=== PATIENT | female | born 1970 | race Caucasian/White ===

== ENCOUNTER 2023-03-21 13:03 | Outpatient (OUT) | payer BC, SELFPAY ==
--- NOTE | 2023-03-21 | XR_ITS ---
[facility] [place] [id number] Patient Name: SRINI ROMAN MRN: [id number] date: 1970 Sex: F Assigned Patient Location: [facility] Current Patient Location: [facility] Accession/Order Number: [id number] Exam Date: 03/21/2023 13:34 Report Date: 03/21/2023 14:04 At the request of: THU DOVER Procedure: XR ankle MACARIO min 3V EXAMINATION: XR ankle MACARIO min 3V HISTORY: BILATERAL ANKLE PAIN COMPARISON: No relevant comparison available. FINDINGS: RIGHT FINDINGS: BONES: No significant arthropathy or acute abnormality. Normal appearance and uniform spacing of the ankle mortise. Calcaneal plantar spur. SOFT TISSUES: No visible soft tissue swelling. OTHER: Negative. LEFT FINDINGS: BONES: Small corticated ossification dorsal to the talonavicular joint, likely sequela of remote injury. No acute fracture, dislocation, bone lesion. Normal appearance and uniform spacing of the ankle mortise. Calcaneal plantar spur. SOFT TISSUES: No visible soft tissue swelling. OTHER: Negative. XR/XR ankle MACARIO min 3V IMPRESSION: RIGHT CONCLUSION: Normal appearance of the ankle joint. LEFT CONCLUSION: Normal appearance of the ankle joint. Suspect sequela of remote injury resulting in small focus of heterotopic bone formation dorsal to the talonavicular joint. Electronically authenticated by: APOLONIA HENSON Date: 03/21/2023 14:04
== END 2023-03-21 13:04 | disposition home or self-care (01) ==
LOC: RAD 13:04
PROVIDERS: PCP Family Medicine; Visit Provider Physician Assistant
DX: M25.572 Pain in left ankle and joints of left foot (principal); M25.571 Pain in right ankle and joints of right foot
CPT/HCPCS: 73610

== ENCOUNTER 2023-03-22 06:47 | Outpatient (OUT) | payer BC, SELFPAY ==
[2023-03-22 07:11] LABS: Basophils Absolute Auto 0.1 10^3/uL (0.0-0.1); Basophils Percent Auto 0.9 % (0.2-2.0); Eosinophils Absolute Auto 0.2 10^3/uL (0.0-0.7); Eosinophils Percent Auto 2.5 % (0.9-7.0); Hematocrit 43.7 % (36.0-48.0); Hemoglobin 14.6 g/dL (12.0-16.0); Immature Granulocytes Abs Auto 0.03 10^3/uL (0.00-0.03); Immature Granulocytes Pct Auto 0.4 % (0.0-0.5); Lymphocytes Percent Auto 26.4 % (20.5-60.0); Mean Corpuscular HGB Conc 33.4 g/dL (29.9-35.2); Mean Corpuscular Hemoglobin 31.3 pg (26.7-34.0); Mean Corpuscular Volume 93.6 fL (81.0-99.0); Mean Platelet Volume 8.9 fL (9.5-13.5); Monocytes Absolute Auto 0.8 10^3/uL (0.3-0.8); Neutrophils Absolute Auto 4.6 10^3/uL (1.4-6.5); Neutrophils Percent Auto 59.8 % (43.0-75.0); Platelet Count 262 10^3/uL (150-450); Red Blood Count 4.67 10^6/uL (4.20-5.40); Red Cell Distribution Width 12.2 % (11.0-15.0); White Blood Count 7.7 10^3/uL (4.0-11.0)
[2023-03-22 09:08] LABS: Free T4 0.95 ng/dL (0.76-1.46)
[2023-03-22 09:14] LABS: Alanine Aminotransferase 37 U/L (14-59); Albumin Globulin Ratio 0.9; Albumin Level 3.3 g/dL (3.4-5.0); Alkaline Phosphatase 56 U/L (46-116); Anion Gap 9.9; Aspartate Amino Transferase 17 U/L (15-37); BUN Creatinine Ratio 11.2; Bilirubin Total 0.3 mg/dL (0.2-1.0); Calcium 8.5 mg/dL (8.5-10.1); Carbon Dioxide 28.5 mmol/L (21.0-32.0); Chloride 103 mmol/L (98-107); Chol HDL Ratio 3.6; Cholesterol 194 mg/dL (<=200); Estimated GFR (African America >60 (>=60); Estimated GFR (Non-African Ame >60 (>=60); Globulin 3.6 g/dL; Glucose 99 mg/dL (74-106); HDL Cholesterol 54 mg/dL (40-60); LDL Cholesterol Calculated 119.2 mg/dL; Potassium 4.4 mmol/L (3.5-5.1); Sodium 137 mmol/L (136-145); Thyroid Stimulating Hormone 6.184 uIU/mL (0.358-3.740); Total Protein 6.9 g/dL (6.4-8.2); Triglycerides 104 mg/dL (<=150); VLDL CHOLESTEROL 20.8 mg/dL
== END 2023-03-22 06:48 | disposition home or self-care (01) ==
LOC: LAB 06:48
PROVIDERS: PCP Family Medicine; Visit Provider Family Medicine
DX: Z00.00 Encounter for general adult medical examination without abnormal findings (principal); E03.9 Hypothyroidism, unspecified
CPT/HCPCS: 36415; 80053; 80061; 84439; 84443; 85025

== ENCOUNTER 2023-04-08 21:01 | Outpatient (REF) | payer BC, SELFPAY ==
[2023-04-11 16:10] LABS: Age Gdln ACOG Testing Note (.); HPV Aptima Negative (Negative); IGP, Aptima HPV, rfx 16/18,45 Note (.)
== END 2023-04-08 21:02 | disposition home or self-care (01) ==
LOC: LAB 21:01
PROVIDERS: PCP Physician Assistant; Visit Provider Obstetrics & Gynecology
DX: Z12.4 Encounter for screening for malignant neoplasm of cervix (principal)
CPT/HCPCS: 87624; G0145

== ENCOUNTER 2023-04-10 10:21 | Outpatient (OUT) | payer BC, SELFPAY ==
--- NOTE | 2023-04-10 10:22 | VEIN_ITS ---
Patient: SRINI ROMAN Exam Date: 04/10/2023 : 1970 Gender:F Ordering : DR KAUR ESPARZA M.D. Admission #: [id number] Family : Order #: [id number] CLICK HERE TO VIEW EXAM RADIOLOGY REPORT PROCEDURE: [facility] FACILITY EST COMPREHENSIVE VEIN CENTER - OFFICE VISIT INITIAL COMPARISON: None. PROGRESS NOTES: [age] year old female who presents with a 20 year history of left leg swelling, pain, burning, stinging, with new onset of symptoms on right side. The patient's left leg symptoms are worse than the right. There has been a progression of symptoms with time. This increases with prolonged leg dependency. The patient describes an improvement with rest, elevation, exercise, compression stockings, and medication. The patient denies any signs and symptoms to suggest arterial ischemia. The patient describes a family history diabetes mellitus type 2. The patient has drinking and smoking history of no alcohol consumption or tobacco use. Patient has a past medical history significant for hysterectomy, cholecystectomy. The patient denies a history of deep venous thrombus or pulmonary embolus. See separate history and physical for medication list. No prior treatment for varicose or spider veins. Long-term use of compression stockings. After review of nurse notes, history and physical exam I discussed at length the pathophysiology of venous hypertension and possible treatments, therapies and strategies available. We discussed at length the importance of elevating the lower extremities above the level of the heart, increased physical activity and compression stocking use. Ultrasound venous reflux study performed today was discussed at length with the patient. The report demonstrates abnormally dilated and incompetent right great saphenous and small saphenous veins along with multiple incompetent varicosities. Abnormally dilated incompetent left great saphenous vein and branch saphenous varicosities. PHYSICAL EXAM: The right leg demonstrates a few varicosities, a few small spider veins, no ulceration, mild-moderate edema, no skin discoloration. The left leg demonstrates a few varicosities, a few small spider veins, no ulceration, mild-moderate edema, no skin discoloration. Both thighs, legs and feet were symmetrically warm to the touch. Good posterior tibial and dorsalis pedis pulses were present bilaterally. VEIN/VC Facility EST Comprehensive IMPRESSION: 1. Bilateral lower extremity venous insufficiency 2. Bilateral lower extremity varicose veins 3. Mild-moderate bilateral lower extremity subcutaneous edema 4. No flow significant arterial disease 5. CEAP: C3, AP, , MI PLAN: 1. Continued use of compression stockings 2. Elevated legs and increased physical activity symptomatic relief 3. Endovenous laser ablation of right great saphenous vein, left great saphenous vein, right small saphenous vein. 4. Microfoam chemical ablation of bilateral incompetent branch saphenous varicosities. 5. Sclerotherapy as needed. Nurse notes, history and physical were reviewed and confirmed, see attached forms. The nurse was present throughout the physical exam and consultation Dictated by: Gurdeep Avendaño M.D. on 04/10/2023 at 14:29 Approved by: Gurdeep Avendaño M.D. on 04/10/2023 at 14:35
--- NOTE | 2023-04-10 10:22 | VEIN_ITS ---
Patient: SRINI ROMAN Exam Date: 04/10/2023 : 1970 Gender:F Ordering : DR KAUR ESPARZA M.D. Admission #: [id number] Family : Order #: [id number] CLICK HERE TO VIEW EXAM RADIOLOGY REPORT PROCEDURE: VC EXT VENOUS REFLUX MACARIO LMTD COMPARISON: None. INDICATIONS: Pain due to varicose veins of bilateral legs I83.813 TECHNIQUE: Duplex imaging of the lower extremity to assess the deep and superficial venous system for the presence of deep or superficial venous incompetence and to document the location and severity of disease. The study includes evaluation of the great saphenous vein (GSV), anterior accessory saphenous vein (AASV) and small saphenous vein (SSV). Patient scanned in reverse Trendelenburg and standing. FINDINGS: RIGHT LOWER EXTREMITY: Saphenofemoral Junction Reflux: Yes 8.6mm 0.9 sec GSV: Diam (mm) Reflux/ Time (sec) Proximal Thigh 9.0 Yes 0.8 Mid Thigh 4.6 Yes 4.1 Distal Thigh 6.4 Yes 2.9 Prox Calf 3.8 Yes 0.3 Mid Calf 3.0 Yes 0.3 Saphenopopliteal Junction Reflux: 5.8mm Yes 2.2 SSV: Proximal Calf 6.0 Yes 1.6 Mid Calf 3.6 Yes 0.4 AASV: Proximal Thigh 5.5 Yes 1.0 Mid Thigh 2.6 Yes 0.5 Distal Thigh Thrombi: No acute or chronic thrombus. Compressibility: Normal. Flow: Minimal deep venous reflux. Preforator: Mid medial lower leg 3.2 mm with 4.5s reflux. Proximal posterior calf into gastroc 4.4 mm with 0.4s reflux. Medial knee 3.0 mm with 1.4s reflux. Tech Note: Incompetent varicose vein proximal medial calf measures 4.1 mm with 0.9s reflux. Medial knee varicose vein measures 4.0 mm with 3.7s reflux. LEFT LOWER EXTREMITY: Saphenofemoral Junction Reflux: Yes 8.0 mm 0.6 sec GSV: Diam (mm) Reflux/Time (sec) Proximal Thigh 9.8 Yes 0.8 Mid Thigh 5.0 Yes 0.7 Distal Thigh 5.7 Yes 0.8 Prox Calf 4.6 Yes 4.6 Mid Calf 3.2 Yes 4.8 Saphenopopliteal Junction Relux: 2.5 mm Yes 0.2 SSV: Proximal Calf 4.1 Yes 0.2 Mid Calf 3.8 Yes 0.2 AASV: Proximal Thigh 6.0 No Mid Thigh 3.3 Yes 0.3 Distal Thigh Thrombi: No acute or chronic thrombus. Compressibility: Normal. Flow: Minimal deep venous reflux. Translator/Interpreter: Proximal posterior calf into gastroc 2.8 mm with 0.5s reflux. Tech Note: Thigh extention of left SSV. Incompetent varicose vein mid posterior calf measures 4.0 mm with 0.2s reflux. Mid medial calf varicose vein measures 2.0 mm with 0.3s reflux. CONCLUSION: 1. Abnormally dilated and incompetent bilateral great saphenous veins and right small saphenous vein. 2. Consultation for endovenous ablation should be considered. Dictated by: Gurdeep Avendaño M.D. on 04/10/2023 at 11:36 Approved by: Gurdeep Avendaño M.D. on 04/10/2023 at 14:29
== END 2023-04-10 10:22 | disposition home or self-care (01) ==
LOC: VC 10:21
PROVIDERS: PCP Physician Assistant; Visit Provider Radiology Diagnostic Radiology
DX: R60.0 Localized edema (principal); I83.813 Varicose veins of bilateral lower extremities with pain
CPT/HCPCS: 93970; G0463

== ENCOUNTER 2023-06-04 13:54 | Outpatient (OUT) | payer BC, SELFPAY ==
--- NOTE | 2023-06-04 13:56 | VEIN_ITS ---
[address] [address] Patient Name: ZANDRA ROMAN MRN: [id number] date: 1970 Sex: F Assigned Patient Location: Current Patient Location: Accession/Order Number: [id number] Exam Date: 06/04/2023 14:35 Report Date: 06/04/2023 16:23 At the request of: KAUR ESPARZA Procedure: VC Endovenous Ablation 1VeinRT EXAMINATION: VC Endovenous Ablation 1VeinRT HISTORY: Pain due to varicose veins of bilateral legs I83.813 The risks and benefits of the procedure had been previously discussed, and were rediscussed at length. Informed written consent was obtained. Valeria Galindo RN and Maria Ines Myers RDMS, RVT assisted. Time out procedure was performed. The right lower extremity was prepared and draped in the usual sterile fashion to allow knee flexion in the sterile field. Duplex ultrasound probe was draped in a sterile cover, sterile transmission gel was used. Venous mapping was performed with the areas of dilation and large tributaries marked. The total length was 33 cm from the entry proximal calf to 3 cm below the Saphenofemoral junction. The diameter of the right great saphenous vein ranged from 9.0 mm. A 30 gauge needle and 1% buffered lidocaine was used to anesthetize the entry site. A 4 mm incision was made with a scalpel and the saphenous vein was entered percutaneously under direct ultrasound guidance with a micropuncture set, a single stick was successful in gaining access. A micro-guide wire was inserted and the needle removed. A micro-set including a dilator was inserted over the microwire and the needle and dilator were removed. A guide wire was inserted through the micro-set and guided through the saphenous vein to the saphenofemoral junction. The dilator was removed and an introducer sheath was inserted over the wire until the end of the sheath entered the saphenofemoral junction. The dilator and wire were removed and the 600 micron fiber was introduced and placed and positioned so that it extended beyond the sheath and was 3 cm distal to the saphenofemoral or saphenopopliteal junction. Final position of the fiber was determined by ultrasound guidance and duplex imaging. Tumescent anesthetic was delivered by ultrasound guidance. 200 cc of fluid was delivered along the entire course of the saphenous vein. The solution consisted of 1000 cc of normal saline with 40 mL of 1% lidocaine and 20 mL of sodium bicarbonate. A final positioning check was made. The energy source was turned on by means of the foot pedal and the fiber and sheath were withdrawn. The total number of Joules delivered was 1785. The laser was active for 223 seconds under continuous pulse, average laser use of 8 J. Laser start time 3:11 PM, 06/04/2023. Laser stop time 3:16 PM, 06/04/2023. A duplex ultrasound revealed compressibility and flow at the saphenofemoral junction immediately after the procedure. Hemostasis at the access site was achieved. The skin incision of the saphenous vein was closed with a 4 x 4. A compression stocking was applied. Postop instructions were given. A follow up appointment was recommended and scheduled. The patient tolerated the procedure well. Electronically authenticated by: APOLONIA HESNON Date: 06/04/2023 16:23
[2023-06-04] MEDS: LIDOCAINE HCL 1% 100 MG/10 ML MDV INJ (15:38)
[2023-06-04] MEDS: 0.9 % SODIUM CHLORIDE 500 ML, LIDOCAINE HCL 20 ML, SODIUM BICARBONATE 10 MEQ INJ (15:39)
== END 2023-06-04 13:55 | disposition home or self-care (01) ==
LOC: VC 13:55
PROVIDERS: PCP Radiology Diagnostic Radiology; Visit Provider Radiology Diagnostic Radiology
DX: I83.813 Varicose veins of bilateral lower extremities with pain (principal)
CPT/HCPCS: 36478

== ENCOUNTER 2023-06-10 10:25 | Outpatient (OUT) | payer BC, SELFPAY ==
--- NOTE | 2023-06-10 10:27 | VEIN_ITS ---
Patient Name: ZANDRA ROMAN MR#: [id number] : 1970 Exam Date: 06/10/2023 Ordering Doctor: DR KAUR ESPARZA M.D. RADIOLOGY REPORT PROCEDURE: VC EXT VENOUS RT LMTD COMPARISON: None. INDICATIONS: Phlebitis of superficial vein of rt lower extremity I80.01 TECHNIQUE: Lower extremity navarro scale and Duplex Doppler evaluation of the deep venous system from the inguinal ligament through the calf veins. FINDINGS: REGION: Right lower extremity. THROMBI: Negative for DVT. Heat induced thrombus visualized 1.7cm from the SFJ. The heat induced thrombus extends from groin to proximal calf. COMPRESSIBILITY: Non-compressible segments corresponding to thrombus FLOW: Areas of no flow corresponding to thrombus OTHER: CONCLUSION: 1. Successful post ablation occlusion of right great saphenous vein. Dictated by: Gurdeep Avendaño M.D. on 06/10/2023 at 12:10 Approved by: Gurdeep Avendaño M.D. on 06/10/2023 at 12:11
--- NOTE | 2023-06-10 10:28 | VEIN_ITS ---
Patient Name: ZANDRA ROMAN MR#: [id number] : 1970 Exam Date: 06/10/2023 Ordering Doctor: DR KAUR ESPARZA M.D. RADIOLOGY REPORT PROCEDURE: FACILITY EST LMTD VEIN CENTER - OFFICE VISIT FOLLOW UP COMPARISON: None. PROGRESS NOTES: The patient reports improvement in leg symptoms. There has been interval reduction in varicosities. The patient has followed our recommendations to walk 20-30 minutes once or twice per day since the procedure. Physical exam demonstrates decrease in varicosities of the leg. No bruising, erythema, or evidence of infection. Review of the ultrasound performed the same day demonstrates occlusive thrombus extending throughout the treated vein(s), see separate report, consistent with a successful ablation. No thrombus extending into or beyond the saphenofemoral junction. The patient expressed a desire to proceed with treatment of remaining dilated and incompetent varicosities. The patient was informed that treatment was a process and would require several procedures/sessions. VEIN/ Facility EST TD IMPRESSION: 1. Successful ablation of the right great saphenous vein(s). 2. Persistent varicose veins and lower extremity symptoms. PLAN: 1. Endovenous laser ablation of left great saphenous vein. Nurse notes, history and physical were reviewed and confirmed, see attached forms. The nurse was present throughout the physical exam and consultation Dictated by: Gurdeep Avendaño M.D. on 06/10/2023 at 12:11 Approved by: Gurdeep Avendaño M.D. on 06/10/2023 at 12:12
== END 2023-06-10 10:26 | disposition home or self-care (01) ==
LOC: VC 10:25
PROVIDERS: PCP Radiology Diagnostic Radiology; Visit Provider Radiology Diagnostic Radiology
DX: I80.01 Phlebitis and thrombophlebitis of superficial vessels of right lower extremity (principal)
CPT/HCPCS: 93971; G0463

== ENCOUNTER 2023-06-25 12:41 | Outpatient (OUT) | payer BC, SELFPAY ==
--- NOTE | 2023-06-25 12:43 | VEIN_ITS ---
The [address] [address] Patient Name: ZANDRA ROMAN MRN: [id number] date: 1970 Sex: F Assigned Patient Location: Current Patient Location: Accession/Order Number: [id number] Exam Date: 06/25/2023 13:13 Report Date: 06/25/2023 14:55 At the request of: KAUR ESPARZA Procedure: VC Endovenous Ablation 1VeinLT EXAMINATION: VC Endovenous Ablation 1VeinLT HISTORY: Pain due to varicose veins of bilateral legs I83.813 The risks and benefits of the procedure had been previously discussed, and were rediscussed at length. Informed written consent was obtained. Valeria Galindo RN and Maria Ines Myers RDMS, RVT assisted. Time out procedure was performed. The left lower extremity was prepared and draped in the usual sterile fashion to allow knee flexion in the sterile field. Duplex ultrasound probe was draped in a sterile cover, sterile transmission gel was used. Venous mapping was performed with the areas of dilation and large tributaries marked. The total length was 46 cm from the entry mid and upper calf to 3 cm below the Saphenofemoral junction. The diameter of the left great saphenous vein ranged from 9.8 mm. A 30 gauge needle and 1% buffered lidocaine was used to anesthetize the entry site. A 4 mm incision was made with a scalpel and the saphenous vein was entered percutaneously under direct ultrasound guidance with a micropuncture set, a single stick was successful in gaining access. A micro-guide wire was inserted and the needle removed. A micro-set including a dilator was inserted over the microwire and the needle and dilator were removed. A guide wire was inserted through the micro-set and guided through the saphenous vein to the saphenofemoral junction. The dilator was removed and an introducer sheath was inserted over the wire until the end of the sheath entered the saphenofemoral junction. The dilator and wire were removed and the 600 micron fiber was introduced and placed and positioned so that it extended beyond the sheath and was 3 cm distal to the saphenofemoral or saphenopopliteal junction. Final position of the fiber was determined by ultrasound guidance and duplex imaging. Tumescent anesthetic was delivered by ultrasound guidance. 200 cc of fluid was delivered along the entire course of the saphenous vein. The solution consisted of 1000 cc of normal saline with 40 mL of 1% lidocaine and 20 mL of sodium bicarbonate. A final positioning check was made. The energy source was turned on by means of the foot pedal and the fiber and sheath were withdrawn. The total number of Joules delivered was 2393. The laser was active for 299 seconds under continuous pulse, average laser use of 8 J. Laser start time 1:28 PM, 06/25/2023. Laser stop time 1:33 PM, 06/25/2023. A duplex ultrasound revealed compressibility and flow at the saphenofemoral junction immediately after the procedure. Hemostasis at the access site was achieved. The skin incision of the saphenous vein was closed with a 4 x 4. A compression stocking was applied. Postop instructions were given. A follow up appointment was recommended and scheduled. The patient tolerated the procedure well. Electronically authenticated by: APOLONIA HENSON Date: 06/25/2023 14:55
[2023-06-25] MEDS: LIDOCAINE HCL 1% 100 MG/10 ML MDV INJ (13:23)
[2023-06-25] MEDS: 0.9 % SODIUM CHLORIDE 500 ML, LIDOCAINE HCL 20 ML, SODIUM BICARBONATE 10 MEQ INJ (13:24)
== END 2023-06-25 12:42 | disposition home or self-care (01) ==
LOC: VC 12:41
PROVIDERS: PCP Radiology Diagnostic Radiology; Visit Provider Radiology Diagnostic Radiology
DX: I83.813 Varicose veins of bilateral lower extremities with pain (principal)
CPT/HCPCS: 36478

== ENCOUNTER 2023-07-01 07:29 | Outpatient (OUT) | payer BC, SELFPAY ==
--- NOTE | 2023-07-01 07:32 | VEIN_ITS ---
Patient Name: ZANDRA ROMAN MR#: [id number] : 1970 Exam Date: 07/01/2023 Ordering Doctor: DR MENDOZA PEDRO M.D. RADIOLOGY REPORT PROCEDURE: VC EXT VENOUS LT LIMITED COMPARISON: None. INDICATIONS: Phlebitis of superficial veins of lt lower extremity I80.02 TECHNIQUE: Lower extremity navarro scale and Duplex Doppler evaluation of the deep venous system from the inguinal ligament through the calf veins. FINDINGS: REGION: Left lower extremity. THROMBI: Negative for DVT. Heat induced thrombus visualized 1.9 cm from SFJ. Heat induced thrombus visualized from groin to proximal calf. COMPRESSIBILITY: Non-compressible segments corresponding to thrombus FLOW: Areas of no flow corresponding to thrombus CONCLUSION: 1. Post ablation occlusion of the left great saphenous vein with heat induced thrombus 1.9 cm from the saphenofemoral junction Dictated by: Mendoza Pedro MD on 07/01/2023 at 07:49 Approved by: Mendoza Pedro MD on 07/01/2023 at 07:52
--- NOTE | 2023-07-01 07:33 | VEIN_ITS ---
Patient Name: ZANDRA ROMAN MR#: [id number] : 1970 Exam Date: 07/01/2023 Ordering Doctor: DR MENDOZA PEDRO M.D. RADIOLOGY REPORT PROCEDURE: [facility] EST LMTD VEIN CENTER - OFFICE VISIT FOLLOW UP [facility] PROGRESS NOTES: The patient reports some mild pain of the left medial thigh following intravenous laser ablation of the left great saphenous vein. The patient does report some bruising. The patient did not require analgesics. The patient has worn her compression stockings as directed. The patient has followed our recommendations to walk 20-30 minutes once or twice per day since the procedure. Physical exam demonstrates multiple areas of bruising with some moderate bruising measuring 20 x 10 cm along the left medial proximal to mid thigh. Thrombosed left great saphenous vein can be partially palpated. No erythema or warmth to suggest cellulitis or thrombophlebitis. No active ulceration. Review of the ultrasound performed the same day demonstrates occlusive thrombus extending throughout the treated left great saphenous vein with heat induced thrombus 1.9 cm from the saphenofemoral junction. The patient expressed a desire to proceed with treatment of incompetent right small saphenous vein intravenous laser ablation. VEIN/[facility] EST LMTD IMPRESSION: 1. Successful ablation of the left great saphenous vein 2. Persistent incompetent right small saphenous vein. PLAN: Intravenous laser ablation right small saphenous vein Nurse notes, history and physical were reviewed and confirmed, see attached forms. The nurse was present throughout the physical exam and consultation Dictated by: Mendoza Pedro MD on 07/01/2023 at 08:19 Approved by: Mendoza Pedro MD on 07/01/2023 at 08:21
== END 2023-07-01 07:30 | disposition home or self-care (01) ==
LOC: VC 07:29
PROVIDERS: PCP Radiology Diagnostic Radiology; Visit Provider Radiology Diagnostic Radiology
DX: I80.02 Phlebitis and thrombophlebitis of superficial vessels of left lower extremity (principal)
CPT/HCPCS: 93971; G0463

== ENCOUNTER 2023-07-09 13:25 | Outpatient (OUT) | payer BC, SELFPAY ==
--- NOTE | 2023-07-09 13:26 | VEIN_ITS ---
[address] [address] Patient Name: ZANDRA ROMAN MRN: [id number] date: 1970 Sex: F Assigned Patient Location: Current Patient Location: Accession/Order Number: [id number] Exam Date: 07/09/2023 13:30 Report Date: 07/09/2023 14:37 At the request of: KAUR ESPARZA Procedure: VC Endovenous Ablation 1VeinRT EXAMINATION: VC Endovenous Ablation 1VeinRT small saphenous vein HISTORY: I83.813 Bilateral painful varicose veins COMPARISON: No relevant comparison available. TECHNIQUE: The risks and benefits of the procedure had been previously discussed, and were rediscussed at length. Informed written consent was obtained. Nancy Myers and Valeria Awad assisted. Time out procedure was performed. The right lower extremity was prepared and draped in the usual sterile fashion to allow knee flexion in the sterile field. Duplex ultrasound probe was draped in a sterile cover, sterile transmission gel was used. Venous mapping was performed with the areas of dilation and large tributaries marked. The total length was 17 cm from the entry mid to distal calf 2 where the pain begins to dive deep to the saphenofemoral popliteal junction. The diameter of the small saphenous vein ranged from 5-6 mm. A 30 gauge needle and 1% buffered lidocaine was used to anesthetize the entry site. A 4 mm incision was made with a scalpel and the saphenous vein was entered percutaneously under direct ultrasound guidance with a micropuncture set, a single stick was successful in gaining access. A micro-guide wire was inserted and the needle removed. A micro-set including a dilator was inserted over the microwire and the needle and dilator were removed. A 0.018 guide wire was inserted through the micro-set and threaded through the saphenous vein to the saphenofemoral junction. The dilator was removed and an introducer sheath was inserted over the wire until the end of the sheath entered the saphenofemoral junction. The dilator and wire were removed and the 600 micron fiber was introduced and placed and positioned so that it extended beyond the sheath and was 3 cm peripheral to the saphenofemoral femoral junction. Final position of the fiber was determined by ultrasound guidance and duplex imaging. Tumescent anesthetic was delivered by ultrasound guidance. 100 cc of fluid was delivered along the entire course of the saphenous vein. The solution consisted of 1000 cc of normal saline with 40 mL of 1% lidocaine and 20 mL of sodium bicarbonate. A final positioning check was made. The energy source was turned on by means of the foot pedal and the fiber and sheath were withdrawn. The total number of Joules delivered was 790. The laser was active for 99 seconds under continuous pulse, average laser use of 8 J. Laser start time 1:57 pm 07/09/23 . Laser stop time 1:59 pm 07/09/23 . A duplex ultrasound revealed compressibility and flow at the saphenofemoral junction immediately after the procedure. Hemostasis at the access site was achieved. The skin incision of the saphenous vein was closed with a 4 x 4. A compression stocking was applied. Postop instructions were given. A follow up appointment was recommended and scheduled. The patient tolerated the procedure well and was discharged in good condition . VEIN/VC Endovenous Ablation 1VeinRT IMPRESSION: Technically successful endovenous laser ablation of right small saphenous vein Electronically authenticated by: KAUR ESPARZA Date: 07/09/2023 14:37
[2023-07-09] MEDS: LIDOCAINE HCL 1% 100 MG/10 ML MDV INJ (14:16)
[2023-07-09] MEDS: 0.9 % SODIUM CHLORIDE 500 ML, LIDOCAINE HCL 20 ML, SODIUM BICARBONATE 10 MEQ INJ (14:17)
== END 2023-07-09 13:26 | disposition home or self-care (01) ==
LOC: VC 13:25
PROVIDERS: PCP Radiology Diagnostic Radiology; Visit Provider Radiology Diagnostic Radiology
DX: I83.813 Varicose veins of bilateral lower extremities with pain (principal)
CPT/HCPCS: 36478

== ENCOUNTER 2023-07-17 07:52 | Outpatient (OUT) | payer BC, SELFPAY ==
--- NOTE | 2023-07-17 07:54 | VEIN_ITS ---
Patient Name: ZANDRA ROMAN MR#: [id number] : 1970 Exam Date: 07/17/2023 Ordering Doctor: DR KAUR ESPARZA M.D. RADIOLOGY REPORT PROCEDURE: VC EXT VENOUS RT LMTD COMPARISON: VC EXT VENOUS RT LMTD, 06/10/2023. INDICATIONS: Phlebitis of superficial veins of rt lower extremity I80.01 TECHNIQUE: Lower extremity navarro scale and Duplex Doppler evaluation of the deep venous system from the inguinal ligament through the calf veins. FINDINGS: REGION: Right lower extremity. THROMBI: Negative for DVT. Heat induced thrombus visualized 2.1cm from the SFJ. The heat induced thrombus extends from pop fossa to mid calf. COMPRESSIBILITY: Non-compressible segments corresponding to thrombus FLOW: Areas of no flow corresponding to thrombus OTHER: CONCLUSION: 1. Successful post ablation occlusion of right small saphenous vein. Dictated by: Gurdeep Avendaño M.D. on 07/17/2023 at 08:38 Approved by: Gurdeep Avednaño M.D. on 07/17/2023 at 08:38
--- NOTE | 2023-07-17 07:54 | VEIN_ITS ---
Patient Name: ZANDRA ROMAN MR#: [id number] : 1970 Exam Date: 07/17/2023 Ordering Doctor: DR KAUR ESPARZA M.D. RADIOLOGY REPORT PROCEDURE: [facility] - OFFICE VISIT FOLLOW UP COMPARISON: [facility], 07/01/2023. PROGRESS NOTES: The patient reports improvement in leg symptoms. There has been interval reduction in varicosities. The patient has followed our recommendations to walk 20-30 minutes once or twice per day since the procedure. Physical exam demonstrates decrease in varicosities of the leg. Persistent varicosities are identified along the legs bilaterally. Review of the ultrasound performed the same day demonstrates occlusive thrombus extending throughout the treated vein(s), see separate report, consistent with a successful ablation. No thrombus extending into or beyond the saphenofemoral junction. The patient expressed a desire to proceed with treatment of incompetent branch saphenous varicosities. The patient was informed that treatment was a process and would require 2-3 procedures/sessions. [facility]: 1. Successful ablation of the right small saphenous vein(s). 2. Persistent dilated superficial varicose veins and lower extremity symptoms. PLAN: 1. Follow-up evaluation in 3-6 weeks to determine residual incompetent branch saphenous varicosities versus decompression/resolution. If there are remaining dilated / incompetent varicosities than microfoam chemical ablation will be recommended. Nurse notes, history and physical were reviewed and confirmed, see attached forms. The nurse was present throughout the physical exam and consultation Dictated by: Gurdeep Avendaño M.D. on 07/17/2023 at 08:38 Approved by: Gurdeep Avendaño M.D. on 07/17/2023 at 08:43
== END 2023-07-17 07:53 | disposition home or self-care (01) ==
LOC: VC 07:52
PROVIDERS: PCP Family Medicine; Visit Provider Radiology Diagnostic Radiology
DX: I80.01 Phlebitis and thrombophlebitis of superficial vessels of right lower extremity (principal)
CPT/HCPCS: 93971; G0463

== ENCOUNTER 2023-07-23 08:49 | Outpatient (OUT) | payer BC, SELFPAY ==
--- NOTE | 2023-07-23 08:51 | MM_ITS ---
Patient Name: ZANDRA ROMAN MR#: [id number] : 1970 Exam Date: 07/23/2023 Ordering Doctor: DR Mary Jane Garcia M.D. RADIOLOGY REPORT PROCEDURE: MM TOMOSYNTHESIS SCREENING BI COMPARISON: [facility] SCREEN 3D [facility], 06/23/2021. [facility] SCREEN 3D [facility], 06/25/2022. INDICATIONS: screening Calculator Name NCI Breast Cancer Risk Assessment Tool 5 Year Breast Cancer Risk 1.60% Lifetime Breast Cancer Risk 12.80% Personal Breast Cancer No Personal Ovarian Cancer No Treatments None Family Cancers None LOCATION: [facility] BREAST COMPOSITION: Heterogeneously dense,which may obscure small masses. FINDINGS: DIAGNOSTIC CATEGORY 1--NEGATIVE. NO CHANGE FROM COMPARISON ASSESSMENT. Scattered benign-appearing lymph nodes are present. RIGHT BREAST: No significant suspicious finding. LEFT BREAST: No significant suspicious finding. RECOMMENDATIONS: ROUTINE MAMMOGRAM AND CLINICAL EVALUATION IN 12 MONTHS. PLEASE NOTE: A NORMAL MAMMOGRAM DOES NOT EXCLUDE THE POSSIBILITY OF BREAST CANCER. A CLINICALLY SUSPICIOUS PALPABLE LUMP SHOULD BE BIOPSIED. Dictated by: Mendoza Pedro MD on 07/23/2023 at 09:31 Approved by: Mendoza Pedro MD on 07/23/2023 at 09:34
--- OUTSIDE RECORDS SUMMARY | 2023-07-23 08:55 | XMS_ITS | CCD ---
Author Name Unknown Address [address] [facility] [address] [place] [address] Organization [facility] Care Team Providers Care Medical Appointment Scheduler Name Role Phone ROLAN, DR MARY JANE Pate Attending Unavailable GARCIA, DR MARY JANE Pate Consulting Unavailable GARCIA, DR MARY JANE Pate Primary Care Unavailable GARCIA, DR MARY JANE Pate Admitting Unavailable EMMA, DR CROSS Admitting Unavailable EMMA, DR CROSS Attending Unavailable WEST, DR KAUR Villalpando Consulting Unavailable GARCIA, DR MARY JANE Pate Primary Care Unavailable EMMA, DR CROSS Consulting Unavailable EMMA, DR CROSS Admitting Unavailable EMMA, DR CROSS Attending Unavailable EMMA, DR CROSS Consulting Unavailable GARCIA, DR MARY JANE Pate Primary Care Unavailable EMMA, DR CROSS Admitting Unavailable GARCIA, DR MARY JANE Pate Primary Care Unavailable EMMA, DR CROSS Attending Unavailable EMMA, DR CROSS Consulting Unavailable ZIEBER, DR APOLONIA Gonzalez Consulting Unavailable GARCIA, DR MARY JANE Pate Attending Unavailable GARCIA, DR MARY JANE Pate Consulting Unavailable GARCIA, DR MARY JANE Pate Primary Care Unavailable GARCIA, DR MARY JANE Pate Admitting Unavailable Garcia, Mary Jane Unavailable Allergies Allergy Classification Reported Allergen(s) Allergy Type Date of Onset Reaction(s) Facility (1 source) Adhesive bandage Drug allergy (disorder) 02-27-2016 [facility] Repository (3 sources) Latex Drug allergy 07-22-2019 Unknown [employer] Other Medications Current Medications Medication Drug Class(es) Dates Sig (Normalized) Sig (Original) amoxicillin 500 mg oral capsule (1 source) Penicillin-class Antibacterial Start: 07-26-2022 take 1 capsule by mouth every eight hours Amoxicillin 500 MG 1 capsule Orally every 8 hrs for 5 day(s) Jul, Active fluticasone propionate 0.05 mg/actuat metered dose nasal spray (1 source) Corticosteroid Start: 05-27-2018 take 1 spray(s) nasal route once daily Fluticasone Propionate 50 MCG/ACT 1 spray in each nostril Nasally Once a day for 21 days May, Active levothyroxine sodium 0.137 mg oral tablet (4 sources) l-Thyroxine take 1 tablet by mouth once daily in the morning Levothyroxine Sodium 137 MCG 1 tablet in the morning on an empty stomach Orally Once a day Active take 1 tablet by aimee th every twenty-four hours Synthroid 50 MCG 1 tablet Orally Once a day Active predniSONE 20 mg oral tablet (1 source) Start: 07-26-2022 take 2 tablets by mouth every twenty-four hours predniSONE 20 MG 2 tablets Orally Once a day for 5 days Jul, Active Problems Active Problems Problem Classification Problem Date Documented Date Episodic/Chronic Genitourinary symptoms and ill-defined conditions (1 source) Dysuria Episodic Immunizations and screening for infectious disease (1 source) Encounter for screening for human papillomavirus (HPV); Translations: [ENC SCREENING HUMAN PAPILLOMAVIRUS] Onset: 04-08-2022 Episodic Other connective tissue disease (1 source) Pain in right leg Episodic Other connective tissue disease (1 source) Pain in left leg Episodic Other screening for suspected conditions (not mental disorders or infectious disease) (13 sources) Encounter for screening mammogram for malignant neoplasm of breast; Translations: [Encounter for screening for osteoporosis] Onset: 04-04-2022 Episodic Other upper respiratory infections (1 source) Acute pharyngitis, unspecified Episodic Thyroid disorders (5 sources) Hypothyroidism; Translations: [Hypothyroidism, unspecified] Chronic Unclassified (3 sources) CONTACT W/AND (SUSP) EXPOS COVID-19; Translations: [CONTACT W/AND (SUSP) EXPOS COVID-19] Onset: 08-25-2021 Past or Other Problems Problem Classification Problem Date Documented Da te Episodic/Chronic Unclassified (1 source) CONTACT W/AND (SUSP) EXPOS COVID-19; Translations: [CONTACT W/AND (SUSP) EXPOS COVID-19] Onset: 08-23-2021 Unclassified (1 source) Postviral fatigue syndrome G93.31 Results Test Name Value Interpretation Reference Range Facility Urinalysis - DIPSTICKon 08-3 Appearance (U) cloudy [employer] Other Bilirubin Ql (U) Negative [employer] Other Color (U) yellow [employer] Other Glucose Ql (U) Negative [employer] Other Hemoglobin Ql (U) moderate [employer] Other Ketones Ql (U) Negative [employer] Other Leukocyte esterase Test strip Ql (U) moderate [employer] Other Nitrite Ql (U) Negative [employer] Other pH (U) 6.0 [pH] [employer] Other Protein Ql (U) Negative [employer] Other Specific gravity (U) [Rel density] 1.000 [employer] Other Urobilinogen (U) [Mass/Vol] normal [employer] Other Urinalysis - DIPSTICK [employer] Other MG MAMM SCREEN 3D MACARIO CADon 06-25-2022 MG MAMM SCREEN 3D MACARIO CAD Patient: SRINI ROMAN Exam Date: 06/25/2022 : 1970 Gender:F Ordering : DR TAY FULLER . Admission #: [id number] Family : Order #: [id number] CLICK HERE TO VIEW EXAM RADIOLOGY REPORT PROCEDURE: MAMMOGRAM SCREENING 3D BILATERAL CAD COMPARISON: MG MAMM SCREEN MACARIO W CAD, 06/22/2020. MG MAMM SCREEN 3D MACARIO CAD, 06/23/2021. INDICATIONS: Screening mammography Calculator Name NCI Breast Cancer Risk Assessment Tool 5 Year Breast Cancer Risk 1.50% Lifetime Breast Cancer Risk 13.00% Personal Breast Cancer No Personal Ovarian Cancer No Treatments None Family Cancers None LOCATION: [facility] BREAST COMPOSITION: Heterogeneously dense,which may obscure small masses. FINDINGS: DIAGNOSTIC CATEGORY 1--NEGATIVE. NO CHANGE FROM COMPARISON ASSESSMENT. Scattered benign-appearing calcifications are present. Scattered benign-appearing lymph nodes are present. RIGHT BREAST: No significant suspicious finding. LEFT BREAST: No significant suspicious finding. RECOMMENDATIONS: ROUTINE MAMMOGRAM AND CLINICAL EVALUATION IN 12 MONTHS. PLEASE NOTE: A NORMAL MAMMOGRAM DOES NOT EXCLUDE THE POSSIBILITY OF BREAST CANCER. A CLINICALLY SUSPICIOUS PALPABLE LUMP SHOULD BE BIOPSIED. Dictated by: Kaur Pedro MD on 06/25/2022 at 09:39 Approved by: Kaur Pedro MD on 06/25/2022 at 09:48 Normal [facility] PAP ACOG PANEL 2: 30 to 65on 04-11-2022 . . Normal [facility] Comment on above: Result Comment: Perf ormed at: WB Performed By: #### [id number] #### [facility] [address] [address] [address] Isis Shahid Age Gdln ACOG Testing 30-65 Normal [facility] Comment on above: Performed By: #### [id number] #### [facility] [address] [place] [address] Dr. Isis Shahid DIAGNOSIS: Comment Normal [facility] Comment on above: Result Comment: NEGA TIVE FOR INTRAEPITHELIAL LESION OR MALIGNANCY. Performed at: WB Performed By: #### [id number] #### [facility] [address] [address] [address] Isis Shahid HPV Aptima Negative Normal Negative [facility] Comment on above: Result Comment: This nucleic acid amplification test detects fourteen high-risk HPV types (16,18,31,33,35,39,45,51,52,56,58,59,66,68) without differentiation. Performed at: =G Performed By: #### [id number] #### [facility] [address] [address] [address] Isis Shahid Methodology: Comment [facility] Comment on above: Result Comment: This liquid based ThinPrep(R) pap test was screened with the use of an image guided system. Performed at: WB Performed By: #### [id number] #### [facility] [address] [place] [address] Dr. Isis Shahid Note: Comment Normal [facility] Comment on above: Result Comment: The Pap smear is a screening test designed to aid in the detection of premalignant and malignant conditions of the uterine cervix. It is not a diagnostic procedure and should not be used as the sole means of detecting cervical cancer. Both false-positive and false-negative reports do occur. . Performed at: WB Performed By: #### [id number] #### [facility] [address] [place] [address] Dr. Isis Shahid Performed by: Comment Normal [facility] Comment on above: Result Comment: Nikia Pedro, Cafeteria Worker (ASCP) Performed at: WB Performed By: #### [id number] #### [facility] [address] [place] [address] Dr. Isis Shahid Specimen adequacy: Comment Normal [facility] Comment on above: Result Comment: Sati sfactory for evaluation. Endocervical and/or squamous metaplastic cells (endocervical component) are present. Performed at: WB Performed By: #### [id number] #### [facility] [address] [place] [address] Dr. Isis Shahid FREE T4on 04-10-2022 Free T4 [Mass/Vol] 1.21 ng/dL Normal 0.76-1.46 [facility] Comment on above: Performed By: #### F T4 #### [facility] [address] [place] [address] Dr. Isis Shahid LIPID PROFILEon 04-10-2022 CHOL-HDL RATIO NORM SEE BELOW [facility] Comment on above: Result Comment: 3.3 - 4.4 LOW RISK 4.4 - 7.1 AVERAGE RISK 7.1 - 11.0 MODERATE RISK >11.0 HIGH RISK Performed By: #### T SH, LIPID, BMP #### [facility] [address] [place] [address] Dr. Isis Shahid Cholesterol [Mass/Vol] 209 mg/dL Critically high <=200 [facility] Comment on above: Performed By: #### T SH, LIPID, BMP #### [facility] [address] [place] [address] Dr. Isis Shahid Cholesterol in HDL [Mass/Vol] 62 mg/dL Critically high 40-60 [facility] Comment on above: Performed By: #### T SH, LIPID, BMP #### [facility] [address] [address] [address] Isis Shahid Cholesterol in LDL [Mass/Vol] 126.0 mg/dL Normal [facility] Comment on above: Performed By: #### T SH, LIPID, BMP #### [facility] [address] [address] [address] Isis Shahid Cholesterol.total/ Cholesterol in HDL [Mass ratio] 3.4 {ratio} Normal [facility] Comment on above: Performed By: #### T LURDES, LIPID, BMP #### [facility] [address] [address] [address] Isis Shahid HDL NORMAL > or = 60 mg/dl - LO W CARDIOVASCULAR RISK <40 mg/dl - HIGH CARDIOVASCULAR RISK Normal [facility] Comment on above: Performed By: #### T LURDES, LIPID, BMP #### [facility] [address] [place] [address] Dr. Isis Shahid LDL CALC NORMAL SEE BELOW Normal [facility] Comment on above: Result Comment: <100 mg/dl OPTIMAL 100 - 129 mg/dl NEAR OR ABOVE OPTIMAL 130 - 159 mg/dl BORDERLINE HIGH 160 - 189 mg/dl HIGH >190 mg/dl VERY HIGH Performed By: #### T LURDES, LIPID, BMP #### [facility] [address] [place] [address] Dr. Isis Shahid Triglyceride [Mass/Vol] 105 mg/dL Normal <=150 [facility] Comment on above: Performed By: #### T LURDES, LIPID, BMP #### [facility] [address] [place] [address] Dr. Isis Shahid VLDL CALC 21.0 mg/dL Normal [facility] Comment on above: Performed By: #### T LURDES, LIPID, BMP #### [facility] [address] [place] [address] Dr. Isis Shahid PROF CHEM 8 (BAS METB)on Anion gap [Moles/Vol] 12.9 mmol/L Normal [facility] Comment on above: Performed By: #### T LURDES, LIPID, BMP #### [facility] [address] [address] [address] Isis Shahid Calcium [Mass/Vol] 8.7 mg/dL Normal 8.5-10.1 [facility] Comment on above: Performed By: #### T SH, LIPID, BMP #### [facility] [address] [address] [address] Isis Shahid Chloride [Moles/Vol] 106 mmol/L Normal 98-107 [facility] Comment on above: Performed By: #### T SH, LIPID, BMP #### [facility] [address] [address] [address] Isis Shahid CO2 [Moles/Vol] 24.5 mmol/L Normal 21.0-32.0 [facility] Comment on above: Performed By: #### T SH, LIPID, BMP #### [facility] [address] [place] [address] Dr. Isis Shahid Creatinine [Mass/Vol] 0.67 mg/dL Normal 0.55-1.02 [facility] Comment on above: Performed By: #### T SH, LIPID, BMP #### [facility] [address] [address] [address] Isis Shahid EGFR-AF ALBANIAN >60 Normal >=60 [facility] Comment on above: Performed By: #### T SH, LIPID, BMP #### [facility] [address] [place] [address] Dr. Isis Shahid EGFR-NON AF ALBANIAN >60 Normal >=60 [facility] Comment on above: Performed By: #### T SH, LIPID, BMP #### [facility] [address] [place] [address] Dr. Isis Shahid Glucose [Mass/Vol] 94 mg/dL Normal 74-106 [facility] Comment on above: Performed By: #### T SH, LIPID, BMP #### [facility] [address] [place] [address] Dr. Isis Shahid Potassium [Moles/Vol] 4.4 mmol/L Normal 3.5-5.1 [facility] Comment on above: Performed By: #### T SH, LIPID, BMP #### [facility] [address] [address] [address] Isis Shahid Sodium [Moles/Vol] 139 mmol/L Normal 136-145 [facility] Comment on above: Performed By: #### T SH, LIPID, BMP #### [facility] [address] [address] [address] Isis Shahid Urea nitrogen [Mass/Vol] 4.0 mg/dL Critically low 7.0-18.0 [facility] Comment on above: Performed By: #### T SH, LIPID, BMP #### [facility] [address] [address] [address] Isis Shahid Urea nitrogen/Creatinin e [Mass ratio] 6.0 mg/mg Normal [facility] Comment on above: Performed By: #### T SH, LIPID, BMP #### [facility] [address] [address] [address] Isis Shahid TSHon 04-10-2022 TSH 0.335 uIU/mL Critically low 0.358-3.740 [facility] Comment on above: Performed By: #### T SH, LIPID, BMP #### [facility] [address] [place] [address] Dr. Isis Shahid XR DEXA BONE DENSITYon 04-10 XR DEXA BONE DENSITY EXAMINATION: XR DEXA BONE DENSITY, 04/10/2022 9:48 AM EDT HISTORY: Gynecologic examination COMPARISON: None. TECHNIQUE: Dual-energy X-ray absorptiometry (DEXA) bone density study performed for the axial skeleton. FINDINGS: SPINE ANALYSIS: Average bone mineral density is 1.348 g/cm2. T-score (standard deviation relative to young adult mean): 1.4 . HIP ANALYSIS: Lowest bone mineral density is within the right femoral neck, 1.135 g/cm2. T-score (standard deviation relative to young adult mean): 0.7 . IMPRESSION: [employer] Classification: Normal - Low Fracture Risk Electronically authenticated by: APOLONIA HENSON Date: 2022-04-10 10:30 Normal [facility] PT - Assessmentson PT - Assessments [id number]#1 .00CD:127 [facility] PT - Assessments [id number]#1 .00CD:127 [facility] PT - Otheron 01-10-2022 PT - Other [id number]#1 .00CD:127 [facility] PT - Assessmentson PT - Assessments [id number]# 1.00CD:127 [facility] PT - Otheron 12-04-2021 PT - Other [id number]# 1.00CD:127 [facility] Coding Summary.on 11-30-2021 Coding Summary. CD:[id number] G h0bWw+PGhlYWQ+FR7JCSG dA27pxBKxoK6MS5xOAD6R HDIYHESFAT3TGR6pnZA0V HfkY1PnnkAr ZumtqTCnNQ63YXd0WHX6b HgkGPkssV0egQYcR8n6Rh RtYQ05bJ66KTrwCQRnEyG 3LjZpbjsgbWFy P8mrPaAknDGkNvg+PHRhY mxlIHdpZHRoPScxMDAlJy SizCnlST8kPb4fZJLqKBP vbGxhcHNlOiBj h1swJVEsSBeuZF4aiYwbV 8QbeGG4ZGFux6e0Pj94lN I+OXGsLFZ3qBzfHAvbn94 9UeIbf6kcXSK7 vLXyNExhPZU8R39hx1Z0V HRpPTKzCZC0eQF8rE6dkM kjmoulH5CceMQaAeI4ZRT 6iUIfmM1yhMpw lwcjtQ6zYia+Q24ADE8GZ VRAQQ9BYxn7S1WqJkhpnX I+GH41RWAoQO16rFHonSB vt8xwvBo1BmTs UVTiHOS6eZrjVKjgb6DsR CXnG01wmEJjj1Q7CAHxwU zzxNLkLjOacZB6gO8gATp ueckda5jaofdd Nzjwy7vfnd95nH00D12oF SzuYQBaMYU1VKPeDIKdoN doxr4tzT0jVy4+KQtvp9v ov6uapXg4OdNz ELHfnvLijKehACH8h8NcK s86O5TjxObru7WrOxo4on 55zSZyj6R2xGM3GZapVSP ctY7oADonHaK6 JGTfIdGvfF39mGIuHHlhD z0euCkzePxmCX7iIMPvzp daIFBevZ7dOXKceTAipYv lLD1yATCbnbgu i384EcNwEBM5LWDzxNLiR 0UgyY5yYpTjCQLgEPNwC9 UneZCvVItxR939QUpiMaX 4CJGtomQvK4Ik LKJgdHfrLwC6c6Y3Cq2Ji 8CvvjlsISD1TRicGUV8Sq ChFmNlZrF2N8JvAdq5PMG wgJyjQL6wI7Mu EORnxnsxrmwxeNM9QYVqG MZmzS35cIEyOEixIw1br7 O9t892HEHtYWVpzO61My6 udDogMTBwdCBU aI6ydugji1pvmqliQuYxR ANkFNn6TUm6QRJwmKguJl UqPWD8TjQ4ITQ8cFPalW1 jgZplbqnxpZ8k Oyc+I71pcQ5oKKR6EXG3c wxaJACaflSvFC83FU22K3 RyPjwvdGFibGU+PGRpdiB xlGamUQ6gBzLg k0ygm0GgASrjO7AcRWIdZ DjlXee8IFNjZWN4lUJ1rJ 1cSDZpGMslo9P7uCS0S3D svqIzwt0zw4mm LBEeCKoyB60wmQMsi4X6E EHgqXM0QTAzuHryWdStsL 93Oyc+JJRqxHkpw1CfXqb cv3gif1zpoDo7 KuVrHYWiizLhxPouYLR7e 3ZfZi86N14rNJolQYDeEC IjSTAhNOYsiWjlsx1sbI4 wIi8+PGNvbCB3 zMO4mS0iOOVoVaL3RWnfO 621NpMdxGXySrnqx9gqd7 fmyZo7UzEoAJYhkkVqdCj lKFW2t4UwFx67 K23fZFmtCWXmVEQgKQQkS ERivTdzvj3vhW3bKc8+PC 8vf1nmbf65bJ24wAS+PHR xVCP6fCewJCdh CODukP1eBCxdKuS4WAFvX dSewK00kQWoMAxtRw5ywC knzNjfJV6oEHEjacerr29 1ArUqc4ibYMOg sMXgQQrbNHE6S37jf3P8D VAdTCOmCBX6xSK9jF3phO lnbjogbGVmdDsgdmVydGl vCLhxWTziL315 IHRvcDsnPlBhdGllbnQgT rQpNJh7E9LmPow6KMRcaR scOZ3ycHTwPZmtZt3uzLi thSqcDV7zUTKk ondox694AqJhk6inPJGaj PPrAJreQUW7X77ch0Q1OU EjJMAsAZJ0sMX7aO6lcXg nbjogbGVmdDsg zeFyyKveRFxoNPgeS847J HRvcDsnPkJpcnRoIERhdG G3HB49CA22kVIfb0C3vIN 8A5WqRKPuudyp wdgfmOG4JGEzXUTknV72E z2qkZihUl5pSXOvGQT7RB DwuHGlV7TntJ5mUdCpISL vBSIvJ8GwsNJo WLigL960VKbfZdK0INGop mEaF1ZjXQGctRcyFhB9x1 E7Fh1AI0J6AY89MF88mLD sb4X2iPU6W1Dy VSIofvyuddthhBW0GEPiK BRcmE92Eq7pnFweTk4gNA GtOMH8UPJgvVPfC8WtwL2 yOiAjMDAwMDAw M1LpxOOvYDzwC859YAxhR nK7UWIwtxHwH3HtQAUnpW ljFvW7k7L3Vd7FTZt5WU4 4NR02pLUsf4N6 cAR7V6XkCMRwxlbqdsusx CP9JMRdLYUgfA96Sg3vtI baSv4aWFAzYDE7PPNwxLK jQ6MrvT6vKuNy VBWqJHTvD6EitSEqJQdmH 754XUyuQjH1ZRFokkFkR4 TyPFFidJjiEqU7w1A5Cn2 UPKLcQF80LKK8 vUB9HM00XL28Y4MhRuwlx GFibGU+PHRhYmxlIHdpZH RoPScxMDAlJyBzdHlsZT0 uKa0rYKDkMAZf uJyvnFVdQmNsm2rpMISpB LpyLX1jmHsyU1HvfCM4JM Ccx1z6Jk49S82sP0InsRY +VPUgbGR9mAN6 jS5cXnMfGmK3WPcsO254G xTsoTWbQjovz5npv4tnrF q9VrY2VCJppwGgaXlfIOG 2m4KoTi19W03n IHdpZHRoPSIxNSUiIHZhb Csrkd4mcB7hGc3+PGNvbC R3wBQ8kW9iQxKkOcQ5WOj hV615RjDnaNHd Keuhu4aha3artEo5CrLzF JJwwqNklMezWGC2q0GsEu 71K2UdsXetp1JcKdp2xu1 5vFCwp8U5lGF5 O0EdHWXbxhppuSKnjUyfG E1rCXAdmsbsVDXfuV5qJT QzL2d8SjZqUrV1XHpzA5Z dwmB0BANjvOXi JXqfEZT6K25ou1M9PRJbQ ARfRMN6hCG8dB6joLbpqn ogbGVmdDsgdmVydGljYWw oAMgsL303XUMv mXmuZRLnsG1gCCUziJQhz KyyOC0aFAGoinorVcnGG6 iOZdDhVBwAJXVOGK06EJ3 8uUWzv2C3dQJ2 V2TeKJQwklqwibqatWF2N HXiNFQurH76wREgVJqvRt 8ok7D2b235YVQnKTNooC2 9Nc9ewRzvHBTi vIPPyQ0ixjwyb1wclsarF kNxASUjGMg0UOe9VUAgrA loQjBaBFY5JeF5XMM3tVH kwH0aqEwavwmu uY6dMuc+AQIcCMGcWWv2E TwvdGQ+NZEcMAE0yNcrCX xsXERloB5vQHStW5t9IvQ mUlK8JUjcI9Fp RUYsbhieZk80lS7aPkJwC gG6PSrjI8VqqrA1DHZjxS OnMAxaSAY4F74rb7F9YDA hLYLsHSS4wIN5 mX2reDcazfhgpYXdiIjpy lXqpSzxXSedENgyY792OB RvcDsnPjUwIFllYXJzPC9 3HB45pEEbz9M0 kOO2W8NyUHCnglzfbdhwi FD7GYByMEVbxW13jFTgDU pvPq5ig0X2l193IKOmCOB pvZ31Ss3fpYrl LSCbwHZNiI2jddkqq7vlw polIyWbFHMkDVw8MLr3YH IaqUlwOgEbWSM3JuW9SBG 3fYTlvW1ccSqk pfebfM2pFuw+RmVtYWxlP Z63ZI97cIYnd9B1jDC3Y5 BvIELydtkjypoxxMB0UAS hUUUbhO45hBVw DEvzWk3jq9S5h729ULMlH TJolV85Tb3tbIjxQRYhqK EDiE9mlromd9vpuomtBuE zVGUcDLo0VBb7 NIIbdSbwYpQeZTF5SdF0Q BF1jIKzvT6xdZhcucypfH 9wOyc+PkOaaWErgJ7rVJ9 9CQ89Y6PmEbkt dGFibGU+PHRhYmxlIHdpZ HRoPScxMDAlJyBzdHlsZT 6bKh9sOBZzZKDkbTzlgWN lOaHbe1avKPZn RSveJO2axIjaL9RnbLI8X TGrk7k0Zl41H99rT4KoyB A+VXCwkNA6gZH6sG4nEzW bLhW3HBobA924 XbIlaWJuJbpty2xjf7upl Qn9PuLkLWQvivOwaVdoOA D7m2GqVc53P69aAOchKND oPSIyMCUiIHZh kAkaim8dvY2dKk5+PGNvb LA8uLZ7tY8tIbVuXvE8GT ibC387CxCjjVKwMpocA94 bG9IwuBI+PHRy Upe5RFBniBhzFL1ljWGwZ LryDd1lOCO3QdPuVuZsZI fcF8BjMVIdazjbreornTZ 4ZETkRMMgfK02 Gs3bmGevDv5wHCQaLZM2J RDzqNIwG9VbtA1bLvYwTD GlNKVxC7YmsJBaJKzkW07 3ZWdlZsR4GAMb iuPeB4MzHIUnoKsfXmY0v 5Q5Hm1TwSrrlLTjML7zDy MiAVo6R5OyRjq3RKFluAw eAO2gqYNkDXtr Fr7mfHxceQhdVW7xLQOly hhxk440QqNyu4izEGKwgF ViYGlsRNY7R30ez3V1FHZ wBOKlLFG6ySU6 qW3jqWqhtnznuLDwnHtqr qLerTnvYPdgKMraN417WE AcfLjvEuHLJeg6N8TyRbr 5BUExhWzqBX5v qIPvHJmmUt4ydCfbjPsyS R8kGBEyidptu457QsIky7 glYJLkpKPnKFbyUNT5D10 jv8I5YIVvDUYd SNP8iNL2wD6bpXbpdzvpa GVmdDsgdmVydGljYWwtYW pcV716BPMmjZdfVa6ICyh 6G5IaGrc0VYLr oMicDV7qtYNrJDdjAz2gm HgiqQjfBF0kENQigazxb6 41QkDxt0fiNSEixYUnXXj fCIV1P88na4N5 MVErKPNtLLL2gNO7yF1yx GlnbjogbGVmdDsgdmVydG chJVudBYicQ702JGXjyMo nPlBheWVyOjwv dGQ+BD54lz19A9TaYpfiP ed4NXJuYYM1pYX8eF9gIU BuYOmbg2K4cYY2Y8HghmS rzl2vw2mfITIf [employer] (more content not included)... Normal [facility] 11-29-2021 Consent [id number] #1.00CD:127 [facility] Notice of Noncoverageon 11-19 Notice of Noncoverage [id number] #1.00CD:127 [facility] PT - Assessmentson PT - Assessments [id number]# 1.00CD:127 [facility] PT - Consentson 11-29-2021 PT - Consents [id number]# 1.00CD:127 [facility] Nonvisit Note - PTon 022 Nonvisit Note - PT Chart reviewed with eval prepped for scheduled eval. KK [facility] Covid-19 PCR (CVDTB)on SARS-CoV-2 (COVID-19) RNA RAYMUNDO+probe Ql (Unsp spec) Not detected Normal NOT DETECTED [facility] Comment on above: Result Comment: This test is not yet approved or cleared by the [place] FDA. When there are no FDA-approved or cleared tests available, and other criteria are met, FDA can make tests available under an emergency access mechanism called an Emergency Use Authorization (EUA). The EUA for this test is supported by the [place] of Health and Human Service's (HHS's) declaration that circumstances exist to justify the emergency use of in vitro diagnostics for the detection and/or diagnosis of the virus that causes COVID-19. This EUA will remain in effect (meaning this test can be used) for the duration of the COVID-19 declaration justifying emergency of IVDs, unless it is terminated or revoked by FDA (after which the test may no longer be used). When diagnostic testing is negative, the possibility of a false negative should be considered in the context of a patient's recent exposures and the presence of clinical signs and symptoms consistent with SARS-CoV-2. Performed By: #### [facility] #### [facility] [address] [place] [address] Dr. Isis Shahid Formson 05-18-2021 Forms [id number]#1 .00CD:127 [facility] Physician Referralon 021 Physician Referral [id number]# 1.00CD:127 [facility] Patient Educationon 05-17-20 21 Patient Education Obstetrics and Gynecology Kegel Exercises Kegel exercises can help strengthen your pelvic floor muscles. The pelvic floor is a group of muscles that support your rectum, small intestine, and bladder. In females, pelvic floor muscles also help support the womb (uterus). These muscles help you control the flow of urine and stool. Kegel exercises are painless and simple, and they do not require any equipment. Your provider may suggest Kegel exercises to: ? Improve bladder and bowel control. ? Improve sexual response. ? Improve weak pelvic floor muscles after surgery to remove the uterus (hysterectomy) or (females). ? Improve weak pelvic floor muscles after prostate gland removal or surgery (males). Kegel exercises involve squeezing your pelvic floor muscles, which are the same muscles you squeeze when you try to stop the flow of urine or keep from passing gas. The exercises can be done while sitting, standing, or lying down, but it is best to vary your position. Exercises How to do Kegel exercises: 1. Squeeze your pelvic floor muscles tight. You should feel a tight lift in your rectal area. If you are a female, you should also feel a tightness in your vaginal area. Keep your stomach, buttocks, and legs relaxed. 2. Hold the muscles tight for up to 10 seconds. 3. Breathe normally. 4. Relax your muscles. 5. Repeat as told by your health care provider. Repeat this exercise daily as told by your health care provider. Continue to do this exercise for at least 4?6 weeks, or for as long as told by your health care provider. You may be referred to a physical therapist who can help you learn more about how to do Kegel exercises. Depending on your condition, your health care provider may recommend: ? Varying how long you squeeze your muscles. ? Doing several sets of exercises every day. ? Doing exercises for several weeks. ? Making Kegel exercises a part of your regular exercise routine. This information is not intended to replace advice given to you by your health care provider. Make sure you discuss any questions you have with your health care provider. Document Released: 06/24/2013 Document Revised: 02/25/2019 Document Reviewed: 02/25/2019 [employer] Patient Education ? 2020 [employer]. 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 Fuller. Pt states that over the past couple years she is having alot more stress incontinence with sneezing, coughing and exercising. She is also having incontinence w/o awareness intermittently and occasional urge incontinence. Over the past 6 months it has progressively gotten worse and she is having to wear pads and intermittently change 1x throughout the day. Pt gave a little specimen this morning- PVR 73ml. Dysuria: no pain or burning Incomplete bladder emptying: feels like she is emptying completely Hematuria: denies any blood in urine, UA is clear Frequency: 2-3 hours in between voids Urgency: intermittent mild to moderate sx Nocturia: 1x if any Stream: average stream, no hesitation, no intermittent stream, no straining Post void dripping: none Wearing pads/ Depends: is wearing pads and is intermittently changing 1x through out the day Urge incontinence: rare Stress incontinence: sneezing, coughing and exercises Incontinence without Sensory Awareness: yes, intermittent Abdominal pain: no pain or pressure History of Present Illness Reviewed ua and outside records. There have been no associated fever, chills, flank pain or blood in the urine. Pt. denies any pain/burning with urination at this time. I have reviewed and verified the staff HPI to be accurate for this encounter. I have reviewed the previous health record information and history for this patient from referring provider Review of Systems PHQ Score Initial Depression Screen Score: 0 ROS - Provider Constitutional: denies weight loss, denies hot flashes. Eyes: denies eye problems. Gastrointestinal: denies nausea, denies vomiting. Cardiovascular: denies chest pain or angina. Integumentary: no dryness Musculoskeletal: denies musculoskeletal symptoms. ENMT: denies otolaryngeal symptoms. Respiratory: no shortness of breath. Heme/Lymph: denies easy bleeding tendency, denies easy bruising tendency. Psychiatric: no confusion, no anxiety. Genitourinary: see HPI. Denies feeling of pelvic pressure, bladder falling. No recurrent UTIs or hematuria Physical Exam Vitals & Measurements HR: 81(Peripheral) RR: 18 BP: 124/93 HT: 158 cm HT: 158.0 cm WT: 78 kg WT: 78.0 kg BMI: 31.24 General Appearance: alert , no acute distress, well nourished, well developed female. Head: normocephalic . Eyes: normal orbit and globe. ENMT: normal examination of external ears. Chest: Lungs CTA, respirations non labored . Cardiovascular: regular rate and rhythm. Abdomen: soft, non distended, no tenderness, no mass or organomegaly, no hernia. Genitourinary: bladder nonpalpable, no flank tenderness. Lymph Nodes: unremarkable palpation of the cervical area. Skin: warm, dry, no bruising. Psychiatric: cooperative, affect appropriate for age, normal judgement, euthymic mood. Vaginal examination: Vaginal mucosa: There is no vaginal atrophy The urethra is normal. There are no masses or lesions. There is urethral hypermobility and JOHNNY is not seen (bladder not full) She is able to correctly identify her pelvic muscles, moderate strength Mild anterior wall laxity, stage I. No rectocele. Non tender Assessment/Plan 51 yo F, premenopausal with hx of csection x 3, hysterectomy for menorrhagia 2014 who presents with worsening stress>urge incontinence. Will return in 6 months. 1. Mixed incontinence (N39.46: Mixed incontinence) stress>urge PVR 73ml. Leaking with sneezing, coughing, and exercising. Incontinence without awareness- intermittently. Occasional urge incontinence. Pt. wears padding and changes 1x throughout the day. I went over the options for treatment with the patient. We discussed conservative treatment with pelvic floor exercises with or without a physical therapist. There is about a 50% chance for significant improvement and 15% change of achieving complete continence. We also discussed more invasive options such as bulking agents, mid urethral sling. She would like to proceed with non-surgical options first. -Discussed pelvic floor therapy. Pt. would like to proceed with this @ [facility]- referral placed. -Behavioral modifications -Consider anti-cholinergics in future if urge more predominant -Follow up in 6 months or sooner if issues arise Follow-up With When Contact Information Scotty ARVIZU, Delmy Landis, URL, URO In 6 months 11/15/2021 EDT Additional Instructions: Patient Education Kegel Nora Hannon, personally scribed for Dr. Fajardo on 05/17/2021 11:18:07. . Documentation recorded by the scribe, Celena Matute, accurately reflects the services(s) I performed and decisions made by me. Authenticated by Dr. Fajardo on 05/17/2021 11:28:10. Problem List/Past Medical History Ongoing Mixed incontinence Historical No qualifying data Procedur (more content not included)... [facility] Comment on above: Result Comment: Elec tronically Signed By: Delmy Fajardo MD\.br\Date and Time Signed: 05/17/21 11:28 EDT\.br\Electronically Co-Signed By: Nora Matute.br\Date and Time Co-Signed: 05/17/21 11:18 EDT Vital Signs Date Time Vital Sign Value Performing Clinician Facility 04-17-2023 08:30-0400 Body height 157.48 cm Mary Jane Garcia Other [facility] Other 04-17-2023 08:30-0400 Body mass index (BMI) [Ratio] 31.82 kg/m2 Mary Jane Garcia Other [facility] Other 04-17-2023 08:30-0400 Body weight 78.93 kg Mary Jane Garcia Other [facility] Other 04-17-2023 08:30-0400 Diastolic blood pressure 76 mm[Hg] Mary Jane Garcia Other [facility] Other 04-17-2023 08:30-0400 Systolic blood pressure 112 mm[Hg] Mary Jane Garcia Other [facility] Other 03-21-2023 11:45-0400 Body height 157.48 cm Mary Jane Garcia Other [facility] Other 03-21-2023 11:45-0400 Body mass index (BMI) [Ratio] 32.37 kg/m2 Mary Jane Garcia Other [facility] Other 03-21-2023 11:45-0400 Body weight 80.29 kg Mary Jane Garcia Other [facility] Other 03-21-2023 11:45-0400 Diastolic blood pressure 102 mm[Hg] Mary Jane Garcia Other [facility] Other 03-21-2023 11:45-0400 Systolic blood pressure 141 mm[Hg] Mary Jane Garcia Other [facility] Other Encounters Encounter Date Encounter Type Care Provider Facility Start: 04-17-2023 End: 04-17-2023 ambulatory Mary Jane Garcia Other [facility] Other Start: 04-17-2023 Encounter for genera l adult medical examination without abnormal findings Mary Jane Garcia [facility] Start: 04-17-2023 Periodic preventive med est patient 40-64yrs Mary Jane Garcia [facility] Start: 04-17-2023 Telephone encounter Mary Jane Garcia [facility] Start: 03-21-2023 End: 03-21-2023 ambulatory Mary Jane Garcia Other [facility] Other Start: 03-21-2023 Encounter for genera l adult medical examination without abnormal findings Mary Jane Garcia [facility] Start: 03-21-2023 Office outpatient vi sit 15 minutes Mary Jane Garcia [facility] Start: 07-26-2022 (Televisit) Televisit Mary Jane Garcia [facility] Start: 07-26-2022 End: 07-26-2022 ambulatory Mary Jane Garcia Other [facility] Other Start: 06-25-2022 End: 06-26-[address] TAY FULLER Facility:[facility] Start: 04-11-2022 Encounter for genera l adult medical examination without abnormal findings DR MARY JANE GARCIA [facility] Start: 04-10-2022 End: 04-11-[address] TAY FULLER Facility:[facility] Start: 04-10-2022 End: 04-11-2022 Encounter for general adult medical examination without abnormal findings DR MARY JANE GARCIA Facility:[facility] Start: 04-04-2022 End: 04-04-[address] TAY FULLER Facility:[facility] Start: 08-23-2021 End: 08-23-[address] MARY JANE GARCIA Facility:[facility] Immunizations Immunization Date Immunization Notes Care Provider Fa cility 06-28-2022 zoster vaccine, live Mary Jane Garcia Other [facility] Other 04-13-2022 influenza virus vaccine, split virus (incl. purified surface antigen) Mary Jane Garcia Other [facility] Other 02-06-2022 COVID-19 Vaccine Pfi zer - Documentation Purposes Only Mary Jane Garcia Other [facility] Other 02-01-2022 zoster vaccine, live Mary Jane Garcia Other [facility] Other 06-30-2021 COVID-19 Vaccine Pfi zer - Documentation Purposes Only Mary Jane Garcia Other [facility] Other 04-03-2021 influenza virus vaccine, split virus (incl. purified surface antigen) Mary Jane Garcia Other [facility] Other 05-26-2019 influenza virus vaccine, split virus (incl. purified surface antigen) Mary Jane Garcia Other [facility] Other Payers Date Payer Category Payer Unknown [id number] 1970 Unknown [id number] 1970 Unknown [id number] 1971 Unknown [id number] 1970 Unknown [id number] 1958 Unknown [id number] Social History Date Type Detail Facility Unknown if ever smoked [facility] Other Sex Assigned At Sex Assigned At Bir th [facility] Other Evaluation note 04-17-2023 Note Date & Type Note Facility 04-17-2023 Evaluation note Encounter Date Diagnosis Assessment Notes Mar, Well adult exam (ICD-10 - Z00.00) We have discussed the necessity of following up with PCP regularly as well as specialists, as needed. Discussed F/U with dentistry and optometry at least yearly. Discussed all preventative measures/ cancer screenings as applicable to this patient. Emphasized the importance of a reduced fat, low carb diet to promote heart health and controlled blood sugars. Reviewed social history and ensured patient is safe within the home today. Pt denies any abuse of alcohol, nicotine, caffeine or recreational drugs. I have ensured patient is of stable mental and physical health today. We have discussed appropriate F/U schedule as well as blood work and vaccinations that apply. All questions answered and patient is sent home pleased, without concerns. Discussed intermittent fasting. Mar, Hypothyroidism , unspecified (ICD-10 - E03.9) continue med. reviewed recent labs. chronic problem. Mar, Pain in right leg (ICD-10 - M79.604) Discussed B comples and iron supplements w daily MVI Mar, Pain in left leg (ICD-10 - M79.605) as above [facility] Other Evaluation note 03-21-2023 Note Date & Type Note Facility 03-21-2023 Evaluation note Encounter Date Diagnosis Assessment Notes Feb, Dysuria (ICD-10 - R30.0) Reviewed UA, will treat patient for UTI today. Instructed patient to take antibiotic as prescribed, take with food, complete entire course of therapy even if feeling better. Allergies and recent antibiotic use was reviewed with patient. Pt to take pyridium as prescribed for urinary discomfort, advised patient that it will turn urine orange, explained to patient the importance of not taking longer then 2 days. Advised patient urine culture was sent today and we will call with her results if antibiotic needs changed. Patient instructed to push fluids. Patient symptoms should improve in the next 24-48 hours, if symptoms persist follow up with PCP or UC. Immediate eval by ER if back or flank pain, blood in urine, fever, chills, N/V, or any other concerning symptoms. Patient verbalizes understanding and is agreeable to treatment plan. Feb, Encounter for general adult medical examination without abnormal findings (ICD-10 - Z00.00) Not a wellness exam; labs ordered under this code Feb, Hypothyroidism , unspecified (ICD-10 - E03.9) Patient to continue with above medication and we will continue to monitor through routine blood work [facility] Other Evaluation note 07-26-2022 Note Date & Type Note Facility 07-26-2022 Evaluation note Encounter Date Diagnosis Assessment Notes Jul, Pharyngitis, unspecified etiology (ICD-10 - J02.9) treat with antibiotic at this time based on clinical presentation that is highly suspicious of strep throat. Begin antibiotic today. Change toothbrush in 3 days, if symptoms are improving, to avoid re-infection. Continue tylenol or ibuprofen as needed for fevers and generalized discomfort. May also try salt water gargles for throat pain. Push fluids and rest. Practice good hand and cough hygiene. Avoid close contact with others. Do not share drinks or utensils. Patient should follow up with PCP if symptoms persist despite treatment, or sooner if symptoms worsen. Seek immediate eval via ER if warning symptoms of intractable pain or fevers, dysphagia, throat swelling, respir distress. Patient verbalized understanding and agreement with treatment plan. Jul, 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) [facility] Other Evaluation note Note Date & Type Note Facility Evaluation note No Information [facility] Other History general Narrative - Reported Note Date & Type Note Facility History general Narrative - Reported Type Medical History Hypothryoid Surgical History x3 Surgical History D&C x2 Surgical History Lap Yen Surgical History hysterectomy Hospitalization History See above [facility] Other Summary Purpose Family History No Family History Records FoundNo Family History Records Found Advance Directives No Advanced Directives Records FoundNo Advanced Directives Records Found Additional Source Comments INFORMATION SOURCE (unrecogn ized section and content) DATE CREATED AUTHOR 02/21/2022 [facility] DATE CREATED AUTHOR AUTHOR'S IAN ATFRANKLIN 06/27/2022 [facility] REASON FOR VISIT (unrecogniz ed section and content) Scratchy [phone] [facility] FOR RECORDS PERTAINING TO PATIENTS WHO ARE OR HAVE BEEN ENROLLED IN A CHEMICAL DEPENDENCY/SUBSTANCEABUSE PROGRAM, SOME INFORMATION MAY BE OMITTED. This clinical summary was aggregated from multiple sources. Caution should be exercised in using it in the provision of clinical care. This summary normalizes information from multiple sources, and as a consequence, information in this document may materially change the coding, format and clinical context of patient data. In addition, data may be omitted in some cases. CLINICAL DECISIONS SHOULD BE BASED ON THE PRIMARY CLINICAL RECORDS. [employer] [facility]. provides no warranty or guarantee of the accuracy or completeness of information in this document.
== END 2023-07-23 08:50 | disposition home or self-care (01) ==
LOC: MAMMO 08:49
PROVIDERS: PCP Radiology Diagnostic Radiology; Visit Provider Family Medicine
DX: Z12.31 Encounter for screening mammogram for malignant neoplasm of breast (principal)
CPT/HCPCS: 77063; 77067

== ENCOUNTER 2023-08-30 09:48 | Outpatient (OUT) | payer BC, SELFPAY ==
--- NOTE | 2023-08-30 | VEIN_ITS ---
Patient Name: ZANDRA ROMAN MR#: [id number] : 1970 Exam Date: 08/30/2023 Ordering Doctor: DR MENDOZA PEDRO M.D. RADIOLOGY REPORT PROCEDURE: [facility] - OFFICE VISIT FOLLOW UP COMPARISON: [facility] PROGRESS NOTES: The patient reports mild improvement in her bilateral leg pain and swelling following intravenous laser ablations of incompetent saphenous veins. The patient does still complain [id number] leg pain, left greater than right with left leg swelling which progresses over the course of the day with prolonged sitting and standing. The patient's symptoms are partially relieved by rest and leg elevation. Physical exam demonstrates decrease in overall varicosities in her legs with no erythema or warmth to suggest cellulitis or thrombophlebitis. No active ulcer. No hemosiderin staining Ultrasound was not performed today. The patient expressed a desire to proceed with treatment of micro foam chemical ablation for incompetent varicose vein. VEIN/[facility] EST TD IMPRESSION: 1. Persistent symptoms including leg pain and swelling PLAN: Micro foam chemical ablation of incompetent varicose veins Nurse notes, history and physical were reviewed and confirmed, see attached forms. The nurse was present throughout the physical exam and consultation Dictated by: Mendoza Pedro MD on 08/30/2023 at 10:51 Approved by: Mendoza Pedro MD on 08/30/2023 at 10:54
--- OUTSIDE RECORDS SUMMARY | 2023-08-30 09:51 | XMS_ITS | CCD ---
Author Name Unknown Address [address] [place] [address] Organization [facility] Care Team Providers Care Copier Field Service Technician Name Role Phone ROLAN, DR MARY JANE [...] Adhesive bandage Drug allergy (disorder) 02-27-2016 [facility] Repository (3 sources) Latex Drug allergy 07-22-2019 Unknown [facility] Other Medications Current Medications Medication Drug Class(es) [...] - DIPSTICKon 08-3 Appearance (U) cloudy [employer] Other Bilirubin Ql (U) Negative [employer] Other Color (U) yellow [facility] Other Glucose Ql (U) Negative [employer] Other Hemoglobin Ql (U) moderate [employer] Other Ketones Ql (U) Negative [employer] Other Leukocyte esterase Test strip Ql (U) moderate [facility] Other Nitrite Ql (U) Negative [employer] Other pH (U) 6.0 [pH] [facility] Other Protein Ql (U) Negative [employer] Other Specific gravity (U) [Rel density] 1.000 [facility] Other Urobilinogen (U) [Mass/Vol] normal [facility] Other Urinalysis - DIPSTICK [facility] Other MG MAMM SCREEN 3D MACARIO CADon 06-25-2022 MG MAMM SCREEN 3D MACARIO CAD Patient: SRINI ROMAN Exam Date: 06/25/2022 : 1970 Gender:F Ordering : DR TAY FULLER . Admission #: [id number] Family : Order #: [id number] CLICK HERE TO VIEW EXAM RADIOLOGY REPORT [...] Treatments None Family Cancers None LOCATION: [facility] BREAST COMPOSITION: Heterogeneously dense,which may obscure small [...] Pedro MD on 06/25/2022 at 09:48 Normal [facility] PAP ACOG PANEL 2: 30 to 65on 04-11-2022 . . Normal [facility] Comment on above: Result Comment: Perf ormed at: WB Performed By: #### [id number] #### [facility] [address] [address] [address] Isis Shahid Age Gdln ACOG Testing 30-65 Normal [facility] Comment on above: Performed By: #### [id number] #### [facility] [address] [place] [address] Dr. Isis Shahid DIAGNOSIS: Comment Normal [facility] Comment on above: Result Comment: NEGA TIVE FOR INTRAEPITHELIAL LESION OR MALIGNANCY. Performed at: WB Performed By: #### [id number] #### [facility] [address] [address] [address] Isis Shahid HPV Aptima Negative Normal Negative [facility] Comment on above: Result Comment: This nucleic acid amplification test detects fourteen high-risk HPV types (16,18,31,33,35,39,45,51,52,56,58,59,66,68) without differentiation. Performed at: =G Performed By: #### [id number] #### [facility] [address] [address] [address] Isis Shahid Methodology: Comment [facility] Comment on above: Result Comment: This liquid based ThinPrep(R) pap test was screened with the use of an image guided system. Performed at: WB Performed By: #### [id number] #### [facility] [address] [place] [address] Dr. Isis Shahid Note: Comment Normal [facility] Comment on above: Result Comment: The Pap smear is a screening test designed to aid in the detection of premalignant and malignant conditions of the uterine cervix. It is not a diagnostic procedure and should not be used as the sole means of detecting cervical cancer. Both false-positive and false-negative reports do occur. . Performed at: WB Performed By: #### [id number] #### [facility] [address] [place] [address] Dr. Isis Shahid Performed by: Comment Normal [facility] Comment on above: Result Comment: Nikia Pedro, Inbound Customer Service Agent (ASCP) Performed at: WB Performed By: #### [id number] #### [facility] [address] [place] [address] Dr. Isis Shahid Specimen adequacy: Comment Normal [facility] Comment on above: Result Comment: Sati sfactory for evaluation. Endocervical and/or squamous metaplastic cells (endocervical component) are present. Performed at: WB Performed By: #### 4 [id number] #### [facility] [address] [place] [address] Dr. Isis Shahid FREE T4on 04-10-2022 Free T4 [Mass/Vol] 1.21 ng/dL Normal 0.76-1.46 [facility] Comment on above: Performed By: #### F T4 #### [facility] [address] [place] [address] Dr. Isis Shahid LIPID PROFILEon 04-10-2022 CHOL-HDL RATIO NORM SEE BELOW [facility] Comment on above: Result Comment: 3.3 - 4.4 LOW RISK 4.4 - 7.1 AVERAGE RISK 7.1 - 11.0 MODERATE RISK >11.0 HIGH RISK Performed By: #### T SH, LIPID, BMP #### [facility] [address] [place] [address] Dr. Isis Shahid Cholesterol [Mass/Vol] 209 mg/dL Critically high <=200 [facility] Comment on above: Performed By: #### T SH, LIPID, BMP #### [facility] [address] [place] [address] Dr. Isis Shahid Cholesterol in HDL [Mass/Vol] 62 mg/dL Critically high 40-60 [facility] Comment on above: Performed By: #### T SH, LIPID, BMP #### [facility] [address] [address] [address] Isis Shahid Cholesterol in LDL [Mass/Vol] 126.0 mg/dL Normal [facility] Comment on above: Performed By: #### T SH, LIPID, BMP #### [facility] [address] [address] [address] Isis Shahid Cholesterol.total/ Cholesterol in HDL [Mass ratio] 3.4 {ratio} Normal [facility] Comment on above: Performed By: #### T LURDES, LIPID, BMP #### [facility] [address] [address] [address] Isis Shahid HDL NORMAL > or = 60 mg/dl - LO W CARDIOVASCULAR RISK <40 mg/dl - HIGH CARDIOVASCULAR RISK Normal [facility] Comment on above: Performed By: #### T LURDES, LIPID, BMP #### [facility] [address] [place] [address] Dr. Isis Shahid LDL CALC NORMAL SEE BELOW Normal [facility] Comment on above: Result Comment: <100 mg/dl OPTIMAL 100 - 129 mg/dl NEAR OR ABOVE OPTIMAL 130 - 159 mg/dl BORDERLINE HIGH 160 - 189 mg/dl HIGH >190 mg/dl VERY HIGH Performed By: #### T LURDES, LIPID, BMP #### [facility] [address] [place] [address] Dr. Isis Shahid Triglyceride [Mass/Vol] 105 mg/dL Normal <=150 [facility] Comment on above: Performed By: #### T LURDES, LIPID, BMP #### [facility] [address] [place] [address] Dr. Isis Shahid VLDL CALC 21.0 mg/dL Normal [facility] Comment on above: Performed By: #### T LURDES, LIPID, BMP #### [facility] [address] [place] [address] Dr. Isis Shahid PROF CHEM 8 (BAS METB)on Anion gap [Moles/Vol] 12.9 mmol/L Normal [facility] Comment on above: Performed By: #### T LURDES, LIPID, BMP #### [facility] [address] [address] [address] Isis Shahid Calcium [Mass/Vol] 8.7 mg/dL Normal 8.5-10.1 [facility] Comment on above: Performed By: #### T SH, LIPID, BMP #### [facility] [address] [address] [address] Isis Shahid Chloride [Moles/Vol] 106 mmol/L Normal 98-107 [facility] Comment on above: Performed By: #### T SH, LIPID, BMP #### [facility] [address] [address] [address] Isis Shahid CO2 [Moles/Vol] 24.5 mmol/L Normal 21.0-32.0 [facility] Comment on above: Performed By: #### T SH, LIPID, BMP #### [facility] [address] [place] [address] Dr. Isis Shahid Creatinine [Mass/Vol] 0.67 mg/dL Normal 0.55-1.02 [facility] Comment on above: Performed By: #### T SH, LIPID, BMP #### [facility] [address] [address] [address] Isis Shahid EGFR-AF MONEGASQUE >60 Normal >=60 [facility] Comment on above: Performed By: #### T SH, LIPID, BMP #### [facility] [address] [place] [address] Dr. Isis Shahid EGFR-NON AF MONEGASQUE >60 Normal >=60 [facility] Comment on above: Performed By: #### T SH, LIPID, BMP #### [facility] [address] [place] [address] Dr. Isis Shahid Glucose [Mass/Vol] 94 mg/dL Normal 74-106 [facility] Comment on above: Performed By: #### T SH, LIPID, BMP #### [facility] [address] [place] [address] Dr. Isis Shahid Potassium [Moles/Vol] 4.4 mmol/L Normal 3.5-5.1 [facility] Comment on above: Performed By: #### T SH, LIPID, BMP #### [facility] [address] [address] [address] Isis Shahid Sodium [Moles/Vol] 139 mmol/L Normal 136-145 [facility] Comment on above: Performed By: #### T SH, LIPID, BMP #### [facility] [address] [address] [address] Isis Shahid Urea nitrogen [Mass/Vol] 4.0 mg/dL Critically low 7.0-18.0 [facility] Comment on above: Performed By: #### T SH, LIPID, BMP #### [facility] [address] [address] [address] Isis Shahid Urea nitrogen/Creatinin e [Mass ratio] 6.0 mg/mg Normal [facility] Comment on above: Performed By: #### T SH, LIPID, BMP #### [facility] [address] [address] [address] Isis Shahid TSHon 04-10-2022 TSH 0.335 uIU/mL Critically low 0.358-3.740 [facility] Comment on above: Performed By: #### T SH, LIPID, BMP #### [facility] [address] [place] [address] Dr. Isis Shahid XR DEXA BONE DENSITYon [...] by: APOLONIA HENSON Date: 2022-04-10 10:30 Normal [facility] PT - Assessmentson PT - Assessments [id number]#1 .00CD:127 [facility] PT - Assessments [id number]#1 .00CD:127 [facility] PT - Otheron 01-10-2022 PT - Other [id number]#1 .00CD:127 [facility] PT - Assessmentson PT - Assessments [id number]# 1.00CD:127 [facility] PT - Otheron 12-04-2021 PT - Other [id number]# 1.00CD:127 [facility] Coding Summary.on 11-30-2021 Coding Summary. CD:[id number] G h0bWw+PGhlYWQ+BA6ZDDD uN49xiQJkiL9FU5yQJX3S ZEKNTAVZHB3JIG3abFD5P GjaI9PfobOa CndzcOEqZY54TXl1VEO2w LbfLOelvO7cuLSbQ3c0Mf IzCK36qG43FMjpTPCxXeH 3LjZpbjsgbWFy R2kfTxFbzJMnJxl+PHRhY mxlIHdpZHRoPScxMDAlJy XurVqtKV8bXr3mRMGdBKM vbGxhcHNlOiBj j6tjRUHaRPriNR2glDicZ 3SdwYJ5VVEuz7w4Wu74yY I+RKQrZQQ1bCtbESkjk55 8JrWiy9nxHDG2 jQGjUIjlACC7Y88il3L2W HWmPGSnMYN2kTL4rI4scB timbigS6UoiHQnEaD4KWT 3zRCkdH5coHng kxqqgT1uQzu+Y46CIV9KY AZQUN9NGjy7K6AyFqoumW I+PV15VCOaJP30mNNjqWN fs1oznTr1HeIq OGYwNDH6zPugEQkfk8TaP YDyX16bnTCbg2T1OHMbiJ dzxPZfRxBafSY9lI6lDTp cgtpbp4llrner Zugwg9tfcy12qP76V51xU PdyMHLkPYK4AAEdDMSgmC xarw3leQ6qVd4+AYrqr8h sg1egzJs6TfWx MTHzcvEzpDetCYC7g1EfV s99L0LppGnhm6SqSzt3cx 75yWXuw4O2pYQ8PSxxFUJ thZ4gXVgeAgU2 NRDxFqZubS05eMLzDOmlN b1svQrbbNpvNQ9iPZOcgh vnOAAbnP6qGXRtjKBcrQw yGU0tKZRasttp l344QjIiLGZ1LARxeZKnU 6PwmB5jLjGjIHIzRENsB1 AlpKLzPPlmX719ZIirGwU 7SVDpmeAmS4Vi UKZrfWmwJdM4b0Y4Kz0Us 0LyzhbdUUR0DHfnARU5Mo ZlZpJkGbA3V2DyFuq4PTL csMnvFU4kN6Ag GKForwewkbcumLV3ONVfQ HKzdG91gKEiLXvrFx8lz4 I6w938GRLzKJCzyW17Gy0 udDogMTBwdCBU mV0zvobij4tezpxaJqJqT PIxYYw0KKs5WPSujOvsLz QcVBY9SlP3LUQ7bTNptZ8 fmCdakruxlP7i Oyc+K74rvR0nFXY2KFC6m nefFUTplrFsXH71IP90Y0 RyPjwvdGFibGU+PGRpdiB ilTajCS0eIvPg i2nzl0MbUIemH3JwKVJaF FycEth9QIVeFWX5oKU9kD 5zHTMpYZtaa0E4uDC2F8D xxpLcsb9ih1tf EXMeMIfpY93luNTjz0O2Z DMulSU2LAKohNepAlSvxY 93Oyc+RHIbgDkpa2GhVsq fg5nrh5rkgIs7 OdNuMCJyztYjrZnlDTD0p 2XwRm36V54aMLijDARoYM ByEOSkKDBxrRdmdg0rlM5 wIi8+PGNvbCB3 gZV6qS5hLUWsGiM3KMadW 859KgEfjGAaJocxl3krt1 yxuTl7VkMzMDAkmvTkeKk vNFY6t4EdFv80 P50sEIqvUQKiHQJyWTLgR OZeeWriwb8qfY7eCy7+PC 2bn5getf09dB96fYA+PHR yHNF0mNxqTGsl NLValZ5xMOadEgQ4KSXhZ aXguD54iMJeIYtoVd3bzL jfeFdnQC4rQBUdtrhro03 5LoMnk7vwLABc bIEpVKlqQBU3K78zf8E0A PRtQVMlVMC6qYM4qX4imA lnbjogbGVmdDsgdmVydGl mITmmZYirU777 IHRvcDsnPlBhdGllbnQgT mXtPKr1O6PfYyd3NHXfxT nySS9xsTCdZGnqTl6hsDe tlGqnBT4wPBLf jifsl231LrVbk6bnLQEjg MKtPGvcKVO3W53nk8V2OP JvXFTqWGK1iFQ1mQ9mxPg nbjogbGVmdDsg zrVapXwmAKzpDFuyE102H HRvcDsnPkJpcnRoIERhdG L1VZ02MU79iCSiq7I8bNS 6S3YdQYTxsifp ssczjPC1QFCjJXRhjP82W x3hlOpkKz7mDOBaHWN1TW HoqYIoH3GecY0gBfEwCGG iGJDkF4NhkLLj TKydV094GSyqUjC9VMNvy eWkL1HaWCVjvXfgFjC1l2 Y7If2XL4N9WO03FX35mOX ho0S2uRA0D2Jc AFRwvdkzlniayXM3DNQeL ONtaW84Ef8vpKvmBz8lXO GgUXB1VVSrzAUhM2TeiT2 yOiAjMDAwMDAw X3PwiJDfXPwbT480HWzmF vC0IQJhnjFcJ5MeLNYqqO neWzP2w1J3Yd2UTDb9UW2 2TR42fKQpg4M8 iHM7J0OlQHRrdvmymkbbw SY7YCEeWPPnqL79Gi1zcS nhXv2yRXQaNUJ9PAWfmSV pQ0MivU8cQgWi ITGbYUCyE7PtrOHqKXktW 926UKktErX2COCnuzYoX2 FeUDLugDimUrD0e6N1Fj8 GHSMfXC35UZC2 yIK2UH96KZ16D7IwXhccr GFibGU+PHRhYmxlIHdpZH RoPScxMDAlJyBzdHlsZT0 rJb0uKIFcANQg gFsjaADzJuCcx2zrRNCtU NsgAH9hgTjtR1DbzTR0TK Kap8g0Np70C55uP7GalCH +VCOzsPO6wSP2 bD2iAaBnDbJ4XKryP082G qQhyHCiSojbq5tvt4jfxF m3FuC1GIIzboTdzKubIHJ 5h9TiOm20F41j IHdpZHRoPSIxNSUiIHZhb Sclfz6byI1hUw9+PGNvbC D3yIC5bG1kQfWjOkA0QSs sK915RjOywZEp Llkqd2vco9uzyQn9EuYvP ARaxdGqpZidSTQ2b3CcNo 09C7UybCzjs6GsErg8gw9 7xEJos4Y3oWR0 O9KuJKYkozrzyERvlSndX D8kQPRnwfpfUSLhvB1hFV KkH7l7LiHoAdU9NFkfT7J hxsK6WOLpkYIb JUwuQOO0V27aa6U5UBWbF YFdGDI6rIN7gX4gmPyrtd ogbGVmdDsgdmVydGljYWw jAOykR142SIJs qNgdXRUhsI7pRNRhbBLwn GdkRM0dVILdchfiAhrGK2 aUDbHnFQoFBZYXMQ20HZ5 0cBZrz7X2uEB0 J4EaQCWuwgadhxdwaPO6D KLeRJWolN48dNBpQGzyTi 9vn4U2c301WUVcSIWodY9 8Ha8orEykDBZl jVJQoC5szvegb0nuttezP hXuOSBdPMy8MLq7GKSllH znEjLeDIE8PdJ2QWN2cPS yzY7qdLgfscjj oE6zDax+ARFkLOAjBNb4I TwvdGQ+ZOScZCO7mEvzFF amDQZarL4jCVCgN3i2PzC yAvA9EMhoU1Hh QGZzprsiUp47jA4lCzHbL lS7CHrqV3PmboK6RSEwhR RsERhoYOU1W54gu9M4MAT eIJMvKEP8mHU4 cL1enSpbuvbdgCDagJgha kMwkNljEPpoROtzZ216JX RvcDsnPjUwIFllYXJzPC9 0KU75lTQkg6K4 oNN1O2AvXRGjrikbszywk JT2GPSkCGMrcN82mUVyUE qoBd5gk2W7u837SZRkCLK ewV81Pf7gdQio BKCryQWLyH3trmxyu6hbu oyzNyAuANFcRKo7ILp0BW VitQifCsRaCCV5EcG0QQM 3bLQiqO1xoJir ofaclE9vWkw+RmVtYWxlP C60FD97yYHzl9C3tER8Y7 DgFHVsnwdflecksCQ2JIO yOQLbzW75yTVn TTffUt2dv7W7a794NQMoY TDecK96Fj2zyVfkAWFplW IDqZ4fkxjgr9nuqlabHkN oYQOtYQy2NIb4 BXVntThgGiVdZGC7QoB0F FX9mBYquX8dvNjrcmsfqL 9wOyc+ZjXwbMAalW3sKT5 1CR59N6VmQcsl dGFibGU+PHRhYmxlIHdpZ HRoPScxMDAlJyBzdHlsZT 6mSk6iJHVwVTNuxHpyfAC rWkKcw0uuWCUo YCuwXO4qgRrcH4WlqLA6L AWjg0o3Hm22J08wS6JvgE A+BOTpeBC2yXB1xA7iUgV dYdH9HMexY075 XwLfeKXpGoojs2mez9uiq Bi6CyNmLDTwouGznVvgKP D8z0MxMc84P42iLFlpGOE oPSIyMCUiIHZh iCjmwl8gzE5nZc2+PGNvb GI6hIJ8tC3iHcXlWhQ6IT enL054WcXwgCZfEqzrV39 lU7NsgSY+PHRy Ghs1IWXxoCjpGW1fcVFrX YlwKp6nBQE3JjUsRgEfJP qvW4YuGDAbhpffaxwvjGR 5PQFaYWJpwI81 Xc7dzVjqUt8mNLTnWNM4T WPlcPEeT0LslH9sKeVjRI UiXROsV0IrsKOgVBrpR36 3DKpfMrX3ZHHy ytNwW2FbRKYlnJazOpA2l 6B0Cl2TcZupuVXoIE7wEy GsMJk2K3DzJvk9GBOiaSr rER4hfQYnEKgm Em0hwSgabTnsBX0dSGThg peed697YtBcg2urJDXymB RdDFsxFMP5I17aq8K0ETY jRXOnEFH0qEX4 aA8gvGlbpgdmiZQpgCozr sPtjSzgLAysCPcpS625KF AqcAnxMkYSKmt5W0WmDog 0RJLpaXudZH3l tKDrEMogDj7abKfhpPpvA D1wFUJrdjebi192VtTuf5 gmLVPcgFFxQMfvEJI0F22 sv2T3IMFpBKNy IAQ8tZH0wZ1wvYarkextm GVmdDsgdmVydGljYWwtYW ewF989QROqoTssXq8KCbv 2Q8NvVve6USQf vQdkBN0guHCoUEskHv3le LzufTmoLJ5dIJCahmytg9 76XtMcv0amTVGxiBYrSXg mWQU4K53xv8T0 DHMkATUpXYH2bOM2jP3yy GlnbjogbGVmdDsgdmVydG iuOXomPOybV050FYSffDk nPlBheWVyOjwv dGQ+HE57ks02T1JhDoqzB jn7ZBCnDDD5xHM9gB2vCK MdXAmig5U7uEK1K1MbxpM xzp2ww1anMOFn [employer] (more content not included)... Normal [facility] Consenton 11-29-2021 Consent [id number] #1.00CD:127 [facility] Notice of Noncoverageon 11-19 Notice of Noncoverage [id number] #1.00CD:127 [facility] PT - Assessmentson PT - Assessments [id number]# 1.00CD:127 [facility] PT - Consentson 11-29-2021 PT - Consents [id number]# 1.00CD:127 [facility] Nonvisit Note - PTon 022 Nonvisit Note - PT Chart reviewed with eval prepped for scheduled eval. KK Normal [facility] Covid-19 PCR (CVDTB)on SARS-CoV-2 (COVID-19) RNA RAYMUNDO+probe Ql (Unsp spec) Not detected Normal NOT DETECTED [facility] Comment on above: Result Comment: This test is not yet approved or cleared by the [place] FDA. When there are no FDA-approved or cleared tests available, and other criteria are met, FDA can make tests available under an emergency access mechanism called an Emergency Use Authorization (EUA). The EUA for this test is supported by the [place] of Health and Human Service's (HHS's) declaration [...] consistent with SARS-CoV-2. Performed By: #### C [facility] #### [facility] [address] [place] [address] Dr. Isis Shahid Formson 05-18-2021 Forms [id number]#1 .00CD:127 Normal [facility] Physician Referralon 021 Physician Referral [id number]# 1.00CD:127 Normal [facility] Patient Educationon 05-17-20 21 Patient Education [...] 06/24/2013 Document Revised: 02/25/2019 Document Reviewed: 02/25/2019 [employer] Patient Education ? 2020 [employer]. 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 -Behavioral modifications -Consider anti-cholinergics in [...] data Procedur (more content not included)... Normal [facility] Comment on above: Result Comment: Elec tronically Signed By: Delmy Fajardo MD\.br\Date and Time Signed: 05/17/21 11:28 EDT\.br\Electronically Co-Signed By: Nora Matute.br\Date and Time Co-Signed: 05/17/21 11:18 EDT Vital Signs Date Time Vital Sign Value Performing Clinician Facility 04-17-2023 08:30-0400 Body height 157.48 cm Mary Jane Garcia Other [facility] Other 04-17-2023 08:30-0400 Body mass index (BMI) [Ratio] 31.82 kg/m2 Mary Jane Garcia Other [facility] Other 04-17-2023 08:30-0400 Body weight 78.93 kg Mary Jane Garcia Other [facility] Other 04-17-2023 08:30-0400 Diastolic blood pressure 76 mm[Hg] Mary Jane Garcia Other [facility] Other 04-17-2023 08:30-0400 Systolic blood pressure 112 mm[Hg] Mary Jane Garcia Other [facility] Other 03-21-2023 11:45-0400 Body height 157.48 cm Mary Jane Garcia Other [facility] Other 03-21-2023 11:45-0400 Body mass index (BMI) [Ratio] 32.37 kg/m2 Mary Jane Garcia Other [facility] Other 03-21-2023 11:45-0400 Body weight 80.29 kg Mary Jane Garcia Other [facility] Other 03-21-2023 11:45-0400 Diastolic blood pressure 102 mm[Hg] Mary Jane Garcia Other [facility] Other 03-21-2023 11:45-0400 Systolic blood pressure 141 mm[Hg] Mary Jane Garcia Other [facility] Other Encounters Encounter Date Encounter Type Care Provider Facility Start: 04-17-2023 End: 04-17-2023 ambulatory Mary Jane Garcia Other [facility] Other Start: 04-17-2023 Encounter for genera l adult medical examination without abnormal findings Mary Jane Garcia [facility] Start: 04-17-2023 Periodic preventive med est patient 40-64yrs Mary Jane Garcia [facility] Start: 04-17-2023 Telephone encounter Mary Jane Garcia [facility] Start: 03-21-2023 End: 03-21-2023 ambulatory Mray Jane Garcia Other [facility] Other Start: 03-21-2023 Encounter for genera l adult medical examination without abnormal findings Mary Jane Garcia [facility] Start: 03-21-2023 Office outpatient vi sit 15 minutes Mary Jane Garcia [facility] Start: 07-26-2022 (Televisit) Televisit Mary Jane [facility] Start: 07-26-2022 End: 07-26-2022 ambulatory Mary Jane Garcia Other [facility] Other Start: 06-25-2022 End: 06-26-[address] TAY FULLER Facility:[facility] Start: 04-11-2022 Encounter for genera l adult medical examination without abnormal findings DR MARY JANE GARCIA [facility] Start: 04-10-2022 End: 04-11-[address] [...] zoster vaccine, live Mary Jane Garcia Other [facility] Other 04-13-2022 influenza virus vaccine, split virus (incl. purified surface antigen) Mary Jane Garcia Other [facility] Other 02-06-2022 COVID-19 Vaccine Pfi zer - Documentation Purposes Only Mary Jane Garcia Other [facility] Other 02-01-2022 zoster vaccine, live Mary Jane Garcia Other [facility] Other 06-30-2021 COVID-19 Vaccine Pfi zer - Documentation Purposes Only Mary Jane Garcia Other [facility] Other 04-03-2021 influenza virus vaccine, split virus (incl. purified surface antigen) Mary Jane Garcia Other [facility] Other 05-26-2019 influenza virus vaccine, split virus (incl. purified surface antigen) Mary Jane Garcia Other [facility] Other Payers Date Payer Category Payer Unknown [id number] 1971 Unknown [id number] 1971 Unknown [id number] .[id number] [id number] 1971 Unknown [id number] 1971 Unknown [id number] 1959 Unknown [id number] Social History Date Type Detail Facility Unknown if ever smoked [facility] Other Sex Assigned At Sex Assigned At [facility] Other Evaluation note 04-17-2023 Note Date & [...] left leg (ICD-10 - M79.605) as above [facility] Other Evaluation note 03-21-2023 Note Date & [...] continue to monitor through routine blood work [facility] Other Evaluation note 07-26-2022 Note Date & [...] Jul, 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) [facility] Other Evaluation note Note Date & Type Note Facility Evaluation note No Information [facility] Other History general Narrative - Reported Note Date & Type Note Facility History general Narrative - Reported Type Medical History Hypothryoid Surgical History x3 Surgical History D&C x2 Surgical History Lap Yen Surgical History hysterectomy Hospitalization History See above [facility] Other Summary Purpose Family History No Family History Records FoundNo Family History Records Found Advance Directives No Advanced Directives Records FoundNo Advanced Directives Records Found Additional Source Comments INFORMATION SOURCE (unrecogn ized section and content) DATE CREATED AUTHOR 02/21/2022 [facility] DATE CREATED AUTHOR AUTHOR'S IAN ATFRANKLIN 06/27/2022 [facility] REASON FOR VISIT (unrecogniz ed section and content) [employer] [phone] [facility] FOR RECORDS PERTAINING TO PATIENTS WHO ARE [...] BE BASED ON THE PRIMARY CLINICAL RECORDS. [facility]. provides no warranty or guarantee of the accuracy or completeness of information in this document.
== END 2023-08-30 09:49 | disposition home or self-care (01) ==
LOC: VC 09:48
PROVIDERS: PCP Radiology Diagnostic Radiology; Visit Provider Radiology Diagnostic Radiology
DX: I83.813 Varicose veins of bilateral lower extremities with pain (principal)
CPT/HCPCS: G0463

== ENCOUNTER 2024-04-13 20:49 | Outpatient (REF) | payer BC, SELFPAY ==
--- OUTSIDE RECORDS SUMMARY | 2024-04-13 20:53 | XMS_ITS | CCD ---
Author Organization [facility] Care Team Providers Care Agricultural Lender Name Role Phone ROLAN, DR MARY JANE Pate Attending Unavailable GONGORA, DR MARY JANE Pate Consulting Unavailable GONGORA, DR MARY JANE Pate Primary Care Unavailable GONGORA, DR MARY JANE Pate Admitting Unavailable EMMA, DR CROSS Admitting Unavailable EMMA, DR CROSS Attending Unavailable MIAMI, DR KAUR Villalpando Consulting Unavailable GONGORA, DR MARY JANE Pate Primary Care Unavailable EMMA, DR CROSS Consulting Unavailable EMMA, DR CROSS Admitting Unavailable EMMA, DR CROSS Attending Unavailable EMMA, DR CROSS Consulting Unavailable GONGORA, DR MARY JANE Pate Primary Care Unavailable EMMA, DR CROSS Admitting Unavailable GONGORA, DR MARY JANE Pate Primary Care Unavailable EMMA, DR CROSS Attending Unavailable EMMA, DR CROSS Consulting Unavailable ZIEBER, DR APOLONIA Gonzalez Consulting Unavailable GONGORA, DR MARY JANE Pate Attending Unavailable GONGORA, DR MARY JANE Pate Consulting Unavailable GONGORA, DR MARY JANE Pate Primary Care Unavailable GONGORA, DR MARY JANE Pate Admitting Unavailable Gongora, Mary Jane Unavailable TAY FULLER Attending Unavailable Allergies Allergy Classification Reported Allergen(s) Allergy Type Date of Onset Reaction(s) Facility (1 source) Adhesive bandage Drug allergy (disorder) 02-27-2016 [facility] Repository (3 sources) Latex Drug allergy 07-22-2019 Unknown [facility] Other Medications Current Medications Medication Drug Class(es) [...] Urinalysis - DIPSTICKon 08-3 Appearance (U) cloudy [facility] Other Bilirubin Ql (U) Negative [facility] Other Color (U) yellow [facility] Other Glucose Ql (U) Negative [facility] Other Hemoglobin Ql (U) moderate [facility] Other Ketones Ql (U) Negative [facility] Other Leukocyte esterase Test strip Ql (U) moderate [facility] Other Nitrite Ql (U) Negative [facility] Other pH (U) 6.0 [pH] [facility] Other Protein Ql (U) Negative [facility] Other Specific gravity (U) [Rel density] 1.000 [facility] Other Urobilinogen (U) [Mass/Vol] normal [facility] Other Urinalysis - DIPSTICK [facility] Other MG MAMM SCREEN 3D MACRAIO CADon 06-25-2022 MG MAMM SCREEN 3D MACARIO CAD Patient: SRINI ROMAN Exam Date: 06/25/2022 : 1970 Gender:F Ordering : DR TAY FULLER . Admission #: [id number] Family : Order #: [id number] CLICK HERE TO VIEW EXAM RADIOLOGY REPORT [...] Treatments None Family Cancers None LOCATION: [facility] BREAST COMPOSITION: Heterogeneously dense,which may obscure [...] Pedro MD on 06/25/2022 at 09:48 Normal [facility] PAP ACOG PANEL 2: 30 to 65on 04-11-2022 . . Normal [facility] Comment on above: Result Comment: Perf ormed at: WB Performed By: #### [id number] #### [facility] [address] [place] [address] Dr. Isis Shahid Age Gdln ACOG Testing 30-65 Normal [facility] Comment on above: Performed By: #### [id number] #### [facility] [address] [place] [address] Dr. Isis Shahid DIAGNOSIS: Comment Normal [facility] Comment on above: Result Comment: NEGA TIVE FOR INTRAEPITHELIAL LESION OR MALIGNANCY. Performed at: WB Performed By: #### [id number] #### [facility] [address] [address] [address] Isis Shahid HPV Aptima Negative Normal Negative [facility] Comment on above: Result Comment: This nucleic acid amplification test detects fourteen high-risk HPV types (16,18,31,33,35,39,45,51,52,56,58,59,66,68) without differentiation. Performed at: =G Performed By: #### [id number] #### [facility] [address] [address] [address] Isis Shahid Methodology: Comment Normal [facility] Comment on above: Result Comment: This liquid based ThinPrep(R) pap test was screened with the use of an image guided system. Performed at: WB Performed By: #### [id number] #### [facility] [address] [place] [address] Dr. Isis Shahid Note: Comment Normal [facility] Comment on above: Result Comment: The Pap smear is a screening test designed to aid in the detection of premalignant and malignant conditions of the uterine cervix. It is not a diagnostic procedure and should not be used as the sole means of detecting cervical cancer. Both false-positive and false-negative reports do occur. . Performed at: WB Performed By: #### [id number] #### [facility] [address] [place] [address] Dr. Isis Shahid Performed by: Comment Normal [facility] Comment on above: Result Comment: Nikia Pedro, Rf Test Engineer (ASCP) Performed at: WB Performed By: #### [id number] #### [facility] [address] [place] [address] Dr. Isis Shahid Specimen adequacy: Comment Normal [facility] Comment on above: Result Comment: Sati sfactory for evaluation. Endocervical and/or squamous metaplastic cells (endocervical component) are present. Performed at: WB Performed By: #### 4 [id number] #### [facility] [address] [place] [address] Dr. Isis Shahid FREE T4on 04-10-2022 Free T4 [Mass/Vol] 1.21 ng/dL Normal 0.76-1.46 [facility] Comment on above: Performed By: #### F T4 #### [facility] [address] [place] [address] Dr. Isis Shahid LIPID PROFILEon 04-10-2022 CHOL-HDL RATIO NORM SEE BELOW Normal [facility] Comment on above: Result Comment: 3.3 - 4.4 LOW RISK 4.4 - 7.1 AVERAGE RISK 7.1 - 11.0 MODERATE RISK >11.0 HIGH RISK Performed By: #### T SH, LIPID, BMP #### [facility] [address] [place] [address] Dr. Isis Shahid Cholesterol [Mass/Vol] 209 mg/dL Critically high <=200 [facility] Comment on above: Performed By: #### T SH, LIPID, BMP #### [facility] [address] [place] [address] Dr. Isis Shahid Cholesterol in HDL [Mass/Vol] 62 mg/dL Critically high 40-60 [facility] Comment on above: Performed By: #### T SH, LIPID, BMP #### [facility] [address] [address] [address] Isis Shahid Cholesterol in LDL [Mass/Vol] 126.0 mg/dL Normal [facility] Comment on above: Performed By: #### T SH, LIPID, BMP #### [facility] [address] [address] [address] Isis Shahid Cholesterol.total/ Cholesterol in HDL [Mass ratio] 3.4 {ratio} Normal [facility] Comment on above: Performed By: #### T SH, LIPID, BMP #### [facility] [address] [place] [address] Dr. Isis Shahid HDL NORMAL > or = 60 mg/dl - LO W CARDIOVASCULAR RISK <40 mg/dl - HIGH CARDIOVASCULAR RISK Normal [facility] Comment on above: Performed By: #### T LURDES, LIPID, BMP #### [facility] [address] [place] [address] Dr. Isis Shahid LDL CALC NORMAL SEE BELOW Normal [facility] Comment on above: Result Comment: <100 mg/dl OPTIMAL 100 - 129 mg/dl NEAR OR ABOVE OPTIMAL 130 - 159 mg/dl BORDERLINE HIGH 160 - 189 mg/dl HIGH >190 mg/dl VERY HIGH Performed By: #### T LURDES, LIPID, BMP #### [facility] [address] [place] [address] Dr. Isis Shahid Triglyceride [Mass/Vol] 105 mg/dL Normal <=150 [facility] Comment on above: Performed By: #### T LURDES, LIPID, BMP #### [facility] [address] [place] [address] Dr. Isis Shahid VLDL CALC 21.0 mg/dL Normal [facility] Comment on above: Performed By: #### T LURDES, LIPID, BMP #### [facility] [address] [place] [address] Dr. Isis Shahid PROF CHEM 8 (BAS METB)on Anion gap [Moles/Vol] 12.9 mmol/L Normal [facility] Comment on above: Performed By: #### T LURDES, LIPID, BMP #### [facility] [address] [address] [address] Isis Shahid Calcium [Mass/Vol] 8.7 mg/dL Normal 8.5-10.1 [facility] Comment on above: Performed By: #### T SH, LIPID, BMP #### [facility] [address] [place] [address] Dr. Isis Shahid Chloride [Moles/Vol] 106 mmol/L Normal 98-107 [facility] Comment on above: Performed By: #### T SH, LIPID, BMP #### [facility] [address] [place] [address] Dr. Isis Shahid CO2 [Moles/Vol] 24.5 mmol/L Normal 21.0-32.0 [facility] Comment on above: Performed By: #### T SH, LIPID, BMP #### [facility] [address] [place] [address] Dr. Isis Shahid Creatinine [Mass/Vol] 0.67 mg/dL Normal 0.55-1.02 [facility] Comment on above: Performed By: #### T SH, LIPID, BMP #### [facility] [address] [place] [address] Dr. Isis Shahid EGFR-AF RUSSIAN >60 Normal >=60 [facility] Comment on above: Performed By: #### T SH, LIPID, BMP #### [facility] [address] [place] [address] Dr. Isis Shahid EGFR-NON AF RUSSIAN >60 Normal >=60 [facility] Comment on above: Performed By: #### T SH, LIPID, BMP #### [facility] [address] [place] [address] Dr. Isis Shahid Glucose [Mass/Vol] 94 mg/dL Normal 74-106 [facility] Comment on above: Performed By: #### T SH, LIPID, BMP #### [facility] [address] [place] [address] Dr. Isis Shahid Potassium [Moles/Vol] 4.4 mmol/L Normal 3.5-5.1 [facility] Comment on above: Performed By: #### T SH, LIPID, BMP #### [facility] [address] [address] [address] Isis Shahid Sodium [Moles/Vol] 139 mmol/L Normal 136-145 [facility] Comment on above: Performed By: #### T SH, LIPID, BMP #### [facility] [address] [address] [address] Isis Shahid Urea nitrogen [Mass/Vol] 4.0 mg/dL Critically low 7.0-18.0 [facility] Comment on above: Performed By: #### T SH, LIPID, BMP #### [facility] [address] [address] [address] Isis Shahid Urea nitrogen/Creatinin e [Mass ratio] 6.0 mg/mg Normal [facility] Comment on above: Performed By: #### T SH, LIPID, BMP #### [facility] [address] [address] [address] Isis Shahid TSHon 04-10-2022 TSH 0.335 uIU/mL Critically low 0.358-3.740 [facility] Comment on above: Performed By: #### T SH, LIPID, BMP #### [facility] [address] [address] [address] Isis Shahid XR DEXA BONE DENSITYon [...] by: APOLONIA HENSON Date: 2022-04-10 10:30 Normal [facility] PT - Assessmentson 2 PT - Assessments [id number]#1 .00CD:127 [facility] PT - Assessments [id number]#1 .00CD:127 [facility] PT - Otheron 01-10-2022 PT - Other [id number]#1 .00CD:127 [facility] PT - Assessmentson PT - Assessments [id number]# 1.00CD:127 [facility] PT - Otheron 12-04-2021 PT - Other [id number]# 1.00CD:127 [facility] Coding Summary.on 11-30-2021 Coding Summary. CD:[id number]:[id number] G h0bWw+PGhlYWQ+RI7UJSW yE02mfUFwhJ8CT9zIHW7P XMHJEWSQGE3EMP2tdVW3J KcmQ3FakiVd DuavvRNvZZ99TSb3YPM0y StzZSoqmQ5yjPEnC3w3Uj GnTZ45gT76NMddLKPbWkW 3LjZpbjsgbWFy A9iuBoEfuREkEfd+PHRhY mxlIHdpZHRoPScxMDAlJy JyeRleWX4zYa5zECJrSJL vbGxhcHNlOiBj k9foZYWkXHroKJ4tiOeuS 8KvzUP6DGOio4u8Eu85hX I+BILmMBV4lXqkDCphp94 2IsEye1nkLPL9 mTOvXStlGGL1V36wv2Z6L FIgHBJvEHA9zRM7cC0vpV axpuriD9LytXVgNfO4QSR 8nIAuhP3yfOrm odxtvA9gHja+B53VJY9XX CIGRQ5WPlj3L1VeXaygdC I+OM10JGThOI50xFKtxHM qh5pguNb9NxZu IRBzDWS9lGvmGYpzl5KaI RRcC38yhOTih5P1QGJraI vwgQRtQaSwmOI2wO6cBMa tvqogo5rxkusw Dzkbb2owxu39tZ31C12rL RwbARBxYTV0OWZlOXPfsC xarl8gvL0gJv8+QUsxu0w rt9vwtYv1YjIj WQXesvOehNkgAMP3i9GbP g53E3RsxRsvr0AgSbu6so 54tQFwx5A2vEB0ATvwAKD wuF8gGAnsLpL0 LIMgIzMosR70mCDxCNebH t3peUghcWtxLR6tWDApyj uxWIQlhW1yOOJifXNdzGb tGA9gNEXpplwd w338ZoByCRQ3USMpwBTnQ 4UvjQ7cQzBaPDYoAGTsW8 CvhZClPPyjU921MLzeMwB 7ISWdmaJzV3Je FISnfIajDuJ6g0D5Ej4Bk 4IepvsoPVZ3LCzjHNR4Ot WbUfIhOkL4B0SlVsx3BNZ sqEocVC6yD9Lx HLKdxbovfwedwXX3ZGBpH ZQtqY55lZOrUFqhAj7sp0 T7w912KYUuVSXhcD85La2 udDogMTBwdCBU nI3ztlemx9qcdwxbNlHcT QOiHWi1IIa9KMNqfDmkDr XxSGF5TeI1GXG1hBSykG8 gtWgboqrjzJ4c Oyc+X63enQ4rMJV5QHT8w rsyEYXcyhBdHU69PI00X0 RyPjwvdGFibGU+PGRpdiB wnXbhVL6rMnCs t4dvq0DqSDgwG3AsZHBsO EpyZgh0WWIlCLD4eLE7tL 4bTNYtFBhqy7G9zIZ5L0G bdjHfqz2cz6bh FQLiQCclM92jnTPmv0R8X OWhoMZ5MOYblUmrWnNuaS 93Oyc+KGAyhPbme1MiKuz ia6tcb7qtgPq4 GjYhPFVfzxBcuFlxONR1g 1SsUv38N17rHKggOYKaZC TbPSGdNFSjqKelag8uhG2 wIi8+PGNvbCB3 qHR6bO6rLJVzXmI1TKkyM 290OpZzfRYdKtpng2sxa1 reiRb9XuKyHHPzppYkpXq jAHY9o9EbXc58 B54iLHxdSRFmJAUjNHMeN GLcuTvkmq6noM3aQh7+PC 5bj9elkl94kS73aYC+PHR mIHI5dDakTJvw ZYJqhO4oJSwjLwC6OAWyX kTfxF35hKGlGLliYp1odB qjdAgtCM3oGEWkzdylr77 2EcFsn9mbOYQo eSGsTDmaBTL8I54vg2S0E ZYfVYQkBMO7iEE2bC0znE lnbjogbGVmdDsgdmVydGl xRWpsEGydV334 IHRvcDsnPlBhdGllbnQgT dEdDBs9U8TtVhp7HEEdwA kmWN5rgQLgQQlwEc2atDj jfWzeAA4bXJDn bipru878WhFzr7xtFMMmx WVpXFcdWGB8D27ws9F2VC IdYDFdLPD3lBS6bK0qvIl nbjogbGVmdDsg chZvdXnkSPgqBUhaH352T HRvcDsnPkJpcnRoIERhdG R0VF13JD89eJByo6P7zGE 2X3BmEIAnvwkb hythzUZ7XHUtAHOvuM75M t2fjQndTc0mEAYwFVJ3BM GwmMToF6ZcpW6qSeZqKMO eAKAeK1NkySMb PTllI242RNtiJpM0WXKhh iPdI2SpLUQquUkrTvV2a4 L4Nl4IB3C2SF69UO60aKG zs5L7dDT6F8Tc XTYswuyoqdswqZF4XOMtP YIlnZ07Lc5dtKddPd4cEY GnCGK3KDLxmQHcG7ZunZ9 yOiAjMDAwMDAw V0GjkNEqODycQ503DFrgH iO5PKHuqoJlT2HvCGVbzH auYeF2a6H8Lw6JHOs0IV0 0VW27rVYbd7M8 pDO4R4JwTWHtojkrcmcpq FJ4RGVwTDRtoG14Cy8rmR vxJh6gMXAyPTZ3MBZriSY gJ4PjbA3wHbAl ZCAzMWEjC4DgcRLxRRygI 194MWvgBoO7MSUxmfYgP8 ZwEFXueNvtRpF8b7M9Rp9 LFNObGE39IMF3 nOE9RY95DH82L0ZlVxdnr GFibGU+PHRhYmxlIHdpZH RoPScxMDAlJyBzdHlsZT0 mTi9zOGIfICWg hJmkrBNlZlIkv2xtSJQsR PnnCU6syQyfN0OozBC0AN Nrw2w3Om22U08rA3PbxLD +NJAunWC4oAF5 bE1cTbEhQqJ1FDusE301G nLjoAVrRdusw6iav6siyA g2LnR1EVYpzkGcsIodYHF 6l3JhRl38N62k IHdpZHRoPSIxNSUiIHZhb Vrayk2wcW2yHq3+PGNvbC A6hRA5fL0ePaViLvM7FVc aM788MqSpaDTm Gdvzm3lhx6fchFk4IvXqH VUbbwZmvCilMUJ1b5JwYt 15Z3DslQnrs6DtFai0vt3 0iBSwa5K9pRY5 E6CwFAOejgaruZWgbBtmI F3xQLUtjuiuATScjX7uVM DbC8h6JrFkZiL2MNmqN0T lmeE6SRSigLXq QGcvEHQ8C64tk2V8KZIoD FWwDIW9zMW7qE0qdVoaip ogbGVmdDsgdmVydGljYWw yRDkfE692KIQk yKkoTZAneL1nIMQctQHzv QuzIR1sNOTtrwcaZmqFU1 cUIuAmOZsXFSNLXG47BD1 1jDBaa5Q5zEB1 V2NgESAdpsklakhfkXY3I WTiJHGsdN64pHVsZKvoPu 1gs1L3h044BBXfPREjdI8 2Oo5jkIofVECe qLUAcO2zphzpm3tlogiwG sLrPTYuIFz8PEm6RRNmiV ujHdUhNNF5NiB7NYU4kHQ jtZ9ibZluxjhn yA7dYbm+UZKqOIEsQNq7E TwvdGQ+BQDuVGT5dLmeSA cqQAQvoJ9cHHXcF8x9QuJ eJfK9GHtgS8Fz JJPqzahqAw30fU2iEwRpL hT3NQjyI3KxjgO0KGPwqD BwNWqoIAR4X62vs5T1TDK eMAJkEAD5kCR0 eJ4luKjmppflpVYqjWesh fFabHlrSEqlVOjnS487HI RvcDsnPjUwIFllYXJzPC9 3LM37dJWqa8R1 oTI1R5QaSNSngqxyaxxzq OE5JCEfDGFbfX43vYQhHX pyRh9xb6R9a105RZYbQGQ myU13Op3meMih FTJnhKWKaY2duzsas0zqz lpeJwAmEOCcNSf5PTe5FW ZqtLrsDmNjYNG5HcQ2PVC 6hSZtyS1znLyv cipacQ5eDub+RmVtYWxlP N62YF87jKBhj6T3oDZ0S1 VwALEjgkohhmdptIF1UUE mACJauS68lWMf KEszVf7gd6F0p700FWZoQ RYmxE37Xx8saXclUJXuhX RYjA4nkovol0udjyfkDoP kEQTsASb7FWu4 QZHsvGalXcTwWHK8HaJ4G JD6mEZdyV3kuFdsqogvtV 9wOyc+LpMcmLLzjW5oLT2 5PE37C0LtCteg dGFibGU+PHRhYmxlIHdpZ HRoPScxMDAlJyBzdHlsZT 3lGh2eRIQyDAVqkEjghGL uDrZas1mjQGZo QAymWY9lsYhwC0TcgMO4A MLap6r4Vk21Y24lX1GfiI A+XDIaaEO5mSI6pH4sSqJ kKcS8VQkeC674 BlDogNIsLjwhe3jav0ixr Ld6UaVxHFZfblCibPafKU Y2y7TgKw68D31hLBnoJZB oPSIyMCUiIHZh nJrtkd3zqQ4oOe3+PGNvb WT9tMS4qA4jNhRbQxM2JA sdK324NdYjnDJiHdzvH31 yX0EwmLO+PHRy Ihl5FPPfdRagGA8cxZAcO AtuKo0oHKV6RcJhWwYcDN phB1BlDXKllgjtksmpcLC 3LZZcPESifD23 Ap0utZzyOh4sAMYaDRJ7O APvgVOdM4PcsI9uUgRsMR ShXLUxK7LzoVCeRJaxF42 0VLglPgS9VDPy ybBeX2ErPHTeuTsiBwT8s 2W4Lb8PxPqsdKDsDA7rZa JhSAa5L0EjPgc3ZKEvpGj qES5ixZRvRUbr Lh1qbSyggPepNX1qVNKug ybov742FoDbd5efTNMteU CmJKgkDEY3V56rs2N6FPN dZUXgLJR5mUV5 rT6iyMvkghwwsURdxRlkf yYwdLklXFdrFUysA612ZB IaxWwlNhQRDnd3U5FwCcn 6CWCfzSfkAC3j sVQmRDscJq1hsZoymSspB M8fZFBdwjuas360ItQfj3 utKEGvtMZhORhxQAU2W61 qb7V0NNZqIAPb ZCF4oXE8hT4zoMdjuvmjp GVmdDsgdmVydGljYWwtYW sgA983OZWouNnuJy0OKfc 3U0SuPnv9LJFp bDbrDB2xzMPrDBfuEc3yc GqxyEzsOM2cRMBvgtlkw6 55NvVxg1dtBYAbxPLeATx nDVV8Y16gv1M7 HUVzGVRyUSD1zIU4nT0du GlnbjogbGVmdDsgdmVydG dhJQkdUMthV635RNObvTy nPlBheWVyOjwv dGQ+WP76mn36Q7BqBjnaB yf8CMZcIRU9kUU2rT6rRK DyUQayv6O2qNO2V1LacfT byi9sk0cyAPSl [employer] (more content not included)... Normal [facility] Consenton 11-29-2021 Consent [id number] #1.00CD:127 [facility] Notice of Noncoverageon 11-19 Notice of Noncoverage [id number] #1.00CD:127 [facility] PT - Assessmentson PT - Assessments [id number]# 1.00CD:127 [facility] PT - Consentson 11-29-2021 PT - Consents [id number]# 1.00CD:127 [facility] Nonvisit Note - PTon 022 Nonvisit Note - PT Chart reviewed with eval prepped for scheduled eval. KK Normal [facility] Covid-19 PCR (CVDTB)on SARS-CoV-2 (COVID-19) RNA RAYMUNDO+probe Ql (Unsp spec) Not detected Normal NOT DETECTED [facility] Comment on above: Result Comment: This test is not yet approved or cleared by the [place] FDA. When there are no FDA-approved or cleared tests available, and other criteria are met, FDA can make tests available under an emergency access mechanism called an Emergency Use Authorization (EUA). The EUA for this test is supported by the [place] of Health and Human Service's (HHS's) declaration [...] consistent with SARS-CoV-2. Performed By: #### C [facility] #### [facility] [address] [place] [address] Dr. Isis Shahid Formson 05-18-2021 Forms [id number]#1 .00CD:127 Normal [facility] Physician Referralon 021 Physician Referral [id number]# 1.00CD:127 Normal [facility] Patient Educationon 05-17-20 21 Patient Education Obstetrics [...] 06/24/2013 Document Revised: 02/25/2019 Document Reviewed: 02/25/2019 [employer] Patient Education ? 2019 [employer]. 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 -Behavioral modifications -Consider anti-cholinergics in future if urge more predominant -Follow up in 6 months or sooner if issues arise Follow-up With When Contact Information Scotty ARVIZU, Delmy Landis, URL, URO In 6 months 11/15/2021 EDT Additional Instructions: Patient Education Kegel Exercises Nora Cope, personally scribed for Dr. Fajardo on 05/17/2021 11:18:07. . Documentation recorded by the scribe, Celena Matute, accurately reflects the services(s) I performed and decisions made by me. Authenticated by Dr. Fajardo on 05/17/2021 11:28:10. Problem List/Past Medical History Ongoing Mixed incontinence Historical No qualifying data Procedur (more content not included)... Normal [facility] Comment on above: Result Comment: Elec tronically Signed By: Delmy Fajardo MD\.br\Date and Time Signed: 05/17/21 11:28 EDT\.br\Electronically Co-Signed By: Nora Matute\.br\Date and Time Co-Signed: 05/17/21 11:18 EDT Vital Signs Date Time Vital Sign Value Performing Clinician Facility 04-17-2023 08:30-0400 Body height 157.48 cm Mary Jane [facility] Other [facility] Other 04-17-2023 08:30-0400 Body mass index (BMI) [Ratio] 31.82 kg/m2 Mary Jane [facility] Other [facility] Other 04-17-2023 08:30-0400 Body weight 78.93 kg Mary Jane [facility] Other [facility] Other 04-17-2023 08:30-0400 Diastolic blood pressure 76 mm[Hg] Mary Jane [facility] Other [facility] Other 04-17-2023 08:30-0400 Systolic blood pressure 112 mm[Hg] Mary Jane [facility] Other [facility] Other 03-21-2023 11:45-0400 Body height 157.48 cm MaryJ ane [facility] Other [facility] Other 03-21-2023 11:45-0400 Body mass index (BMI) [Ratio] 32.37 kg/m2 Mary Jane [facility] Other [facility] Other 03-21-2023 11:45-0400 Body weight 80.29 kg Mary Jane [facility] Other [facility] Other 03-21-2023 11:45-0400 Diastolic blood pressure 102 mm[Hg] Mary Jane [facility] Other [facility] Other 03-21-2023 11:450400 Systolic blood pressure 141 mm[Hg] Mary Jane [facility] Other [facility] Other Encounters Encounter Date Encounter Type Care Provider Facility Start: 10-17-2023 End: 10-17-2023 ambulatory TAY FULLER Not Available Start: 04-17-2023 End: 04-17-2023 ambulatory Mary Jane [facility] Other [facility] Other Start: 04-17-2023 Encounter for genera l adult medical examination without abnormal findings Mary Jane G[facility] Start: 04-17-2023 Periodic preventive med est patient 40-64yrs Mary Jane Gongora [facility] Start: 04-17-2023 Telephone encounter Mary Jane Gongora [facility] Start: 03-21-2023 End: 03-21-2023 ambulatory Mary Jane Gongora Other [facility] Other Start: 03-21-2023 Encounter for genera l adult medical examination without abnormal findings Mary Jane Gongora [facility] Start: 03-21-2023 Office outpatient vi sit 15 minutes Mary Jane Gongora [facility] Start: 07-26-2022 (Televisit) Televisit Mary Jane Gongora [facility] Start: 07-26-2022 End: 07-26-2022 ambulatory Mary Jane Gongora Other [facility] Other Start: 06-25-2022 End: 06-26-[address] TAY FULLER Facility:[facility] Start: 04-11-2022 Encounter for genera l adult medical examination without abnormal findings DR MARY JANE GONGORA [facility] Start: 04-10-2022 End: 04-11-[address] TAY FULLER Facility:[facility] Start: 04-10-2022 End: 04-11-2022 Encounter for general adult medical examination without abnormal findings DR MARY JANE GONGORA Facility:[facility] Start: 04-04-2022 End: 04-04-[address] TAY FULLER Facility:[facility] Start: 08-23-2021 End: 08-23-[address] MARY JANE GONGORA Facility:[facility] Immunizations Immunization Date Immunization Notes Care Provider Shreya ren 06-28-2022 zoster vaccine, live Mary Jane Gongora Other [facility] Other 04-13-2022 influenza virus vaccine, split virus (incl. purified surface antigen) Mary Jane Gongora Other [facility] 02-06-2022 COVID-19 Vaccine Pfi zer - Documentation Purposes Only Mary Jane Gongora Other [facility] 02-01-2022 zoster vaccine, live Mary Jane Gongora Other [facility] Other 06-30-2021 COVID-19 Vaccine Pfi zer - Documentation Purposes Only Mary Jane Gongora Other [facility] 04-03-2021 influenza virus vaccine, split virus (incl. purified surface antigen) Mary Jane Gongora Other [facility] Other 05-26-2019 influenza virus vaccine, split virus (incl. purified surface antigen) Mary Jane Gongora Other [facility] Other Payers Date Payer Category Payer Unknown [id number] 2.16.84 [id number] 1970 Unknown [id number] 2.16.84 [id number] 1971 Unknown [id number] 2.16.84 [id number] 1971 Unknown [id number] 2.16.84 [id number] 1971 Unknown [id number] 2.16.84 [id number] 1971 Unknown [id number] 2.16.84 [id number] 1959 Unknown [id number] Social History Date Type Detail Facility Unknown if ever smoked [facility] Other Sex Assigned At Sex Assigned At [facility] Other Evaluation note 04-17-2023 Note Date & [...] left leg (ICD-10 - M79.605) as above [facility] Other Evaluation note 03-21-2023 Note Date & [...] continue to monitor through routine blood work [facility] Other Evaluation note 07-26-2022 Note Date & [...] Jul, 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) [facility] Other Evaluation note Note Date & Type Note Facility Evaluation note No Information [facility] Other History general Narrative - Reported Note Date & Type Note Facility History general Narrative - Reported Type Medical History Hypothryoid Surgical History x3 Surgical History D&C x2 Surgical History Lap Yen Surgical History hysterectomy Hospitalization History See above [facility] Other Summary Purpose Family History No Family History Records FoundNo Family History Records FoundNo Family History Records Found Advance Directives No Advanced Directives Records FoundNo Advanced Directives Records FoundNo Advanced Directives Records Found Additional Source Comments INFORMATION SOURCE (unrecogn ized section and content) DATE CREATED AUTHOR 02/21/2022 Seferino Barboza [facility] DATE CREATED AUTHOR AUTHOR'S ORGANIZ ATION 06/27/2022 [facility] DATE CREATED AUTHOR AUTHOR'S ORGANIZ ATION 10/18/2023 [facility] EPIC REASON FOR VISIT (unrecogniz ed section and content) [phone] Blood in urineWELLNESSerror FOR RECORDS PERTAINING TO PATIENTS WHO ARE [...] BE BASED ON THE PRIMARY CLINICAL RECORDS. [facility] [employer] [facility]. provides no warranty or guarantee of the accuracy or completeness of information in this document.
== END 2024-04-13 20:50 | disposition home or self-care (01) ==
LOC: LAB 20:49
PROVIDERS: Visit Provider Obstetrics & Gynecology
DX: Z01.419 Encounter for gynecological examination (general) (routine) without abnormal findings (principal)
CPT/HCPCS: 87624; 88175

== ENCOUNTER 2024-04-20 11:09 | Outpatient (OUT) | payer BC, SELFPAY ==
--- OUTSIDE RECORDS SUMMARY | 2024-04-20 11:15 | XMS_ITS | CCD ---
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 Name Role Phone ROLAN, DR MARY JANE Pate Attending Unavailable GONGORA, DR MARY JANE Pate Consulting Unavailable GONGORA, DR MARY JANE Pate Primary Care Unavailable GONGORA, DR MARY JANE Pate Admitting Unavailable EMMA, DR CROSS Admitting Unavailable EMMA, DR CROSS Attending Unavailable WEST, DR KAUR Villalpando Consulting Unavailable GONGORA, DR MARY JANE Pate Primary Care Unavailable EMMA, DR CROSS Consulting Unavailable EMMA, DR CROSS Admitting Unavailable EMMA, DR CROSS Attending Unavailable EMMA, DR CROSS Consulting Unavailable GONGORA, DR MARY JANE aPte Primary Care Unavailable EMMA, DR CROSS Admitting [...] Mary Jane Unavailable TAY FULLER Attending Unavailable TAY FULLER Attending Unavailable Allergies Allergy Classification Reported Allergen(s) Allergy Type Date of Onset Reaction(s) Facility (1 source) Adhesive bandage Drug allergy (disorder) 02-27-2016 [facility] Repository (3 sources) Latex Drug allergy 07-22-2019 Unknown [facility] Other Medications Current Medications Medication Drug Class(es) [...] Urinalysis - DIPSTICKon 08-3 Appearance (U) cloudy [employer] Other Bilirubin Ql (U) Negative [employer] Other Color (U) yellow [facility] Other Glucose Ql (U) Negative [facility] Other Hemoglobin Ql (U) moderate [employer] Other Ketones Ql (U) Negative [facility] Other Leukocyte esterase Test strip Ql (U) moderate [facility] Other Nitrite Ql (U) Negative [facility] Other pH (U) 6.0 [pH] [facility] Other Protein Ql (U) Negative [facility] Other Specific gravity (U) [Rel density] 1.000 [facility] Other Urobilinogen (U) [Mass/Vol] normal [facility] Other Urinalysis - DIPSTICK [facility] Other MG MAMM SCREEN 3D MACARIO CADon 06-25-2022 MG MAMM SCREEN 3D MACARIO CAD Patient: SRINI ROMAN Exam Date: 06/25/2022 : 1970 Gender:F Ordering : DR TAY FULLER . Admission #: [id number] Family : Order #: [id number] CLICK HERE TO VIEW EXAM RADIOLOGY REPORT [...] Treatments None Family Cancers None LOCATION: [facility] BREAST COMPOSITION: Heterogeneously dense,which may obscure small [...] Pedro MD on 06/25/2022 at 09:48 Normal [facility] PAP ACOG PANEL 2: 30 to 65on 04-11-2022 . . Normal [facility] Comment on above: Result Comment: Perf ormed at: WB Performed By: #### [id number] #### [facility] [address] [address] [address] Isis Shahid Age Gdln ACOG Testing 30-65 Normal [facility] Comment on above: Performed By: #### [id number] #### [facility] [address] [place] [address] Dr. Isis Shahid DIAGNOSIS: Comment Normal [facility] Comment on above: Result Comment: NEGA TIVE FOR INTRAEPITHELIAL LESION OR MALIGNANCY. Performed at: WB Performed By: #### [id number] #### [facility] [address] [address] [address] Isis Shahid HPV Aptima Negative Normal Negative [facility] Comment on above: Result Comment: This nucleic acid amplification test detects fourteen high-risk HPV types (16,18,31,33,35,39,45,51,52,56,58,59,66,68) without differentiation. Performed at: =G Performed By: #### 4 [id number] #### [facility] [address] [address] [address] Isis Shahid Methodology: Comment Normal [facility] Comment on above: Result Comment: This liquid based ThinPrep(R) pap test was screened with the use of an image guided system. Performed at: WB Performed By: #### [id number] #### [facility] [address] [address] [address] Isis Shahid Note: Comment Normal [facility] Comment on above: Result Comment: The Pap smear is a screening test designed to aid in the detection of premalignant and malignant conditions of the uterine cervix. It is not a diagnostic procedure and should not be used as the sole means of detecting cervical cancer. Both false-positive and false-negative reports do occur. . Performed at: WB Performed By: #### [id number] #### [facility] [address] [place] [address] Dr. Isis Shahid Performed by: Comment Normal [facility] Comment on above: Result Comment: Nikia Pedro, Certified Energy Manager (ASCP) Performed at: WB Performed By: #### [id number] #### [facility] [address] [place] [address] Dr. Isis Shahid Specimen adequacy: Comment Normal [facility] Comment on above: Result Comment: Sati sfactory for evaluation. Endocervical and/or squamous metaplastic cells (endocervical component) are present. Performed at: WB Performed By: #### 4 [id number] #### [facility] [address] [place] [address] Dr. Isis Shahid FREE T4on 04-10-2022 Free T4 [Mass/Vol] 1.21 ng/dL Normal 0.76-1.46 [facility] Comment on above: Performed By: #### F T4 #### [facility] [address] [place] [address] Dr. Isis Shahid LIPID PROFILEon 04-10-2022 CHOL-HDL RATIO NORM SEE BELOW Normal [facility] Comment on above: Result Comment: 3.3 - 4.4 LOW RISK 4.4 - 7.1 AVERAGE RISK 7.1 - 11.0 MODERATE RISK >11.0 HIGH RISK Performed By: #### T SH, LIPID, BMP #### [facility] [address] [place] [address] Dr. Isis Shahid Cholesterol [Mass/Vol] 209 mg/dL Critically high <=200 [facility] Comment on above: Performed By: #### T SH, LIPID, BMP #### [facility] [address] [place] [address] Dr. Isis Shahid Cholesterol in HDL [Mass/Vol] 62 mg/dL Critically high 40-60 [facility] Comment on above: Performed By: #### T SH, LIPID, BMP #### [facility] [address] [address] [address] Isis Shahid Cholesterol in LDL [Mass/Vol] 126.0 mg/dL Normal [facility] Comment on above: Performed By: #### T SH, LIPID, BMP #### [facility] [address] [place] [address] Dr. Isis Shahid Cholesterol.total/ Cholesterol in HDL [Mass ratio] 3.4 {ratio} Normal [facility] Comment on above: Performed By: #### T SH, LIPID, BMP #### [facility] [address] [place] [address] Dr. Isis Shahid HDL NORMAL > or = 60 mg/dl - LO W CARDIOVASCULAR RISK <40 mg/dl - HIGH CARDIOVASCULAR RISK Normal [facility] Comment on above: Performed By: #### T LURDES, LIPID, BMP #### [facility] [address] [place] [address] Dr. Isis Shahid LDL CALC NORMAL SEE BELOW Normal [facility] Comment on above: Result Comment: <100 mg/dl OPTIMAL 100 - 129 mg/dl NEAR OR ABOVE OPTIMAL 130 - 159 mg/dl BORDERLINE HIGH 160 - 189 mg/dl HIGH >190 mg/dl VERY HIGH Performed By: #### T ULRDES, LIPID, BMP #### [facility] [address] [place] [address] Dr. Isis Shahid Triglyceride [Mass/Vol] 105 mg/dL Normal <=150 [facility] Comment on above: Performed By: #### T LURDES, LIPID, BMP #### [facility] [address] [place] [address] Dr. Isis Shahid VLDL CALC 21.0 mg/dL Normal [facility] Comment on above: Performed By: #### T LURDES, LIPID, BMP #### [facility] [address] [place] [address] Dr. Isis Shahid PROF CHEM 8 (BAS METB)on Anion gap [Moles/Vol] 12.9 mmol/L Normal [facility] Comment on above: Performed By: #### T LURDES, LIPID, BMP #### [facility] [address] [address] [address] Isis Shahid Calcium [Mass/Vol] 8.7 mg/dL Normal 8.5-10.1 [facility] Comment on above: Performed By: #### T SH, LIPID, BMP #### [facility] [address] [address] [address] Isis Shahid Chloride [Moles/Vol] 106 mmol/L Normal 98-107 [facility] Comment on above: Performed By: #### T SH, LIPID, BMP #### [facility] [address] [address] [address] Isis Shahid CO2 [Moles/Vol] 24.5 mmol/L Normal 21.0-32.0 [facility] Comment on above: Performed By: #### T SH, LIPID, BMP #### [facility] [address] [place] [address] Dr. Isis Shahid Creatinine [Mass/Vol] 0.67 mg/dL Normal 0.55-1.02 [facility] Comment on above: Performed By: #### T SH, LIPID, BMP #### [facility] [address] [address] [address] Issi Shahid EGFR-AF INDIAN >60 Normal >=60 [facility] Comment on above: Performed By: #### T SH, LIPID, BMP #### [facility] [address] [place] [address] Dr. Isis Shahid EGFR-NON AF INDIAN >60 Normal >=60 [facility] Comment on above: Performed By: #### T SH, LIPID, BMP #### [facility] [address] [address] [address] Isis Shahid Glucose [Mass/Vol] 94 mg/dL Normal 74-106 [facility] Comment on above: Performed By: #### T SH, LIPID, BMP #### [facility] [address] [address] [address] Isis Shahid Potassium [Moles/Vol] 4.4 mmol/L Normal 3.5-5.1 [facility] Comment on above: Performed By: #### T SH, LIPID, BMP #### [facility] [address] [address] [address] Isis Shahid Sodium [Moles/Vol] 139 mmol/L Normal 136-145 [facility] Comment on above: Performed By: #### T SH, LIPID, BMP #### [facility] [address] [address] [address] Isis Shahid Urea nitrogen [Mass/Vol] 4.0 mg/dL Critically low 7.0-18.0 [facility] Comment on above: Performed By: #### T SH, LIPID, BMP #### [facility] [address] [address] [address] Isis Shahid Urea nitrogen/Creatinin e [Mass ratio] 6.0 mg/mg Normal [facility] Comment on above: Performed By: #### T SH, LIPID, BMP #### [facility] [address] [address] [address] Isis Shahid TSHon 04-10-2022 TSH 0.335 uIU/mL Critically low 0.358-3.740 [facility] Comment on above: Performed By: #### T SH, LIPID, BMP #### [facility] [address] [place] [address] Dr. Isis Shahid XR DEXA BONE DENSITYon [...] by: APOLONIA HENSON Date: 2022-04-10 10:30 Normal [facility] PT - Assessmentson PT - Assessments [id number]#1 .00CD:127 [facility] PT - Assessments [id number]#1 .00CD:127 [facility] PT - Otheron 01-10-2022 PT - Other [id number]#1 .00CD:127 [facility] PT - Assessmentson PT - Assessments [id number]# 1.00CD:127 [facility] PT - Otheron 12-04-2021 PT - Other [id number]# 1.00CD:127 [facility] Coding Summary.on 11-30-2021 Coding Summary. CD:[id number] G h0bWw+PGhlYWQ+GN2SWHJ uD56hdNLzeM6GP2tQEQ9P SDIEKEPNIX1ASF9hqVN4B GbkG0RcaxPe NkjmwTPxQK42RYw5VTU5c QlhREzqxQ1rpNYxV2e8Bd QjYQ03kO20VFkmHCSmKfB 3LjZpbjsgbWFy X3viJjUqjFWqZbm+PHRhY mxlIHdpZHRoPScxMDAlJy HdiIozHI1aWr8eCFUtBBF vbGxhcHNlOiBj r8dfXIZeRJtoUZ9keHdhF 7XpzWW2SQStb7t2Vb12mN I+FPNaNXY1rFjcTSxvv56 2LmWdm9sdYDO6 yZZeFTadHMW9Y63bb3K6G MUrTJJbXSW7sFH7fZ9ajK hugqgmS1RxnSKdTjB7PWL 1wKKyqY3rfZcl jmvsjT5xYke+J02KLK6ET KYRIO1VFbl2S8RgPizqqZ I+OM95KOPjGW39sVBqeZO bu5xflPk6ExPi PXJxWQU4lVfvFXxgv5QcU MNbR37cfZXza5V9GRDpfP vvgMWhYhCynIH4kJ4bZCm ggyzjo8zuwgfs Stkuc3arkf78iI06P07xD SpeTPDlGKF9KLSvNVQfsO aamd6maJ4cCj6+EUqlc5k cq0dloWd9FpIc UMWidnNsyFzuAHE8o5RkM f63P0MrjXsxl5DgEjn0hw 47aHAhq2P6bIF8TZaqTTM kdO4mVKcsBcJ8 QWAvMdXheD64wECwADrdJ h1xkInkpEbmOT6kVLHzlk yxSGTeaB7fLOKhyOBxkAt bOD8cHRUgavfh v736EnHrUCJ6CRTbhYEbP 7LcgC0wJjQwZREwVTXoT3 CeyYKnSAmgI077WKyeGdS 6NCFifcVuM4Se UTLxfXydArJ0l2U9Dc6Kf 3PtwsdjZXQ1HOcxLJL7Dh YbTeIuUaZ9D7YpPzn1FDL laUoaKE8wF4Qq RZJixlzxscinuVC1BCOkQ TJnjW49fAEfKWziEy7yr1 T2j628MMPwIVYfeF82Sx8 udDogMTBwdCBU eT0htroac6xeizyxZyAtH VOdHGb6RDy4WFAbsVerOp PhZGR9TdE1NDG4iPLjoX0 rxFzlsbbqxW8f Oyc+A40wpS1uSDN5PPP8w ujdYWCazhMeIU30JA75J4 RyPjwvdGFibGU+PGRpdiB ieFmhIO4jLqKf w2xwx7KjELwoX0HdXSDvJ KipEhf9YVMkHON9cEF5qP 3iOUBpJZvsh0Q6cGW7U2E qbbGyit7ys3zp TTCuEXkxU15zpRWcm0L6A GJchRL3GQDerZhmWyBzpJ 93Oyc+DFXewCzsr9ZyAel st1xbf1uanYj2 NxJsOCDbpnWkkKjbQZP8m 3ViOs55Q84hAOfbSCGdTT HzZSJqBRWmjLqplk5syZ0 wIi8+PGNvbCB3 cUG0mK0lXIThOdU6ZHxpI 414UvTmsVGcPpiqx4gsz3 vgrSv1EcAgLTGfatAcaEe nOVC6a8GhUq72 U62oIXluNLNwHWQgTOTgP KXtbEqxlx7gwP8hDl7+PC 7oj7owmi27mO10nAW+PHR tKXU9hFbrWHwd ZSNpfN0sMYjuKcT3XELbZ rKwaC46fWLtVCiaFy9fjW bjwEzaGE5yVUWfnelpo76 4NnTsz9rjMMUr eWQbGMbcFHM3D02dc8G2G MQjHGVfXOF5fNY0nD3qbP lnbjogbGVmdDsgdmVydGl iJBjrMQxcR960 IHRvcDsnPlBhdGllbnQgT qQlRKx8E1JzVsz6LLAwlZ tyPG7dbUBtBGmlPo1boCd mjAwsOA5bVTKr kyhjr020JhYoc7rhUXYsq LYcJQjzODT0O49zq2G4NJ MzPXPyPBY7uDC6aH2lhTt nbjogbGVmdDsg naIduLzlVYrcNTbpV390G HRvcDsnPkJpcnRoIERhdG V9LL71LB55xJLxw4U9lIE 6W2WpQHGzcyio dazcrYV5DICjZNLzwZ33I g9xlMfdWp3oLKHmDIS8TA JliZFfW3QwiJ6jOdFkWPX pLNRtZ4UdrCRz ZJtmS104HIihPkH4XUTch iWfQ5FkYEXseIitCuL1c1 T5Vm9EB2E2QE08NB24xSN um6G1rXE7X1Iz JZFakjzyydrkfEI2WHOiR OKjcQ04Pr0iqOczWd2nDF ZaYRO5NOGmcZGnM8ObqJ3 yOiAjMDAwMDAw F9OgtHEbVJnoK374RXhjS qS6JPPyttPfI3HaQWVjxU zqNqH4c9V9Uz6NZJm3NE9 4KV49lAOkd8H7 sBR4S3RpJYClgfqcyzpjj AN5GSSxCVKbsL93Un6geF oxSf4kGCDyFDC8MVKljNL nC3MqrF2fJaSw DRCaZLBmP6SfqNLyDLjcO 830DGohZyX9ASFbhwTzA7 RrJDUhcJplVtW2q1W5Uu6 BNXPgYV08GKM3 mPJ2BF43FF24C9LyLuhfw GFibGU+PHRhYmxlIHdpZH RoPScxMDAlJyBzdHlsZT0 lTq0lOQFhJALq kDadmGOmKdYkq3iaVDVsZ UngPY0oxTspF0RlgAP8OE Yku2f7Jg50H82hO7BxoFK +CQGlmVW3jCT0 zV3vFoUdZqV8YRgqZ814W dGtjNSvTvhey1miy1smnY u3TfE7KJJfxkAaxUdoHID 3p0CsLm45X13x IHdpZHRoPSIxNSUiIHZhb Titgd8mvG9nBa0+PGNvbC H6tCK9oA4hVbUmXvS7IRk aH153WyPslAXt Zsplu9qlc3pqtNu7CgJvA EUhyoUhoXikRDV7n8XrDh 92T5YrlBaac6YjLwv0di6 5oDIvu6Y4oGK7 W9EaESLbjjnigKGnzLzvQ P0cRUKocwywLYFkvE7qEY IdW5d9DuOkEjM6IWpkK7E ecbS3JHEcsRBp PPjxJVM3F73mv1M8OWTfC WSoZUS9pCW6nW6njVudhm ogbGVmdDsgdmVydGljYWw sGJcjB061WOBa uUfoMHCqaW1wKDBdtAMei YhuCP8aZNTqypzqVblNK0 iTSuKlIHkVKGTJPX54KB2 9uMYnt9G8xXF4 L0LxZGUtbvqlwugmqKY4J QRhACXhvC74tQHjGIfgOs 9mk8O8y694HBBcUSPfgZ1 1Hg5ezTlgYTGa aSUQyJ0pqpcju4ozjuqdF vWfYOLuDQh1XHb8LGZsiI iiKjHyHZZ1JcO6HKD3wWL shQ0alQkqxskc wT9sCxd+JVEvOUNwZXx3X TwvdGQ+HCEaJXG3kKyqCH wsKFIwzA5hRJSnP4k7TqH bMjA7HPvcV2Xr LGLspqanZj44mO9rHnGhE zS8WUawS2XjlfJ3PJYnvK GeBKobTWR1Q80pm1Q5OBA mPTTkRFO1eXJ1 zX1mzRiakslesFYudWrdy rLunBmsQJlnEPwjJ105RT RvcDsnPjUwIFllYXJzPC9 6OV01tBUeb8R9 xKG7C4YfBBLxktlhftwex TP2HRRcUBFjkO27jPEqFV dfHw0mo0S8x490SJUsOLT vqG30Di7juGkb VQXfaEFDaM3uqhtwv2noy jgbHqGzPHVxIRh7CWc2NG TxvNleYqXhNFM2KaX5HWG 4lNPyxY5xqXmr xnkwhI0aLfg+RmVtYWxlP I30MW24xPShr7G1oRO4Y4 TvXAXakfcbudngmRM6BXY vBFNkhX37pASr ZPheAp3cq0C1z109LZKhO XSvkH68Nx2wdTogHHVgeB WHlF0dfuxnq1sixnuyDqY nNAYbTNg4TOj5 FRIgdZnhFbRwLRG0KgV6M PL9vEMadN0ktDcuwapoyN 9wOyc+MvGpvTNhdG2uGI5 4ZZ06M4OiVzfc dGFibGU+PHRhYmxlIHdpZ HRoPScxMDAlJyBzdHlsZT 0kQt4eVUWwWALivGftzVJ wMrZjg2awUNGe PVzvRX8sqIfnX3PggMF6Y XDgc2c0Hr90N96bR8DtdN A+XWUexIV8oAH9cF9tGiI mTgB4BVysX323 UnYkcOZxUgkee7igv9ayt Fu2RmCvESFkddNsrKmoJB X6d9YmMy21C03kWAixAUF oPSIyMCUiIHZh iJfpbt6gdG6hUe2+PGNvb CV0bMJ5tM7lQkPdPsQ0XI fiA398NsMkzBYbIctpU33 yR1LigCD+PHRy Pzm2MGIjeYmiEY7fbHNuG FndCd9qAKS3NmOyQmWhTT oyL9JrXWUwoorkejrflLR 2YBRgTKUelI74 Ll7leKzgEj8nRIDeDPE6F OGuvPAkR9EohR1gCyRxPX AzKWFtO2UzdNPnYBqcJ83 4RFmoWgB2GMBz crPxY5RoZEFggLnoBvU7w 1V7Wf0DkKrulHNmZJ7aZe TlYGk2E2BtNme3IENcaYd oFT7omMQqUQvy Dj5ayIszpLegZQ8kXJJss orfe730AuEeo4voQRPfoT RtWEqnLLG9S39mg7A1MAW mXNImCUQ6zDR2 tI2crQdydqikcKFerNpay dIpjZtdOPsbHLvvA672OL ZerKjdScRTWxg1Y2IyNly 5YNAusMttIV6k cXUqBHgwVr7thXdcjGkaF N3uQNVrbqjmf342OlTsd2 glGZCtkGLxVAgeMNC0X87 qg1R1GUObAWDn WPW5tFP0mH3mbUjokpxvs GVmdDsgdmVydGljYWwtYW fmF902YJGjfLhcBv0EFsd 7Q0NbCxr2FRXo cCmhXW3evNZwDEfhMi9gg ItsuIgtZZ6cKQXodkokl1 71OfMtc2zqDTLqtFQtGGk qLQC6S44th6X3 QBRqHSMoDWJ8wZJ5vM9he GlnbjogbGVmdDsgdmVydG mgXAfrXGbiE943WCExxNs nPlBheWVyOjwv dGQ+YU87dj54H5ZqIzlfF rs7LMBiVKA7gIF1yJ4uLU InGOsvq8J3qQE5Z8IcqcZ kxb7gy2azIDPc [employer] (more content not included)... Normal [facility] Consenton 11-29-2021 Consent [id number] #1.00CD:127 [facility] Notice of Noncoverageon 11-19 Notice of Noncoverage [id number] #1.00CD:127 [facility] PT - Assessmentson PT - Assessments [id number]# 1.00CD:127 [facility] PT - Consentson 11-29-2021 PT - Consents [id number]# 1.00CD:127 [facility] Nonvisit Note - PTon 022 Nonvisit Note - PT Chart reviewed with eval prepped for scheduled eval. KK Normal [facility] Covid-19 PCR (CVDTB)on SARS-CoV-2 (COVID-19) RNA RAYMUNDO+probe Ql (Unsp spec) Not detected Normal NOT DETECTED [facility] Comment on above: Result Comment: This test is not yet approved or cleared by the [place] FDA. When there are no FDA-approved or cleared tests available, and other criteria are met, FDA can make tests available under an emergency access mechanism called an Emergency Use Authorization (EUA). The EUA for this test is supported by the [employer] of Health and Human Service's (HHS's) declaration [...] consistent with SARS-CoV-2. Performed By: #### [facility] #### [facility] [address] [place] [address] Dr. Isis Shahid Formson 05-18-2021 Forms [id number]#1 .00CD:127 Normal [facility] Physician Referralon 021 Physician Referral [id number]# 1.00CD:127 Normal [facility] Patient Educationon 05-17-20 21 Patient Education [...] 06/24/2013 Document Revised: 02/25/2019 Document Reviewed: 02/25/2019 [employer] Patient Education ? 2020 [employer] 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 -Behavioral modifications -Consider anti-cholinergics in [...] data Procedur (more content not included)... Normal [facility] Comment on above: Result Comment: Elec tronically Signed By: Delmy Fajardo MD\.br\Date and Time Signed: 05/17/21 11:28 EDT\.br\Electronically Co-Signed By: Nora Matute.br\Date and Time Co-Signed: 05/17/21 11:18 EDT Vital Signs Date Time Vital Sign Value Performing Clinician Facility 04-17-2023 08:30-0400 Body height 157.48 cm Mary Jane Gongora Other [facility] Other 04-17-2023 08:30-0400 Body mass index (BMI) [Ratio] 31.82 kg/m2 Mary Jane Gongora Other [facility] Other 04-17-2023 08:30-0400 Body weight 78.93 kg Mary Jane Gongora Other [facility] Other 04-17-2023 08:30-0400 Diastolic blood pressure 76 mm[Hg] Mary Jane Gongora Other [facility] Other 04-17-2023 08:30-0400 Systolic blood pressure 112 mm[Hg] Mary Jane Gongora Other [facility] Other 03-21-2023 11:45-0400 Body height 157.48 cm Mary Jane Gongora Other [facility] Other 03-21-2023 11:45-0400 Body mass index (BMI) [Ratio] 32.37 kg/m2 Mary Jane Gongora Other [facility] Other 03-21-2023 11:45-0400 Body weight 80.29 kg Mary Jane Gongora Other [facility] Other 03-21-2023 11:45-0400 Diastolic blood pressure 102 mm[Hg] Mary Jane Gongora Other [facility] Other 03-21-2023 11:45-0400 Systolic blood pressure 141 mm[Hg] Mary Jane Gongora Other [facility] Other Encounters Encounter Date Encounter Type Care Provider Facility Start: 04-13-2024 End: 04-13-2024 ambulatory TAY FULLER Not Available Start: 10-17-2023 End: 10-17-2023 ambulatory TAY FULLER Not Available Start: 04-17-2023 End: 04-17-2023 ambulatory Mary Jane Gongora Other [facility] Other Start: 04-17-2023 Encounter for genera l adult medical examination without abnormal findings Mary Jane Gongora [facility] Start: 04-17-2023 Periodic preventive med est patient 40-64yrs Mary Jane Gongora [facility] Start: 04-17-2023 Telephone encounter Mary Jane Gongora [facility] Start: 03-21-2023 End: 03-21-2023 ambulatory Mary Jane Gongora Other [facility] Other Start: 03-21-2023 Encounter for genera l adult medical examination without abnormal findings Mary Jane Gongora [facility] Start: 03-21-2023 Office outpatient vi sit 15 minutes Mary Jane Gongora [facility] Start: 07-26-2022 (Televisit) Televisit Mary Jane Gongora [facility] Start: 07-26-2022 End: 07-26-2022 ambulatory Mary Jane Gongora Other [facility] Other Start: 06-25-2022 End: 06-26-[address] TAY FULLER Facility:[facility] Start: 04-11-2022 Encounter for genera l adult medical examination without abnormal findings DR MARY JANE GONGORA [facility] Start: 04-10-2022 End: 04-11-[address] TAY FULLER Facility:[facility] Start: 04-10-2022 End: 04-11-2022 Encounter for general adult medical examination without abnormal findings DR MARY JANE GONGORA Facility:[facility] Start: 04-04-2022 End: 04-04-[address] TAY FULLER Facility:[facility] Start: 08-23-2021 End: 08-23-[address] MARY JANE GONGORA Facility:[facility] Immunizations Immunization Date Immunization Notes Care Provider Shreya ren 06-28-2022 zoster vaccine, live Mary Jane Gongora Other [facility] Other 04-13-2022 influenza virus vaccine, split virus (incl. purified surface antigen) Mary Jane Gongora [facility] Other 02-06-2022 COVID-19 Vaccine Pfi zer - Documentation Purposes Only Mary Jane Gongora [facility] Other 02-01-2022 zoster vaccine, live Mary Jane Gongora Other [facility] Other 06-30-2021 COVID-19 Vaccine Pfi zer - Documentation Purposes Only Mary Jane Gongora Other [facility] Other 04-03-2021 influenza virus vaccine, split virus (incl. purified surface antigen) Mary Jane Gongora [facility] Other 05-26-2019 influenza virus vaccine, split virus (incl. purified surface antigen) Mary Jane Gongora Other [facility] Other Payers Date Payer Category Payer Unknown [id number] 2.16.84 [id number] 1971 Unknown [id number] 2.16.84 [id number] 1971 Unknown [id number] 2.16.84 [id number] 1971 Unknown [id number] 2.16.84 [id number] 1971 Unknown [id number] 2.16.84 [id number] 1971 Unknown [id number] 2.16.84 [id number] 1971 Unknown [id number] 2.16.84 [id number] 1959 Unknown [id number] Social History Date Type Detail Facility Unknown if ever smoked [facility] Other Sex Assigned At Sex Assigned At Bir [facility] Other Evaluation note 04-17-2023 Note Date & [...] left leg (ICD-10 - M79.605) as above [facility] Other Evaluation note 03-21-2023 Note Date & [...] continue to monitor through routine blood work [facility] Other Evaluation note 07-26-2022 Note Date & [...] Jul, 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) [facility] Other Evaluation note Note Date & Type Note Facility Evaluation note No Information [facility] Other History general Narrative - Reported Note Date & Type Note Facility History general Narrative - Reported Type Medical History Hypothryoid Surgical History x3 Surgical History D&C x2 Surgical History Lap Yen Surgical History hysterectomy Hospitalization History See above [facility] Other Summary Purpose Family History No Family History Records FoundNo Family History Records FoundNo Family History Records Found Advance Directives No Advanced Directives Records FoundNo Advanced Directives Records FoundNo Advanced Directives Records Found Additional Source Comments INFORMATION SOURCE (unrecogn ized section and content) DATE CREATED AUTHOR 02/21/2022 [facility] DATE CREATED AUTHOR AUTHOR'S ORGANIZ ATION 06/27/2022 [facility] DATE CREATED AUTHOR AUTHOR'S ORGANIZ ATION 04/14/2024 [facility] EPIC REASON FOR VISIT (unrecogniz ed section and content) Scratchy [phone] Blood in urineWELLNESSerror FOR RECORDS PERTAINING TO [...] BE BASED ON THE PRIMARY CLINICAL RECORDS. [employer] provides no warranty or guarantee of the accuracy or completeness of information in this document.
--- NOTE | 2024-04-20 11:21 | XR_ITS ---
[address] [address] Patient Name: SRINI ROMAN MRN: [id number] date: 1970 Sex: F Assigned Patient Location: [facility] Current Patient Location: [facility] Accession/Order Number: [id number] Exam Date: 04/20/2024 11:28 Report Date: 04/20/2024 17:19 At the request of: TAY CARTER Procedure: XR DEXA axial skeleton EXAMINATION: XR DEXA axial skeleton HISTORY: Osteoporosis, Post Menopausal COMPARISON: DEXA bone densitometry 04/10/2022 TECHNIQUE: Dual-energy X-ray absorptiometry (DXA) was performed. FINDINGS: SPINE ANALYSIS: Average bone mineral density is 1.332 g/cm2. T-score (standard deviation relative to young adult mean): 1.3 . -1.2% change since prior study. HIP ANALYSIS: Lowest bone mineral density is within the right femoral neck, 1.095 g/cm2. T-score (standard deviation relative to young adult mean): 0.4 . -2.5% change since prior study. XR/XR DEXA axial skeleton IMPRESSION: World Health Organization Classification: Normal - Low Fracture Risk FRAX: Cannot calculate. Pharmacologic treatment recommendations * No uniform recommendation applies to all patients. Management plans must be individualized. * Consider initiating pharmacologic treatment in postmenopausal women and men >= 50 years of age who have the following: Primary fracture prevention: * T-score <= - 2.5 at the femoral neck, total hip, lumbar spine, 33% radius (some uncertainty with existing data) by DXA. * Low bone mass (osteopenia: T-score between - 1.0 and - 2.5) at the femoral neck or total hip by DXA with a 10-year hip fracture risk >= 3% or a 10-year major osteoporosis-related fracture risk >= 20% (i.e., clinical vertebral, hip, forearm, or proximal humerus) based on the [place]-adapted FRAXregistered model. Secondary fracture prevention: * Fracture of the hip or vertebra regardless of BMD [4, 5]. * Fracture of proximal humerus, pelvis, or distal forearm in persons with low bone mass (osteopenia: T-score between - 1.0 and - 2.5). The decision to treat should be individualized in persons with a fracture of the proximal humerus, pelvis, or distal forearm who do not have osteopenia or low BMD [12, 13]. Mikal MS, Yaniv SL, Lisa KL, Jens EM, Katya KG, AJ, Josafat ES. The clinician's guide to prevention and treatment of osteoporosis. Osteoporos Int. 2021;33(10):2329-4082. doi: 10.1007/c28414-283-48420-l. Epub 2021Nov 16. Erratum in: Osteoporos Int. 2021Feb 15;: PMID: [id number]; PMCID: [id number]. Electronically authenticated by: APOLONIA HENSON Date: 04/20/2024 17:19
== END 2024-04-20 11:10 | disposition home or self-care (01) ==
LOC: RAD 11:09
PROVIDERS: PCP Family Medicine; Visit Provider Obstetrics & Gynecology
DX: Z00.00 Encounter for general adult medical examination without abnormal findings (principal); E03.9 Hypothyroidism, unspecified; M81.0 Age-related osteoporosis without current pathological fracture
CPT/HCPCS: 36415; 77080; 80048; 80061; 84439; 84443

== ENCOUNTER 2024-04-20 11:10 | Outpatient (OUT) | payer BC, SELFPAY ==
--- OUTSIDE RECORDS SUMMARY | 2024-04-20 11:17 | XMS_ITS | CCD ---
Author Organization [facility] Care Team Providers Care Home Lending Officer Name Role Phone ROLAN, DR MARY JANE [...] Adhesive bandage Drug allergy (disorder) 02-27-2016 [facility] Repository (3 sources) Latex Drug allergy 07-22-2019 Unknown [facility] Other Medications Current Medications Medication Drug Class(es) [...] Urinalysis - DIPSTICKon 08-3 Appearance (U) cloudy [facility] [employer] Other Bilirubin Ql (U) Negative [employer] [facility] Other Color (U) yellow [facility] Other Glucose Ql (U) Negative [employer] Other Hemoglobin Ql (U) moderate [employer] Other Ketones Ql (U) Negative [employer] Other Leukocyte esterase Test strip Ql (U) moderate [facility] Other Nitrite Ql (U) Negative [employer] Other pH (U) 6.0 [pH] [facility] Other Protein Ql (U) Negative [employer] Other Specific gravity (U) [Rel density] 1.000 [facility] Other Urobilinogen (U) [Mass/Vol] normal [facility] Other Urinalysis - DIPSTICK [facility] Other MG MAMM SCREEN 3D MACARIO CADon 06-25-2022 MG MAMM SCREEN 3D MACARIO CAD Patient: SRINI ROMAN Exam Date: 06/25/2022 : 1970 Gender:F Ordering : DR TAY FULLER . Admission #: [id number] Family : Order #: [id number] CLICK HERE TO VIEW EXAM RADIOLOGY REPORT [...] Treatments None Family Cancers None LOCATION: [facility] BREAST COMPOSITION: Heterogeneously dense,which may obscure [...] Pedro MD on 06/25/2022 at 09:48 Normal [facility] PAP ACOG PANEL 2: 30 to 65on 04-11-2022 . . Normal [facility] Comment on above: Result Comment: Perf ormed at: WB Performed By: #### [id number] #### [facility] [address] [address] [address] Isis Shahid Age Gdln ACOG Testing 30-65 Normal [facility] Comment on above: Performed By: #### [id number] #### [facility] [address] [place] [address] Dr. Isis Shahid DIAGNOSIS: Comment Normal [facility] Comment on above: Result Comment: NEGA TIVE FOR INTRAEPITHELIAL LESION OR MALIGNANCY. Performed at: WB Performed By: #### [id number] #### [facility] [address] [address] [address] Isis Shahid HPV Aptima Negative Normal Negative [facility] Comment on above: Result Comment: This nucleic acid amplification test detects fourteen high-risk HPV types (16,18,31,33,35,39,45,51,52,56,58,59,66,68) without differentiation. Performed at: =G Performed By: #### 4 [id number] #### [facility] [address] [address] [address] Isis Shahid Methodology: Comment Normal [facility] Comment on above: Result Comment: This liquid based ThinPrep(R) pap test was screened with the use of an image guided system. Performed at: WB Performed By: #### [id number] #### [facility] [address] [address] [address] Isis Shahid Note: Comment Normal [facility] Comment on above: Result Comment: The Pap smear is a screening test designed to aid in the detection of premalignant and malignant conditions of the uterine cervix. It is not a diagnostic procedure and should not be used as the sole means of detecting cervical cancer. Both false-positive and false-negative reports do occur. . Performed at: WB Performed By: #### [id number] #### [facility] [address] [place] [address] Dr. Isis Shahid Performed by: Comment Normal [facility] Comment on above: Result Comment: Nikia Pedro, Aerosol Line Operator (ASCP) Performed at: WB Performed By: #### [id number] #### [facility] [address] [place] [address] Dr. Isis Shahid Specimen adequacy: Comment Normal [facility] Comment on above: Result Comment: Sati sfactory for evaluation. Endocervical and/or squamous metaplastic cells (endocervical component) are present. Performed at: WB Performed By: #### [id number] #### [facility] [address] [place] [address] Dr. Isis Shahid FREE T4on 04-10-2022 Free T4 [Mass/Vol] 1.21 ng/dL Normal 0.76-1.46 [facility] Comment on above: Performed By: #### F T4 #### [facility] [address] [place] [address] Dr. Isis Shahid LIPID PROFILEon 04-10-2022 CHOL-HDL RATIO NORM SEE BELOW Normal [facility] Comment on above: Result Comment: 3.3 - 4.4 LOW RISK 4.4 - 7.1 AVERAGE RISK 7.1 - 11.0 MODERATE RISK >11.0 HIGH RISK Performed By: #### T SH, LIPID, BMP #### [facility] [address] [place] [address] Dr. Isis Shahid Cholesterol [Mass/Vol] 209 mg/dL Critically high <=200 [facility] Comment on above: Performed By: #### T SH, LIPID, BMP #### [facility] [address] [place] [address] Dr. Isis Shahid Cholesterol in HDL [Mass/Vol] 62 mg/dL Critically high 40-60 [facility] Comment on above: Performed By: #### T SH, LIPID, BMP #### [facility] [address] [address] [address] Isis Shahid Cholesterol in LDL [Mass/Vol] 126.0 mg/dL Normal [facility] Comment on above: Performed By: #### T SH, LIPID, BMP #### [facility] [address] [place] [address] Dr. Isis Shahid Cholesterol.total/ Cholesterol in HDL [Mass ratio] 3.4 {ratio} Normal [facility] Comment on above: Performed By: #### T SH, LIPID, BMP #### [facility] [address] [place] [address] Dr. Isis Shahid HDL NORMAL > or = 60 mg/dl - LO W CARDIOVASCULAR RISK <40 mg/dl - HIGH CARDIOVASCULAR RISK Normal [facility] Comment on above: Performed By: #### T LURDES, LIPID, BMP #### [facility] [address] [place] [address] Dr. Isis Shahid LDL CALC NORMAL SEE BELOW Normal [facility] Comment on above: Result Comment: <100 mg/dl OPTIMAL 100 - 129 mg/dl NEAR OR ABOVE OPTIMAL 130 - 159 mg/dl BORDERLINE HIGH 160 - 189 mg/dl HIGH >190 mg/dl VERY HIGH Performed By: #### T LURDES, LIPID, BMP #### [facility] [address] [place] [address] Dr. Isis Shahid Triglyceride [Mass/Vol] 105 mg/dL Normal <=150 [facility] Comment on above: Performed By: #### T LURDES, LIPID, BMP #### [facility] [address] [place] [address] Dr. Isis Shahid VLDL CALC 21.0 mg/dL Normal [facility] Comment on above: Performed By: #### T LURDES, LIPID, BMP #### [facility] [address] [place] [address] Dr. Isis Shahid PROF CHEM 8 (BAS METB)on Anion gap [Moles/Vol] 12.9 mmol/L Normal [facility] Comment on above: Performed By: #### T LURDES, LIPID, BMP #### [facility] [address] [address] [address] Isis Shahid Calcium [Mass/Vol] 8.7 mg/dL Normal 8.5-10.1 [facility] Comment on above: Performed By: #### T SH, LIPID, BMP #### [facility] [address] [address] [address] Isis Shahid Chloride [Moles/Vol] 106 mmol/L Normal 98-107 [facility] Comment on above: Performed By: #### T SH, LIPID, BMP #### [facility] [address] [address] [address] Isis Shahid CO2 [Moles/Vol] 24.5 mmol/L Normal 21.0-32.0 [facility] Comment on above: Performed By: #### T SH, LIPID, BMP #### [facility] [address] [place] [address] Dr. Isis Shahid Creatinine [Mass/Vol] 0.67 mg/dL Normal 0.55-1.02 [facility] Comment on above: Performed By: #### T SH, LIPID, BMP #### [facility] [address] [address] [address] Isis Shahid EGFR-AF CONGOLESE >60 Normal >=60 [facility] Comment on above: Performed By: #### T SH, LIPID, BMP #### [facility] [address] [place] [address] Dr. Isis Shahid EGFR-NON AF CONGOLESE >60 Normal >=60 [facility] Comment on above: Performed By: #### T SH, LIPID, BMP #### [facility] [address] [address] [address] Isis Shahid Glucose [Mass/Vol] 94 mg/dL Normal 74-106 [facility] Comment on above: Performed By: #### T SH, LIPID, BMP #### [facility] [address] [address] [address] Isis Shahid Potassium [Moles/Vol] 4.4 mmol/L Normal 3.5-5.1 [facility] Comment on above: Performed By: #### T SH, LIPID, BMP #### [facility] [address] [address] [address] Isis Shahid Sodium [Moles/Vol] 139 mmol/L Normal 136-145 [facility] Comment on above: Performed By: #### T SH, LIPID, BMP #### [facility] [address] [address] [address] Isis Shahid Urea nitrogen [Mass/Vol] 4.0 mg/dL Critically low 7.0-18.0 [facility] Comment on above: Performed By: #### T SH, LIPID, BMP #### [facility] [address] [address] [address] Isis Shahid Urea nitrogen/Creatinin e [Mass ratio] 6.0 mg/mg Normal [facility] Comment on above: Performed By: #### T SH, LIPID, BMP #### [facility] [address] [address] [address] Isis Shahid TSHon 04-10-2022 TSH 0.335 uIU/mL Critically low 0.358-3.740 [facility] Comment on above: Performed By: #### T SH, LIPID, BMP #### [facility] [address] [place] [address] Dr. Isis Shahid XR DEXA BONE DENSITYon [...] by: APOLONIA HENSON Date: 2022-04-10 10:30 Normal [facility] PT - Assessmentson PT - Assessments [id number]#1 .00CD:127 [facility] PT - Assessments [id number]#1 .00CD:127 [facility] PT - Otheron 01-10-2022 PT - Other [id number]#1 .00CD:127 [facility] PT - Assessmentson PT - Assessments [id number]# 1.00CD:127 [facility] PT - Otheron 12-04-2021 PT - Other [id number]# 1.00CD:127 [facility] Coding Summary.on 11-30-2021 Coding Summary. CD:[id number] G h0bWw+PGhlYWQ+EU0HIKL fL05zvFDkkH4QX1fWPT7Z SFVRLDYUHK1LGO0ueNY5I VpaM8MwghHz UqmkjNBsFM60FYm4RTE1e JwvIGeocK6ekQCpM0c7Aw PiKY50tC99EPxwMQXrJeL 3LjZpbjsgbWFy A4okEgNjaYUhDka+PHRhY mxlIHdpZHRoPScxMDAlJy HbdZfwOJ7pJz5oREUrULN vbGxhcHNlOiBj q2xpGPYsWBxeDV4hhAyrZ 7HoeZZ8CYVjh6c5Jd91qP I+IUDuNMG7bBhtNUenb63 6RuTpq1pvQNI5 pUCeWSyaNMN9I00mt3N1M ZNbTHAxEES7vGL0kY1lcQ uycfedZ7CxmYLxXpC9WOB 6dKSfrE5hzFde vpzlmA9oFkd+J13TFI6ZA HQVAT4ISrs8Y9OrQitjnL I+XN76IAPwAQ83mDDziJA je8pjnGd1ObIp MMUrDUX9zLpgHQilw5ZsT AJcA95hkFKjs7B5SGNizK mezNLkFxInaAZ5rK3dHKd vfvecr4aessic Oskzb6aoad95rZ91P54uN SglIMTyMHU8XXRwXMBraF kcuz2atL7vIm8+IUrtw1g xw7jcsQl1ZwRc OIRujmPnaItqATX3t7XxZ m07Q8NdiHxvq9NjXdp3mm 97rLHag7Y7fXX7HCwzBZZ xrX9mVTnyFwN5 KXSpKqMzfK51iEUgHFonS f1ziSmnsYkhPP0jVITvsx fiZSSjkO9nBAAunKMvuMs lOJ4tDRXyxfkv o565ImWjKHM5FZBglQDoU 4OjnS1oDqYzXALfZQVdM7 IurLVlPXgdE901WChuXuH 2FQXdmkRuH0Ut MWStwQtpTtX4u0X5Cv3So 8BnvtazRMO8WYhqUUQ5Ds BnTcOiFoO2F5OcOuj0ANE qaJsoBL9jF4Pz OTCliulwdfyzmOF7TOZtV EVntO15yMIoBJvoTj3mb3 P9n299WNNzHJVsiH94Ao1 udDogMTBwdCBU rK3ofoqdb0vszaflWxGkF HZdSFy6ECe2OPVnbItmSo ZcWSO0QsS7IZN9nEGpbJ7 dbSvxzyodnN8l Oyc+Q14pcF7zTIC6HWW8q vzpIHDjehUyCC58OP25K9 RyPjwvdGFibGU+PGRpdiB yfCpbVX2xNaOb f9kva8IpPIlhM7JqKIWxD FujVtc3QEEdAAE2zEF4iX 7mFIQpQDldb8K4bQP0P6H pshZcjv6ka3uv EOJnMAlmU01kuLQap0W7B CXtdTI6IVPtuUzoKuOlqY 93Oyc+LYZjbYaop6UmWri mu9pnb4cgrYt7 VvXoCFMutoGsyDgeGEF5y 8PjLx98X69kKFacHQEjDS EuQKWwUGLsjPzuqc6kuT0 wIi8+PGNvbCB3 eJE9iB2rAOIxZaI2AKceD 421MtEkgPFtIgzrn5uho1 yimSc9PfNeTJCeviWyzKk xKGG2n0MjIo79 U80kEKsqKNQuSTQpAFUuM KXkbZtjkt9kvW8hBy1+PC 0hh1hdhx05nE49dBW+PHR vKVP7lEcgKZsd FNFitR4lGAlvEkU2PJPpQ mEevO58fZMvVDzqIr0ivZ fpjMukCT9yULCfcgzug53 7SmYyi4bxWVYm jSSvYRjzHRD3Z49lk6P1K WYbJZTyHBH8dVS6hH4yyA lnbjogbGVmdDsgdmVydGl hYHntXZviK895 IHRvcDsnPlBhdGllbnQgT vEvAUj6T6OcEjg8ZJGngL gpWO3adNGgPDvlZt5rwMp lhVzeND4fIFMg otamc024LcCtp7tlLGYst TQtHRioZZO8D03go4L3OV KlBMNxDAL4jZC9rX6liQc nbjogbGVmdDsg ieVhfNzjJLcfSCcuG168D HRvcDsnPkJpcnRoIERhdG Z5EX97BW46mERbp7N8pRQ 0C7LhGBXvbbgn czhjhWN0WYSiSNWoeH55H g4lzAevTq5wUIUzCFW3TZ KqwLJgG8OymJ8zGpDnMDP rCOJeV8UbjLHq FYphO122ZFpqPwU5POSno xGuF8LpCNVnsTgmRoR0q3 X5Lu9UV8V2DE29BC09qLR sx6Y9rVF5X7Ze PWYbbablvykxoXQ0FTUfQ IIrdD30Vd0yqSfoCw2bWB FeYMC1DDRxuRRkY0EojI5 yOiAjMDAwMDAw T7OxbIIwBIkfD201IDheS oY9RQMxfqOqQ7GmYWUkcK ksMgF2x7A8Rv1DFKa1AK3 1KS69hWRji0B1 uKS6Y6XxQGFvkeiezwzth JJ2BLWzJHUtvU56Yz7whZ mwVv1sAEJeEGK0QXTiaIN oX0JdsP2qEyJy ILTuADIsG4RxeMJdOIotF 821BQacSsM7YSPcodDbV7 WxKENddJsqRjX7o1U9Qm5 VQXUqWQ94WPB0 gAZ6EL98TI19C9CxNhovz GFibGU+PHRhYmxlIHdpZH RoPScxMDAlJyBzdHlsZT0 gZw1gLRScIDOa cUqtnQWtBqVil8utEICiN HtwKV3tnQieE4LdiQH1CY Vwu3f7Us75J69dX8UdqMS +YJVzmZG6cGK7 tM3tElWkVkY4FHkvE176G xLwuGYtJbhjn9aqb0gzfJ f5ByH3GZQiouJngHblLUA 0e9FhVh14K53r IHdpZHRoPSIxNSUiIHZhb Wbwuq9duF4tYp6+PGNvbC D5cKT0aF5lZrAuWyY5BNa fV319WgCweFVy Ycohu2inm5nehEj1MhZwL SFmbdUewTjlEXF7t5ClXx 34Z5EfgPhfb0LmEke1mw9 9iMVen8V0mNX1 B8TnWKIduclehMQpyGgnP L7wSRUlaqvtAMKnpR7eJT ZpN1q5RwImHwM5OYtlX0M zmrR8APFzsZIe FDxfZXJ8F52ls9R6JIXgH AXdLXD4eCS3yP9hdAbrwk ogbGVmdDsgdmVydGljYWw yIUegA342YBXl sCqeXUYltA9aVOBfaXZta TcfIL3vXTRzwtodDkqIJ2 oPXyFqIIgDNQDNRV01XP1 5lEVha3R8yKZ3 Z6IzGUPeihzabhzpoUT5W ACkPWNpzZ24tMHuOZqbVg 0or4B6n660WZDmYWMbbS8 8Rg6vpFluWRMj zOCInE7ucxznq6utwxuaC kBeFSXhZHv3IWb2QZHqfT oiIuRlTVP3GfE6CIO1mDE lvG9nbDtjtccr rL1sLwu+VHVyIJYjBOl4Z TwvdGQ+HSVaDUP0dXqxBS mzNVVooP2kOJAeM7i1HdZ aUxA0MIozW2Ys NRLenabaPz30hC6kKtNpE kF8DYtoT4HietZ7KZDmhD AxJWivBYA0V07dx0O1TOT rCCCaAET9uWS3 dB6euSdvxmlrrCZdoQprl wGwjZizTQcmQAkwP859EV RvcDsnPjUwIFllYXJzPC9 3XA83yOQhh9T4 iAT2D8FkFWUisvnuvrewa YR5GHBhLLZmzH21jNAdET hlFw4ai0H2b186JVTaACV zqR17Ja0knRwp LKVwuRLFtO8qkgjpa4kgf fuaBiTdMVOtUCb4ZRg3NR NqaAymUqSdTMG5EyZ0WXP 9cQKnjY2oqFwc oakbaO3bEdi+RmVtYWxlP C27LR71yVSym5Y3vOY9Z4 JyCQFiwyrcohhgjXB0UVW cTQIylY24cMLw LPkyDs0vx2F9u575JBHtH SJyjO08Fb0cxClfSPDulL IPnB6ejosar6kgnafzOvN aPCQkBRl1QSk8 OWNhqXvrRvLnIID1KiE1X QM9wPBhnD2ytFlwchbboZ 9wOyc+VyPggSVsfJ2rNT0 3LU96U7OzDbxa dGFibGU+PHRhYmxlIHdpZ HRoPScxMDAlJyBzdHlsZT 5yVj8eXONqCGWvkCjlzYV fRpGss0iaYACw JQcrYK0aqLeyZ4MqbKP8I UTwc1h7Yu18O47dE7QwwM A+IODumYT2zZH0gR3cHwZ hReL7XIvhP039 WiLhkEUpMiapp3rfv2fpo Hc2MmWgMXDdofGuwRutOU I6d0FlPw44Y83pTChqJNT oPSIyMCUiIHZh aCzxjv6fcT0oYc4+PGNvb BC7dSI8eZ3lDtDjXgN7FO ifK139OaPqjWZnMhctQ11 yP0HvpPU+PHRy Pwv4SBMbaQqcGH0fgJDgE ZyqGh6xRMS2CbLfOkIzXZ rpO8GhXXQjawchzsctsTS 3QCItQGVpgZ52 Nf4jhQnjUo8tJBJaCYO0X YUtzHUyS0QrkB6tEvZbQV IwQKCnC2LdyTBnCKasH40 9KApvUeC5DENn asNoO8ClSYPhwAspMoT4j 2O4Qo8BuCwvcWYsXB1oPk VhTKw2X8HyWbv4TROgtFs zIK0uqILbILaj Tc1deFepaWtpIW4zXCEsi enen538WaTzd8gqARYgxN KtJLpgELI6K67dv6C4IEB tNQBlVZD7hZD1 pU4seKggndjsdMOsfBruh iZlyFvhCStvXTxbO452CH OzjXmuFzGQYpd2F8CbDly 1XEMvaMhmUA4k zSHbDXuuYl0whJzgxVeyN L2tRNVicxazy470NgTox0 dgYLQthAQaSFigVVE6N05 ng8Q4EFFrUNPv LZE0cQQ4cS0djLvlrhqoh GVmdDsgdmVydGljYWwtYW eyK333YZOhqYbcHz5DRkn 1W8PvVip4KBNg lCqeZB9foRAuTFjwFr4zm MzhgPjjJO0zTEMerrkia9 61OjTde9piFSHjgFIqMRf qDUL2Z36fy8C7 UAWmCCNhBVL0nZU9yS4xc GlnbjogbGVmdDsgdmVydG unBZleEGksH837DSUmmUy nPlBheWVyOjwv dGQ+UQ09gr32Q8LuDrpzU cz6YOMeYDB1uBX6aS3lNO NyRGbhe1C1aCF9F4JvyuS epm2ej5deSVOj [employer] (more content not included)... Normal [facility] Consenton 11-29-2021 Consent [id number] #1.00CD:127 [facility] Notice of Noncoverageon 11-19 Notice of Noncoverage [id number] #1.00CD:127 [facility] PT - Assessmentson PT - Assessments [id number]# 1.00CD:127 [facility] PT - Consentson 11-29-2021 PT - Consents [id number]# 1.00CD:127 [facility] Nonvisit Note - PTon 022 Nonvisit Note - PT Chart reviewed with eval prepped for scheduled eval. KK Normal [facility] Covid-19 PCR (CVDTB)on SARS-CoV-2 (COVID-19) RNA RAYMUNDO+probe Ql (Unsp spec) Not detected Normal NOT DETECTED [facility] Comment on above: Result Comment: This test is not yet approved or cleared by the [place] FDA. When there are no FDA-approved or cleared tests available, and other criteria are met, FDA can make tests available under an emergency access mechanism called an Emergency Use Authorization (EUA). The EUA for this test is supported by the Manager Care of Health and Human Service's (HHS's) declaration [...] consistent with SARS-CoV-2. Performed By: #### [facility] #### [facility] [address] [place] [address] Dr. Isis Shahid Formson 05-18-2021 Forms [id number]#1 .00CD:127 Normal [facility] Physician Referralon 021 Physician Referral [id number]# 1.00CD:127 Normal [facility] Patient Educationon 05-17-20 21 Patient Education Obstetrics [...] 06/24/2013 Document Revised: 02/25/2019 Document Reviewed: 02/25/2019 [employer] Patient Education ? 2020 [employer] 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 -Behavioral modifications -Consider anti-cholinergics in [...] data Procedur (more content not included)... Normal [facility] Comment on above: Result Comment: Elec tronically Signed By: Delmy Fajardo MD\.br\Date and Time Signed: 05/17/21 11:28 EDT\.br\Electronically Co-Signed By: Nora Matute.br\Date and Time Co-Signed: 05/17/21 11:18 EDT Vital Signs Date Time Vital Sign Value Performing Clinician Facility 04-17-2023 08:30-0400 Body height 157.48 cm Mary Jane Gongora Other [facility] Other 04-17-2023 08:30-0400 Body mass index (BMI) [Ratio] 31.82 kg/m2 Mary Jane Gongora Other [facility] Other 04-17-2023 08:30-0400 Body weight 78.93 kg Mary Jane Gongora Other [facility] Other 04-17-2023 08:30-0400 Diastolic blood pressure 76 mm[Hg] Mary Jane Gongora Other [facility] Other 04-17-2023 08:30-0400 Systolic blood pressure 112 mm[Hg] Mary Jane Gongora Other [facility] Other 03-21-2023 11:45-0400 Body height 157.48 cm Mary Jane Gongora Other [facility] Other 03-21-2023 11:45-0400 Body mass index (BMI) [Ratio] 32.37 kg/m2 Mary Jane Gongora Other [facility] Other 03-21-2023 11:45-0400 Body weight 80.29 kg Mary Jane Gongora Other [facility] Other 03-21-2023 11:45-0400 Diastolic blood pressure 102 mm[Hg] Mary Jane Gongora Other [facility] Other 03-21-2023 11:45-0400 Systolic blood pressure 141 mm[Hg] Mary Jane Gongora Other [facility] Other Encounters Encounter Date Encounter Type Care Provider Facility Start: 04-13-2024 End: 04-13-2024 ambulatory TAY FULLER Not Available Start: 10-17-2023 End: 10-17-2023 ambulatory TAY FULLER Not Available Start: 04-17-2023 End: 04-17-2023 ambulatory Mary Jane Gongora Other [facility] Other Start: 04-17-2023 Encounter for genera l adult medical examination without abnormal findings Mary Jane Gongora [facility] Start: 04-17-2023 Periodic preventive med est patient 40-64yrs Mary Jane Gongora [facility] Start: 04-17-2023 Telephone encounter Mary Jane Gongora [facility] Start: 03-21-2023 End: 03-21-2023 ambulatory Mary Jane Gongora Other [facility] Other Start: 03-21-2023 Encounter for genera l adult medical examination without abnormal findings Mary Jane Gongora [facility] Start: 03-21-2023 Office outpatient vi sit 15 minutes Mary Jane Gongora [facility] Start: 07-26-2022 (Televisit) Televisit Mary Jane Gongora [facility] Start: 07-26-2022 End: 07-26-2022 ambulatory Mary Jane Gongora Other [facility] Other Start: 06-25-2022 End: 06-26-[address] TAY FULLER Facility:[facility] Start: 04-11-2022 Encounter for genera l adult medical examination without abnormal findings DR MARY JANE GONGORA [facility] Start: 04-10-2022 End: 04-11-2022 ambulatory [...] zoster vaccine, live Mary Jane Gongora Other [facility] Other 04-13-2022 influenza virus vaccine, split virus (incl. purified surface antigen) Mary Jane Gongora Other [facility] Other 02-06-2022 COVID-19 Vaccine Pfi zer - Documentation Purposes Only Mary Jane Gongora Other [facility] Other 02-01-2022 zoster vaccine, live Mary Jane Gongora Other [facility] Other 06-30-2021 COVID-19 Vaccine Pfi zer - Documentation Purposes Only Mary Jane Gongora Other [facility] Other 04-03-2021 influenza virus vaccine, split virus (incl. purified surface antigen) Mary Jane Gongora Other [facility] Other 05-26-2019 influenza virus vaccine, split virus (incl. purified surface antigen) Mary Jane Gongora Other [facility] Other Payers Date Payer Category Payer Unknown [id number] 2.16.84 [id number] 1971 Unknown [id number] 2.16.84 [id number] 1971 Unknown [id number] 2.16.84 [id number] 1971 Unknown [id number] 2.16.84 [id number] 1971 Unknown [id number] 2.16.84 [id number] 1971 Unknown [id number] 2.16.84 [id number] 1971 Unknown [id number] 2.16.84 [id number] 1959 Unknown [id number] Social History Date Type Detail Facility Unknown if ever smoked [facility] Other Sex Assigned At Sex Assigned At Bir th [facility] Other Evaluation note 04-17-2023 Note Date & [...] left leg (ICD-10 - M79.605) as above [facility] Other Evaluation note 03-21-2023 Note Date & [...] continue to monitor through routine blood work [facility] Other Evaluation note 07-26-2022 Note Date & [...] Jul, 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) [facility] Other Evaluation note Note Date & Type Note Facility Evaluation note No Information [employer] Other History general Narrative - Reported Note Date & Type Note Facility History general Narrative - Reported Type Medical History Hypothryoid Surgical History x3 Surgical History D&C x2 Surgical History Lap Yen Surgical History hysterectomy Hospitalization History See above [facility] Other Summary Purpose Family History No Family History Records FoundNo Family History Records FoundNo Family History Records Found Advance Directives No Advanced Directives Records FoundNo Advanced Directives Records FoundNo Advanced Directives Records Found Additional Source Comments INFORMATION SOURCE (unrecogn ized section and content) DATE CREATED AUTHOR 02/21/2022 [facility] DATE CREATED AUTHOR AUTHOR'S ORGANIZ ATION 06/27/2022 [facility] DATE CREATED AUTHOR AUTHOR'S ORGANIZ ATION 04/14/2024 [facility] EPIC REASON FOR VISIT (unrecogniz ed section and content) [employer] [phone] Blood in urineWELLNESSerror FOR RECORDS PERTAINING TO [...] BE BASED ON THE PRIMARY CLINICAL RECORDS. [employer] provides no warranty or guarantee of the accuracy or completeness of information in this document.
[2024-04-20 11:55] LABS: Anion Gap 10.1; BUN Creatinine Ratio 8.1; Calcium 9.1 mg/dL (8.5-10.1); Carbon Dioxide 29.2 mmol/L (21.0-32.0); Chloride 101 mmol/L (98-107); Chol HDL Ratio 2.7; Cholesterol 189 mg/dL (<=200); Estimated GFR (African America >60 (>=60); Estimated GFR (Non-African Ame >60 (>=60); Free T4 1.47 ng/dL (0.76-1.46); Glucose 85 mg/dL (74-106); HDL Cholesterol 71 mg/dL (40-60); Potassium 4.3 mmol/L (3.5-5.1); Sodium 136 mmol/L (136-145); Thyroid Stimulating Hormone 3.135 uIU/mL (0.358-3.740); Triglycerides 114 mg/dL (<=150); VLDL CHOLESTEROL 22.8 mg/dL
== END 2024-04-20 11:11 | disposition home or self-care (01) ==
LOC: LAB 11:10
PROVIDERS: PCP Family Medicine; Visit Provider Family Medicine
DX: Z00.00 Encounter for general adult medical examination without abnormal findings (principal); E03.9 Hypothyroidism, unspecified
CPT/HCPCS: 36415; 80048; 80061; 84439; 84443

== ENCOUNTER 2024-08-07 10:59 | Outpatient (OUT) | payer BC, SELFPAY ==
--- NOTE | 2024-08-07 11:03 | MM_ITS ---
Patient Name: SRINI ROMAN MR#: [id number] : 1970 Exam Date: 08/07/2024 Ordering Doctor: DR Conrad Fuller . RADIOLOGY REPORT PROCEDURE: MM TOMOSYNTHESIS SCREENING BI COMPARISON: MM TOMOSYNTHESIS SCREENING BI, 07/23/2023. MG MAMM SCREEN 3D [place] CAD, 06/25/2022. MG MAMM SCREEN 3D [place] CAD, 06/23/2021. MG MAMM [place] SCRN W CAD DIG, 11/05/2013. INDICATIONS: Screening Calculator Name NCI Breast Cancer Risk Assessment Tool 5 Year Breast Cancer Risk 1.70% Lifetime Breast Cancer Risk 12.60% Personal Breast Cancer No Personal Ovarian Cancer No Treatments None Family Cancers None LOCATION: [facility] BREAST COMPOSITION: The breasts are heterogeneously dense,which may obscure small masses. FINDINGS: DIAGNOSTIC CATEGORY 1--NEGATIVE. RIGHT BREAST: No significant suspicious finding. No significant change has occurred. LEFT BREAST: No significant suspicious finding. No significant change has occurred. RECOMMENDATIONS: ROUTINE MAMMOGRAM AND CLINICAL EVALUATION IN 12 MONTHS. PLEASE NOTE: A NORMAL MAMMOGRAM DOES NOT EXCLUDE THE POSSIBILITY OF BREAST CANCER. A CLINICALLY SUSPICIOUS PALPABLE LUMP SHOULD BE BIOPSIED. Dictated by: Gurdeep Avendaño M.D. on 08/07/2024 at 11:46 Approved by: Gurdeep Avendaño M.D. on 08/07/2024 at 11:53
--- OUTSIDE RECORDS SUMMARY | 2024-08-07 11:09 | XMS_ITS | CCD ---
Author Organization [facility] Care Team Providers Care 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 Name Role Phone ROLAN, DR MARY JANE Michel Attending Unavailable GONGORA, DR MARY JANE Michel Consulting Unavailable GONGORA, DR MARY JANE Michel Primary Care Unavailable GONGORA, DR MARY JANE Michel Admitting Unavailable JONNY, DR CROSS Admitting Unavailable JONNY, DR CROSS Attending Unavailable PUNTA SANTIAGO, DR KAUR Villalpando Consulting Unavailable GONGORA, DR MARY JANE Michel Primary Care Unavailable JONNY, DR CROSS Consulting Unavailable JONNY, DR CROSS Admitting Unavailable JONNY, DR CROSS Attending Unavailable JONNY, DR CROSS Consulting Unavailable GONGORA, DR MARY JANE Michel Primary Care Unavailable JONNY, DR CROSS Admitting Unavailable GONGORA, DR MARY JANE Michel Primary Care Unavailable JONNY, DR CROSS Attending Unavailable JONNY, DR CROSS Consulting Unavailable ZIEBER, DR APOLONIA Gonzalez Consulting Unavailable GONGORA, DR MARY JANE Michel Attending Unavailable GONGORA, DR MARY JANE Michel Consulting Unavailable GONGORA, DR MARY JANE Michel Primary Care Unavailable GONGORA, DR MARY JANE Michel Admitting Unavailable Gongora, Mary Jane Unavailable Mary Jane Gongora MD Primary Care Provider [phone] TAY FULLER Attending Unavailable TAY FULLER Attending Unavailable JONNYTAY Curran Attending Unavailable HEATHER GRAHAM Attending Unavailable HEATHER GRAHAM Attending Unavailable Allergies Allergy Classification Reported Allergen(s) Allergy Type Date of Onset Reaction(s) Facility (1 source) Adhesive bandage Drug allergy (disorder) 6 [facility] Repository (3 sources) Latex Drug allergy 0 Unknown [employer] Other (11 sources) Latex Allergy to substance 3 Unknown, Rash [facility] Medications Current Medications Medication Drug Class(es) Dates Sig (Normalized) Sig (Original) amoxicillin 500 mg oral capsule (1 source) Penicillin-class Antibacterial Start: 07-26-2022 take 1 capsule by mouth every eight hours Amoxicillin 500 MG 1 capsule Orally every 8 hrs for 5 day(s) Jul, Active estradiol 1 mg oral tablet (12 sources) Estrogen Start: 05-14-2024 take 1 mg by mouth once daily Estradiol Active 1 MG PO Daily May 14, 2024 12:00am off 1 week; repeat cycle Start: 03-12-2024 End: 12-07-2024 take 1 tablet by mouth once daily estradiol (Estrace) 0.5 MG tablet Indications: Menopause Take 1 tablet (0.5 mg) by mouth Daily 90 tablet 2 03/12/2024 12/07/2024 Active fluticasone propionate 0.05 mg/actuat metered dose nasal spray (1 source) Corticosteroid Start: 05-27-2018 take 1 spray(s) nasal route once daily Fluticasone Propionate 50 MCG/ACT 1 spray in each nostril Nasally Once a day for 21 days May, Active levothyroxine sodium 0.137 mg oral tablet (18 sources) l-Thyroxine Start: 10-04-2023 End: 04-01-2024 take 1 tablet by mouth once daily in the morning Levothyroxine Active 0 .ROUTE .COMPLEX 90 April 01, 2024 8:02am TAKE 1 TABLET BY MOUTH EVERY DAY IN THE MORNING ON EMPTY STOMACH Start: 10-04-2023 End: 10-04-2023 take 1 tablet by mouth once daily in the morning levothyroxine (Synthroid, Levoxyl) 137 MCG tablet TAKE 1 TABLET BY MOUTH EVERY DAY IN THE MORNING ON EMPTY STOMACH 10/04/2023 Active take 1 tablet by aimee th once daily in the morning Levothyroxine Sodium 137 MCG 1 tablet in the morning on an empty stomach Orally Once a day Active take 1 tablet by aimee th every twenty-four hours Synthroid 50 MCG 1 tablet Orally Once a day Active 24 hr metFORMIN hydrochloride 500 mg extended release oral tablet (11 sources) Biguanide Start: 05-18-2024 End: 06-17-2024 take 2 tablets by mouth every twenty-four hours at mealtime metFORMIN XR (Glucophage-XR) 500 MG 24 hr tablet Indications: Encounter for weight management Take 2 tablets (1,000 mg) by mouth in the evening. Take with meals Do not crush, chew, or split. 60 tablet 11 05/18/2024 Active Start: 05-14-2024 take 1000 mg by mouth once desmond ly Metformin Active 1000 MG PO Daily May 14, 2024 12:00am Start: 11-12-2023 take 1 tablet by aimee th every twenty-four hours at mealtime metFORMIN XR (Glucophage-XR) 500 MG 24 hr tablet Indications: Menopause Take 1 tablet (500 mg) by mouth in the evening. Take with meals Do not crush, chew, or split. 30 tablet 11 11/12/2023 Active phentermine hydrochloride 37.5 mg oral tablet (15 sources) Sympathomimetic Amine Anorectic Start: 04-13-2024 End: 07-10-2024 take 1 tablet by mouth before mealtime phentermine (Adipex-P) 37.5 MG tablet Indications: Encounter for weight management Take 1 tablet (37.5 mg) by mouth in the morning. Take before meals. 30 tablet 06/10/2024 07/08/2024 Discontinued predniSONE 20 mg oral tablet (1 source) Start: 07-26-2022 take 2 tablets by mouth every twenty-four hours predniSONE 20 MG 2 tablets Orally Once a day for 5 days Jul, Active Completed/Discontinued Medications Medication Drug Class(es) Dates Sig (Normalized) Sig (Original) 24 hr phentermine 7.5 mg / topiramate 46 mg extended release oral capsule (1 source) Sympathomimetic Amine Anorectic Start: 05-14-2024 End: 05-14-2024 take 1 capsule by mouth once daily Phentermine-Topira mate Discontinued 1 CAP PO Daily May 14, 2024 12:00am May 14, 2024 10:27am Problems Active Problems Problem Classification Problem Date Documented Date Episodic/Chronic Administrative/social admission (6 sources) Patient encounter status; Translations: [Persons encountering health services in other specified circumstances] 05-12-2024 Episodic Genitourinary symptoms and ill-defined conditions (1 source) Dysuria Episodic Immunizations and screening for infectious disease (1 source) Encounter for screening for human papillomavirus (HPV); Translations: [ENC SCREENING HUMAN PAPILLOMAVIRUS] Onset: 04-08-2022 Episodic Osteoporosis (2 sources) Postmenopausal osteoporosis; Translations: [Age-related osteoporosis without current pathological fracture] 04-13-2024 Chronic Other connective tissue disease (1 source) Pain in right leg Episodic Other connective tissue disease (1 source) Pain in left leg Episodic Other screening for suspected conditions (not mental disorders or infectious disease) (17 sources) Encounter for screening mammogram for malignant neoplasm of breast; Translations: [Encounter for screening for osteoporosis] Onset: 04-04-2022 Episodic Other upper respiratory infections (1 source) Acute pharyngitis, unspecified Episodic Thyroid disorders (7 sources) Hypothyroidism; Translations: [Hypothyroidism, unspecified] Chronic Unclassified [...] Test Name Value Interpretation Reference Range Facility Cholesterol in LDL Calc [Mas s/Vol]on 04-20-2024 Cholesterol in LDL [Mass/Vol] 96.0 mg/dL [facility] Comment on above: <100 mg/dl [id number] 0-129 mg/dl NEAR OR ABOVE [id number] mg/dl BORDERLINE [id number] mg/dl HIGH>190 mg/dl VERY HIGH Cholesterol in VLDL Calc [Ma ss/Vol]on 04-20-2024 Cholesterol in VLDL [Mass/Vol] 22.8 mg/dL [facility] Estimated glomerular filtrat ion rate (GFR) non- Americanon 04-20-2024 GFR/1.73 sq M.predicted among non-blacks MDRD (S/P/Bld) [Vol rate/Area] mL/min/{1.73_m2} >=60 [facility] IGP,APTIMA HPV,AGE GDLNon AGE GDLN ACOG TESTING Note . [facility] Comment on above: TESTS RESULT FLAG U NITS REF RANGE LAB Clinician Provided Cytology Information Source.............Cervix;Endocervix No. of containers..01 ThinPrep Vial Age Tamy LIANG Marycruz... 31 FLAG LEGEND: L-Low Normal,H-High Normal,LL-Alert Low,HH-Alert High <-Panic Low,>-Panic High,A-Abnormal,AA-Critical Abnormal Performed at: 01 =[address] [id number] Lori Roach MD, HPV APTIMA Negative Negative [facility] Comment on above: This nucleic acid am plification test detects fourteen high- risk HPV types (16,18,31,33,35,39,45,51,52,56,58,59,66,68) without differentiation. Performed at: =[address] [id number] Egg Sorter: Lori Roach MD, Phone: [phone] Performed at: - [address] [id number] Egg Sorter: Lori Roach MD, Phone: [phone] IGP, APTIMA HPV, RFX 16/18,45 Note . [facility] Comment on above: TESTS RESULT FLAG UN ITS REF RANGE LAB DIAGNOSIS: 02 NEGATIVE FOR INTRAEPITHELIAL LESION OR MALIGNANCY. Specimen adequacy: 02 Satisfactory for evaluation. Endocervical and/or squamous metaplastic cells (endocervical component) are present. Performed by: 02 Lashawn Rivas Investment Director ([facility]) . 02 Note: Note 02 The Pap smear is a screening test designed to aid in the detection of premalignant and malignant conditions of the uterine cervix. It is not a diagnostic procedure and should not be used as the sole means of detecting cervical cancer. Both false-positive and false-negative reports do occur. Test Methodology: Note 02 This liquid based ThinPrep(R) pap test was screened with the use of an image guided system. HPV Genotype Reflex Note 02 Criteria not met, HPV Genotype not performed. FLAG LEGEND: L-Low Normal,H-High Normal,LL-Alert Low,HH-Alert High <-Panic Low,>-Panic High,A-Abnormal,AA-Critical Abnormal Performed at: 02 [facility] [address] [id number] Lori Roach MD, BRUSH-SPATULA CERVIX ENDOCERVIX [facility] - Chemistry and C hemistry - challengeon 04-20-2024 Calcium [Mass/Vol] 9.1 mg/dL 8.5-10.1 [facility] Chloride [Moles/Vol] 101 mmol/L 98-107 [facility] Cholesterol [Mass/Vol] 189 mg/dL <=200 [facility] Cholesterol in HDL [Mass/Vol] 71 mg/dL High 40-60 [facility] Comment on above: > or =60 mg/dl - LOW CARDIOVASCULAR RISK<40 mg/dl - HIGH CARDIOVASCULAR RISK CO2 [Moles/Vol] 29.2 mmol/L 21.0-32.0 [facility] Creatinine [Mass/Vol] 0.74 mg/dL 0.55-1.02 [facility] Free T4 [Mass/Vol] 1.47 ng/dL High 0.76-1.46 [facility] GFR/1.73 sq M.predicted MDRD (S/P/Bld) [Vol rate/Area] mL/min/{1.73_m2} >=60 [facility] Glucose [Mass/Vol] 85 mg/dL 74-106 [facility] Potassium [Moles/Vol] 4.3 mmol/L 3.5-5.1 [facility] Sodium [Moles/Vol] 136 mmol/L 136-145 [facility] Triglyceride [Mass/Vol] 114 mg/dL <=150 [facility] TSH Qn 3.135 m[IU]/L 0.358-3.740 [facility] Urea nitrogen [Mass/Vol] 6.0 mg/dL Low 7.0-18.0 [facility] Urea nitrogen/Creatinine [Mass ratio] 8.1 mg/mg [facility] Serum or plasma anion gap de terminationon 04-20-2024 Anion gap [Moles/Vol] 10.1 mmol/L [facility] Serum or plasma total choles terol/high density lipoprotein (HDL) cholesterol mass nadir 04-20-2024 Cholesterol.total/Ch olesterol in HDL [Mass ratio] 2.7 {ratio} [facility] Comment on above: 3.3 - 4.4 LOW RISK4. 4 - 7.1 AVERAGE RISK7.1 - 11.0 MODERATE RISK>11.0 HIGH RISK Cytology Cervical or vaginal smear or scraping studyon 04-08-2023 [facility] Urinalysis - DIPSTICKon 02-21 Appearance (U) cloudy [employer] Other Bilirubin Ql (U) Negative [facility] Other Color (U) yellow [employer] Other Glucose Ql (U) Negative [employer] Other Hemoglobin Ql (U) moderate [employer] Other Ketones Ql (U) Negative [employer] Other Leukocyte esterase Test strip Ql (U) moderate [employer] Other Nitrite Ql (U) Negative [employer] Other pH (U) 6.0 [pH] [employer] Other Protein Ql (U) Negative [employer] Other Specific gravity (U) [Rel density] 1.000 [employer] Other Urobilinogen (U) [Mass/Vol] normal [employer] Other Urinalysis - DIPSTICK [employer] Other MG MAMM SCREEN 3D MACARIO CADon 06-25-2022 MG MAMM SCREEN 3D MACARIO CAD Patient: ANNEL ALCANTARA Exam Date: 06/25/2022 : 1970 Gender:F Ordering : DR TAY FULLER . Admission #: [id number] Family : Order #: [id number] CLICK HERE TO VIEW EXAM RADIOLOGY REPORT [...] None Family Cancers None LOCATION: [facility] BREAST COMPOSITION: Heterogeneously dense,which may obscure [...] Pedro MD on 06/25/2022 at 09:48 Normal [facility] PAP ACOG PANEL 2: 30 to 65on 04-11-2022 . . Normal [facility] Comment on above: Result Comment: Perf ormed at: WB Performed By: #### [id number] #### [facility] [address] [place] [address] Dr. Isis Shahid Age Gdln ACOG Testing 30-65 Normal [facility] Comment on above: Performed By: #### 4 [id number] #### [facility] [address] [place] [address] Dr. Isis Shahid DIAGNOSIS: Comment Normal [facility] Comment on above: Result Comment: NEGA TIVE FOR INTRAEPITHELIAL LESION OR MALIGNANCY. Performed at: WB Performed By: #### 4 [id number] #### [facility] [address] [place] [address] Dr. Isis Shahid HPV Aptima Negative Normal Negative [facility] Comment on above: Result Comment: This nucleic acid amplification test detects fourteen high-risk HPV types (16,18,31,33,35,39,45,51,52,56,58,59,66,68) without differentiation. Performed at: =G Performed By: #### 4 [id number] #### [facility] [address] [place] [address] Dr. Isis Shahid Methodology: Comment Normal [facility] Comment on above: Result Comment: This liquid based ThinPrep(R) pap test was screened with the use of an image guided system. Performed at: WB Performed By: #### [id number] #### [facility] [address] [place] [address] Dr. Isis Shahid Note: Comment Normal [facility] Comment on above: Result Comment: The Pap smear is a screening test designed to aid in the detection of premalignant and malignant conditions of the uterine cervix. It is not a diagnostic procedure and should not be used as the sole means of detecting cervical cancer. Both false-positive and false-negative reports do occur. . Performed at: WB Performed By: #### [id number] #### [facility] [address] [place] [address] Dr. Isis Shahid Performed by: Comment Normal [facility] Comment on above: Result Comment: Nikia Pedro, Investment Director ([employer]) Performed at: WB Performed By: #### [id number] #### [facility] [address] [place] [address] Dr. Isis Shahid Specimen adequacy: Comment Normal [facility] Comment on above: Result Comment: Sati sfactory for evaluation. Endocervical and/or squamous metaplastic cells (endocervical component) are present. Performed at: WB Performed By: #### 4 [id number] #### [facility] [address] [place] [address] Dr. Isis Shahid FREE T4on 04-10-2022 Free T4 [Mass/Vol] 1.21 ng/dL Normal 0.76-1.46 [facility] Comment on above: Performed By: #### F T4 #### [facility] [address] [place] [address] Dr. Isis Shahid LIPID PROFILEon 04-10-2022 CHOL-HDL RATIO NORM SEE BELOW Normal [facility] Comment on above: Result Comment: 3.3 - 4.4 LOW RISK 4.4 - 7.1 AVERAGE RISK 7.1 - 11.0 MODERATE RISK >11.0 HIGH RISK Performed By: #### T SH, LIPID, BMP #### [facility] [address] [place] [address] Dr. Isis Shahid Cholesterol [Mass/Vol] 209 mg/dL Critically high <=200 [facility] Comment on above: Performed By: #### T SH, LIPID, BMP #### [facility] [address] [place] [address] Dr. Isis Shahid Cholesterol in HDL [Mass/Vol] 62 mg/dL Critically high 40-60 [facility] Comment on above: Performed By: #### T SH, LIPID, BMP #### [facility] [address] [place] [address] Dr. Isis Shahid Cholesterol in LDL [Mass/Vol] 126.0 mg/dL Normal [facility] Comment on above: Performed By: #### T SH, LIPID, BMP #### [facility] [address] [address] [address] Isis Shahid Cholesterol.total/Ch olesterol in HDL [Mass ratio] 3.4 {ratio} Normal [facility] Comment on above: Performed By: #### T SH, LIPID, BMP #### [facility] [address] [address] [address] Isis Shahid HDL NORMAL > or = 60 mg/dl - LOW CARDIOVASCULAR RISK <40 mg/dl - HIGH CARDIOVASCULAR RISK Normal [facility] Comment on above: Performed By: #### T SH, LIPID, BMP #### [facility] [address] [place] [address] Dr. Isis Shahid LDL CALC NORMAL SEE BELOW Normal [facility] Comment on above: Result Comment: <100 mg/dl OPTIMAL 100 - 129 mg/dl NEAR OR ABOVE OPTIMAL 130 - 159 mg/dl BORDERLINE HIGH 160 - 189 mg/dl HIGH >190 mg/dl VERY HIGH Performed By: #### T LURDES, LIPID, BMP #### [facility] [address] [address] [address] Isis Shahid Triglyceride [Mass/Vol] 105 mg/dL Normal <=150 [facility] Comment on above: Performed By: #### T LURDES, LIPID, BMP #### [facility] [address] [place] [address] Dr. Isis Shahid VLDL CALC 21.0 mg/dL Normal [facility] Comment on above: Performed By: #### T LURDES, LIPID, BMP #### [facility] [address] [address] [address] Isis Shahid PROF CHEM 8 (BAS METB)on Anion gap [Moles/Vol] 12.9 mmol/L Normal [facility] Comment on above: Performed By: #### T SH, LIPID, BMP #### [facility] [address] [place] [address] Dr. Isis Shahid Calcium [Mass/Vol] 8.7 mg/dL Normal 8.5-10.1 [facility] Comment on above: Performed By: #### T SH, LIPID, BMP #### [facility] [address] [address] [address] Isis Shahid Chloride [Moles/Vol] 106 mmol/L Normal 98-107 [facility] Comment on above: Performed By: #### T SH, LIPID, BMP #### [facility] [address] [address] [address] Isis Shahid CO2 [Moles/Vol] 24.5 mmol/L Normal 21.0-32.0 [facility] Comment on above: Performed By: #### T SH, LIPID, BMP #### [facility] [address] [address] [address] Isis Shahid Creatinine [Mass/Vol] 0.67 mg/dL Normal 0.55-1.02 [facility] Comment on above: Performed By: #### T SH, LIPID, BMP #### [facility] [address] [address] [address] Isis Shahid EGFR-AF BANGLADESHI >60 Normal >=60 [facility] Comment on above: Performed By: #### T SH, LIPID, BMP #### [facility] [address] [address] [address] Isis Shahid EGFR-NON AF BANGLADESHI >60 Normal >=60 [facility] Comment on above: Performed By: #### T SH, LIPID, BMP #### [facility] [address] [address] [address] Isis Shahid Glucose [Mass/Vol] 94 mg/dL Normal 74-[address] [facility] Comment on above: Performed By: #### T SH, LIPID, BMP #### [facility] [address] [address] [address] Isis Shahid Potassium [Moles/Vol] 4.4 mmol/L Normal 3.5-5.1 [facility] Comment on above: Performed By: #### T SH, LIPID, BMP #### [facility] [address] [address] [address] Isis Shahid Sodium [Moles/Vol] 139 mmol/L Normal 136-145 [facility] Comment on above: Performed By: #### T SH, LIPID, BMP #### [facility] [address] [address] [address] Isis Shahid Urea nitrogen [Mass/Vol] 4.0 mg/dL Critically low 7.0-18.0 [facility] Comment on above: Performed By: #### T SH, LIPID, BMP #### [facility] [address] [address] [address] Isis Shahid Urea nitrogen/Creatinine [Mass ratio] 6.0 mg/mg Normal [facility] Comment on above: Performed By: #### T SH, LIPID, BMP #### [facility] [address] [place] [address] Dr. Isis Shahid TSHon 04-10-2022 TSH 0.335 uIU/mL Critically low 0.358-3.740 [facility] Comment on above: Performed By: #### T LURDES, LIPID, BMP #### [facility] [address] [place] [address] Dr. Isis Shahid XR DEXA BONE DENSITYon 04-10 XR DEXA BONE DENSITY EXAMINATION: XR DEX A BONE DENSITY, 04/10/2022 9:48 AM EDT HISTORY: [...] by: APOLONIA HENSON Date: 2022-04-10 10:30 Normal [facility] PT - Assessmentson PT - Assessments [id number] #1.00CD:127 Normal [facility] PT - Assessments [id number] #1.00CD:127 [facility] PT - Otheron 01-10-2022 PT - Other [id number] #1.00CD:127 [facility] PT - Assessmentson PT - Assessments [id number] 1#1.00CD:127 [facility] PT - Otheron 12-04-2021 PT - Other [id number] 0#1.00CD:127 [facility] Coding Summary.on 11-30-2021 Coding Summary. CD:[id number] Gh0bWw+PGhlYWQ+PE1FV HYqN05ciYObrW3YW8bOG D4VNIQTPZLTFH4JHW8jw KT1OXwnL9WznbUs XcilxJFeKQ87TVa8MSI0 cEnoTEdtrW8qgAJjW0e6 ImFwKQ32zI18TVazDFLg FyE0GvJqmcgleGIk E5nsDvBtnSXnRpm+PHRh YmxlIHdpZHRoPScxMDAl OeKzdGhfDX3dMj7tABTx LWNvbGxhcHNlOiBj y2pkZOHxLFekUB8ofJek W2TdwPK8XIJcn8k1Be84 dHI+FOUgGFA8qKtuCMlp h421KkHgp8nbXPI4 wFVtNEqfEZR4G57xm2K8 PCFwTSCgZWE7tFF1oE5e tSrovbjwM1NknPUlWuE2 LIC2lEYenO2alVia ockdpS4iFmz+U43XXE6T MFIMDW3RWts5E8ItAdbq dHI+WC51TCItPU27fGFz bPMzj2nszPz4RyKy MJVqYER5dTnkZZwza8Ow DLFqR42qsKUxv4N7EKMh nBfdtCQbDyPgiMO7eL1d YJoqeyfdd5icncrz Xhsbq2fqbl11yN10F48e KXgiWPKcHQV7JXYlMNOw sNslpr1jmV8cTr8+IDxj c9pva1ptlIi0QcUz OQUimlHohAzcRYZ7d5Sv Rd33U5YiwStki0HrGki7 lw96pVGyd1E9eIY2INrg XCVdeQ9wFOpuJpQ3 LUUrNjNbhF58pRDyJWqa Ue5mlNcxdNrrYM5hVDZk clthOVLvgM0hKDZwqWLr hQdeQF5iAPXavezw g758QfWuOAA5OQDvqZIm N8MgzP7dJhMyKMZiADOp Q0NzyGJuZMedT805JMvv SgV5MEVugrPhH0Wy OSEdmIiiLiG2f1A8Xw1U t6CibbogGBL2EGovTMT5 XrLbXdSoFnF9P8GvPqp5 WBCnsTdoQA2kB5Ex OSMcquklcddgcNS4MMTd MFOmoN86lSEyJSfdZm2s w0C8r602PEYnEBLptW29 Fh6skGalZEYbyPYA bB6uuxkgw8wpwcyaUuKu KDOmXBx0KYh0XDZsjYfh McMoQPF8VfT7EAU4mQGm lF3krMlmqpjzyI3z Oyc+B05klK1yZNX0KKM6 daxxKNQinnFtXK54OY56 M0YrTtbizVUwcVT+PGRp wcDntCzoEI3hBrNf g6nmw1CqEBgnQ2LsKJMm YSttGuq6ELArKHT4bPN5 cU3zPIGnUXeop7X7pVQ1 K2EwpwAjlw7si9gr PMTjVAbuF98ipHVyr1U5 UACglVE8NROusUqhWdSn pB03Aco+CKOvjYuba4Tx Afevc6vjl2xftRt5 IjMwJSIgdmFsaWduPSJ0 e2PqCk47N21sBZsbCUDk XXQxLJOyXNSusKiaey5f rF8uDt4+PGNvbCB3 fIV5mN7kQPKkQpL2WDod I000SkPxxDWzMwnll7dp a6wknEa7KiFjKPDehcEp wCkfIIN4n1AmOf91 T47gYNvuZFXyYVEuWEMl RVStfHnmiu7aaQ9vAn2+ RR3xo5xxeg67wI85hWA+ YJLwTDJ4xKnyFFxr GJJkrM6fWGdrQgD2VCAu NuIvsW11vNDbXOvbFr5i oUhgsGpePA4fYNAbneev r117DkMom3vcBFWb cEHdXHmsDOC4E08wg0N2 JTKcNGUuQPH1sAG3oK0d bGlnbjogbGVmdDsgdmVy bFbdHWdjXGggC570 IHRvcDsnPlBhdGllbnQg SqHlTQt0Q5NtEhj2NHEz dJrvDT3lkPVcTTyrMj2n lFtaaIapET7kPJYr gyifz391BgVig8nqOTGx hSCaWJvcKYG0F05ax6Z1 ZWEyHTZcVFB8uVZ5zV2l bGlnbjogbGVmdDsg afTnbVtlVDnaYAofZ065 IHRvcDsnPkJpcnRoIERh zVA6PU80JI93vNWif5Y2 bAC6T9MdBNGmyxfd pyhvrBS6LGNhROFtaP78 Ku3obCfxWn3aLYHjMQN2 FUOgzPRqC0TthI4vEaSn EYOkDFYzQ3IzkEVj RMahK357PNlfSdW4VEHi vaMqS3DkIQDryBbcZuA2 c3M8Au2QK2X6CU65GG02 eHSuu5V0dJU5A1Xu DCSgthdwrcoybOZ5YWAl QUWxqL94Ff8heGyxAi0x OCImAJV7KZZyjVHlI1Ws pZ0aSnHqESFaPAWj L2DyyVUaSAheW124TNto AgD8FCVjckYgF7MdTWYf sTrsCgI3e9H1Gn2QMDk8 YX76WF11hRFak9I3 yHA5K4NfOOXfxkyfzumi zZB7FQAoYUSlgX62Zy0f cAgrJc1gXSNjJCU3QYNj cIJsF6WbwS6pVrRw TMAbUTAkO0VoxVYeEXwz E241WUgmVrT8LGYdcdYy T0BcBLVyiXtqBhH2a3P4 Ja7GLURhPC87UQA2 iUI2KL74PY69B4YtTfko dGFibGU+PHRhYmxlIHdp ZHRoPScxMDAlJyBzdHls HN1zCi9fNRTjDBPv lLkmkSVsYgFms5ocLSEl DDmdMR4soCicN7PvrGN2 RMXah4z1Pc53T37fS2Os dXA+FGOkySZ6dHP1 jP6aAsCqIwU5NWtlJ362 IdElvRWtMfrtx0zwl6yu xRr9KdB1OQNicdXfcOhn WJH7i1VfCw39B34o IHdpZHRoPSIxNSUiIHZh oZmajy1cvD8lOs5+PGNv tQR5pMV1xK5sKlXbNqW1 BGkzW108NlSsdZIz Llqbt2cgx7wgzNg0SfPh AGQgltWksTooSUL0l5Ai Os39I2VuaVlja5HvHoi5 cv77cBRhi1P0vUO3 Y9EsLXAkvbvaqCJvdPqz SG0lWATwgepuWNBawY3r GZYoN9v1YaFjUsQ1REaw M5DzrbK2HCDtxZCi ABoyINM2F29et2T0SHHy SYLlPWK5lRG4gF7rbLcz bjogbGVmdDsgdmVydGlj SQtqJBboV076RLRd cOijNNAwvG0sYECrlYYy xGqdFC5qCGJwcaveUuaC R9oZOzWgMSbCAATZFY52 QI21pMNkc5M9bYI4 N7RgQZYcxnyfeljjpFK6 WUDrAWLrxQ32cAInECnd He5us7Q9f806YEKnHUAb eA61Lz1bvRnkVUCh jNPUrN4mlsjqs4qjbgus TcGpRYAbDWy3ULk9SYPw oTjxXzZtRGR9RfS7YIW5 jVPdcM9ohMifvilt dN5wLav+MTAvMDMvMTk3 MTwvdGQ+DENkJWO8tBar WVvyKGHieX4hJNKyP9p4 GySaExN6JEtqC3Wo MYJzlalbXf32mD6tWwNm IeM1GNzoN1SyjkU3MWUa wLGeXShoHMD4X84qv3O0 INNbLBNbLYE0cQK5 oY9abNgeqrvlqPDnwQbi fiMqoQvdNXhjEJjwZ228 IHRvcDsnPjUwIFllYXJz ZN21LO28wSLjj3X4 pOO7L5PrGOUljdilvshp oOK0VPFePDAurV89cVYn FNkfUc2zr7E7d427RVEe SGRbwQ86Qm8mdNgl SMJzwBYFpW4zogzuw5kd mlkmIdEzYLRxBBj6DRm7 FMDszJvuMuYjTXJ9HrB8 EDJ1fSTytN0alSie urzfbI1oAhe+RmVtYWxl ZQ47ZL38bIQlh3O1vAZ9 T1SbCIIaioarflqhbVK0 IZOaOISymA63zTDp WHigUh8eq1B6l183DOWe FJGtcC69Bw2amUqbLPRl oUSMgC1ijmboe9eeminf JeUyTXNpPUm1QPr1 OACuvDuaWiGsODC5ZiS5 ICJ5qOYgfC8qkRiwmeme mT5fKpk+EeEdxQYrlI4v CT69TB56G2VuYers dGFibGU+PHRhYmxlIHdp ZHRoPScxMDAlJyBzdHls AY4yTq9rPZSsYJDwbCfk eWFfEqAbd8fwJUYo LZdlMX3ogMefK2AaoAB6 AJAda4s6Oz63G60eN5Fq dXA+BFCijOI4kNH3qQ6d CkKmVwD6BUnqE881 JoQipJIzOtoht7tjg5mc aLt6RiTwUGDpxiGufEsz DBN7c5CnOw85Q14hILvv ZHRoPSIyMCUiIHZh iStzyj4cdM0qMk9+PGNv rEL5bEF4jS2zYwRgXwS2 AKwgN461McUczPVoBlyx K12kR0TbvNV+PHRy Zmv6NHFggRexZP6ttIMa DEwvCc4vXET0YjQgMeMj GNlkY4IgKVFccvbhaaci kTP8TKDsNDYtvK46 Iy5dfWyyKo6uMHNeBAC1 GTKwnLBcK1HyjU3tEzGh IGGnMPPjQ0KzuELmRRaj L186CAflTjM9UHOq qsPhF5ZyDKYytCxyVjX7 m0W7Mg2NrUsuiJRrQR9f YdMrONf3S3LiVzb1WLDv yNimQE7lgWMgLFpt Sw2aoTlooVmaKU6hNZCb dsfoy809XoJfy0upYIMq tUKqOLlfWEP3I84ff7V9 SOPpIZSqSRX5cHP8 sB9jiHllhjyaxDJncGky zaGdyXtfEVbpFMxbZ576 AEOlkZvdUzBQNxt5R6Xf Myh8UPJjaFklCB4d iJCpKZywBa7tvIvgaZds EV9cAYKkmgmjd305NsDb m0loBRRgaNQfVNilHWT6 Q00yu1P8DBTdFOJc FJC5uVZ1hT6txQibhicc bGVmdDsgdmVydGljYWwt ZPazK459HYQzoHcbXe1V Bgp5Q6DuFvm3CFRb cEohUV8geSFfMJloPa7y eHzuqCrlCA0jJUErqqtf o657XbPnk6ieQHNqtBJa DFuhRPE4L99pp1Q7 ZAKxGBBdLQW7sVM2oT6u bGlnbjogbGVmdDsgdmVy dGebLYtiUCwtZ399QWWe cDsnPlBheWVyOjwv dGQ+MX44lq67A1HnYdwk Nnl1TRYuBWA8xNB9jJ7m RQNkDRfft8Y3uCR5H0Us flRner0sn0eyQVUs ZTog (more content not included)... Normal [facility] Consenton 11-29-2021 Consent [id number] 42#1.00CD:127 [facility] Notice of Noncoverageon 11-19 Notice of Noncoverage [id number] 14#1.00CD:127 [facility] PT - Assessmentson PT - Assessments [id number] 2#1.00CD:127 [facility] PT - Consentson 11-29-2021 PT - Consents [id number] 3#1.00CD:127 [facility] Nonvisit Note - PTon 022 Nonvisit Note - PT Chart reviewed with eval prepped for scheduled eval. KK [facility] Covid-19 PCR (CVDTB)on SARS-CoV-2 (COVID-19) RNA RAYMUNDO+probe Ql (Unsp spec) Not detected Normal NOT DETECTED [facility] Comment on above: Result Comment: This test is not yet approved or cleared by the [place] FDA. When there are no FDA-approved or cleared tests available, and other criteria are met, FDA can make tests available under an emergency access mechanism called an Emergency Use Authorization (EUA). The EUA for this test is supported by the Proposal Review Analyst of Health and Human Service's (HHS's) declaration [...] SARS-CoV-2. Performed By: #### [facility] #### [facility] [address] [place] [address] Dr. Isis Shahid Formson 05-18-2021 Forms [id number] #1.00CD:127 Normal [facility] Physician Referralon 021 Physician Referral [id number] 0#1.00CD:127 Normal [facility] Patient Educationon 05-17-20 21 Patient Education Obstetrics [...] 06/24/2013 Document Revised: 02/25/2019 Document Reviewed: 02/25/2019 [place] Patient Education ? 2020 [employer]. 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 -Behavioral modifications -Consider anti-cholinergics in future if urge more predominant -Follow up in 6 months or sooner if issues arise Follow-up With When Contact Information Scotty ARVIZU, Delmy Landis, URL, URO In 6 months 11/15/2021 EDT Additional Instructions: Patient Education Kegel Exercises Nora Cope, personally scribed for Dr. Fajardo on 05/17/2021 11:18:07. . Documentation recorded by the scribCelena michel, accurately reflects the services(s) I performed and decisions made by me. Authenticated by Dr. Fajardo on 05/17/2021 11:28:10. Problem List/Past Medical History Ongoing Mixed incontinence Historical No qualifying data Procedur (more content not included)... Normal [facility] Comment on above: Result Comment: Elec tronically Signed By: Delmy Fajardo MD\.br\Date and Time Signed: 05/17/21 11:28 EDT\.br\Electronically Co-Signed By: Nora Matute\.br\Date and Time Co-Signed: 05/17/21 11:18 EDT Vital Signs Date Time Vital Sign Value Performing Clinician Facility 07-08-2024 09:09-0500 Body mass index (BMI) [Ratio] 28.32 kg/m2 Heather Graham PA Work Phone: [facility] 07-08-2024 09:09-0500 Body weight 74.84 kg Heather Nehal PA Work Phone: [facility] 07-08-2024 09:09-0500 Diastolic blood pressure 68 mm[Hg] Heather Nehal PA Work Phone: [facility] 07-08-2024 09:09-0500 Systolic blood pressure 110 mm[Hg] Heather Nehal PA Work Phone: [facility] 06-10-2024 08:48-0500 Body mass index (BMI) [Ratio] 28.8 kg/m2 [facility] PA Work Phone: [facility] 06-10-2024 08:48-0500 Body weight 76.11 kg [facility] PA Work Phone: [facility] 06-10-2024 08:48-0500 Diastolic blood pressure 80 mm[Hg] [facility] PA Work Phone: [facility] 06-10-2024 08:48-0500 Systolic blood pressure 122 mm[Hg] [facility] PA Work Phone: [facility] 05-14-2024 10:26-0400 Body mass index (BMI) [Ratio] 29.5 kg/m2 [facility] 05-14-2024 10:26-0400 Body weight 76.65 kg [facility] 05-14-2024 10:26-0400 Heart rate 105 /min [facility] 05-14-2024 10:04-0400 Body height 161.29 cm [facility] 05-14-2024 10:04-0400 Diastolic blood pressure 78 mm[Hg] [facility] 05-14-2024 10:04-0400 Systolic blood pressure 112 mm[Hg] [facility] 05-12-2024 09:42-0400 Body mass index (BMI) [Ratio] 29.42 kg/m2 Tay Jonny DO Work Phone: [facility] 05-12-2024 09:42-0400 Body weight 77.75 kg Tay Jonny DO Work Phone: [facility] 05-12-2024 09:42-0400 Diastolic blood pressure 70 mm[Hg] Tay Jonny DO Work Phone: [facility] 05-12-2024 09:42-0400 Systolic blood pressure 118 mm[Hg] Tay Jonny DO Work Phone: [facility] 04-13-2024 10:50-0400 Body mass index (BMI) [Ratio] 30.55 kg/m2 Tay Jonny DO Work Phone: [facility] 04-13-2024 10:50-0400 Body weight 80.74 kg Tay Jonny DO Work Phone: [facility] 04-13-2024 10:50-0400 Diastolic blood pressure 70 mm[Hg] Tay Jonny DO Work Phone: [facility] 04-13-2024 10:50-0400 Systolic blood pressure 116 mm[Hg] Tay Jonny DO Work Phone: [facility] 04-17-2023 08:30-0400 Body height 157.48 cm Mary Jane Gongora Other [employer] Other 04-17-2023 08:30-0400 Body mass index (BMI) [Ratio] 31.82 kg/m2 Mary Jane Gongora Other [employer] Other 04-17-2023 08:30-0400 Body weight 78.93 kg Mary Jane Gongora Other [employer] Other 04-17-2023 08:30-0400 Diastolic blood pressure 76 mm[Hg] Mary Jane Gongora Other [employer] Other 04-17-2023 08:30-0400 Systolic blood pressure 112 mm[Hg] Mary Jane Gongora Other [employer] Other 03-21-2023 11:45-0400 Body height 157.48 cm aMry Jane Gongora Other [employer] Other 03-21-2023 11:45-0400 Body mass index (BMI) [Ratio] 32.37 kg/m2 Mary Jane Gongora Other [employer] Other 03-21-2023 11:45-0400 Body weight 80.29 kg Mary Jane Gongora Other [employer] Other 03-21-2023 11:45-0400 Diastolic blood pressure 102 mm[Hg] Mary Jane Gongora Other [employer] Other 03-21-2023 11:45-0400 Systolic blood pressure 141 mm[Hg] Mary Jane Gongora Other [employer] Other Encounters Encounter Date Encounter Type Care Provider Facility Start: 07-08-2024 End: 07-08-2024 Bamboo flowsheet Heather MALIK Work Phone: [facility] Start: 07-08-2024 End: 07-08-2024 Bamboo flowsheet Heather Graham PA Work Phone: [facility] Start: 07-08-2024 End: 07-08-2024 Office outpatient visit 10 minutes Heather MALIK Work Phone: [facility] Comment on above: Encounter for weight management Start: 07-08-2024 End: 07-08-2024 ambulatory HEATHER GRAHAM Not Available Start: 06-10-2024 End: 06-10-2024 Bamboo flowsheet Heather MALIK Work Phone: [facility] Start: 06-10-2024 End: 06-10-2024 Bamboo flowsheet Heather MALIK Work Phone: [facility] Start: 06-10-2024 End: 06-10-2024 Office outpatient visit 5 minutes Heather MALIK Work Phone: [facility] Comment on above: Encounter for weight management Start: 06-10-2024 End: 06-10-2024 ambulatory HEATHER GRAHAM Not Available Start: 05-14-2024 End: 05-14-[address] [facility] Work Phone: Start: 05-14-2024 End: 05-14-2024 Patient encounter procedure [facility] Physician [facility] Work Phone: Start: 05-12-2024 End: 05-12-2024 Bamboo flowsheet Tay Jonny DO Work Phone: [facility] Start: 05-12-2024 End: 05-12-2024 Bamboo flowsheet Tay Jonny DO Work Phone: [facility] Start: 05-12-2024 End: 05-12-2024 Office outpatient visit 5 minutes Tay Jonny DO Work Phone: [facility] Comment on above: Encounter for weight management Start: 05-12-2024 End: 05-12-2024 ambulatory TAY JONNY Not Available Start: 04-20-2024 Non-patient / Non-visit [facility] Physician [facility] Work Phone: Start: 04-13-2024 End: 04-13-2024 Bamboo flowsheet Tay Jonny DO Work Phone: [facility] Start: 04-13-2024 End: 04-20-2024 Bamboo flowsheet Tay Jonny DO Work Phone: [facility] Start: 04-13-2024 End: 04-20-2024 Clinisync Result Encounter Tay Jonny DO Work Phone: [facility] Unsolicited Start: 04-13-2024 End: 04-13-2024 Patient encounter procedure Tay Jonny DO Work Phone: [facility] Start: 04-13-2024 End: 04-13-2024 Periodic preventive med est patient 40-64yrs Tay Jonny DO Work Phone: [facility] Comment on above: Well woman exam with routine gynecological exam; Breast cancer screening by mammogram; Osteoporosis, post-menopausal ([facility]/HCC); Encounter for weight management Start: 04-13-2024 End: 04-13-2024 ambulatory TAY JONNY Not Available Start: 04-07-2024 Patient encounter status [facility] Start: 10-17-2023 End: 10-17-2023 ambulatory TAY BELCHERO Not Available Start: 04-17-2023 End: 04-17-2023 ambulatory Mary Jane Gongora Other [employer] Other Start: 04-17-2023 Encounter for genera l adult medical examination without abnormal findings Mary Jane Gongora [facility] Start: 04-17-2023 Periodic preventive med est patient 40-64yrs Mary Jane Gongora [facility] Start: 04-17-2023 Telephone encounter Mary Jane Gongora [facility] Start: 03-21-2023 End: 03-21-2023 ambulatory Mary Jane Gongora Other [employer] Other Start: 03-21-2023 Encounter for genera l adult medical examination without abnormal findings Mary Jane Gongora [facility] Start: 03-21-2023 Office outpatient vi sit 15 minutes Mary Jane Gongora [facility] Start: 07-26-2022 (Televisit) Televisit Mary Jane Maciel [facility] Start: 07-26-2022 End: 07-26-2022 ambulatory Mary Jane Gongora Other [employer] Other Start: 06-25-2022 End: 06-26-[address] TAY [place] Facility: Start: 04-11-2022 Encounter for genera l adult medical examination without abnormal findings DR MARY JANE GONGORA [facility] Start: 04-10-2022 End: 04-11-[address] TAY [place] Facility:[facility] Start: 04-10-2022 End: 04-11-2022 Encounter for general adult medical examination without abnormal findings DR MARY JANE GONGORA Facility:[facility] Start: 04-04-2022 End: 04-04-[address] TAY [place] Facility:[facility] Start: 08-23-2021 End: 08-23-[address] MARY JANE GONGORA Facility:[facility] Procedures Date Procedure Procedure Detail Performing Clinician Start: 04-13-2024 IGP,APTIMA HPV,AGE GDLN Tay Jonny DO Work Phone: Start: 04-13-2024 Microscopic observat ion [Identifier] in Cervix by Cyto stain Tay Jonny DO Work Phone: Start: 04-08-2023 Microscopic observat ion [Identifier] in Cervix by Cyto stain Tay Jonny DO Work Phone: Start: 04-08-2023 Cytp cerv/vag auto t hin layer prep mnl screen Tay Jonny DO Work Phone: Start: 06-25-2022 Mammography Tay Fazi o DO Work Phone: Start: 04-04-2022 Microscopic observat ion [Identifier] in Cervix by Cyto stain Tay Jonny DO Work Phone: Plan of Treatment Date Care Activity Detail Author Start: 04-16-2028 Screening for malignant neoplasm of cervix [facility] Start: 04-08-2028 Screening for malignant neoplasm of cervix [facility] Start: 04-13-2027 Screening for malignant neoplasm of cervix Pap Smear [facility] Start: 04-04-2027 Screening for malignant neoplasm of cervix Pap Smear [facility] Start: 04-19-2025 End: 04-19-2025 Patient encounter procedure 04/19/2025 8:30 AM EDT Office Visit [facility] [address] [place] [id number] Tay [place] DO [address] [place] [address] [facility] Start: 07-08-2024 End: 07-08-2024 Patient encounter procedure 07/08/2024 8:50 AM EST Office Visit [facility] [address] [place] [phone] Heather Graham, PA [address] [place], [place] [id number] Arrived [facility] Comment on above: Arrived Start: 06-10-2024 End: 06-10-2024 Patient encounter procedure 06/10/2024 8:40 AM EST Office Visit [facility] [address] [place] [phone] Heather Graham, PA [address] [place], [place] [id number] Arrived [facility] Comment on above: Arrived Start: 05-29-2024 Screening for malignant neoplasm of colon [facility] Start: 05-12-2024 End: 05-12-2024 Patient encounter procedure [facility] Comment on above: Arrived Start: 04-13-2024 End: 04-13-2025 DXA Skeletal system Views for bone density DEXA bone density Imaging Routine Osteoporosis, post-menopausal ([facility]/HCC) Expected: 04/13/2024 (Approximate), Expires: 04/13/2025 [facility] Comment on above: Expected: 04/13/2024 (Approximate), Expires: 04/13/2025 Start: 04-13-2024 End: 06-13-2025 MG Breast - bilateral Screening Bilateral screening mammogram Imaging Routine Breast cancer screening by mammogram Expected: 04/13/2024 (Approximate), Expires: 06/13/2025 [facility] Work Phone: Comment on above: Expected: 04/13/2024 (Approximate), Expires: 06/13/2025 Start: 04-13-2024 End: 04-13-2024 Patient encounter procedure 04/13/2024 10:00 AM EDT Office Visit [facility] [address] [place] [phone] Tay [place], [address] [place] [address] Arrived [facility] Comment on above: Arrived Start: 06-25-2023 Screening for malignant neoplasm of breast Mammogram [facility] Start: 1970 Screening for malignant neoplasm of colon [facility] THIN PREP TIS PAP AN D HR HPV DNA THIN PREP TIS PAP AND HR HPV DNA Pathology and Cytology Routine Well woman exam with routine gynecological exam Ordered: 04/13/[address] [facility] Comment on above: Ordered: 04/13/2024 [facility] Immunizations Immunization Date Immunization Notes Care Provider Fa cility 06-28-2022 zoster vaccine, live Mary Jane Gongora Other [facility] 04-13-2022 influenza virus vaccine, split virus (incl. purified surface antigen) Mary Jane Gongora Other [facility] [employer] Other 04-13-2022 influenza virus vaccine, unspecified formulation [facility] 02-06-2022 COVID-19 Vaccine Pfi zer - Documentation Purposes Only Mary Jane Gongora Other [facility] 02-01-2022 zoster vaccine, live Mary Jane Gongora Other [facility] 06-30-2021 COVID-19 Vaccine Pfi zer - Documentation Purposes Only Mary Jane Gongora Other [facility] 04-03-2021 influenza virus vaccine, split virus (incl. purified surface antigen) Mary Jane Gongora Other [facility] [employer] Other 04-03-2021 influenza virus vaccine, unspecified formulation [facility] 05-26-2019 influenza virus vaccine, split virus (incl. purified surface antigen) Mary Jane Gongora Other [facility] [employer] Other 05-26-2019 influenza virus vaccine, unspecified formulation [facility] Payers Date Payer Category Payer Blue [employer]BS [id number] 2022 Unknown BCBS BCBS [id number] 2022-Present [phone] [address] [place] [address] [id number] 1971 Unknown [id number] [id number]. 2.593 1971 Unknown [id number] [id number]. 2.593 1971 Unknown [id number] [id number]. 2.593 1971 Unknown [id number] 2.16.840.1.347011.3.579. 2.593 1971 Unknown [id number] [id number]. 2.593 1971 Unknown [id number] [id number]. 2.1259 1971 Unknown [id number] [id number]. 2.1259 1971 Unknown [id number] 2.16.840.1.828246.3.579. 2.1259 1971 Unknown [id number] [id number]. 2.1259 1971 Unknown [id number] [id number]. 2.1259 1959 Unknown [id number] Social History Date Type Detail Facility Unknown if ever smoked [employer] Other Sex Assigned At [employer] Other Tobacco smoking status [facility] Tobacco smoking consumption unknown [facility] Start: 1970 Sex assigned at Not on file [facility] Start: 04-02-2024 Tobacco smoking status [facility] Never smoked tobacco (finding) [facility] Start: 1970 Sex Assigned At Female [facility] NEGATED: Highlighted row [facility] Clinical Notes 07-26-2022 to 07-08-2024 HELENA Gaston - 07/08/2024 8:50 AM Jimmie Lezama LPN - 06/10/2024 8:40 AM Soila Padron LPN - 05/12/2024 9:40 AM HELENA Reynoso - 04/13/2024 10:00 AM EDT Note Date & Type Note Facility 07-08-2024 History of Presen t illness Narrative Reason for Appointment: Patient ID: Annel Alcantara is a 54 y.o. female who presents for encounter for weight management Patient presents today for Weight Management Consult. MEDICATIONS Current Outpatient Medications Medication Instructions estradiol (ESTRACE) 0.5 mg, Oral, Daily levothyroxine (Synthroid, Levoxyl) 137 MCG tablet TAKE 1 TABLET BY MOUTH EVERY DAY IN THE MORNING ON EMPTY STOMACH metFORMIN XR (GLUCOPHAGE-XR) 1,000 mg, Oral, Daily with evening meal, Do not crush, chew, or split. ALLERGIES Allergies Allergen Reactions Latex Unknown and Rash PROBLEMS Active Ambulatory Problems Diagnosis Date Noted No Active Ambulatory Problems Resolved Ambulatory Problems Diagnosis Date Noted No Resolved Ambulatory Problems No Additional Past Medical History HISTORY PAST MEDICAL HISTORY SOCIAL HISTORY History reviewed. No pertinent past medical history. Social History Tobacco Use Smoking status: Not on file Smokeless tobacco: Not on file Substance Use Topics Alcohol use: Not on file Drug use: Not on file FAMILY HISTORY No family history on file. SURGICAL HISTORY History reviewed. No pertinent surgical history. REVIEW OF SYSTEMS Review of Systems: Review of Systems OBJECTIVE Objective: OBGyn Exam Vitals: Estimated body mass index is 28.32 kg/m as calculated from the following: Height as of 04/08/23: 5' 4 . Weight as of this encounter: 165 lb. BP: 110/68 No LMP recorded (lmp unknown). Patient has had a hysterectomy. ASSESSMENT & PLAN ICD-10-CM 1. Encounter for weight management Z76.89 Patient presents today for 3rd Adipex prescription. Patient desires additional weigh loss and she is currently taking metformin along with working out to achieve further results. Weight and blood pressure has been captured and it has been discussed/reiterated the importance of keeping a food journal, proper nutrition/diet, and exercise regimen. Patient verbalized understanding. Patient has lost more than 5% of her initial body weight and is happy with her weight loss at this time. Follow Up: Patient is to return to office for annual well women exam unless needed otherwise. Documented by HELENA Gaston on behalf of: HELENA Gaston documented in this encounter [facility] 06-10-2024 History of Presen t illness Narrative Reason for Appointment: Patient ID: Annel Alcantara is a 54 y.o. female who presents for Weight Management Patient presents today for a weight management consultation. Patient has been prescribed Adipex and she is here for her 2nd prescription. Today's Vitals: Estimated body mass index is 28.8 kg/m as calculated from the following: Height as of 04/08/23: 5' 4 . Weight as of this encounter: 167 lb 12.8 oz. Previous Weight/BMI: Wt Readings from Last 2 Encounters: 06/10/24 167 lb 12.8 oz 05/12/24 171 lb 6.4 oz BMI Readings from Last 2 Encounters: 06/10/24 28.80 kg/m 05/12/24 29.42 kg/m Allergies as of 06/10/2024 - Reviewed 06/10/2024 Allergen Reaction Noted Latex Unknown and Rash 04/08/2023 No past medical history on file. No past surgical history on file. Assessment/Plan Encounter Diagnosis Name Primary? Encounter for weight management Adipex: Patient presents today for 2nd Adipex prescription. Patients weight and blood pressure has been captured and discussed with the patient. I have discussed/reiterated the importance of keeping a food journal, proper nutrition/diet, and exercise regimen while taking Adipex. Patient verbalized understanding and was given a printed prescription signed by provider to take to their local pharmacy. Follow Up: Patient is to return to the office in 1 month for further evaluation to assess patient progress. Weight and blood pressure will need to be obtained in order for patient to receive 3rd prescription. Documented by: Charis Lezama LPN on behalf of HELENA Gaston documented in this encounter [facility] 05-12-2024 History of Presen t illness Narrative Reason for Appointment: Patient ID: Annel Alcantara is a 54 y.o. female who presents for encounter for weight management (Adipex #2) Patient presents today for a weight management consultation. Patient has been prescribed Adipex and she is here for her 2nd prescription. Today's Vitals: Estimated body mass index is 29.42 kg/m as calculated from the following: Height as of 04/08/23: 5' 4 . Weight as of this encounter: 171 lb 6.4 oz. Previous Weight/BMI: Wt Readings from Last 2 Encounters: 05/12/24 171 lb 6.4 oz 04/13/24 178 lb BMI Readings from Last 2 Encounters: 05/12/24 29.42 kg/m 04/13/24 30.55 kg/m Allergies as of 05/12/2024 - Reviewed 05/12/2024 Allergen Reaction Noted Latex Unknown and Rash 04/08/2023 History reviewed. No pertinent past medical history. History reviewed. No pertinent surgical history. Assessment/Plan Encounter Diagnosis Name Primary? Encounter for weight management Adipex: Patient presents today for 2nd Adipex prescription. Patients weight and blood pressure has been captured and discussed with the patient. I have discussed/reiterated the importance of keeping a food journal, proper nutrition/diet, and exercise regimen while taking Adipex. Patient verbalized understanding and was given a printed prescription signed by provider to take to their local pharmacy. Follow Up: Patient is to return to the office in 1 month for further evaluation to assess patient progress. Weight and blood pressure will need to be obtained in order for patient to receive 3rd prescription. Documented by: Chantel Padron LPN on behalf of Tay Fuller DO documented in this encounter [facility] 04-13-2024 History of Presen t illness Narrative Reason for Appointment: Patient ID: Annel Alcantara is a 53 y.o. female who presents for Gynecologic Exam Patient presents today for Annual Exam. MEDICATIONS Current Outpatient Medications Medication Instructions estradiol (ESTRACE) 0.5 mg, Oral, Daily levothyroxine (Synthroid, Levoxyl) 137 MCG tablet TAKE 1 TABLET BY MOUTH EVERY DAY IN THE MORNING ON EMPTY STOMACH metFORMIN XR (GLUCOPHAGE-XR) 500 mg, Oral, Daily with evening meal, Do not crush, chew, or split. ALLERGIES Allergies Allergen Reactions Latex Unknown and Rash PROBLEMS Active Ambulatory Problems Diagnosis Date Noted No Active Ambulatory Problems Resolved Ambulatory Problems Diagnosis Date Noted No Resolved Ambulatory Problems No Additional Past Medical History HISTORY PAST MEDICAL HISTORY SOCIAL HISTORY No past medical history on file. Social History Tobacco Use Smoking status: Not on file Smokeless tobacco: Not on file Substance Use Topics Alcohol use: Not on file Drug use: Not on file FAMILY HISTORY No family history on file. SURGICAL HISTORY History reviewed. No pertinent surgical history. REVIEW OF SYSTEMS Review of Systems: Review of Systems Constitutional: Negative. HENT: Negative. Eyes: Negative. Respiratory: Negative. Cardiovascular: Negative. Gastrointestinal: Negative. Genitourinary: Negative. Musculoskeletal: Negative. Skin: Negative. Neurological: Negative. All other systems reviewed and are negative. Hematological: Negative. Endocrine: Negative. Allergic/Immunologic: Negative. OBJECTIVE Objective: Physical Exam Constitutional: Appearance: Normal appearance. Genitourinary: Right Adnexa: not tender and no mass present. Left Adnexa: not tender and no mass present. No cervical discharge. Breasts: Breasts are soft. Right: Normal. Left: Normal. HENT: Head: Normocephalic. Nose: Nose normal. Mouth/Throat: Mouth: Mucous membranes are moist. Cardiovascular: Rate and Rhythm: Normal rate. Pulmonary: Effort: Pulmonary effort is normal. Abdominal: General: Bowel sounds are normal. Palpations: Abdomen is soft. Musculoskeletal: General: Normal range of motion. Cervical back: Normal range of motion. Neurological: General: No focal deficit present. Mental Status: She is alert. Skin: General: Skin is warm and dry. Psychiatric: Mood and Affect: Mood normal. Vitals and nursing note reviewed. Exam conducted with a aircraft lay out worker present. Vitals: Estimated body mass index is 30.55 kg/m as calculated from the following: Height as of 04/08/23: 5' 4 . Weight as of this encounter: 178 lb. BP: 116/70 No LMP recorded (lmp unknown). Patient has had a hysterectomy. ASSESSMENT & PLAN ICD-10-CM 1. Well woman exam with routine gynecological exam Z01.419 THIN PREP TIS PAP AND HR HPV DNA 2. Breast cancer screening by mammogram Z12.31 Bilateral screening mammogram Bilateral screening mammogram 3. Osteoporosis, post-menopausal (CMS/HCC) M81.0 DEXA bone density Annual Exam: Patient presents today for an annual exam. Patient states she is doing well and has no complaints. Pap was obtained without difficulty. Patient to increase Metformin to 1,000mg and given Adipex #1 prescription. Orders Placed This Encounter Procedures Bilateral screening mammogram DEXA bone density Follow Up: Patient is to return in one year for annual unless needed otherwise. Documented by HELENA Gaston on behalf of: Tay Fuller DO documented in this encounter [facility] 04-17-2023 Evaluation note Encounter Date Diagnosis Assessment [...] left leg (ICD-10 - M79.605) as above [employer] Other 08-31-2023 Evaluation note* Encounter Date Diagnosis Assessment Notes Treatment Notes Treatment Clinical Notes Feb, Dysuria (ICD-10 - R30.0) Reviewed [...] exam; labs ordered under this code Feb, Hypothyroidism, unspecified (ICD-10 - E03.9) Patient to continue with above medication and we will continue to monitor through routine blood work [employer] Other 01-05-2023 Evaluation note* Encounter Date Diagnosis Assessment Notes Treatment Notes Treatment Clinical Notes Jul, Pharyngitis, unspecified etiology (ICD-10 - [...] Jul, 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) [employer] Other Evaluation noteNo [employer] Other Evaluation note* Diagnosis Encounter for weight management [facility] Diagnosis Onset Date Resolution Status Screening for colon cancer a [facility] Work Phone: Evaluation note* Diagnosis Well woman exam with routine gynecological exam Routine gynecological examination Breast cancer screening by mammogram Osteoporosis, post-menopausal ([facility]) Senile osteoporosis Encounter for weight management documented in this encounter [facility] Narrative - Reported* Type Description Date Medical History Hypothryoid Surgical History x3 Surgical History D&C x2 Surgical History Lap Yen Surgical History hysterectomy Hospitalization History See above [employer] Other Summary Purpose Family History No Family History Records Found Relationship Condition Age at Onset Recorded Date/T grayson father Diabetes mellitus Unknown mother Diabetes mellitus Unknown Renal failure Unknown Unknown Advance Directives No Advanced Directives Records Found Advance Directive Response Recorded Date/ Time Advance Directives No May 14, 2024 9:55am Chief Complaint and Reason for Visit Chief Complaint wellness Reason for Visit Screening for colon cancer Additional Source Comments INFORMATION SOURCE (unrecogn ized section and content) DATE CREATED AUTHOR 02/21/2022 [facility] DATE CREATED AUTHOR AUTHOR'S ORGANIZ ATION 06/27/2022 [facility] DATE CREATED AUTHOR AUTHOR'S ORGANIZ ATION 07/11/2024 [facility] EPIC REASON FOR VISIT (unrecogniz ed section and content) Reason Comments encounter for weight management Adipex # 2 Reason Comments Weight Management Reason Comments encounter for weight management Reason Comments Gynecologic Exam Care Teams (unrecognized sec tion and content) 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 Relationship Specialty Start Date End Date Mary Jane Gongora MD [address] [place] [place] [id number] PCP - General Family Medicine 10/17/23 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 Relationship Specialty Start Date End Date Mary Jane Gongora MD [address] [place] [facility] [place] [id number] PCP - General Family Medicine 10/17/23 Team Status: Active Member Role Status Dates Mary Jane Gongora MD Primary Care Provider Active Team Status: Active Member Role Status Dates Mary Jane Gongora MD Primary Care Provide r, Attending Provider Active Start: April 20, 2024 Team Status: Inactive Member Role Status Dates Mary Jane Gongora MD Primary Care Provide r, Attending Provider Active Start: May 14, 2024 End: May 14, 2024 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 Relationship Specialty Start Date End Date Mary Jane Gongora MD [address] [place] [facility] [place] [phone] PCP - General Family Medicine 10/17/23 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 Relationship Specialty Start Date End Date Mary Jane Gongora MD [address] [place] [facility] [place] [phone] PCP - General Family Medicine 10/17/23 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 [facility] [employer] [facility]. provides no warranty or guarantee of the accuracy or completeness of information in this document.
== END 2024-08-07 11:00 | disposition home or self-care (01) ==
LOC: MAMMO 10:59
PROVIDERS: PCP Family Medicine; Visit Provider Obstetrics & Gynecology
DX: Z12.31 Encounter for screening mammogram for malignant neoplasm of breast (principal)
CPT/HCPCS: 77063; 77067

== ENCOUNTER 2024-08-20 10:57 | Outpatient (OUT) | payer BC, SELFPAY ==
--- NOTE | 2024-08-20 11:02 | US_ITS ---
The [address] [address] Patient Name: SRINI ROMAN MRN: [id number] date: 1970 Sex: F Assigned Patient Location: US Current Patient Location: Accession/Order Number: [id number] Exam Date: 08/20/2024 11:03 Report Date: 08/21/2024 06:01 At the request of: RPIYA GONGORA Procedure: US thyroid EXAMINATION: US thyroid HISTORY: Lymphadenopathy Of Right Cervical Neck COMPARISON: No relevant comparison available. FINDINGS: RIGHT LOBE: Small thyroid lobe, but normal echotexture. Lobe size: 3.1 x 0.6 x 0.8 cm LEFT LOBE: Small thyroid lobe, but normal echotexture. Lobe size: 2.3 x 0.5 x 0.7 cm ISTHMUS: Normal size and echotexture. Thickness: 2 mm OTHER: Several small rounded hypoechoic areas within the right lateral-posterior neck corresponding to patient's palpable lumps. Small amount of internal blood flow demonstrated on color Doppler. The largest 2 lesions are 1.0 x 0.9 x 0.5 cm and 0.6 x 0.6 x 0.4 cm. US/US thyroid IMPRESSION: 1. Suspect mild lymphadenopathy corresponding to patient's palpable lumps. Consider clinical and likely to ultrasound follow-up; and ultrasound-guided biopsy if lesions persist. 2. Small, but otherwise unremarkable thyroid gland. Electronically authenticated by: APOLONIA HENSON Date: 08/21/2024 06:01
--- OUTSIDE RECORDS SUMMARY | 2024-08-20 11:07 | XMS_ITS | CCD ---
Author Organization [facility] Care Team Providers Care Tape Stringer Name Role Phone ROLAN, DR MARY JANE Pate Attending Unavailable GONGORA, DR MARY JANE Pate Consulting Unavailable GONGORA, DR MARY JANE Pate Primary Care Unavailable GONGORA, DR MARY JANE Pate Admitting Unavailable JONNY, DR CROSS Admitting Unavailable JONNY, DR CROSS Attending Unavailable FRANKLIN, DR KAUR Villalpando Consulting Unavailable GONGORA, DR MARY JANE Pate Primary Care Unavailable JONNY, DR CROSS Consulting Unavailable JONNY, DR CROSS Admitting Unavailable JONNY, DR CROSS Attending Unavailable JONNY, DR CROSS Consulting Unavailable GONGORA, DR MARY JANE Pate Primary Care Unavailable JONNY, DR CROSS Admitting Unavailable GONGORA, DR MARY JANE Pate Primary Care Unavailable JONNY, DR CROSS Attending Unavailable JONNY, DR CROSS Consulting Unavailable ZIEBER, DR APOLONIA Gonzalez Consulting Unavailable GONGORA, DR MARY JANE Pate Attending Unavailable GONGORA, DR MARY JANE Pate Consulting Unavailable GONGORA, DR MARY JANE Pate Primary Care Unavailable GONGORA, DR MARY JANE Pate Admitting Unavailable Rolan, Mary Jane Unavailable Mary Jane Gongora MD Primary Care Provider TAY FULLER Attending Unavailable TAY FULLER Attending Unavailable TAY FULLER Attending Unavailable HEATHER GRAHAM Attending Unavailable HEATHER GRAHAM Attending Unavailable Allergies Allergy Classification Reported Allergen(s) Allergy Type Date of Onset Reaction(s) Facility (1 source) Adhesive bandage Drug allergy (disorder) 6 [facility] Repository (3 sources) Latex Drug allergy 0 Unknown [facility] Other (11 sources) Latex Allergy to substance 3 Unknown, Rash [facility] Medications Current Medications Medication Drug Class(es) Dates Sig (Normalized) Sig (Original) amoxicillin 500 mg oral capsule (1 source) Penicillin-class Antibacterial Start: 07-26-2022 take 1 capsule by mouth every eight hours Amoxicillin 500 MG 1 capsule Orally every 8 hrs for 5 day(s) Jul, Active estradiol 1 mg oral tablet (14 sources) Estrogen Start: 05-14-2024 take 0.5 mg by mouth once daily Estradiol 1 mg tablet Active 0.5 MG PO Daily May 14, 2024 10:46am off 1 week; repeat cycle Start: 05-14-2024 End: 05-14-2024 take 1 tablet by mouth once daily Estradiol 1 mg tablet Discontinued 1 MG PO Daily May 13, 2024 11:00pm May 14, 2024 10:47am off 1 week; repeat cycle Start: 03-12-2024 [...] Active levothyroxine sodium 0.137 mg oral tablet (20 sources) l-Thyroxine Start: 10-04-2023 End: 04-01-2024 take 1 tablet by mouth once daily in the morning Levothyroxine 137 mcg tablet Active 0 .ROUTE .COMPLEX 90 April 01, 2024 7:02am TAKE 1 TABLET BY MOUTH EVERY DAY IN THE MORNING ON EMPTY STOMACH Start: 10-04-2023 End: 10-04-2023 take 1 tablet by mouth once daily Levothyroxine 137 mcg tablet Discontinued 137 MCG PO Daily October 03, 2023 11:00pm October 04, 2023 7:33am take 1 tablet by aimee th once daily in the morning Levothyroxine Sodium 137 MCG 1 tablet in the morning on an empty stomach Orally Once a day Active take 1 tablet by aimee th every twenty-four hours Synthroid 50 MCG 1 tablet Orally Once a day Active 24 hr metFORMIN hydrochloride 500 mg extended release oral tablet (12 sources) Biguanide Start: 05-18-2024 End: 06-17-2024 take 2 tablets by mouth every twenty-four hours at mealtime metFORMIN XR (Glucophage-XR) 500 MG 24 hr tablet Indications: Encounter for weight management Take 2 tablets (1,000 mg) by mouth in the evening. Take with meals Do not crush, chew, or split. 60 tablet 11 05/18/2024 Active Start: 05-14-2024 take 1 tablet by mouth once da franca Metformin 1,000 mg tablet Active 1000 MG PO Daily May 13, 2024 11:00pm Start: 11-12-2023 take 1 tablet by aimee th every twenty-four hours at mealtime metFORMIN XR (Glucophage-XR) 500 MG 24 hr tablet Indications: Menopause Take 1 tablet (500 mg) by mouth in the evening. Take with meals Do not crush, chew, or split. 30 tablet 11 11/12/2023 Active phentermine hydrochloride 37.5 mg oral tablet (16 sources) Sympathomimetic Amine Anorectic Start: 04-13-2024 End: 07-10-2024 take 1 tablet by mouth once daily 30 minutes after breakfast Phentermine (Adipex-P) 37.5 mg tablet Active 37.5 MG PO Daily May 13, 2024 11:00pm must administer 30 minutes before or 1-2 hours after breakfast predniSONE 20 mg oral tablet (1 source) Start: 07-26-2022 take 2 tablets by mouth every twenty-four hours predniSONE 20 MG 2 tablets Orally Once a day for 5 days Jul, Active 24 hr venlafaxine 37.5 mg extended release oral capsule (1 source) Serotonin and Norepinephrine Reuptake Inhibitor Start: 08-19-2024 take 1 capsule by mouth once daily Venlafaxine (Effexor Xr) 37.5 mg capsule,extended release 24hr Active 37.5 MG PO Daily August 19, 2024 12:00am Completed/Discontinued Medications Medication Drug Class(es) Dates Sig (Normalized) Sig (Original) 24 hr phentermine 7.5 mg / topiramate 46 mg extended release oral capsule (2 sources) Sympathomimetic Amine Anorectic Start: 05-14-2024 End: 05-14-2024 take 1 capsule by mouth once daily Phentermine-Topira mate 7.5-46 mg capsule, ER multiphase 24 hr Discontinued 1 CAP PO Daily May 13, 2024 11:00pm May 14, 2024 9:27am Problems Active Problems Problem Classification Problem Date Documented Date Episodic/Chronic Administrative/social admission (6 sources) Patient encounter status; Translations: [Persons encountering health services in other specified circumstances] 05-12-2024 Episodic Cardiac dysrhythmias (1 source) Tachycardia; Translations: [Tachycardia, unspecified] 05-17-2024 Episodic Genitourinary symptoms and ill-defined conditions (1 source) Dysuria Episodic Immunizations and screening for infectious disease (1 source) Encounter for screening for human papillomavirus (HPV); Translations: [ENC SCREENING HUMAN PAPILLOMAVIRUS] Onset: 04-08-2022 Episodic Lymphadenitis (2 sources) Cervical lymphadenopathy; Translations: [Localized enlarged lymph nodes] 08-19-2024 Episodic Osteoporosis (2 sources) Postmenopausal osteoporosis; Translations: [Age-related osteoporosis without current pathological fracture] 04-13-2024 Chronic Other connective tissue disease (1 source) Pain in right leg Episodic Other connective tissue disease (1 source) Pain in left leg Episodic Other screening for suspected conditions (not mental disorders or infectious disease) (18 sources) Encounter for screening mammogram for malignant neoplasm of breast; Translations: [Encounter for screening for osteoporosis] Onset: 04-04-2022 Episodic Other upper respiratory infections (1 source) Acute pharyngitis, unspecified Episodic Thyroid disorders (9 sources) Hypothyroidism; Translations: [Hypothyroidism, unspecified] Chronic Unclassified [...] 04-20-2024 Cholesterol in LDL [Mass/Vol] 96.0 mg/dL [facility] Comment on above: <100 mg/dl [id number] 0-129 mg/dl NEAR OR ABOVE [id number] mg/dl BORDERLINE YECH227-900 mg/dl HIGH>190 mg/dl VERY HIGH Cholesterol in VLDL Calc [Ma ss/Vol]on 04-20-2024 Cholesterol in VLDL [Mass/Vol] 22.8 mg/dL [facility] Estimated glomerular filtrat ion rate (GFR) non- Americanon 04-20-2024 GFR/1.73 sq M.predicted among non-blacks MDRD (S/P/Bld) [Vol rate/Area] mL/min/{1.73_m2} >=60 [facility] IGP,APTIMA HPV,AGE GDLNon AGE GDLN ACOG TESTING Note . [facility] Comment on above: TESTS RESULT FLAG UN ITS REF RANGE LAB Clinician Provided Cytology Information Source.............Cervix;Endocervix No. of containers..01 ThinPrep Vial Age Algo ACOG Marycruz... FLAG LEGEND: L-Low Normal,H-High Normal,LL-Alert Low,HH-Alert High <-Panic Low,>-Panic High,A-Abnormal,AA-Critical Abnormal Performed at: 01 =G [address] [address] Lori Roach MD, HPV APTIMA Negative Negative [facility] Comment on above: This nucleic acid am plification test detects fourteen high- risk HPV types (16,18,31,33,35,39,45,51,52,56,58,59,66,68) without differentiation. Performed at: =G - [facility], [place] [id number] Alloy Weigher: Lori Roach MD, Phone: [phone] Performed at: - [facility], [place] [id number] Alloy Weigher: Lori Roach MD, Phone: [phone] IGP, APTIMA HPV, RFX 16/18,45 Note . [facility] Comment on above: TESTS RESULT FLAG U NITS REF RANGE LAB DIAGNOSIS: 02 NEGATIVE FOR INTRAEPITHELIAL LESION OR MALIGNANCY. Specimen adequacy: 02 Satisfactory for evaluation. Endocervical and/or squamous metaplastic cells (endocervical component) are present. Performed by: Tung Rivas, Rod Drawer (ASCP) . 02 Note: Note 02 The Pap [...] High,A-Abnormal,AA-Critical Abnormal Performed at: 02 WB [facility] [address] [facility] [place] [address] Lori Roach MD, BRUSH-SPATULA CERVIX ENDOCERVIX [facility] - Chemistry and C hemistry - challengeon 04-20-2024 Calcium [Mass/Vol] 9.1 mg/dL 8.5-10.1 [facility] Chloride [Moles/Vol] 101 mmol/L 98-107 [facility] Cholesterol [Mass/Vol] 189 mg/dL <=200 [facility] Cholesterol in HDL [Mass/Vol] 71 mg/dL High 40-60 [facility] Comment on above: > or =60 mg/dl - LOW CARDIOVASCULAR RISK<40 mg/dl - HIGH CARDIOVASCULAR RISK CO2 [Moles/Vol] 29.2 mmol/L 21.0-32.0 [facility] Creatinine [Mass/Vol] 0.74 mg/dL 0.55-1.02 [facility] Free T4 [Mass/Vol] 1.47 ng/dL High 0.76-1.46 [facility] GFR/1.73 sq M.predicted MDRD (S/P/Bld) [Vol rate/Area] mL/min/{1.73_m2} >=60 [facility] Glucose [Mass/Vol] 85 mg/dL 74-106 [facility] Potassium [Moles/Vol] 4.3 mmol/L 3.5-5.1 [facility] Sodium [Moles/Vol] 136 mmol/L 136-145 [facility] Triglyceride [Mass/Vol] 114 mg/dL <=150 [facility] TSH Qn 3.135 m[IU]/L 0.358-3.740 [facility] Urea nitrogen [Mass/Vol] 6.0 mg/dL Low 7.0-18.0 [facility] Urea nitrogen/Creatinine [Mass ratio] 8.1 mg/mg [facility] Serum or plasma anion gap de terminationon 04-20-2024 Anion gap [Moles/Vol] 10.1 mmol/L [facility] Serum or plasma total choles terol/high density lipoprotein (HDL) cholesterol mass nadir 04-20-2024 Cholesterol.total/Ch olesterol in HDL [Mass ratio] 2.7 {ratio} [facility] Comment on above: 3.3 - 4.4 LOW RISK4. 4 - 7.1 AVERAGE RISK7.1 - 11.0 MODERATE RISK>11.0 HIGH RISK Cytology Cervical or vaginal smear or scraping studyon 04-08-2023 [facility] Urinalysis - DIPSTICKon 02-21 Appearance (U) cloudy [facility] Other Bilirubin Ql (U) Negative [employer] Other Color (U) yellow [facility] Other Glucose Ql (U) Negative [facility] Other Hemoglobin Ql (U) moderate [facility] [employer] Other Ketones Ql (U) Negative [facility] Other Leukocyte esterase Test strip Ql (U) moderate [employer] Other Nitrite Ql (U) Negative [facility] Other pH (U) 6.0 [pH] [employer] Other Protein Ql (U) Negative [employer] Other Specific gravity (U) [Rel density] 1.000 [employer] Other Urobilinogen (U) [Mass/Vol] normal [employer] Other Urinalysis - DIPSTICK [employer] Other MG MAMM SCREEN 3D MACARIO CADon 06-25-2022 MG MAMM SCREEN 3D MACARIO CAD Patient: ANNEL ALCANTARA Exam Date: 06/25/2022 : 1970 Gender:F Ordering : DR TAY FULLER . Admission #: [id number] Family : Order #: [id number] CLICK HERE TO VIEW EXAM RADIOLOGY REPORT [...] Treatments None Family Cancers None LOCATION: [facility] BREAST COMPOSITION: Heterogeneously dense,which may obscure [...] Pedro MD on 06/25/2022 at 09:48 Normal [facility] PAP ACOG PANEL 2: 30 to 65on 04-11-2022 . . Normal [facility] Comment on above: Result Comment: Perf ormed at: WB Performed By: #### [id number] #### [facility] [address] [place] [address] Dr. Isis Shahid Age Gdln ACOG Testing 30-65 Normal [facility] Comment on above: Performed By: #### [id number] #### [facility] [address] [place] [address] Dr. Isis Shahid DIAGNOSIS: Comment Normal [facility] Comment on above: Result Comment: NEGA TIVE FOR INTRAEPITHELIAL LESION OR MALIGNANCY. Performed at: WB Performed By: #### [id number] #### [facility] [address] [place] [address] Dr. Isis Shahid HPV Aptima Negative Normal Negative [facility] Comment on above: Result Comment: This nucleic acid amplification test detects fourteen high-risk HPV types (16,18,31,33,35,39,45,51,52,56,58,59,66,68) without differentiation. Performed at: =G Performed By: #### [id number] #### [facility] [address] [place] [address] Dr. Isis Shahid Methodology: Comment Normal [facility] Comment on above: Result Comment: This liquid based ThinPrep(R) pap test was screened with the use of an image guided system. Performed at: WB Performed By: #### [id number] #### [facility] [address] [place] [address] Dr. Isis Shahid Note: Comment Normal [facility] Comment on above: Result Comment: The Pap smear is a screening test designed to aid in the detection of premalignant and malignant conditions of the uterine cervix. It is not a diagnostic procedure and should not be used as the sole means of detecting cervical cancer. Both false-positive and false-negative reports do occur. . Performed at: WB Performed By: #### [id number] #### [facility] [address] [place] [address] Dr. Isis Shahid Performed by: Comment Normal [facility] Comment on above: Result Comment: Nikia Pedro, Rod Drawer (ASCP) Performed at: WB Performed By: #### 4 [id number] #### [facility] [address] [place] [address] Dr. Isis Shahid Specimen adequacy: Comment Normal [facility] Comment on above: Result Comment: Sati sfactory for evaluation. Endocervical and/or squamous metaplastic cells (endocervical component) are present. Performed at: WB Performed By: #### 4 [id number] #### [facility] [address] [place] [address] Dr. Isis Shahid FREE T4on 04-10-2022 Free T4 [Mass/Vol] 1.21 ng/dL Normal 0.76-1.46 [facility] Comment on above: Performed By: #### F T4 #### [facility] [address] [place] [address] Dr. Isis Shahid LIPID PROFILEon 04-10-2022 CHOL-HDL RATIO NORM SEE BELOW Normal [facility] Comment on above: Result Comment: 3.3 - 4.4 LOW RISK 4.4 - 7.1 AVERAGE RISK 7.1 - 11.0 MODERATE RISK >11.0 HIGH RISK Performed By: #### T SH, LIPID, BMP #### [facility] [address] [place] [address] Dr. Isis Shahid Cholesterol [Mass/Vol] 209 mg/dL Critically high <=200 [facility] Comment on above: Performed By: #### T SH, LIPID, BMP #### [facility] [address] [place] [address] Dr. Isis Shahid Cholesterol in HDL [Mass/Vol] 62 mg/dL Critically high 40-60 [facility] Comment on above: Performed By: #### T SH, LIPID, BMP #### [facility] [address] [place] [address] Dr. Isis Shahid Cholesterol in LDL [Mass/Vol] 126.0 mg/dL Normal [facility] Comment on above: Performed By: #### T SH, LIPID, BMP #### [facility] [address] [place] [address] Dr. Isis Shahid Cholesterol.total/Ch olesterol in HDL [Mass ratio] 3.4 {ratio} Normal [facility] Comment on above: Performed By: #### T SH, LIPID, BMP #### [facility] [address] [place] [address] Dr. Isis Shahid HDL NORMAL > or = 60 mg/dl - LOW CARDIOVASCULAR RISK <40 mg/dl - HIGH CARDIOVASCULAR RISK Normal [facility] Comment on above: Performed By: #### T SH, LIPID, BMP #### [facility] [address] [place] [address] Dr. Isis Shahid LDL CALC NORMAL SEE BELOW Normal [facility] Comment on above: Result Comment: <100 mg/dl OPTIMAL 100 - 129 mg/dl NEAR OR ABOVE OPTIMAL 130 - 159 mg/dl BORDERLINE HIGH 160 - 189 mg/dl HIGH >190 mg/dl VERY HIGH Performed By: #### T SH, LIPID, BMP #### [facility] [address] [place] [address] Dr. Isis Shahid Triglyceride [Mass/Vol] 105 mg/dL Normal <=150 [facility] Comment on above: Performed By: #### T SH, LIPID, BMP #### [facility] [address] [address] [address] Isis Shahid VLDL CALC 21.0 mg/dL Normal [facility] Comment on above: Performed By: #### T SH, LIPID, BMP #### [facility] [address] [address] [address] Isis Shahid PROF CHEM 8 (BAS METB)on Anion gap [Moles/Vol] 12.9 mmol/L Normal [facility] Comment on above: Performed By: #### T SH, LIPID, BMP #### [facility] [address] [place] [address] Dr. Isis Shahdi Calcium [Mass/Vol] 8.7 mg/dL Normal 8.5-10.1 [facility] Comment on above: Performed By: #### T SH, LIPID, BMP #### [facility] [address] [place] [address] Dr. Isis Shahid Chloride [Moles/Vol] 106 mmol/L Normal 98-107 [facility] Comment on above: Performed By: #### T SH, LIPID, BMP #### [facility] [address] [place] [address] Dr. Isis Shahid CO2 [Moles/Vol] 24.5 mmol/L Normal 21.0-32.0 [facility] Comment on above: Performed By: #### T SH, LIPID, BMP #### [facility] [address] [place] [address] Dr. Isis Shahid Creatinine [Mass/Vol] 0.67 mg/dL Normal 0.55-1.02 [facility] Comment on above: Performed By: #### T SH, LIPID, BMP #### [facility] [address] [place] [address] Dr. Isis Shahid EGFR-AF ANGOLAN >60 Normal >=60 [facility] Comment on above: Performed By: #### T SH, LIPID, BMP #### [facility] [address] [place] [address] Dr. Isis Shahid EGFR-NON AF ANGOLAN >60 Normal >=60 [facility] Comment on above: Performed By: #### T LURDES, LIPID, BMP #### [facility] [address] [address] [address] Isis Shahid Glucose [Mass/Vol] 94 mg/dL Normal 74-106 [facility] Comment on above: Performed By: #### T LURDES LIPID, BMP #### [facility] [address] [address] [address] Isis Shahid Potassium [Moles/Vol] 4.4 mmol/L Normal 3.5-5.1 [facility] Comment on above: Performed By: #### T LURDES LIPID, BMP #### [facility] [address] [place] [address] Dr. Isis Shahid Sodium [Moles/Vol] 139 mmol/L Normal 136-145 [facility] Comment on above: Performed By: #### T LURDES LIPID, BMP #### [facility] [address] [place] [address] Dr. Isis Shahid Urea nitrogen [Mass/Vol] 4.0 mg/dL Critically low 7.0-18.0 [facility] Comment on above: Performed By: #### T LURDES LIPID, BMP #### [facility] [address] [place] [address] Dr. Isis Shahid Urea nitrogen/Creatinine [Mass ratio] 6.0 mg/mg Normal [facility] Comment on above: Performed By: #### T LURDES LIPID, BMP #### [facility] [address] [place] [address] Dr. Isis Shahid TSHon 04-10-2022 TSH 0.335 uIU/mL Critically low 0.358-3.740 [facility] Comment on above: Performed By: #### T LURDES LIPID, BMP #### [facility] [address] [place] [address] Dr. Isis Shahid XR DEXA BONE DENSITYon [...] by: APOLONIA HENSON Date: 2022-04-10 10:30 Normal [facility] PT - Assessmentson PT - Assessments [id number] #1.00CD:127 [facility] PT - Assessments [id number] #1.00CD:127 [facility] PT - Otheron 01-10-2022 PT - Other [id number] #1.00CD:127 [facility] PT - Assessmentson PT - Assessments [id number] 1#1.00CD:127 [facility] PT - Otheron 12-04-2021 PT - Other [id number] 0#1.00CD:127 [facility] Coding Summary.on 11-30-2021 Coding Summary. CD:[id number] Gh0bWw+PGhlYWQ+PE1FV NHkN53klIPwoL6TU1hRQ F5FGFRLWOGFCZ6IMO4vr EO8AIgzW0QpdbLt ArgtfMYeGU00EZo8IMK7 pWmwIPzuqB1ekNEhV7m2 TxDxDF92mJ76SFydKBWz ZdW4PsEeycqtjNJi I0lpWhSqnCOhYyo+PHRh YmxlIHdpZHRoPScxMDAl YoWxnBbkJG3vWf1aIXJf LWNvbGxhcHNlOiBj o1fvNMRdLQwdOZ2gmBfy Z2FqrTL6VOZli1p1Dp15 dHI+QKTuOYF3dGunEEsy t871NyRwb5juRBU4 yKFdQKltXBW5V55vk7K2 EYQvCDAbHZQ1bIT1jF8p jPymoaqoM5RrzHXsBrV7 JJE0fGMpsD5fpZls rjlfjC6dIwb+C49BNO6Y WWDSBJ6QHdo2B7FzOswg dHI+IG59KAKeJN92gAMm tOMiz3vsnDe1RtGj LGAuWBG7zTabIVzqr1Nf CAZcB24roIKra0M7VQBr aPjixUCsHtSybXY0oF6w ARrerwgcu9nsbocm Ibucf0hhsn02dK77Y49x ELhxJBCmKMN4XVNwPXRo qYllwy2cgL1nOl4+IDxj g2ohb8kqhZa6ZoSn IHMeqdKawSvrIYI1h4Gs Cj00O0NmvHyxz6CpIlz3 ae04uVLju8X7aHR4SQsf RZKijL4kOBgfZhG7 TVBvMjUpcU59qFItCYzd Pu6xbOmiwSulFM3yDXPe xmnnIZPguT2cCCBauURv jOpjIM2sDOPvkkth z235ExJaZGA5PSEesFHu I9YmlJ3fFnNgTZYdXDQp E8HwuZQkLFxgA345ESxo LjB2FPHsuuItY0Cp SAPibDoqMmR9e4E1Rv0E c1SoiviaSFD8YLqqGVN3 HjAsZlRdJiG1F8HlPci4 VSTdfFrpJP7pQ5Wk DCDpacxdffjjaSK1SDFy RCGsgC40yALzYLmvTi7j u9P0n837FDLuBJEbfM25 Yj3lpUphOFFvrWQK zB7mbmbrm6phxcteLiHv LZSkOGu6UAy2UXSnwZlj CjQiDJN0WeB0QCN5bBQr hA9pvAovkjzvyZ1w Oyc+U94fiC1xVOT3GXK7 clvgWCPbrxWsNK58UP60 Z0WeKqdoiYZuvEO+PGRp mnGtsXzzTH5aMuHa p8sms0MmCUbjZ0MaRPKz IQvxRtx0XOZmBTF0nAU2 qO2vEMCzLCxth9U6lQL8 V2UwykWxcg0eq7zc TEZsTHrfS43qnMDgv6K3 HNSyhVI9VPDiiAbdRsGv uB52Bvz+DXKrqXcto4Mt Aieqt2bhl9nkvBt7 IjMwJSIgdmFsaWduPSJ0 r7AmRd59K81aVHdqDDJv LMYwJGDtZELxcMziew7l bQ4hWp9+PGNvbCB3 nXX2nD1yLTJdUyV9YPax D864IqJdfEEjQbafe0pi e7bpfHt6CeEeUINrkvGi kGezAPX9f9IiBe03 L54xUTyrGCBxXBYbWWJb KKYcaOdovk0ogN4xYh6+ DP2vy4fxcx10uA82sPT+ ZKEkTAG2rRamKZub ZUZqgM3hQSbvTpL7XVUi XgDynR94mEByHByoBs8u pIufiVvgFS8qCOQrwqxl o225IzBsx0jzQXZn vNNkRZfrKWM4Q00tn0T5 CNUjLGWxNCX3lSW1lN1z bGlnbjogbGVmdDsgdmVy rPktAXqfVIhsG674 IHRvcDsnPlBhdGllbnQg SfRxUVt4S5IlTjs6CLKz yBnvAP1nnEIfYOpvEs6l tBgvpHxaCD4qSJFt hubww858PsZta8cyPGEm eATyNHliYBZ1V86wr3T1 WVHpVDZoABM3tQZ2eL3e bGlnbjogbGVmdDsg myIsqHzzKDmpOEmkZ868 IHRvcDsnPkJpcnRoIERh lMD4KA32DC73bQQix3T3 mWL0A7SxNRJwvucw dxusdFE1RARyBMUllK74 Qi7oeQmyCf4aZHHcDAU1 VFGssOIyY1IzzY7zJnJp YYTnBSLvF9ZqtEUi GNcxL277SUsuIcH7PUSc rsMuM1BoQMLhvIedWoD1 m9X8Pr9YG6E5AX78ZI77 mMJui5V6nBL3Y2Yc AEFiawxkizaveKJ7JINu FGBbtZ98Ut4ewGsbJr2t GCPbGCZ8PRTyaYOfO5Nz tZ2lAmLuJNFsZGCk R9RoxXHySHtbX874XGqz VdX7SWCoihDtK2VfCZQy sYbcZdO5n4G7Zx2BRYb7 AI49CX79uSAvi9X7 iAI1P7ZsXEBmgiyeundh uZV5XLZaYFQsdC83Mt3r kBdyLh5fXWWwRIB3IKDq xUHzQ2IlgF3rXdXw EBXzULUzZ8EymRUkHEyj W408VLjyDyO3QROyrzHh V0XdTZMftTchXsN8a2G0 Bw1VWHLrYH15VPU6 xXQ3DX97QJ58O2NfHnmv dGFibGU+PHRhYmxlIHdp ZHRoPScxMDAlJyBzdHls RR4dIg4pTNBrRZOw jDgouNOeMnTqz4rrWCGg SLahQZ8hlBigH0SaoAM7 QVIpu0a3It50B45sL4Lz dXA+MVIhkCO5vBL1 hQ5kSuZaUnH2ZKmtI278 AeLmiIBdUhrex2dvc8rs mUh0HsP9HCMptlAbhXne ODF4l4VrAh81L54s IHdpZHRoPSIxNSUiIHZh mZdves3aoS6lBy9+PGNv wJL3xRV3hD5nEuXiTrU5 EPffT802DiOqaYHt Eluwt6gjn6cmxQn6OoWt ULCykmOxjVzdYXS7a4Na Le32W8EljBzkd4LhQtt4 sw08cIXvj4E5jTE3 D9AuMYJblbgtuXCrdSal ST2oHSGdcydeFEQjrH4v IRPbY2v2JdLwUdC8XOnj S6MardH6UTWacXJi WUlqPLO7H37fu3I0IEEc RLRfFZX7iTX2sQ4fuCqy bjogbGVmdDsgdmVydGlj AAtiKGjvX730IADb fBzfPRHbnA5fJSJquGIh lEwvCG6mKPUqeafoFobX W0aWXfYsBIuPXZKZDW24 HA45hLPxe3Z7hTQ3 K9LsACJnkjgkwforgOR9 MYEkLHCeaH65iNNkTHuq Sq2or0A6m341HJJcUAFc wC88Jk0ddAuiMGLg mVGHdK6vhmlow5mfbnrc FgHtSVAfKEx7JRo6BXUl iZguJjJpLJY1MpU7IEK8 nZCqaA6stHmhfouz sW1tZci+MTAvMDMvMTk3 MTwvdGQ+BKXoNRO2dSoo BKnyEPLczU0yYXKwX7p4 NkRhYlT3AFhfO9Pg UMPwnwgwOr09pI0wLuVb UuT3MAsjX7SrykC6AROe gMNcTXrbIEH1D79mq6H6 QNXjHWWrHVP2jJD2 pQ4duEcluoppzLFhuRnw duFdwAuqSApiZXiyF373 IHRvcDsnPjUwIFllYXJz [id number] yPE3B3JmSHUxullhqmzz uFO8IEUfFPMruM83nYXz UHiaKr4fs1J5f407SDPp XILbfE51Hb4wdUph VGUciPFNmL1dihlrh2tf bvsfXsFbQZVfTJr0PId0 QFUsgDnbYhBfFNZ8WlF5 YYS3uFSoxI9yoZhp zrygcM0xNtm+RmVtYWxl ID18NV13gEMfc9T0zJR9 V2RfNSZnmymzqpkvwVU6 JNLdPYMfzW42aUCu JCbfSx6di0W8p215KIXv RJZhiH30Xt1ajIkkCDJj eIXIgE9mupfox7ehbhcy BfRrDDVuETh5YLn5 VJKbwOqoWhQhPTY4LdV8 BXY7xLQbbG6oaJwjqkek sH6vEzp+HdRxvAYqjD4b TG18JD49I2FyThtr dGFibGU+PHRhYmxlIHdp ZHRoPScxMDAlJyBzdHls AC4cNu5jBTDlJWHbxVwr zFBrHyQog6ibEZJi TOusFF9laXzmZ7MwnNC8 UOEih5d9Uy69H80rW0Bb dXA+DKCjrUH4jYS3fU7e XlVkKuO6PDovB489 CdXduFBuVzlnn9xzc0qg fVh6KbMeKBLwxpYvhVew QNI9m5NbDs84K38fLJpk ZHRoPSIyMCUiIHZh kTndor6ooW6bQw1+PGNv eGV0kNU5vD4vPbBbAeA1 FXtdF541IkZbqGLeMkbj J15nG5UgjCY+PHRy Hno5GCSvgVlmMJ3cpJUf DZtzTp0uNAT8AeHoXzJq ZHbwB1PzWCSejpeebfip bSC6LWWwTZZfmY44 Ax9owHaqLl2iGIWyIKW4 QTDxkBIyW6TneO9kWmJi RJVdLTTpC7EjaMKkNIza B934MBzpDwJ8ZFEk zdEnH3ElIZYqpStuIfF4 l3L7Bq2GjUzovOWfVV1h ErKsVMa5P8KpWpl5ATGs nZynFB4ahMSoERhi Ot4ogKhirWunKV0mVKUc fvynm982IqHhq5flHBOo nALoSKiwSHW5B34ng3B8 RYWbFZNjVKS9lPG7 bH2gnSvlbutweRCbdKvl ktTovDrnSDwtJZuyR846 GXPpnNurWgHRSfl8U0Ws Kne5FSYuqAzhNE6m wNUqGGemUg8pkUmibLzo BR5wRGNrcxpmh688PnJa j0fxCIAlsHYjDXmyHRJ7 Y93cz8Q0CKArXXRm TJS0oTA2pB0jrJeasjpp bGVmdDsgdmVydGljYWwt JIezX920QWClpRcdYq2D Xyp9V8KlVhb4VIZc xLelNV8voEAgMXcsDk3z oJaktMqnHM1uCUAvlqzt w811EaCvy2zwDEQhvKFt VPepZHE7T98ax1J5 LSEgYSKtTON6xEW9aS0m bGlnbjogbGVmdDsgdmVy oRhuAAbgGIoxH515USZf cDsnPlBheWVyOjwv dGQ+SH71yc81U3CmWncp Eet0XRXtBER9cJU6kS6p DVOwJQnbn4B6gSG9N9Ga mcIpru2gw9chAFEv ZTog (more content not included)... [facility] 11-29-2021 Consent [id number] 42#1.00CD:127 [facility] Notice of Noncoverageon 11-19 Notice of Noncoverage [id number]. [id number] 14#1.00CD:127 Normal [facility] PT - Assessmentson 2 PT - Assessments [id number] 2#1.00CD:127 Normal [facility] PT - Consentson 11-29-2021 PT - Consents [id number] 3#1.00CD:127 Normal [facility] Nonvisit Note - PTon 022 Nonvisit Note - PT Chart reviewed with eval prepped for scheduled eval. KK [facility] Covid-19 PCR (CVDTB)on SARS-CoV-2 (COVID-19) RNA RAYMUNDO+probe Ql (Unsp spec) Not detected Normal NOT DETECTED [facility] Comment on above: Result Comment: This test is not yet approved or cleared by the [place] FDA. When there are no FDA-approved or cleared tests available, and other criteria are met, FDA can make tests available under an emergency access mechanism called an Emergency Use Authorization (EUA). The EUA for this test is supported by the [employer] Tender of Health and Human Service's (HHS's) declaration [...] consistent with SARS-CoV-2. Performed By: #### C VDTB #### [facility] [address] [place] [address] Dr. Isis Shahid Formson 05-18-2021 Forms [id number] #1.00CD:127 Normal [facility] Physician Referralon 021 Physician Referral [id number] 0#1.00CD:127 Normal [facility] Patient Educationon 05-17-20 21 Patient [...] 06/24/2013 Document Revised: 02/25/2019 Document Reviewed: 02/25/2019 [place] Patient Education ? 2019 [employer] 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 -Behavioral modifications -Consider anti-cholinergics in future if urge more predominant -Follow up in 6 months or sooner if issues arise Follow-up With When Contact Information Scotty ARVIZU, Delmy Landis, URL, URO In 6 months 11/15/2021 EDT Additional Instructions: Patient Education Bharathi Shea I, Nora Juju, personally scribed for Dr. Fajardo on 05/17/2021 11:18:07. . Documentation recorded by the scribe, Celena Matute, accurately reflects the services(s) I performed and decisions made by me. Authenticated by Dr. Fajardo on 05/17/2021 11:28:10. Problem List/Past Medical History Ongoing Mixed incontinence Historical No qualifying data Procedur (more content not included)... Normal [facility] Comment on above: Result Comment: Elec tronically Signed By: Scotty ARVIZU, Delmy Landis\.br\Date and Time Signed: 05/17/21 11:28 EDT\.br\Electronically Co-Signed By: Nora Matute\.br\Date and Time Co-Signed: 05/17/21 11:18 EDT Vital Signs Date Time Vital Sign Value Performing Clinician Facility 08-19-2024 10:30-0500 Body height 161.29 cm [facility] 08-19-2024 10:30-0500 Body mass index (BMI) [Ratio] 28.4 kg/m2 [facility] 08-19-2024 10:30-0500 Body weight 73.93 kg [facility] 08-19-2024 10:30-0500 Diastolic blood pressure 93 mm[Hg] [facility] 08-19-2024 10:30-0500 Heart rate 79 /min [facility] 08-19-2024 10:30-0500 Systolic blood pressure 144 mm[Hg] [facility] 07-08-2024 09:09-0500 Body mass index (BMI) [Ratio] 28.32 kg/m2 Heather MALIK Work Phone: [facility] 07-08-2024 09:09-0500 Body weight 74.84 kg Heather MALIK Work Phone: [facility] 07-08-2024 09:09-0500 Diastolic blood pressure 68 mm[Hg] Heather MALIK Work Phone: [facility] 07-08-2024 09:09-0500 Systolic blood pressure 110 mm[Hg] Heather Salina PA Work Phone: [facility] 06-10-2024 08:48-0500 Body mass index (BMI) [Ratio] 28.8 kg/m2 Heather Graham PA Work Phone: [facility] 06-10-2024 08:48-0500 Body weight 76.11 kg Heather Morrelley PA Work Phone: [facility] 06-10-2024 08:48-0500 Diastolic blood pressure 80 mm[Hg] Heather Graham PA Work Phone: [facility] 06-10-2024 08:48-0500 Systolic blood pressure 122 mm[Hg] Heather Morrelley PA Work Phone: [facility] 05-14-2024 10:26-0400 Body mass index (BMI) [Ratio] 29.5 kg/m2 [facility] 05-14-2024 10:26-0400 Body weight 76.65 kg [facility] 05-14-2024 10:26-0400 Heart rate 105 /min [facility] 05-14-2024 10:04-0400 Body height 161.29 cm [facility] 05-14-2024 10:04-0400 Diastolic blood pressure 78 mm[Hg] [facility] 05-14-2024 10:04-0400 Systolic blood pressure 112 mm[Hg] [facility] 05-12-2024 09:42-0400 Body mass index (BMI) [Ratio] 29.42 kg/m2 Tay Jonny DO Work Phone: [facility] 05-12-2024 09:42-0400 Body weight 77.75 kg Tay Jonny DO Work Phone: [facility] 05-12-2024 09:42-0400 Diastolic blood pressure 70 mm[Hg] Tay Jonny DO Work Phone: [facility] 05-12-2024 09:42-0400 Systolic blood pressure 118 mm[Hg] Tay Jonny DO Work Phone: [facility] 04-13-2024 10:50-0400 Body mass index (BMI) [Ratio] 30.55 kg/m2 Tay Jonny DO Work Phone: [facility] 04-13-2024 10:50-0400 Body weight 80.74 kg Tay Jonny DO Work Phone: [facility] 04-13-2024 10:50-0400 Diastolic blood pressure 70 mm[Hg] Tay Jonny DO Work Phone: [facility] 04-13-2024 10:50-0400 Systolic blood pressure 116 mm[Hg] Tay Jonny DO Work Phone: [facility] 04-17-2023 08:30-0400 Body height 157.48 cm Mary Jane Gongora Other [facility] Other 04-17-2023 08:30-0400 Body mass index (BMI) [Ratio] 31.82 kg/m2 Mary Jane Gongora Other [facility] Other 04-17-2023 08:30-0400 Body weight 78.93 kg Mary Jane Gongora Other [facility] Other 04-17-2023 08:30-0400 Diastolic blood pressure 76 mm[Hg] Mary Jane Gongora Other [facility] Other 04-17-2023 08:30-0400 Systolic blood pressure 112 mm[Hg] Mary Jane Gongora Other [facility] Other 03-21-2023 11:45-0400 Body height 157.48 cm Mary Jane Gongora Other [facility] Other 03-21-2023 11:45-0400 Body mass index (BMI) [Ratio] 32.37 kg/m2 Mary Jane Gongora Other [facility] Other 03-21-2023 11:45-0400 Body weight 80.29 kg Mary Jane Gongora Other [facility] Other 03-21-2023 11:45-0400 Diastolic blood pressure 102 mm[Hg] Mary Jane Gongora Other [facility] Other 03-21-2023 11:45-0400 Systolic blood pressure 141 mm[Hg] Mary Jane Gongora Other [facility] Other Encounters Encounter Date Encounter Type Care Provider Facility Start: 08-19-2024 End: 08-19-2024 ambulatory [facility] Work Phone: Start: 08-19-2024 End: 08-19-2024 Patient encounter procedure [facility] Work Phone: Start: 07-08-2024 End: 07-08-2024 Bamboo flowsheet Heather [...] Start: 06-10-2024 End: 06-10-2024 Bamboo flowsheet Heather Graham PA Work Phone: [facility] Start: 06-10-2024 End: 06-10-2024 Bamboo flowsheet Heather Graham PA Work Phone: [facility] Start: 06-10-2024 End: 06-10-2024 Office outpatient visit 5 minutes Heather Graham PA Work Phone: [facility] Comment on above: Encounter for weight management Start: 06-10-2024 End: 06-10-2024 ambulatory HEATHER GRAHAM Not Available Start: 05-14-2024 End: 05-14-2024 ambulatory [facility] Work Phone: Start: 05-14-2024 End: 05-14-2024 Patient encounter procedure [facility] Work Phone: Start: 05-12-2024 End: 05-12-2024 Bamboo [...] Not Available Start: 04-20-2024 Non-patient / Non-visit [facility] Work Phone: Start: 04-13-2024 End: 04-13-2024 Bamboo flowsheet Tay Jonny DO Work Phone: [facility] Start: 04-13-2024 End: 04-20-2024 Bamboo flowsheet Tay Jonny DO Work Phone: [facility] Start: 04-13-2024 End: 04-20-2024 Clinisync Result Encounter Tay Jonyn DO Work Phone: [facility] Department Unsolicited Start: 04-13-2024 End: 04-13-2024 Patient encounter procedure Tay Jonny DO Work Phone: [facility] Start: 04-13-2024 End: 04-13-2024 Periodic preventive med est patient 40-64yrs Tay Jonny DO Work Phone: [facility] Comment on above: Well woman exam with routine gynecological exam; Breast cancer screening by mammogram; Osteoporosis, post-menopausal ([facility]/HCC); Encounter for weight management Start: 04-13-2024 End: 04-13-2024 ambulatory TAY [place]ULLER Not Available Start: 04-07-2024 Patient encounter status [facility] Start: 10-17-2023 End: 10-17-2023 ambulatory TAY F[place]ER Not Available Start: 04-17-2023 End: 04-17-2023 ambulatory Mary Jane Gongora Other [facility] Other Start: 04-17-2023 Encounter for genera l adult medical examination without abnormal findings Mary Jane Gongora [facility] Start: 04-17-2023 Periodic preventive med est patient 40-64yrs Mary Jane Gongora [facility] Start: 04-17-2023 Telephone encounter Mary Jane Gongora [facility] Start: 03-21-2023 End: 03-21-2023 ambulatory Mary Jane Gongora Other [facility] Other Start: 03-21-2023 Encounter for genera l adult medical examination without abnormal findings Mary Jane Gongora [facility] Start: 03-21-2023 Office outpatient vi sit 15 minutes Mary Jane Gognora [facility] Start: 07-26-2022 (Televisit) Televisit Mary Jane Gongora [facility] Start: 07-26-2022 End: 07-26-2022 ambulatory Mary Jane Gongora Other [facility] Other Start: 06-25-2022 End: 06-26-[address] TAY FULLER Facility:[facility] Start: 04-11-2022 Encounter for genera l adult medical examination without abnormal findings DR MARY JANE GONGORA [facility] Start: 04-10-2022 End: 04-11-2022 ambulatory [...] auto t hin layer prep mnl screen Tayfercho Garcíao DO Work Phone: Start: 06-25-2022 Mammography Tay García o DO Work Phone: Start: 04-04-2022 Microscopic observat ion [Identifier] in Cervix by Cyto stain Tay Jonny DO Work Phone: Plan of Treatment Date Care Activity Detail Author Start: 04-16-2028 Screening for malignant neoplasm of cervix [facility] Start: 04-08-2028 Screening for malignant neoplasm of cervix [facility] Start: 04-13-2027 Screening for malignant neoplasm of cervix Pap Smear [facility] Start: 04-04-2027 Screening for malignant neoplasm of cervix Pap Smear [facility] Start: 04-19-2025 End: 04-19-2025 Patient encounter procedure 04/19/2025 8:30 AM EDT Office Visit [facility] [address] [place] [address] Tay [place], DO [address], [place] [id number] [facility] Start: 07-08-2024 End: 07-08-2024 Patient encounter procedure 07/08/2024 8:50 AM EST Office Visit [facility] [address] [place] [id number] Haether Graham, PA [address] [place] [address] Arrived [facility] Comment on above: Arrived Start: 06-10-2024 End: 06-10-2024 Patient encounter procedure 06/10/2024 8:40 AM EST Office Visit [facility] [address] [place] [address] Heather rGaham, PA [address] [place], [id number] Arrived [facility] Comment on above: Arrived Start: 05-29-2024 Screening for malignant neoplasm of colon [facility] Start: 05-12-2024 End: 05-12-2024 Patient encounter procedure [facility] Comment on above: Arrived Start: 04-13-2024 End: 04-13-2025 DXA Skeletal system Views for bone density DEXA bone density Imaging Routine Osteoporosis, post-menopausal ([facility]) Expected: 04/13/2024 (Approximate), Expires: 04/13/2025 [facility] Comment on above: Expected: 04/13/2024 (Approximate), Expires: 04/13/2025 Start: 04-13-2024 End: 06-13-2025 MG Breast - bilateral Screening Bilateral screening mammogram Imaging Routine Breast cancer screening by mammogram Expected: 04/13/2024 (Approximate), Expires: 06/13/2025 [facility] Work Phone: Comment on above: Expected: 04/13/2024 (Approximate), Expires: 06/13/2025 Start: 04-13-2024 End: 04-13-2024 Patient encounter procedure 04/13/2024 10:00 AM EDT Office Visit [facility] [address] [place] [id number] Tay [place] DO [address] [place], [place] [id number] Arrived [facility] Comment on above: Arrived Start: 06-25-2023 Screening for malignant neoplasm of breast Mammogram [facility] Start: 1970 Screening for malignant neoplasm of colon [facility] THIN PREP TIS PAP AN D HR HPV DNA THIN PREP TIS PAP AND HR HPV DNA Pathology and Cytology Routine Well woman exam with routine gynecological exam Ordered: 04/13/2024 [facility] Comment on above: Ordered: 04/13/2024 US Thyroid gland [facility] Immunizations Immunization Date Immunization Notes Care Provider Fa cility 06-28-2022 zoster vaccine, live Mary Jane Gongora Other [facility] 04-13-2022 influenza virus vaccine, split virus (incl. purified surface antigen) Mary Jane Gongora Other [facility] Other 04-13-2022 influenza virus vaccine, unspecified formulation [facility] 02-06-2022 COVID-19 Vaccine Pfi zer - Documentation Purposes Only Mary Jane Gongora Other [facility] 02-01-2022 zoster vaccine, live Mary Jane Gongora Other [facility] 06-30-2021 COVID-19 Vaccine Pfi zer - Documentation Purposes Only Mary Jane Gongora Other [facility] 04-03-2021 influenza virus vaccine, split virus (incl. purified surface antigen) Mary Jane Gongora Other [employer] [facility] Other 04-03-2021 influenza virus vaccine, unspecified formulation [facility] 05-26-2019 influenza virus vaccine, split virus (incl. purified surface antigen) Mary Jane Gongora Other [facility] Other 05-26-2019 influenza virus vaccine, unspecified formulation [facility] Payers Date Payer Category Payer [facility] [[email or web address] BCBS [id number] 2022 Unknown BCBS BCBS [id number] 2022-Present [phone] [address] [place] [address] [id number] 1971 Unknown [id number] [id number]. 2.593 1971 Unknown [id number] 2.16.840.1.800369.3.579. 2.593 1971 Unknown [id number] 2.16.840.1.625336.3.579. 2.593 1971 Unknown [id number] 2.16.840.1.165945.3.579. 2.593 1971 Unknown [id number] 2.16.840.1.379188.3.579. 2.593 1971 Unknown [id number] 2.16.840.1.021749.3.579. 2.1259 1971 Unknown [id number] 2.16.840.1.053453.3.579. 2.1259 1971 Unknown [id number] 2.16.840.1.869806.3.579. 2.1259 1971 Unknown [id number] 2.16.840.1.269859.3.579. 2.1259 1971 Unknown [id number] [id number]. 2.1259 1959 Unknown [id number] Social History Date Type Detail Facility Unknown if ever smoked [facility] Other Sex Assigned At [facility] Other Tobacco smoking status NMIS Tobacco smoking consumption unknown [facility] Start: 1970 Sex assigned at Not on file [facility] Start: 04-02-2024 End: 04-02-2024 Tobacco smoking status NMIS Never smoked tobacco (finding) [facility] Start: 1970 Sex Assigned At Female [facility] Start: 08-19-2024 Sex Female (finding) [facility] NEGATED: Highlighted row [facility] Clinical Notes 07-26-2022 to 07-08-2024 HELENA Gaston [...] of: HELENA Gaston documented in this encounter [facility] 06-10-2024 History of Presen t illness Narrative [...] of HELENA Gaston documented in this encounter [facility] 05-12-2024 History of Presen t illness Narrative [...] Tay [place] DO documented in this encounter [facility] 04-13-2024 History of Presen t illness Narrative [...] nursing note reviewed. Exam conducted with a mushroom growth media mixer present. 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) [facility] Other Evaluation noteNo InformationN[facility] [employer] Other Evaluation note* Diagnosis Encounter for weight management documented in this encounter [facility]* Diagnosis Onset Date Resolution Status Screening for colon cancer a magy [facility] Work Phone: Evaluation note* Diagnosis Well woman exam with routine gynecological exam Routine gynecological examination Breast cancer screening by mammogram Osteoporosis, post-menopausal (CMS/HCC) Senile osteoporosis Encounter for weight management documented in this encounter [employer] [facility]* Diagnosis Onset Date Resolution Status Admit Date LAD (lymphadenopathy) of right cervical region acute August 192024 10:24am [facility] Work Phone: History general Narrative - Reported* Type Description Date Medical History Hypothryoid Surgical History x3 Surgical History D&C x2 Surgical History Lap Yen Surgical History hysterectomy Hospitalization History See above [facility] Other Summary Purpose Family History Relationship Condition Age at Onset Recorded Date/T grayson father Diabetes mellitus Unknown mother Diabetes mellitus Unknown Renal failure Unknown Unknown Advance Directives Advance Directive Response Recorded Date/ Time Advance Directives No May 14, 2024 9:55am Advance Directive Response Recorded Date/ Time Advance Directives No May 14, 2024 8:55am Chief Complaint and Reason for Visit Chief Complaint wellness Reason for Visit Screening for colon cancer Chief Complaint Admit Date lump on neck, painful to touch July 232024 10:24am Reason for Visit Admit Date LAD (lymphadenopathy) of right cervical region August 19, 2024 10:24am Additional Source Comments INFORMATION SOURCE (unrecogn ized section and content) DATE CREATED AUTHOR 02/21/2022 Seferino Yakarouler [facility] DATE CREATED AUTHOR AUTHOR'S ORGANIZ ATION 06/27/2022 [facility] DATE CREATED AUTHOR AUTHOR'S ORGANIZ ATION 07/11/2024 [facility] EPIC REASON FOR VISIT (unrecogniz ed section and content) Reason Comments encounter for weight management Adipex # 2 Reason Comments Weight Management Reason Comments encounter for weight management Reason Comments Gynecologic Exam Care Teams (unrecognized sec tion and content) Team Status: Active Member Role Status Dates Mary Jane Gongora MD Primary Care Provider Active Team Status: Inactive Member Role Status Dates Mary Jane Gongora MD Primary Care Provide r, Attending Provider Active Start: August 19, 2024 End: August 19, 2024 Tape Stringer Relationship Specialty Start Date End Date Mary Jane Gongora MD [address] [facility] [place] [address] PCP - General Family Medicine 10/17/23 Tape Stringer Relationship Specialty Start Date End Date Mary Jane Gongora MD [address] [facility] [place] [address] PCP - General Family Medicine 10/17/23 [...] May 14, 2024 End: May 14, 2024 Tape Stringer Relationship Specialty Start Date End Date Mary Jane Gongora MD [address] [facility] [place] [address] PCP - General Family Medicine 10/17/23 Tape Stringer Relationship Specialty Start Date End Date Mary Jane Gongora MD [address] [facility] [place] [address] PCP - General Family Medicine 10/17/23 Tape Stringer Relationship Specialty Start Date End Date Mary Jane Gongora MD [address] [place] [address] PCP - General Family Medicine 10/17/23 Tape Stringer Relationship Specialty Start Date End Date Mary Jane Gongora MD [address] [place] [address] PCP - General [facility] Medicine 10/17/23 Team Status: Inactive Member Role Status Dates Mary Jane Gongora MD Primary Care Provide r, Attending Provider Active Start: August 19, 2024 End: August 19, 2024 Goals (unrecognized section and content) Goals may [...] BE BASED ON THE PRIMARY CLINICAL RECORDS. [facility] [employer] [facility]. provides no warranty or guarantee of the accuracy or completeness of information in this document.
== END 2024-08-20 10:58 | disposition home or self-care (01) ==
LOC: US 10:57
PROVIDERS: PCP Family Medicine; Visit Provider Family Medicine
DX: R59.0 Localized enlarged lymph nodes (principal)
CPT/HCPCS: 76536

== ENCOUNTER 2024-10-06 09:33 | Outpatient (OUT) | payer BC, SELFPAY ==
--- OUTSIDE RECORDS SUMMARY | 2024-10-06 09:49 | XMS_ITS | CCD ---
Author Organization [facility] Care Team Providers Care Corporate Director Of Pharmacy Name Role Phone ROLAN, DR MARY JANE Pate Attending Unavailable GONGORA, DR MARY JANE Pate Consulting Unavailable GONGORA, DR MARY JANE Pate Primary Care Unavailable GONGORA, DR MARY JANE Pate Admitting Unavailable JONNY, DR CROSS Admitting Unavailable JONNY, DR CROSS Attending Unavailable RICHMOND DALE, DR KAUR Villalpando Consulting Unavailable GONGORA, DR [...] Attending Unavailable TAY FULLER Attending Unavailable HEATHER GRAHMA Attending Unavailable HEATHER GRAHAM Attending Unavailable Allergies Allergy Classification Reported Allergen(s) Allergy Type Date of Onset Reaction(s) Facility (1 source) Adhesive bandage Drug allergy (disorder) 6 [facility] Repository (3 sources) Latex Drug allergy 0 Unknown [facility] Other (11 sources) Latex Allergy to substance 3 Unknown, Rash [facility] Medications Current Medications Medication Drug Class(es) Dates Sig (Normalized) Sig (Original) amoxicillin 875 mg oral tablet (3 sources) Penicillin-class Antibacterial Start: 09-12-2024 take 1 tablet by mouth every twelve hours Amoxicillin 875 mg tablet Active 875 MG PO Every 12 hours 20 September 12, 2024 1:00am Start: 07-26-2022 take [address] [facility] every eight hours Amoxicillin 500 MG 1 capsule Orally every 8 hrs for 5 day(s) Jul, Active estradiol 1 mg oral tablet (20 sources) Estrogen Start: 05-14-2024 take 0.5 mg by mouth once daily Estradiol 1 mg tablet Active 0.5 MG PO Daily May 14, 2024 11:46am off 1 week; repeat cycle Start: 05-14-2024 End: 05-14-2024 take 1 tablet by mouth once daily Estradiol 1 mg tablet Discontinued 1 MG PO Daily May 14, 2024 12:00am May 14, 2024 11:47am off 1 week; repeat cycle Start: 03-12-2024 [...] a day for 21 days May, Active 24 hr metFORMIN hydrochloride 500 mg extended release oral tablet (15 sources) Biguanide Start: 05-18-2024 End: 06-17-2024 take [...] tablet Active 1000 MG PO Daily May 14, 2024 12:00am Start: 11-12-2023 take 1 tablet by aimee every twenty-four hours at mealtime metFORMIN XR (Glucophage-XR) 500 MG 24 hr tablet Indications: Menopause Take 1 tablet (500 mg) by mouth in the evening. Take with meals Do not crush, chew, or split. 30 tablet 11 11/12/2023 Active methylPREDNISolone 4 mg oral tablet (2 sources) Corticosteroid Start: 09-18-2024 take 1 tablet by mouth once Methylprednisolone (Medrol (Gallo)) 4 mg tablets,dose pack Active 0 PO per package directions September 18, 2024 1:00am PO PER PKG DIR for 6 days predniSONE 20 mg oral tablet (1 source) Start: 07-26-2022 take 2 tablets by mouth every twenty-fou r hours predniSONE 20 MG 2 tablets Orally Once a day for 5 days Jul, Active 24 hr venlafaxine 37.5 mg extended release oral capsule (6 sources) Serotonin and Norepinephrine Reuptake Inhibitor Start: 08-19-2024 End: 09-14-2024 take 1 capsule by mouth once daily Venlafaxine (Effexor Xr) 37.5 mg capsule,extended release 24hr Active 37.5 MG PO Daily September 14, 2024 1:07pm Completed/Discontinued Medications Medication Drug Class(es) Dates Sig (Normalized) Sig (Original) levothyroxine sodium 0.137 mg oral tablet (20 sources) l-Thyroxine Start: 10-04-2023 End: 09-09-2024 take 1 tablet by mouth once daily in the morning Levothyroxine 137 mcg tablet Discontinued 0 .ROUTE .COMPLEX April 01, 2024 8:02am September 09, 2024 9:37am TAKE 1 TABLET BY MOUTH EVERY DAY IN THE MORNING ON EMPTY STOMACH Start: 10-04-2023 End: 10-04-2023 take 1 tablet by mouth once daily Levothyroxine 137 mcg tablet Discontinued 137 MCG PO Daily October 04, 2023 12:00am October 04, 2023 8:33am take 1 tablet by aimee th once daily in the morning Levothyroxine Sodium 137 MCG 1 tablet in the morning on an empty stomach Orally Once a day Active take 1 tablet by aimee th every twenty-four hours Synthroid 50 MCG 1 tablet Orally Once a day Active phentermine hydrochloride 37.5 mg oral tablet (19 sources) Sympathomimetic Amine Anorectic Start: 04-13-2024 End: 09-12-2024 take 1 tablet by mouth once daily 30 minutes after breakfast Phentermine (Adipex-P) 37.5 mg tablet Discontinued 37.5 MG PO Daily May 14, 2024 12:00am September 12, 2024 11:53am must administer 30 minutes before or 1-2 hours after breakfast 24 hr phentermine 7.5 mg / topiramate 46 mg extended release oral capsule (5 sources) Sympathomimetic Amine Anorectic Start: 05-14-2024 End: 05-14-2024 take 1 capsule by mouth once daily Phentermine-Topir amate 7.5-46 mg capsule, ER multiphase 24 hr Discontinued 1 CAP PO Daily May 14, 2024 12:00am May 14, 2024 10:27am Problems Active Problems Problem Classification Problem Date Documented Date Episodic/Chronic Administrative/social admission (6 sources) Patient encounter status; Translations: [Persons encountering health services in other specified circumstances] 05-12-2024 Episodic Cardiac dysrhythmias (4 sources) Tachycardia; Translations: [Tachycardia, unspecified] 05-17-2024 Episodic Fever of unknown origin (2 sources) Fever; Translations: [Fever, unspecified] 10-06-2024 Episodic Genitourinary symptoms and ill-defined conditions (1 source) Dysuria Episodic Immunizations and screening for infectious disease (1 source) Encounter for screening for human papillomavirus (HPV); Translations: [ENC SCREENING HUMAN PAPILLOMAVIRUS] Onset: 04-08-2022 Episodic Lymphadenitis (8 sources) Cervical lymphadenopathy; Translations: [Localized enlarged lymph nodes] 08-19-2024 Episodic Mood disorders (7 sources) Depressive disorder; Translations: [Depression] 08-21-2024 Chronic Osteoporosis (2 sources) Postmenopausal osteoporosis; Translations: [Age-related osteoporosis without current pathological fracture] 04-13-2024 Chronic Other connective tissue disease (1 source) Pain in right leg Episodic Other connective tissue disease (1 source) Pain in left leg Episodic Other screening for suspected conditions (not mental disorders or infectious disease) (20 sources) Encounter for screening mammogram for malignant neoplasm of breast; Translations: [Encounter for screening for osteoporosis] Onset: 04-04-2022 Episodic Other upper respiratory infections (1 source) Acute pharyngitis, unspecified Episodic Otitis media and related conditions (5 sources) Otitis media of left ear; Translations: [Otitis media, unspecified, left ear] 09-12-2024 Episodic Thyroid disorders (15 sources) Hypothyroidism; Translations: [Hypothyroidism, unspecified] Chronic Unclassified [...] Test Name Value Interpretation Reference Range Facility Influenza virus B Ag [Presen ce] in Upper respiratory specimen by Rapid immunoassayon 09-18-2024 FLUBV Ag IA.rapid Ql (Nph) Influenza virus B Ag [Presence] in Upper respiratory specimen by Rapid immunoassay [facility] No Panel Informationon 09-18 Influenza Type A (Rapid) Negative [facility] POC SARS CoV-2 Antigen Negative [facility] No Panel InformationOrdered By: Mily Rodriguez on 09-12-2024 Quick Strep (POC) [facility] Quick Strep (POC) [facility] Cholesterol in LDL Calc [Mas s/Vol]on 04-20-2024 Cholesterol in LDL [Mass/Vol] 96.0 mg/dL [facility] Comment on above: <100 mg/dl [id number] 0-129 mg/dl NEAR OR ABOVE [id number] mg/dl BORDERLINE [id number] mg/dl HIGH>190 mg/dl VERY HIGH Cholesterol in VLDL Calc [Ma ss/Vol]on 04-20-2024 Cholesterol in VLDL [Mass/Vol] 22.8 mg/dL [facility] Estimated glomerular filtrat ion rate (GFR) non- Americanon 04-20-2024 GFR/1.73 sq M.predicted among non-blacks MDRD (S/P/Bld) [Vol rate/Area] mL/min/{1.73_m2} >=60 [facility] IGP,APTIMA HPV,AGE GDLNon AGE GDLN ACOG TESTING Note . [facility] Comment on above: TESTS RESULT FLAG UN ITS REF RANGE LAB Clinician Provided Cytology Information Source.............Cervix;Endocervix No. of containers..01 ThinPrep Vial Age Algo ACOG Marycruz... FLAG LEGEND: L-Low Normal,H-High Normal,LL-Alert Low,HH-Alert High <-Panic Low,>-Panic High,A-Abnormal,AA-Critical Abnormal Performed at: 01 =G [address] [id number] Lori Roach MD, HPV APTIMA Negative Negative [facility] Comment on above: This nucleic acid am plification test detects fourteen high- risk HPV types (16,18,31,33,35,39,45,51,52,56,58,59,66,68) without differentiation. Performed at: = - [address] [id number] Paint Specialist: Lori Roach MD, Phone: [phone] Performed at: - [address] [id number] Paint Specialist: Lori Roach MD, Phone: [phone] IGP, APTIMA HPV, RFX 16/18,45 Note . [facility] Comment on above: TESTS RESULT FLAG UN ITS REF RANGE LAB DIAGNOSIS: 02 NEGATIVE FOR INTRAEPITHELIAL LESION OR MALIGNANCY. Specimen adequacy: 02 Satisfactory for evaluation. Endocervical and/or squamous metaplastic cells (endocervical component) are present. Performed by: 02 Lashawn Rivas Real Estate Valuer ([facility]) . 02 Note: Note 02 The [...] Low,>-Panic High,A-Abnormal,AA-Critical Abnormal Performed at: [address] [place] [address] Lori Roach MD, BRUSH-SPATULA CERVIX ENDOCERVIX [facility] - Chemistry and C hemistry - challengeon 04-20-2024 Calcium [Mass/Vol] 9.1 mg/dL 8.5-10.1 [facility] Chloride [Moles/Vol] 101 mmol/L 98-107 [facility] Cholesterol [Mass/Vol] 189 mg/dL <=200 [facility] Cholesterol in HDL [Mass/Vol] 71 mg/dL High 40-60 [facility] Comment on above: > or =60 mg/dl - LOW CARDIOVASCULAR RISK<40 mg/dl - HIGH CARDIOVASCULAR RISK CO2 [Moles/Vol] 29.2 mmol/L 21.0-32.0 [facility] Creatinine [Mass/Vol] 0.74 mg/dL 0.55-1.02 [facility] Free T4 [Mass/Vol] 1.47 ng/dL High 0.76-1.46 [facility] GFR/1.73 sq M.predicted MDRD (S/P/Bld) [Vol rate/Area] mL/min/{1.73_m2} >=60 [facility] Glucose [Mass/Vol] 85 mg/dL 74-106 [facility] Potassium [Moles/Vol] 4.3 mmol/L 3.5-5.1 [facility] Sodium [Moles/Vol] 136 mmol/L 136-145 [facility] Triglyceride [Mass/Vol] 114 mg/dL <=150 [facility] TSH Qn 3.135 m[IU]/L 0.358-3.740 [facility] Urea nitrogen [Mass/Vol] 6.0 mg/dL Low 7.0-18.0 [facility] Urea nitrogen/Creatinine [Mass ratio] 8.1 mg/mg [facility] Serum or plasma anion gap de terminationon 04-20-2024 Anion gap [Moles/Vol] 10.1 mmol/L [facility] Serum or plasma total choles terol/high density lipoprotein (HDL) cholesterol mass nadir 04-20-2024 Cholesterol.total/Chol esterol in HDL [Mass ratio] 2.7 {ratio} [facility] Comment on above: 3.3 - 4.4 LOW RISK4. 4 - 7.1 AVERAGE RISK7.1 - 11.0 MODERATE RISK>11.0 HIGH RISK Cytology Cervical or vaginal smear or scraping studyon 04-08-2023 [facility] - DIPSTICKon 08-3 Appearance (U) cloudy [employer] Other Bilirubin Ql (U) Negative [facility] Other Color (U) yellow [employer] Other Glucose Ql (U) Negative [employer] Other Hemoglobin Ql (U) moderate [employer] Other Ketones Ql (U) Negative [facility] Other Leukocyte esterase Test strip Ql (U) moderate [facility] Other Nitrite Ql (U) Negative [facility] Other pH (U) 6.0 [pH] [facility] Other Protein Ql (U) Negative [employer] Other Specific gravity (U) [Rel density] 1.000 [facility] [facility] Other Urobilinogen (U) [Mass/Vol] normal [facility] [employer] Other Urinalysis - DIPSTICK [facility] [employer] Other MG MAMM SCREEN 3D MACARIO CADon 06-25-2022 MG MAMM SCREEN 3D MACARIO CAD Patient: ANNEL ALCANTARA Exam Date: 06/25/2022 : 1970 Gender:F Ordering : DR TAY FULLER . Admission #: [id number] Family : Order #: [id number] CLICK HERE TO VIEW EXAM RADIOLOGY REPORT [...] Treatments None Family Cancers None LOCATION: [facility] BREAST COMPOSITION: Heterogeneously dense,which may obscure [...] Pedro MD on 06/25/2022 at 09:48 Normal [facility] PAP ACOG PANEL 2: 30 to 65on 04-11-2022 . . Normal [facility] Comment on above: Result Comment: Perf ormed at: WB Performed By: #### [id number] #### [facility] [address] [place] [address] Dr. Isis Shahid Age Gdln ACOG Testing 30-65 Normal [facility] Comment on above: Performed By: #### [id number] #### [facility] [address] [place] [address] Dr. Isis Shahid DIAGNOSIS: Comment Normal [facility] Comment on above: Result Comment: NEGA TIVE FOR INTRAEPITHELIAL LESION OR MALIGNANCY. Performed at: WB Performed By: #### [id number] #### [facility] [address] [address] [address] Isis Shahid HPV Aptima Negative Normal Negative [facility] Comment on above: Result Comment: This nucleic acid amplification test detects fourteen high-risk HPV types (16,18,31,33,35,39,45,51,52,56,58,59,66,68) without differentiation. Performed at: =G Performed By: #### [id number] #### [facility] [address] [place] [address] Dr. Isis Shahid Methodology: Comment [facility] Comment on above: Result Comment: This liquid based ThinPrep(R) pap test was screened with the use of an image guided system. Performed at: WB Performed By: #### [id number] #### [facility] [address] [place] [address] Dr. Isis Shahid Note: Comment Normal [facility] Comment on above: Result Comment: The Pap smear is a screening test designed to aid in the detection of premalignant and malignant conditions of the uterine cervix. It is not a diagnostic procedure and should not be used as the sole means of detecting cervical cancer. Both false-positive and false-negative reports do occur. . Performed at: WB Performed By: #### [id number] #### [facility] [address] [place] [address] Dr. Isis Shahid Performed by: Comment Normal [facility] Comment on above: Result Comment: Nikia Pedro, Real Estate Valuer ([employer]) Performed at: WB Performed By: #### [id number] #### [facility] [address] [place] [address] Dr. Isis Shahid Specimen adequacy: Comment Normal [facility] Comment on above: Result Comment: Sati sfactory for evaluation. Endocervical and/or squamous metaplastic cells (endocervical component) are present. Performed at: WB Performed By: #### [id number] #### [facility] [address] [place] [address] Dr. Isis Shahid FREE T4on 04-10-2022 Free T4 [Mass/Vol] 1.21 ng/dL Normal 0.76-1.46 [facility] Comment on above: Performed By: #### F T4 #### [facility] [address] [place] [address] Dr. Isis Shahid LIPID PROFILEon 04-10-2022 CHOL-HDL RATIO NORM SEE BELOW Normal [facility] Comment on above: Result Comment: 3.3 - 4.4 LOW RISK 4.4 - 7.1 AVERAGE RISK 7.1 - 11.0 MODERATE RISK >11.0 HIGH RISK Performed By: #### T SH, LIPID, BMP #### [facility] [address] [place] [address] Dr. Isis Shahid Cholesterol [Mass/Vol] 209 mg/dL Critically high <=200 [facility] Comment on above: Performed By: #### T SH, LIPID, BMP #### [facility] [address] [place] [address] Dr. Isis Shahid Cholesterol in HDL [Mass/Vol] 62 mg/dL Critically high 40-60 [facility] Comment on above: Performed By: #### T SH, LIPID, BMP #### [facility] [address] [place] [address] Dr. Isis Shahid Cholesterol in LDL [Mass/Vol] 126.0 mg/dL Normal [facility] Comment on above: Performed By: #### T SH, LIPID, BMP #### [facility] [address] [place] [address] Dr. Isis Shahid Cholesterol.total/Chol esterol in HDL [Mass ratio] 3.4 {ratio} Normal [facility] Comment on above: Performed By: #### T SH, LIPID, BMP #### [facility] [address] [place] [address] Dr. Isis Shahid HDL NORMAL > or = 60 mg/dl - LOW CARDIOVASCULAR RISK <40 mg/dl - HIGH CARDIOVASCULAR RISK Normal [facility] Comment on above: Performed By: #### T LURDES, LIPID, BMP #### [facility] [address] [place] [address] Dr. Isis Shahid LDL CALC NORMAL SEE BELOW Normal [facility] Comment on above: Result Comment: <100 mg/dl OPTIMAL 100 - 129 mg/dl NEAR OR ABOVE OPTIMAL 130 - 159 mg/dl BORDERLINE HIGH 160 - 189 mg/dl HIGH >190 mg/dl VERY HIGH Performed By: #### T LURDES, LIPID, BMP #### [facility] [address] [place] [address] Dr. Isis Shahid Triglyceride [Mass/Vol] 105 mg/dL Normal <=150 [facility] Comment on above: Performed By: #### T LURDES, LIPID, BMP #### [facility] [address] [place] [address] Dr. Isis Shahid VLDL CALC 21.0 mg/dL Normal [facility] Comment on above: Performed By: #### T LURDES, LIPID, BMP #### [facility] [address] [place] [address] Dr. Isis Shahid PROF CHEM 8 (BAS METB)on Anion gap [Moles/Vol] 12.9 mmol/L Normal [facility] Comment on above: Performed By: #### T LURDES, LIPID, BMP #### [facility] [address] [address] [address] Isis Shahid Calcium [Mass/Vol] 8.7 mg/dL Normal 8.5-10.1 [facility] Comment on above: Performed By: #### T SH, LIPID, BMP #### [facility] [address] [address] [address] Isis Shahid Chloride [Moles/Vol] 106 mmol/L Normal 98-107 [facility] Comment on above: Performed By: #### T SH, LIPID, BMP #### [facility] [address] [address] [address] Isis Shahid CO2 [Moles/Vol] 24.5 mmol/L Normal 21.0-32.0 [facility] Comment on above: Performed By: #### T SH, LIPID, BMP #### [facility] [address] [place] [address] Dr. Isis Shahid Creatinine [Mass/Vol] 0.67 mg/dL Normal 0.55-1.02 [facility] Comment on above: Performed By: #### T SH, LIPID, BMP #### [facility] [address] [address] [address] Isis Shahid EGFR-AF TANZANIAN >60 Normal >=60 [facility] Comment on above: Performed By: #### T SH, LIPID, BMP #### [facility] [address] [place] [address] Dr. Isis Shahid EGFR-NON AF TANZANIAN >60 Normal >=60 [facility] Comment on above: Performed By: #### T SH, LIPID, BMP #### [facility] [address] [address] [address] Isis Shahid Glucose [Mass/Vol] 94 mg/dL Normal 74-106 [facility] Comment on above: Performed By: #### T SH, LIPID, BMP #### [facility] [address] [address] [address] Isis Shahid Potassium [Moles/Vol] 4.4 mmol/L Normal 3.5-5.1 [facility] Comment on above: Performed By: #### T SH, LIPID, BMP #### [facility] [address] [address] [address] Isis Shahid Sodium [Moles/Vol] 139 mmol/L Normal 136-145 [facility] Comment on above: Performed By: #### T SH, LIPID, BMP #### [facility] [address] [address] [address] Isis Shahid Urea nitrogen [Mass/Vol] 4.0 mg/dL Critically low 7.0-18.0 [facility] Comment on above: Performed By: #### T SH, LIPID, BMP #### [facility] [address] [address] [address] Isis Shahid Urea nitrogen/Creatinine [Mass ratio] 6.0 mg/mg Normal [facility] Comment on above: Performed By: #### T SH, LIPID, BMP #### [facility] [address] [address] [address] Isis Shahid TSHon 04-10-2022 TSH 0.335 uIU/mL Critically low 0.358-3.740 [facility] Comment on above: Performed By: #### T SH, LIPID, BMP #### [facility] [address] [place] [address] Dr. Isis Shahid XR DEXA BONE DENSITYon [...] by: APOLONIA HENSON Date: 2022-04-10 10:30 Normal [facility] PT - Assessmentson PT - Assessments [id number] #1.00CD:127 [facility] PT - Assessments [id number]. [id number] #1.00CD:127 [facility] PT - Otheron 01-10-2022 PT - Other [id number] #1.00CD:127 [facility] PT - Assessmentson PT - Assessments [id number] 1#1.00CD:127 [facility] PT - Otheron 12-04-2021 PT - Other [id number] 0#1.00CD:127 [facility] Coding Summary.on 11-30-2021 Coding Summary. CD:[id number] Gh0bWw+PGhlYWQ+PE1FV FZaZ59npISbqD8EJ0eZC T6MKKLJPGZUGB0OXN4ni YT7UVaoA0DcmmAb YrfcrZIpUZ37IKk6BSY1 pLliNJgruO1zjDUyB9v6 MlUgHZ36pT15KUljIJOl HiX3BkUdpnmhbJKu I9cqNrEpvTCjJah+PHRh YmxlIHdpZHRoPScxMDAl WlQncBjhDX9eJi0eIBYi LWNvbGxhcHNlOiBj n6ieQLNvIImhEL2lnUth H1BmwKN5NQDjt5j1Jm57 dHI+FLWeLQZ2kHysIDig k516CnHjp1noWFW8 qDRlYCvmCJM9L73rf0Y4 ZPQhVMKeMVN0fBD3wW1h jUmtfreiQ2KgcGPdWbK9 FOG5wJEyfA4zzJdd eupkmT3pVnn+J55QEI8B WMYXQZ1XYxg5H6LaHpin dHI+YD63JFNjNJ26uKAn sWUso8dwkUr6ToHz WUKbFOU9dDyxGGiml5Qt TMObE62knNXtw8E8GYCz mLqpsOJhYfUcqIK4kI1f RTjbzdgcd9zvosgu Yupec9cros94aK45A17w OEewALVvHOI9ZCPxTTYh sNuvsl4ojB0nPf6+IDxj k1eza7gdoPo8UpCx PTUyocKzeTgoCAL6x7Fb Xk73M0BfjJwbj4QoQwt4 ak72lCWfm3J6iQH2QChf ORFipI2pHPygQhT4 RKMaUoWkwD09qOHiVTga Mh6wgTtuvVzhVM3kTMUo izsmOBRmiF0fTXQbuEAh wDdsFS5uJNOovple w270DwBhJBT3KQPpgJEm B0LrnA4qCwLpIRHmYCQs K4YptZUxLVbaW499BUlh KcN3RKVjfxWpM6Bu KWDkaKsyGpL6t4U7Zv8U a6MkqfsfQJT7PNhsERL6 BgGoYnDmQvS0F4ItUuz9 UACouAxuTM1oR5Nu QENmuarrczxfwXZ2ILXm TXTdhS87xESxJQdlZm4y v6T6n908NALjBTLndG17 Wn8jgCntTQSrfKCG zH6axohfc9ubnfpnQmVo DKVjQQu7MBu1IMPcuIpq KyWkYOK4NmQ3DUC3oFRn yT9xwKbajiiaiY6u Oyc+K12clS0wVTM8VUZ7 nokaJWDrcyAeSI33UJ25 Q1XbKhijaCEisYJ+PGRp qqOdmNyzTJ9aCpZj i8fne4WfRHgaW3XsGXAb MOdhDvf1KKRxNSX5fQG3 bG2qQHEpDFwhc9C4xVH5 Y2RqcaGwuq2ec0zc JMHlXMimB12oeUWbt6M4 LZBxrCJ8UMMjvPwdWpSc xE33Xjd+RAPduNmfw2Ru Sjyyo4ygh3kepGt3 IjMwJSIgdmFsaWduPSJ0 v6OgIb66V60lSLecUSEp HUNbKAJfGWYreNqrkf6y fU5aLx1+PGNvbCB3 nZX7nN5fCGGrUlI6OHdg Z822NpBgyRGyKovow7et c7rfhNr7OcHgOHLoolHr aEqvFGP1s8TiFv49 B32bTHjcMGNpIQLcINFj LPFusJedjw8ixC2qFw5+ OG8xa8nrmp55bX98xKS+ YUOsMHM0oCfwZMpw LNOqeQ1bNHddDmY5PRYd IrRtvK91vBPjGZoiSz4m yGejaKxlSR7dEEVbgnbg y480IqPaf1frZJGw xIAcIPraLFH0F86kv4S0 JHHvFKFbKTP9vQT3jE6g bGlnbjogbGVmdDsgdmVy iOubIIlhECjzH415 IHRvcDsnPlBhdGllbnQg EoMiWEi1R7FmOhq8JWZj kWkfVQ5inXKzDCnzXi1r bEkanYkwHK0dIFJj uipin494DxNdk1erNABo lZZaURibFUQ2D30iu6K2 ENVtODGtEGA4eND0sI1q bGlnbjogbGVmdDsg awRmuBceCUkhUAtfC572 IHRvcDsnPkJpcnRoIERh sKE6SX13PJ64tOJwv2H5 iWG2K7AqBOAbagwn jsqlyOC4CMDnUVAfkG56 Ft8unSjyIr2xAHNrXSC1 OJPovBLaV4GzoR4pJrBt GOCrYJFbJ4TfkDKe ZEheI511TCypZbD5KBMi glZgV8GfZXGorUppZrL8 s3T2Nk1AR9K7TH32LU07 qPVxv9X8yOC3F4Vv OVVhzkjjmysyeCB9XIPg YTRchC40Er0faZfnSs5b GKSbXQK4CIYfbKDvS7Kx yK3qQjLyGZQfNRMn S0UxlJRxYKasU921AVtz HhX2PCQhbtIwM0JqXJVm gDbqVtB0w4Q2Gd0LZKr5 OE69JK39tPMcx3E5 rRI4V0GqPGVuyzryemwh pJX1BMYpPWIsgE68Vt1j mIhrQa9aKFBzHBV8YVGs kTYwH2HahK4iYgVe MBYsAPQeL4TofLOyEJva X445XOpbCmA6NCKsgaJq W0HhLUKeqLyrYhJ3z4X1 Qg3LPQGqDX00HGV6 cEN8IS49GO54L5MiBybb dGFibGU+PHRhYmxlIHdp ZHRoPScxMDAlJyBzdHls DA6yOx0fOPWrRDJl tUzirWWeGnAjh0ciVCLi ZWynHN0tjTwpU1UvdJY7 ERRtu9l4Ha24N88cP4Ar dXA+WSKzlEA1hHH7 aP3zYlJoDhT8PLdmE442 EmYiuJTxDmdgc7zis5et aCb3VqW8OIWuqfEnsBzm HNX9z1GwGy37R16w IHdpZHRoPSIxNSUiIHZh cQtyvx5leI0lKt0+PGNv fMU7xPO5sK4gXsKtQtB4 MQruR003ElKepAQz Fosbn2whk4rezRc0VbJx SFFglxJgrLzzWUM2v9Yd Uf39G7KlmMbga9UlJbz6 yg06uNYkd7B2wUP4 P8AxVSLbakwrdTEeaNag LZ9mIHOanxibQRDvzP5h FUNsR0h3BqMhKeF7FWse N4IpauG3RXIhvSSu GRghNJB2O79uj6S2FQEd EBOdQTY7pHD4fS8tkKgo bjogbGVmdDsgdmVydGlj TNgnKFfbS012WIHu jXijOPJtrJ5cZGBjwCFt uCquEX5qFUZzrllwMevF S5eTQwRlXVfKCHCTJN22 ZU01eRNps6C4iAT5 J7AmTRSeeqkkqzhkoJQ1 QQWoILAthC10qUBkGYpu Eq1ry5Z7l165FFEoTVNy qB63Kk8ykTnzKSFk lIKPbV4jidpyg9gpvzqo LtGgVLBsXOi8ESc8KLAa xZoaRgGsTTH9DhO1EBE7 mGYqdF0ylPrwruip dL2xHbz+MTAvMDMvMTk3 MTwvdGQ+ETObFKZ1kBho LOeeCSRgnZ7rPGHeH4k7 YtBxYfC3HUwqI2Cw LURfwmtmCt80vQ1wAxRf HcL4SYhfI8VodlO4FDSs wXFfCUtaQAB3K48ol3C9 LXRxXXSaSBT8cOH6 vP8lgCqirctcdNPmcZvl rkWcvKrsYJmcRVqhD640 IHRvcDsnPjUwIFllYXJz JQ14OI24xHYkr9I1 zSE4H0XlLFCawzpnbcic dEN9MUQoAAFurN42lMEw EFqqKq0bz7A3d797WFAp QRWahA11Vi8tcSeq SMUmyZBOvR6zcmgts2af skssLpZrBQRkBYf1PLs8 GCSovQfxZwOoFWK2TvK6 MLS4uSVuxN2jgHfu leyrsD8jSwb+RmVtYWxl PV53TY96bAEot7F6lVD8 D1ReWFXqmqmddjpxbNL1 FDNfETYjsG79nEIv ABzrVl1mn7H5c728AGEd YZUwpH18Nl7gqBgaKLZj xGQNbG2ejhxur1gnbldt LhFuWZAaIKz3HRh6 GWXmjAapUdSiCCI6TdK9 PPL3pFOpnT5dxPqbracx kE7pNhb+PcYloTQttW9o SW81RJ10S0NvUleu dGFibGU+PHRhYmxlIHdp ZHRoPScxMDAlJyBzdHls FD1pBt0uEYFbPTBcqYip aTAmAmJtl9qjLKOd AGurUV8dtPgeT8DpvDO2 LBJie6a6Rm79J20fR8Ol dXA+ZRBisMA9sLP9fZ6t YhHrDdY4QFqwJ922 HtYxfSZtWrfep3zmu8rb zAm2RhVgLZUvxnGxtXxq OMU7l1IsLh28Q72aEUxg ZHRoPSIyMCUiIHZh fHlcne9ykV0kJg5+PGNv vWD0cPG2yS1qVpFhUoV6 EFeiW311UgPahXXcYizd K63sG9WnkZP+PHRy Vuh5NQZixFuiRQ6egIWe BIlxGh8rYFL5HhItRxBz PQokX6QnYTUwukaotxfy vGD5GKLbHZIsxB71 Nc2tnYeqEv8zBXPiBLL4 PNBltKFtX5OilI6dRmCw CDLoFXRhG3LkjLAdEAit M458GYbzTgW4BVNe wtGzB3DdVCEjxOckCmW6 a3B8Sw4BaSmedRYrJB5m CvBoKWo8U8GiRpm9VQRy dKbgTG6xrPIoLKej Gb2ifVfdpRiyNY2iDQEg nrflf457HiJly3tlBZPe tYYtSKprHBJ2C50gh4Z5 NBZdAEEqBMB9nXC8 mM4hpUrlhcajlQEseGwg zsDevAabHFuiHBweW377 SFBceEtpNhNMYau0Z0Sr Tep7SKUhyTdyYL3m iULfZRakTy8usEosnVeu UB0jQUZqrciwc174PsCh u4uzOYXspJGgQEjkWDP6 Q19sz3O1PVCtPJTb MVU3gOU6vN6erJzcuigz bGVmdDsgdmVydGljYWwt KAxmB868WKCtrOnsWd1Y Pfb3U5ZlFrf6FXXy aHbaCQ4dmTCpGZtzFs8m iNswqKbgCU2kBAJmgawz u578MmJes7qwTZDogLFu ONdmYTU1H79eu3J7 THOaPPRfYDW3vCT8zA3e bGlnbjogbGVmdDsgdmVy qXvmROalCBlkP539VXTc cDsnPlBheWVyOjwv dGQ+RO37wt72U5TxPfwh Uum1LSUrCYT4cYU3zB3d JJWqYOmit8L3gXW1V9Gj vcTqul8vx5zcDYJq ZTog (more content not included)... [facility] Cons[place] 11-29-2021 Consent [id number] 42#1.00CD:127 [facility] Notice of Noncoverageon 11-19 Notice of Noncoverage [id number] 14#1.00CD:127 [facility] PT - Assessmentson PT - Assessments [id number] 2#1.00CD:127 [facility] PT - Consentson 11-29-2021 PT - Consents [id number] 3#1.00CD:127 [facility] Nonvisit Note - PTon 022 Nonvisit Note - PT Chart reviewed with eval prepped for scheduled eval. KK [facility] Covid-19 PCR (CVDTB)on SARS-CoV-2 (COVID-19) RNA RAYMUNDO+probe Ql (Unsp spec) Not detected Normal NOT DETECTED [facility] Comment on above: Result Comment: This test is not yet approved or cleared by the [place] FDA. When there are no FDA-approved or cleared tests available, and other criteria are met, FDA can make tests available under an emergency access mechanism called an Emergency Use Authorization (EUA). The EUA for this test is supported by the Property Controller of Health and Human Service's (HHS's) declaration [...] consistent with SARS-CoV-2. Performed By: #### [facility] #### [facility] [address] [place] [address] Dr. Isis Shahid Formson 05-18-2021 Forms [id number] #1.00CD:127 Normal [facility] Physician Referralon 021 Physician Referral [id number] 0#1.00CD:127 Normal [facility] Patient Educationon 05-17-20 21 Patient Education [...] 06/24/2013 Document Revised: 02/25/2019 Document Reviewed: 02/25/2019 [employer] Patient Education ? 2019 Benefitter. 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 -Behavioral modifications -Consider anti-cholinergics in future if urge more predominant -Follow up in 6 months or sooner if issues arise Follow-up With When Contact Information Scotty ARVIZU, Delmy Landis, URL, URO In 6 months 11/15/2021 EDT Additional Instructions: Patient Education Kegel Exercises Prisca, Nora Matute, personally scribed for Dr. Fajardo on 05/17/2021 11:18:07. . Documentation recorded by the [email or web address], Celena Matute, accurately reflects the services(s) I performed and decisions made by me. Authenticated by Dr. Fajardo on 05/17/2021 11:28:10. Problem List/Past Medical History Ongoing Mixed incontinence Historical No qualifying data Procedur (more content not included)... Normal [facility] Comment on above: Result Comment: Elec tronically Signed By: Delmy Fajardo MD\.br\Date and Time Signed: 05/17/21 11:28 EDT\.br\Electronically Co-Signed By: Nora Matute.br\Date and Time Co-Signed: 05/17/21 11:18 EDT Vital Signs Date Time Vital Sign Value Performing Clinician Facility 10-06-2024 08:51-0400 Body height 157.48 cm [facility] 10-06-2024 08:51-0400 Body mass index (BMI) [Ratio] 29.4 kg/m2 [facility] 10-06-2024 08:51-0400 Body temperature 98.5 [degF] [facility] 10-06-2024 08:51-0400 Body weight 73.02 kg [facility] 10-06-2024 08:51-0400 Diastolic blood pressure 88 mm[Hg] [facility] 10-06-2024 08:51-0400 Heart rate 82 /min [facility] 10-06-2024 08:51-0400 SaO2% (BldA) [Mass fraction] 98 % [facility] 10-06-2024 08:51-0400 Systolic blood pressure 134 mm[Hg] [facility] 09-18-2024 13:38-0500 Body height 157.48 cm [facility] 09-18-2024 13:38-0500 Body mass index (BMI) [Ratio] 29.8 kg/m2 [facility] 09-18-2024 13:38-0500 Body temperature 98.3 [degF] [facility] 09-18-2024 13:38-0500 Body weight 73.93 kg [facility] 09-18-2024 13:38-0500 Diastolic blood pressure 74 mm[Hg] [facility] 09-18-2024 13:38-0500 Heart rate 83 /min [facility] 09-18-2024 13:38-0500 Systolic blood pressure 124 mm[Hg] [facility] 09-12-2024 10:51-0500 Body height 157.48 cm [facility] 09-12-2024 10:51-0500 Body mass index (BMI) [Ratio] 29.7 kg/m2 [facility] 09-12-2024 10:51-0500 Body temperature 98.4 [degF] [facility] 09-12-2024 10:51-0500 Body weight 73.7 kg [facility] 09-12-2024 10:51-0500 Diastolic blood pressure 80 mm[Hg] [facility] 09-12-2024 10:51-0500 Heart rate 96 /min [facility] 09-12-2024 10:51-0500 SaO2% (BldA) [Mass fraction] 97 % [facility] 09-12-2024 10:51-0500 Systolic blood pressure 121 mm[Hg] [facility] 08-19-2024 10:30-0500 Body height 161.29 cm [facility] 08-19-2024 10:30-0500 Body mass index (BMI) [Ratio] 28.4 kg/m2 [facility] 08-19-2024 10:30-0500 Body weight 73.93 kg [facility] 08-19-2024 10:30-0500 Diastolic blood pressure 93 mm[Hg] [facility] 08-19-2024 10:30-0500 Heart rate 79 /min [facility] 08-19-2024 10:30-0500 Systolic blood pressure 144 mm[Hg] [facility] 07-08-2024 09:09-0500 Body mass index (BMI) [Ratio] 28.32 kg/m2 Heather MALIK Work Phone: [facility] 07-08-2024 09:09-0500 Body weight 74.84 kg Heather MALIK Work Phone: [facility] 07-08-2024 09:09-0500 Diastolic blood pressure 68 mm[Hg] Heather MALIK Work Phone: [facility] 07-08-2024 09:09-0500 Systolic blood pressure 110 mm[Hg] Heather MALIK Work Phone: [facility] 06-10-2024 08:48-0500 Body mass index (BMI) [Ratio] 28.8 kg/m2 Heather MALIK Work Phone: [facility] 06-10-2024 08:48-0500 Body weight 76.11 kg Heather Nehal MALIK Work Phone: [facility] 06-10-2024 08:48-0500 Diastolic blood pressure 80 mm[Hg] Heather MALIK Work Phone: [facility] 06-10-2024 08:48-0500 Systolic blood pressure 122 mm[Hg] Heather Nehal MALIK Work Phone: [facility] 05-14-2024 10:26-0400 Body mass index (BMI) [Ratio] 29.5 kg/m2 [facility] 05-14-2024 10:26-0400 Body weight 76.65 kg [facility] 05-14-2024 10:26-0400 Heart rate 105 /min [facility] 05-14-2024 10:04-0400 Body height 161.29 cm [facility] 05-14-2024 10:04-0400 Diastolic blood pressure 78 mm[Hg] [facility] 05-14-2024 10:04-0400 Systolic blood pressure 112 mm[Hg] [facility] 05-12-2024 09:42-0400 Body mass index [...] height 157.48 cm Mary Jane Gongora Other [facility] 04-17-2023 08:30-0400 Body mass index (BMI) [Ratio] 31.82 kg/m2 Mary Jane Gongora Other [facility] 04-17-2023 08:30-0400 Body weight 78.93 kg Mary Jane Gongora Other [facility] 04-17-2023 08:30-0400 Diastolic blood pressure 76 mm[Hg] Mary Jane Gongora Other [facility] 04-17-2023 08:30-0400 Systolic blood pressure 112 mm[Hg] Mary Jane Gongora Other [facility] 03-21-2023 11:45-0400 Body height 157.48 cm Mary Jane Gongora Other [facility] 03-21-2023 11:45-0400 Body mass index (BMI) [Ratio] 32.37 kg/m2 Mary Jane Gongora Other [facility] 03-21-2023 11:45-0400 Body weight 80.29 kg Mary Jane Gongora Other [facility] 03-21-2023 11:45-0400 Diastolic blood pressure 102 mm[Hg] Mary Jane Rolan Other [facility] Other 03-21-2023 11:45-0400 Systolic blood pressure 141 mm[Hg] Mary Jane Rolan Other [facility] Other Encounters Encounter Date Encounter Type Care Provider Facility Start: 10-06-2024 End: 10-06-2024 ambulatory [facility] [place] Work Phone: Start: 10-06-2024 End: 10-06-2024 Patient encounter procedure [facility] Work Phone: Start: 09-18-2024 End: 09-18-2024 ambulatory [facility] Work Phone: Start: 09-18-2024 End: 09-18-2024 Patient encounter procedure [facility] Work Phone: Start: 09-12-2024 End: 09-12-2024 ambulatory [facility] Work Phone: Start: 09-12-2024 End: 09-12-2024 Patient encounter procedure [facility] Work Phone: Start: 08-19-2024 End: 08-19-2024 ambulatory [facility] Work Phone: Start: 08-19-2024 End: 08-19-2024 Patient encounter procedure [facility] Work Phone: Start: 07-08-2024 End: 07-08-2024 Jdbodarryl MALIK Work Phone: [facility] Start: 07-08-2024 End: 07-08-2024 Bamboo flowsdenisa MALIK Work Phone: [facility] Start: 07-08-2024 End: 07-08-2024 Office outpatient visit 10 minutes Heather Graham PA Work Phone: [facility] [...] Start: 05-14-2024 End: 05-14-2024 ambulatory [facility] Work Phone: Start: 05-14-2024 End: 05-14-2024 Patient encounter procedure [facility] Work Phone: Start: 05-12-2024 End: 05-12-2024 [...] Not Available Start: 04-20-2024 Non-patient / Non-visit [facility] [employer] Work Phone: Start: 04-13-2024 End: [...] Breast cancer screening by mammogram; Osteoporosis, post-menopausal ([facility]/HCC); Encounter for weight management Start: 04-13-2024 End: 04-13-2024 ambulatory TAY JONNY Not Available Start: 04-07-2024 Patient encounter status [facility] Start: 10-17-2023 End: 10-17-2023 ambulatory TAY JONNY Not Available Start: 04-17-2023 End: 04-17-2023 ambulatory Mary Jane Gongora Other [facility] Other Start: 04-17-2023 Encounter for genera l adult medical examination without abnormal findings Mary Jane Gongora [facility] Start: 04-17-2023 Periodic preventive med est patient 40-64yrs Mary Jane Gongora [facility] Start: 04-17-2023 Telephone encounter Mary Jane Gongora [facility] Start: 03-21-2023 End: 03-21-2023 ambulatory Mary Jane Gongora Other [facility] Other Start: 03-21-2023 Encounter for genera l adult medical examination without abnormal findings Mary Jane Gongora [facility] Start: 03-21-2023 Office outpatient vi sit 15 minutes Mary Jane Gongora [facility] Start: 07-26-2022 (Televisit) Televisit Mary Jane [facility] Start: 07-26-2022 End: 07-26-2022 ambulatory Mary Jane Gongora Other [facility] Other Start: 06-25-2022 End: 06-26-[address] ATY [place] Facility:[facility] Start: 04-11-2022 Encounter for genera l adult medical examination without abnormal findings DR MARY JANE GONGORA [facility] Start: 04-10-2022 End: 04-11-[address] TAY [place] Facility:[facility] Start: 04-10-2022 End: 04-11-2022 Encounter for general adult medical examination without abnormal findings DR MARY JANE GONGORA Facility:[facility] Start: 04-04-2022 End: 04-04-[address] TAY [place] Facility:[facility] Start: 08-23-2021 End: 08-23-[address] MARY JANE GONGORA Facility:[facility] Procedures Date Procedure Procedure Detail Performing Clinician Start: 09-12-2024 Quick Strep (POC) Start: 04-13-2024 IGP,APTIMA HPV,AGE GDLN Tay Jonny [...] 04-16-2028 Screening for malignant neoplasm of cervix [facility] Start: 04-08-2028 Screening for malignant neoplasm of cervix [facility] Start: 04-13-2027 Screening for malignant neoplasm of cervix Pap Smear [facility] Start: 04-04-2027 Screening for malignant neoplasm of cervix Pap Smear [facility] Start: 04-19-2025 End: 04-19-2025 Patient encounter procedure 04/19/2025 8:30 AM EDT Office Visit [facility] [address] [id number] Tay [place] DO [address] [place] [place] [address] [facility] Start: 07-08-2024 End: 07-08-2024 Patient encounter procedure 07/08/2024 8:50 AM EST Office Visit [facility] [address] [place] [phone] Heather Graham, PA [address] [place] [address] Arrived [facility] Comment on above: Arrived Start: 06-10-2024 End: 06-10-2024 Patient encounter procedure 06/10/2024 8:40 AM EST Office Visit [facility] [address] [place] [phone] Heather Graham, PA [address] [place] [address] Arrived [facility] Comment on above: Arrived Start: 05-29-2024 Screening for malignant neoplasm of colon [facility] Start: 05-12-2024 End: 05-12-2024 Patient encounter procedure [facility] Comment on above: Arrived Start: 04-13-2024 End: 04-13-2025 DXA Skeletal system Views for bone density DEXA bone density Imaging Routine Osteoporosis, post-menopausal ([facility]) Expected: 04/13/2024 (Approximate), Expires: 04/13/2025 [facility] Comment on above: Expected: 04/13/2024 (Approximate), Expires: 04/13/2025 Start: 04-13-2024 End: 06-13-2025 MG Breast - bilateral Screening Bilateral screening mammogram Imaging Routine Breast cancer screening by mammogram Expected: 04/13/2024 (Approximate), Expires: 06/13/2025 [facility] Work Phone: Comment on above: Expected: 04/13/2024 (Approximate), Expires: 06/13/2025 Start: 04-13-2024 End: 04-13-2024 Patient encounter procedure 04/13/2024 10:00 AM EDT Office Visit [facility] [address] [address] Tay [place], DO [address] [place] [place] [address] Arrived [facility] Comment on above: Arrived Start: 06-25-2023 Screening for malignant neoplasm of breast Mammogram [facility] Start: 1970 Screening for malignant neoplasm of colon [facility] Joshua Ash virus capsid IgG Ab [Units/volume] in Serum [facility] THIN PREP TIS PAP AN D HR HPV DNA THIN PREP TIS PAP AND HR HPV DNA Pathology and Cytology Routine Well woman exam with routine gynecological exam Ordered: 04/13/2024 [facility] Comment on above: Ordered: 04/13/2024 US Thyroid gland [facility] Immunizations Immunization Date Immunization Notes Care Provider Fa cility 06-28-2022 zoster vaccine, live Mary Jane Gongora Other [facility] 04-13-2022 influenza virus vaccine, split virus (incl. purified surface antigen) Mary Jane Gongora Other [facility] 04-13-2022 influenza virus vaccine, unspecified formulation [facility] 02-06-2022 COVID-19 Vaccine Pfi zer - Documentation Purposes Only Mary Jane Gongora Other [facility] 02-01-2022 zoster vaccine, live Mary Jane Gongora Other [facility] 06-30-2021 COVID-19 Vaccine Pfi zer - Documentation Purposes Only Mary Jane Gongora Other [facility] 04-03-2021 influenza virus vaccine, split virus (incl. purified surface antigen) Mary Jane Gongora Other [facility] Other 04-03-2021 influenza virus vaccine, unspecified formulation [facility] 05-26-2019 influenza virus vaccine, split virus (incl. purified surface antigen) Mary Jane Gongora Other [facility] Other 05-26-2019 influenza virus vaccine, unspecified formulation [facility] Payers Date Payer Category Payer [facility] BCBS [id number] 2022 [id number] 2022-Present [phone] [address] [place] [address] [id number] 1971 Unknown [id number] [id number]. 2.593 1971 Unknown [id number] [id number]. 2.593 1971 Unknown [id number] 2.16.840.1.325294.3.579. 2.593 1971 Unknown [id number] 2.16.840.1.552299.3.579. 2.593 1971 Unknown [id number] 2.16.840.1.543959.3.579. 2.593 1971 Unknown [id number] 2.16.840.1.143230.3.579. 2.1259 1971 Unknown [id number] [id number]. 2.1259 1971 Unknown [id number] 2.16.840.1.437042.3.579. 2.1259 1971 Unknown [id number] 2.16.840.1.533577.3.579. 2.1259 1971 Unknown [id number] 2.16.840.1.386640.3.579. 2.1259 1959 Unknown [id number] Social History Date Type Detail Facility Unknown if ever smoked [facility] Other Sex Assigned At [facility] Other Tobacco smoking status [facility] Tobacco smoking consumption unknown [facility] Start: 1970 Sex assigned at Not on file [facility] Start: 04-02-2024 End: 10-05-2024 Tobacco smoking status [facility] Never smoked tobacco (finding) [facility] Start: 1970 Sex Assigned At Female [facility] Start: 08-19-2024 End: 10-06-2024 Sex Female (finding) [facility] NEGATED: Highlighted row [facility] Clinical Notes 07-26-2022 to 08-19-2024 Note Date & Type Note Facility 08-19-2024 Evaluation note Diagnosis Onset Date Resolution Depression acute August 19, 2024 10:24am LAD (lymphadenopathy) of right cervical region acute August 19 10:24am [facility] Work Phone: 1(623) 449-504301-29-2025 Evaluation note* Diagnosis Onset Date Resolution Status Admit Date Depression acute August 19, 2024 10:24am LAD (lymphadenopathy) of right cervical region acute August 192024 10:24am Left otitis media acute Februar y 2024 10:04am [facility] Work Phone: 1(803) 639-759701-29-2025 Evaluation note* Diagnosis Onset Date Resolution Status Admit Date Depression acute August 19, 2024 10:24am LAD (lymphadenopathy) of right cervical region acute August 192024 10:24am Left otitis media acute Februar y 2024 10:04am Depression acute September 18, 2024 12:56pm Left otitis media acute Februar y 2024 12:56pm Acute febrile illness acute Sep 8:49am [facility] Work Phone: 1(584) 424-633912-18-2024 History of Present illness Narrative* HELENA Gaston - 07/08/2024 8:50 AM EST Reason for Appointment: Patient ID: Annel Alcantara [...] behalf of: HELENA Gaston documented in this [facility] [id number] History of Present illness Narrative* Charis Lezama, SERGIO - 06/10/2024 8:40 AM EST Reason for Appointment: Patient ID: Annel Alcantara is a 54 y.o. female who presents for Weight Management Patient presents today for a weight management consultation. Patient has been prescribed Adipex andshe is here for her 2nd prescription. Today's [...] behalf of HELENA Gaston documented in this encounter[facility] [id number] History of Present illness Narrative* Chantel Padron LPN - 05/12/2024 9:40 AM EDT Reason for Appointment: Patient ID: Annel Alcantara is a 54 y.o. female who presents for encounter for weight management (Adipex #2) Patient presents today for a weight management consultation. Patient has been prescribed Adipex andshe is here for her 2nd prescription. Today's [...] Chantel Padron LPN on behalf of Tay Fulelr DO documented in this encounterM[facility]. [id number] History of Present illness Narrative* HELENA Gaston - 04/13/2024 10:00 AM EDT Reason for Appointment: Patient ID: Annel Alcantara [...] nursing note reviewed. Exam conducted with a camera supervisor present. Vitals: Estimated body mass index is [...] of: Tay [place] DO documented in this encounterM[facility] St. [id number] Evaluation note* Encounter Date Diagnosis Assessment Notes Treatment Notes Treatment Clinical Notes Mar, Well adult exam (ICD-10 - [...] pleased, without concerns. Discussed intermittent fasting. Mar, Hypothyroidism, unspecified (ICD-10 - E03.9) continue med. reviewed recent labs. chronic problem. 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) [facility] Other Evaluation noteNo InformationNort [facility] Other Evaluation note* Diagnosis Encounter for weight management documented in this encounter [facility] HealthcareEvaluation note* Diagnosis Onset Date Resolution Status Screening for colon cancer a magy [facility] [employer] Work Phone: Evaluation note* Diagnosis Well woman exam with routine gynecological exam Routine gynecological examination Breast cancer screening by mammogram Osteoporosis, post-menopausal (CMS/HCC) Senile osteoporosis Encounter for weight management documented in this encounter [facility]* Diagnosis Onset Date Resolution Status Admit Date LAD (lymphadenopathy) of right cervical region acute August 192024 10:24am [facility] Work Phone: History general Narrative - Reported* Type Description Date Medical History Hypothryoid Surgical History x3 Surgical History D&C x2 Surgical History Lap Yen Surgical History hysterectomy Hospitalization History See above [facility] Other Summary Purpose Family History Relationship Condition Age at Onset Recorded Date/T grayson father Diabetes mellitus Unknown mother Diabetes mellitus Unknown Renal failure Unknown Unknown Advance Directives Advance Directive Response Recorded Date/ Time Advance Directives No May 14, 2024 9:55am Advance Directive Response Recorded Date/ Time Advance Directives No May 14, 2024 8:55am Advance Directive Response Recorded Date/ Time Advance Directives No October 05 8:52am Chief Complaint and Reason for Visit Chief Complaint wellness Reason for Visit Screening for colon cancer Chief Complaint Admit Date lump on neck, painful to touch July 232024 10:24am Reason for Visit Admit Date LAD (lymphadenopathy) of right cervical region August 19, 2024 10:24am Chief Complaint Admit Date lump on neck, painful to touch July 232024 10:24am left earache and sore throat September 122024 10:04am Reason for Visit Admit Date Depression August 19, 2024 1 0:24am LAD (lymphadenopathy) of right cervical region August 19, 2024 10:24am Chief Complaint Admit Date lump on neck, painful to touch July 232024 10:24am left earache and sore throat September 122024 10:04am Sore Throat September 18, 2024 12:56pm Reason for Visit Admit Date Depression August 19, 2024 1 0:24am LAD (lymphadenopathy) of right cervical region August 19, 2024 10:24am Left otitis media September 12, 2024 10:04am Chief Complaint Admit Date lump on neck, painful to touch July 232024 10:24am left earache and sore throat September 122024 10:04am Sore Throat September 18, 2024 12:56pm Congestion/Exhaustion/Feels like [place] [facility] 2024 8:49am Reason for Visit Admit Date Depression August 19, 2024 1 0:24am LAD (lymphadenopathy) of right cervical region August 19, 2024 10:24am Left otitis media September 12, 2024 10:04am Depression September 18, 2024 12:56pm Left otitis media September 18, 2024 12:56pm Acute febrile illness October 06, 2024 8 :49am Additional Source Comments INFORMATION SOURCE (unrecogn ized section and content) DATE CREATED AUTHOR 02/21/2022 [facility] DATE CREATED AUTHOR AUTHOR'S ORGANIZ ATION 06/27/2022 [facility] DATE CREATED AUTHOR AUTHOR'S ORGANIZ ATION 07/11/2024 [facility] EPIC REASON FOR VISIT [...] August 19, 2024 End: August 19, 2024 Corporate Director Of Pharmacy Relationship Specialty Start Date End Date Mary Jane Gongora MD [address] [facility] [place] [phone] PCP - General Family Medicine 10/17/23 Corporate Director Of Pharmacy Relationship Specialty Start Date End Date Mary Jane Gongora MD [address] [facility] [place] [phone] PCP - General Family Medicine 10/17/23 Team Status: Active Member Role Status Dates Mary Jane Gongora MD Primary Care Provide r, Attending Provider Active Start: April 20, 2024 Team Status: Inactive Member Role Status Dates Mary Jane Gongora MD Primary Care Provide r, Attending Provider Active Start: May 14, 2024 End: May 14, 2024 Corporate Director Of Pharmacy Relationship Specialty Start Date End Date Mary Jane Gongora MD [address] [facility] [place] [phone] PCP - General Family Medicine 10/17/23 Corporate Director Of Pharmacy Relationship Specialty Start Date End Date Mary Jane Gongora MD [address] [facility] [place] [phone] PCP - General Family Medicine 10/17/23 Corporate Director Of Pharmacy Relationship Specialty Start Date End Date Mary Jane Gongora MD [address] [facility] [place] [phone] PCP - General Family Medicine 10/17/23 Corporate Director Of Pharmacy Relationship Specialty Start Date End Date Mary Jane Gongora MD [address] [facility] [place] [phone] PCP - General Family Medicine 10/17/23 Team Status: Inactive Member Role Status Dates Mary Jane Gongora MD Primary Care Provider Active Start: September 12, 2024 End: September 12, 2024 Mily Rodriguez APRN Attending Provider Active Start: September 12, 2024 End: September 12, 2024 Team Status: Inactive Member Role Status Dates Mary Jane Gongora MD Primary Care Provide r, Attending Provider Active Start: September 18, 2024 End: September 18, 2024 Team Status: Inactive Member Role Status Dates Mary Jane Gongora MD Primary Care Provide r, Attending Provider Active Start: October 06, 2024 End: October 06, 2024 Goals (unrecognized section and content) Goals [...] BE BASED ON THE PRIMARY CLINICAL RECORDS. [employer] provides no warranty or guarantee of the accuracy or completeness of information in this document.
[2024-10-06 09:59] LABS: Hematocrit 45.1 % (36.0-48.0); Hemoglobin 15.1 g/dL (12.0-16.0); Mean Corpuscular HGB Conc 33.5 g/dL (29.9-35.2); Mean Corpuscular Hemoglobin 30.7 pg (26.7-34.0); Mean Corpuscular Volume 91.7 fL (81.0-99.0); Mean Platelet Volume 8.9 fL (9.5-13.5); Platelet Count 286 10^3/uL (150-450); Red Blood Count 4.92 10^6/uL (4.20-5.40); Red Cell Distribution Width 12.5 % (11.0-15.0); White Blood Count 9.1 10^3/uL (4.0-11.0)
[2024-10-06 10:22] LABS: Segmented Neut Absolute Manual 5.82 10^3/uL (1.4-6.5)
[2024-10-06 10:23] LABS: Atypical Lymphocytes Abs Man 0.18; Eosinophils Absolute Manual 0.09 10^3/uL (0.00-0.70); Lymphocytes Absolute Manual 1.91 10^3/uL (1.20-3.80); Monocytes Absolute Manual 1.09 10^3/uL (0.30-0.80)
[2024-10-06 10:43] LABS: Internal Control Within Normal Limits; Mono Screen NEGATIVE (NEGATIVE)
== END 2024-10-06 09:34 | disposition home or self-care (01) ==
LOC: LAB 09:34
PROVIDERS: PCP Family Medicine; Visit Provider Family Medicine
DX: R50.9 Fever, unspecified (principal)
CPT/HCPCS: 36415; 85007; 85027; 86308; 86665

== ENCOUNTER 2024-12-29 06:46 | Outpatient (OUT) | payer BC, SELFPAY ==
--- NOTE | 2024-12-29 | US_ITS ---
The [address] [address] Patient Name: SRINI ROMAN MRN: [id number] date: 1970 Sex: F Assigned Patient Location: US Current Patient Location: US Accession/Order Number: [id number] Exam Date: 12/29/2024 08:35 Report Date: 12/29/2024 08:41 At the request of: PRIYA GONGORA MD Procedure: US thyroid THYROID ULTRASOUND COMPARISON: 08/20/2024 CLINICAL DATA: Right cervical lymphadenopathy. No residual palpable lumps. The right thyroid lobe measures 2.5 x 0.8 x 0.9 cm. The left lobe measures 2.1 x 0.7 x 0.6 cm . The isthmus measures 1 -2 mm. There is normal echogenicity. No thyroid nodularity is seen. At the posterior right neck, there is still a slightly lobulated, subcutaneous hypoechoic nodule that measures 11 x 5 x 9 mm . This is not significantly changed in size. There is central blood flow however no obvious fatty hilus is noted. A lymph node is again suspected. Other lymph nodes visualized at the time of the prior was not imaged today. US/US thyroid IMPRESSION: NO THYROID NODULARITY. SINGLE, SIMILAR RESIDUAL RIGHT POSTERIOR CERVICAL LYMPH NODES Impression dictated by: Balbina Pino M.D. 12/29/2024 8:41 AM Dictation Location: [place] [address] Electronically authenticated by: [id number] Y Date: 12/29/2024 08:41
--- OUTSIDE RECORDS SUMMARY | 2024-12-29 06:48 | XMS_ITS | CCD ---
Author Organization [facility] Care Team Providers Care Concrete Spreader Name Role Phone ROLAN, DR MARY JANE Pate Attending Unavailable GONGORA, DR MARY JANE Pate Consulting Unavailable GONGORA, DR MARY JANE Pate Primary Care Unavailable GONGORA, DR MARY JANE Pate Admitting Unavailable JONNY, DR CROSS Admitting Unavailable JONNY, DR CROSS Attending Unavailable PARIS, DR KAUR Villalpando Consulting Unavailable GONGORA, DR [...] Mary Jane Gongora MD Primary Care Provider [phone] TAY FULLER Attending Unavailable TAY FULLER Attending Unavailable TAY FULLER Attending Unavailable HEATHER GRAHAM Attending Unavailable HEATHER GRAHAM Attending Unavailable Allergies Allergy Classification Reported Allergen(s) Allergy Type Date of Onset Reaction(s) Facility (1 source) Adhesive bandage Drug allergy (disorder) 6 [facility]ository (3 sources) Latex Drug allergy 0 Unknown [employer] Other (11 sources) Latex Allergy to substance 3 Unknown, Rash [facility] Medications Current Medications Medication Drug Class(es) Dates Sig (Normalized) Sig (Original) doxycycline monohydrate 100 mg oral capsule (1 source) Tetracycline-clas s Drug Start: 11-03-2024 take 1 capsule by mouth twice daily Doxycycline Monohydrate 100 mg capsule Active 100 MG PO Twice daily 10 05November 03, 2024 12:00am estradiol 1 mg oral tablet (20 sources) [...] hydrochloride 500 mg extended release oral tablet (16 sources) Biguanide Start: 05-18-2024 End: 06-17-2024 take [...] or split. 30 tablet 11 11/12/2023 Active predniSONE 20 mg oral tablet (1 source) Start: 07-26-2022 take 2 tablets by mouth every twenty-four hours predniSONE 20 MG 2 tablets Orally Once a day for 5 days Jul, Active 24 hr venlafaxine 37.5 mg extended release oral capsule (8 sources) Serotonin and Norepinephrine Reuptake Inhibitor Start: 08-19-2024 End: 09-14-2024 take 1 capsule by mouth once daily Venlafaxine (Effexor Xr) 37.5 mg capsule,extended release 24hr Active 37.5 MG PO Daily September 14, 2024 1:07pm Completed/Discontinued Medications Medication Drug Class(es) Dates Sig (Normalized) Sig (Original) amoxicillin 875 mg oral tablet (4 sources) Penicillin-class Antibacterial Start: 09-12-2024 End: 10-06-2024 take 1 tablet by mouth every twelve hours Amoxicillin 875 mg tablet Discontinued 875 MG PO Every 12 hours 10 05September 12, 2024 1:00am October 06, 2024 4:24pm Start: 07-26-2022 take 1 capsule by mo [facility] every eight hours Amoxicillin 500 MG 1 capsule Orally every 8 hrs for 5 day(s) Jul, Active azithromycin 250 mg oral tablet (1 source) Macrolide Antimicrobial Start: 10-06-2024 End: 11-03-2024 Azithromycin 250 mg tablet Discontinued 0 PO .COMPLEX October 06, 2024 12:00am November 03, 2024 1:50pm For 250 mg dose pack: take 500 mg today (day 1), then 250 mg for 4 days (days 2-5) PO levothyroxine sodium 0.137 mg oral tablet (20 [...] 1 tablet Orally Once a day Active methylPREDNISolone 4 mg oral tablet (3 sources) Corticosteroid Start: 09-18-2024 End: 10-06-2024 take 1 tablet by mouth once Methylprednisolone (Medrol (Gallo)) 4 mg tablets,dose pack Discontinued 0 PO per package directions September 18, 2024 1:00am October 06, 2024 4:23pm PO PER PKG DIR for 6 days phentermine hydrochloride 37.5 mg oral tablet (20 sources) Sympathomimetic Amine Anorectic Start: 04-13-2024 End: 09-12-2024 take 1 tablet by mouth once daily 30 minutes after breakfast Phentermine (Adipex-P) 37.5 mg tablet Discontinued 37.5 MG PO Daily May 14, 2024 12:00am September 12, 2024 11:53am must administer 30 minutes before or 1-2 hours after breakfast 24 hr phentermine 7.5 mg / topiramate 46 mg extended release oral capsule (6 sources) Sympathomimetic Amine Anorectic Start: 05-14-2024 End: 05-14-2024 take 1 capsule by mouth once daily Phentermine-Topiramat e 7.5-46 mg capsule, ER multiphase 24 hr Discontinued 1 CAP PO Daily May 14, 2024 12:00am May 14, 2024 10:27am Problems Active Problems Problem Classification Problem Date Documented Date Episodic/Chronic Administrative/social admission (6 sources) Patient encounter status; Translations: [Persons encountering health services in other specified circumstances] 05-12-2024 Episodic Cardiac dysrhythmias (5 sources) Tachycardia; Translations: [Tachycardia, unspecified] 05-17-2024 Episodic Fever of unknown origin (4 sources) Fever; Translations: [Fever, unspecified] 10-06-2024 Episodic Genitourinary symptoms and ill-defined conditions (1 source) Dysuria Episodic Immunizations and screening for infectious disease (1 source) Encounter for screening for human papillomavirus (HPV); Translations: [ENC SCREENING HUMAN PAPILLOMAVIRUS] Onset: 04-08-2022 Episodic Lymphadenitis (10 sources) Cervical lymphadenopathy; Translations: [Localized enlarged lymph nodes] 08-19-2024 Episodic Mood disorders (10 sources) Depressive disorder; Translations: [Depression] 08-21-2024 Chronic [...] Onset: 04-04-2022 Episodic Other upper respiratory infections (2 sources) Maxillary sinusitis; Translations: [Chronic maxillary sinusitis] 11-03-2024 Chronic Other upper respiratory infections (1 source) Acute pharyngitis, unspecified Episodic Otitis media and related conditions (8 sources) Otitis media of left ear; Translations: [Otitis media, unspecified, left ear] 09-12-2024 Episodic Thyroid disorders (17 sources) Hypothyroidism; Translations: [Hypothyroidism, unspecified] Chronic Unclassified [...] Test Name Value Interpretation Reference Range Facility Basophils/100 WBC Manual cnt (Bld)on 10-06-2024 Basophils/100 WBC (Bld) Basophils/100 leukocytes in Blood by Manual count Low 0.2-2.0 [facility] Eosinophils/100 WBC Manual c nt (Bld)on 10-06-2024 Eosinophils/100 WBC (Bld) Eosinophils/100 leukocytes in Blood by Manual count 0.9-7.0 [facility] Laboratory - Hematology and Cell countson 10-06-2024 Lymphocytes/100 WBC (Bld) 21.0 % 20.5-60.0 [facility] Monocytes/100 WBC (Bld) 12.0 % 1.7-12.0 [facility] No Panel Informationon 10-06 Absolute Basophils (Manual) 0.00 10 3/uL 0.00-0.10 [facility] Eosinophils # (Manual) 0.09 10 3/uL 0.00-0.70 [facility] Lymphocytes # (Manual) 1.91 10 3/uL 1.20-3.80 [facility] Miscellaneous Test COMMENT . [facility] Comment on above: Test Ordered: [id number] EBV Ab VCA, IgMEBV Ab VCA, IgM <36.0 U/mL CB Reference Range: 0.0-35.9 Negative <36.0 Equivocal 36.0 - 43.9 Positive >43.9Performed at: - [facility] [address] [id number] Director: Anthony Ivory PhD, Phone: [phone] Monocytes # (Manual) 1.09 10 3/uL High 0.30-0.80 [facility] Monoscreen Negative NEGATIVE [facility] Reactive Lymphocytes 0.18 [facility] Reactive Lymphocytes 2.0 % [facility] Segmented Neutrophils # (Manual) 5.82 10 3/uL 1.4-6.5 [facility] Segmented neutrophils/100 WB C Manual cnt (Bld)on 10-06-2024 Segmented neutrophils/100 WBC (Bld) Manual blood segmented neutrophils/100 leukocytes 43.0-75.0 [facility] Influenza virus B Ag [Presen ce] in Upper respiratory specimen by Rapid immunoassayon 09-18-2024 FLUBV Ag IA.rapid Ql (Nph) Influenza virus B Ag [Presence] in Upper respiratory specimen by Rapid immunoassay [facility] No Panel Informationon 09-18 Influenza Type A (Rapid) Negative [facility] POC SARS CoV-2 Antigen Negative [facility] No Panel InformationOrdered By: Mily Rodriguez on 09-12-2024 Quick Strep (POC) [facility] Quick Strep (POC) [facility] Cholesterol in LDL Calc [Mas s/Vol]on 04-20-2024 Cholesterol in LDL [Mass/Vol] 96.0 mg/dL [facility] Comment on above: <100 mg/dl [id number] 0-129 mg/dl NEAR OR ABOVE [id number] mg/dl BORDERLINE [id number] mg/dl HIGH>190 mg/dl VERY HIGH Cholesterol in VLDL Calc [Ma ss/Vol]on 04-20-2024 Cholesterol in VLDL [Mass/Vol] 22.8 mg/dL [facility] Estimated glomerular filtrat ion rate (GFR) non- Americanon 04-20-2024 GFR/1.73 sq M.predicted among non-blacks MDRD (S/P/Bld) [Vol rate/Area] mL/min/{1.73_m2} >=60 [facility] IGP,APTIMA HPV,AGE GDLNon AGE GDLN ACOG TESTING Note . [facility] Comment on above: TESTS RESULT FLAG UN ITS REF RANGE LAB Clinician Provided Cytology Information Source.............Cervix;Endocervix No. of containers..01 ThinPrep Vial Age Algo ACOG Marycruz... FLAG LEGEND: L-Low Normal,H-High Normal,LL-Alert Low,HH-Alert High <-Panic Low,>-Panic High,A-Abnormal,AA-Critical Abnormal Performed at: 01 =[facility] [place] [address] [place] [address] Lori Roach MD, HPV APTIMA Negative Negative [facility] Comment on above: This nucleic acid am plification test detects fourteen high- risk HPV types (16,18,31,33,35,39,45,51,52,56,58,59,66,68) without differentiation. Performed at: =G - [facility] [id number] Spray Foam Installer: Lori Roach MD, Phone: [phone] Performed at: - [facility], [place] [id number] Spray Foam Installer: Lori Roach MD, Phone: [phone] IGP, APTIMA HPV, RFX 16/18,45 Note . [facility] Comment on above: TESTS RESULT FLAG UN ITS REF RANGE LAB DIAGNOSIS: 02 NEGATIVE FOR INTRAEPITHELIAL LESION OR MALIGNANCY. Specimen adequacy: 02 Satisfactory for evaluation. Endocervical and/or squamous metaplastic cells (endocervical component) are present. Performed by: Tung Rivas, Tower Attendant (ASCP) . 02 Note: Note 02 The [...] High,A-Abnormal,AA-Critical Abnormal Performed at: 02 WB [facility] [place] [address] [place] [address] Lori Roach MD, BRUSH-SPATULA CERVIX ENDOCERVIX CLINIS[facility]NC [facility] Laboratory - Chemistry and C hemistry - challengeon 04-20-2024 Calcium [Mass/Vol] 9.1 mg/dL 8.5-10.1 [facility] Chloride [Moles/Vol] 101 mmol/L 98-107 [facility] Cholesterol [Mass/Vol] 189 mg/dL <=200 [facility] Cholesterol in HDL [Mass/Vol] 71 mg/dL High 40-60 [facility] Comment on above: > or =60 mg/dl - LOW CARDIOVASCULAR RISK<40 mg/dl - HIGH CARDIOVASCULAR RISK CO2 [Moles/Vol] 29.2 mmol/L 21.0-32.0 [facility] Creatinine [Mass/Vol] 0.74 mg/dL 0.55-1.02 [facility] Free T4 [Mass/Vol] 1.47 ng/dL High 0.76-1.46 [facility] GFR/1.73 sq M.predicted MDRD (S/P/Bld) [Vol rate/Area] mL/min/{1.73_m2} >=60 [facility] Glucose [Mass/Vol] 85 mg/dL 74-106 [facility] Potassium [Moles/Vol] 4.3 mmol/L 3.5-5.1 [facility] Sodium [Moles/Vol] 136 mmol/L 136-145 [facility] Triglyceride [Mass/Vol] 114 mg/dL <=150 [facility] TSH Qn 3.135 m[IU]/L 0.358-3.740 [facility] Urea nitrogen [Mass/Vol] 6.0 mg/dL Low 7.0-18.0 [facility] Urea nitrogen/Creatinine [Mass ratio] 8.1 mg/mg [facility] Serum or plasma anion gap de terminationon 04-20-2024 Anion gap [Moles/Vol] 10.1 mmol/L [facility] Serum or plasma total choles terol/high density lipoprotein (HDL) cholesterol mass nadir 04-20-2024 Cholesterol.total/Chol esterol in HDL [Mass ratio] 2.7 {ratio} [facility] Comment on above: 3.3 - 4.4 LOW RISK4. 4 - 7.1 AVERAGE RISK7.1 - 11.0 MODERATE RISK>11.0 HIGH RISK Cytology Cervical or vaginal smear or scraping studyon 04-08-2023 [facility] Urinalysis - DIPSTICKon 02-21 Appearance (U) cloudy [employer] Other Bilirubin Ql (U) Negative [employer] Other Color (U) yellow [employer] Other Glucose Ql (U) Negative [employer] Other Hemoglobin Ql (U) moderate [employer] Other Ketones Ql (U) Negative [employer] Other Leukocyte esterase Test strip Ql (U) moderate [employer] Other Nitrite Ql (U) Negative [employer] Other pH (U) 6.0 [pH] [employer] Other Protein Ql (U) Negative [employer] Other Specific gravity (U) [Rel density] 1.000 [employer] Other Urobilinogen (U) [Mass/Vol] normal [employer] Other Urinalysis - DIPSTICK Nor [employer] Other MG MAMM SCREEN 3D MACARIO CADon 06-25-2022 MG MAMM SCREEN 3D MACARIO CAD Patient: ANNEL ALCANTARA. Exam Date: 06/25/2022 : 1970 Gender:F Ordering : DR TAY FULLER . Admission #: [id number] Family : Order #: [id number] CLICK HERE TO VIEW EXAM RADIOLOGY REPORT [...] No Treatments None Family Cancers None LOCATION: [facility] BREAST COMPOSITION: Heterogeneously dense,which may obscure [...] MD on 06/25/2022 at 09:48 Normal [facility] PAP ACOG PANEL 2: 30 to 65on 04-11-2022 . . Normal [facility] Comment on above: Result Comment: Perf ormed at: WB Performed By: #### [id number] #### [facility] [address] [place] [address] Dr. Isis Shahid Age Gdln ACOG Testing 30-65 Normal [facility] Comment on above: Performed By: #### [id number] #### [facility] [address] [address] [address] Isis Shahid DIAGNOSIS: Comment Normal [facility] Comment on above: Result Comment: NEGA TIVE FOR INTRAEPITHELIAL LESION OR MALIGNANCY. Performed at: WB Performed By: #### [id number] #### [facility] [address] [id number] [address] Isis Shahid HPV Aptima Negative Normal Negative [facility] Comment on above: Result Comment: This nucleic acid amplification test detects fourteen high-risk HPV types (16,18,31,33,35,39,45,51,52,56,58,59,66,68) without differentiation. Performed at: =G Performed By: #### [id number] #### [facility] [address] [place] [address] Dr. Isis Shahid Methodology: Comment Normal [facility] Comment on above: Result Comment: This liquid based ThinPrep(R) pap test was screened with the use of an image guided system. Performed at: WB Performed By: #### [id number] #### [facility] [address] [place] [address] Dr. Isis Shahid Note: Comment Normal [facility] Comment on above: Result Comment: The Pap smear is a screening test designed to aid in the detection of premalignant and malignant conditions of the uterine cervix. It is not a diagnostic procedure and should not be used as the sole means of detecting cervical cancer. Both false-positive and false-negative reports do occur. . Performed at: WB Performed By: #### [id number] #### [facility] [address] [place] [address] Dr. Isis Shahid Performed by: Comment Normal [facility] Comment on above: Result Comment: Nikia Pedro, Tower Attendant (ASCP) Performed at: WB Performed By: #### [id number] #### [facility] [address] [place] [address] Dr. Isis Shahid Specimen adequacy: Comment Normal [facility] Comment on above: Result Comment: Sati sfactory for evaluation. Endocervical and/or squamous metaplastic cells (endocervical component) are present. Performed at: WB Performed By: #### [id number] #### [facility] [address] [place] [address] Dr. Isis Shahid FREE T4on 04-10-2022 Free T4 [Mass/Vol] 1.21 ng/dL Normal 0.76-1.46 [facility] Comment on above: Performed By: #### F T4 #### [facility] [address] [place] [address] Dr. Isis Shahid LIPID PROFILEon 04-10-2022 CHOL-HDL RATIO NORM SEE BELOW Normal [facility] Comment on above: Result Comment: 3.3 - 4.4 LOW RISK 4.4 - 7.1 AVERAGE RISK 7.1 - 11.0 MODERATE RISK >11.0 HIGH RISK Performed By: #### T SH, LIPID, BMP #### [facility] [address] [address] [address] Isis Shahid Cholesterol [Mass/Vol] 209 mg/dL Critically high <=200 [facility] Comment on above: Performed By: #### T SH, LIPID, BMP #### [facility] [address] [address] [address] Isis Shahid Cholesterol in HDL [Mass/Vol] 62 mg/dL Critically high 40-60 [facility] Comment on above: Performed By: #### T SH, LIPID, BMP #### [facility] [address] [address] [address] Isis Shahid Cholesterol in LDL [Mass/Vol] 126.0 mg/dL Normal [facility] Comment on above: Performed By: #### T SH, LIPID, BMP #### [facility] [address] [address] [address] Isis Shahid Cholesterol.total/Chol esterol in HDL [Mass ratio] 3.4 {ratio} Normal [facility] Comment on above: Performed By: #### T SH, LIPID, BMP #### [facility] [address] [address] [address] Isis Shahid HDL NORMAL > or = 60 mg/dl - LOW CARDIOVASCULAR RISK <40 mg/dl - HIGH CARDIOVASCULAR RISK Normal [facility] Comment on above: Performed By: #### T SH, LIPID, BMP #### [facility] [address] [address] [address] Isis Shahid LDL CALC NORMAL SEE BELOW Normal [facility] Comment on above: Result Comment: <100 mg/dl OPTIMAL 100 - 129 mg/dl NEAR OR ABOVE OPTIMAL 130 - 159 mg/dl BORDERLINE HIGH 160 - 189 mg/dl HIGH >190 mg/dl VERY HIGH Performed By: #### T SH, LIPID, BMP #### [facility] [address] [place] [address] Dr. Isis Shahid Triglyceride [Mass/Vol] 105 mg/dL Normal <=150 [facility] Comment on above: Performed By: #### T SH, LIPID, BMP #### [facility] [address] [place] [address] Dr. Isis Shahid VLDL CALC 21.0 mg/dL Normal [facility] Comment on above: Performed By: #### T SH, LIPID, BMP #### [facility] [address] [address] [address] Isis Shahid PROF CHEM 8 (BAS METB)on Anion gap [Moles/Vol] 12.9 mmol/L Normal [facility] Comment on above: Performed By: #### T LURDES, LIPID, BMP #### [facility] [address] [place] [address] Dr. Isis Shahid Calcium [Mass/Vol] 8.7 mg/dL Normal 8.5-10.1 [facility] Comment on above: Performed By: #### T LURDES, LIPID, BMP #### [facility] [address] [place] [address] Dr. Isis Shahid Chloride [Moles/Vol] 106 mmol/L Normal 98-107 [facility] Comment on above: Performed By: #### T LURDES, LIPID, BMP #### [facility] [address] [place] [address] Dr. Isis Shahid CO2 [Moles/Vol] 24.5 mmol/L Normal 21.0-32.[address] [facility] Comment on above: Performed By: #### T LURDES, LIPID, BMP #### [facility] [address] [place] [address] Dr. Isis Shahid Creatinine [Mass/Vol] 0.67 mg/dL Normal 0.55-1.02 [facility] Comment on above: Performed By: #### T SH, LIPID, BMP #### [facility] [address] [place] [address] Dr. Isis Shahid EGFR-AF UKRAINIAN >60 Normal >=[address] [facility] Comment on above: Performed By: #### T SH, LIPID, BMP #### [facility] [address] [address] [address] Isis Shahid EGFR-NON AF UKRAINIAN >60 Normal >=60 [facility] Comment on above: Performed By: #### T SH, LIPID, BMP #### [facility] [address] [address] [address] Isis Shahid Glucose [Mass/Vol] 94 mg/dL Normal 74-106 [facility] Comment on above: Performed By: #### T SH, LIPID, BMP #### [facility] [address] [address] [address] Isis Shahid Potassium [Moles/Vol] 4.4 mmol/L Normal 3.5-5.1 [facility] Comment on above: Performed By: #### T SH, LIPID, BMP #### [facility] [address] [address] [address] Isis Shahid Sodium [Moles/Vol] 139 mmol/L Normal 136-145 [facility] Comment on above: Performed By: #### T SH, LIPID, BMP #### [facility] [address] [address] [address] Isis Shahid Urea nitrogen [Mass/Vol] 4.0 mg/dL Critically low 7.0-18.0 [facility] Comment on above: Performed By: #### T SH, LIPID, BMP #### [facility] [address] [address] [address] Isis hSahid Urea nitrogen/Creatinine [Mass ratio] 6.0 mg/mg Normal [facility] Comment on above: Performed By: #### T SH, LIPID, BMP #### [facility] [address] [address] [address] Isis Shahid TSHon 04-10-2022 TSH 0.335 uIU/mL Critically low 0.358-3.740 [facility] Comment on above: Performed By: #### T SH, LIPID, BMP #### [facility] [address] [address] [address] Isis Shahid XR DEXA BONE DENSITYon [...] APOLONIA HENSON Date: 2022-04-10 10:30 Normal [facility] PT - Assessmentson PT - Assessments [id number] #1.00CD:127 [facility] PT - Assessments [id number] #1.00CD:127 [facility] PT - Otheron 01-10-2022 PT - Other [id number] #1.00CD:127 [facility] PT - Assessmentson PT - Assessments [id number] 1#1.00CD:127 [facility] PT - Otheron 12-04-2021 PT - Other [id number] 0#1.00CD:127 [facility] Coding Summary.on 11-30-2021 Coding Summary. CD:[id number] Gh0bWw+PGhlYWQ+PE1FV FPzJ15ufGWdiN3LF6hIL M4KIGDVFMKSDI6KKP5mh SL2ZHfjB5KyxaDe KpeywVIiUP17ZRy8BKF5 fQhpLRatwG6viTXsE6k4 RsEiAK83pM11OKghHXNn TlM5OmKydgqrbWRq N5lkZgGsnHIcEvl+PHRh YmxlIHdpZHRoPScxMDAl EyPonIboBZ5tBx0vFZHn LWNvbGxhcHNlOiBj x4rkVPXiUCurAJ4txMfx E0RyjWH3USQrr2l4Hb74 dHI+YZTqDBN0gDycLAhz f656GdHfz8dhZNH9 eSTeHPycBGU7D19bf1Q1 EBPhNOErWTU8xTI7eM4p iGyveovcY6PfeEGyCoC9 FGB9nIPyfC2rgSvu rzfztQ4oHkp+P50IBQ3Q YAWRYN1CQzc4J0KuPdif dHI+DJ02HKLdBV81nFBp jDCqw7ukkMe1CeVf ZUIcRTY3wScvDGxms0Xp BNFrY63gxZCkh6Y3YIFy kCkhzXOqPsRnnVD7oG3d SHnygdvxz2qbjlhc Hivth5sgot19qE66S63x GLzqIPTjVAM2EWYiDUOe hVjgdy2cjF7rNl6+IDxj o6xfd8yqvDy3DrZk VKJjmdHpoWmqROC3r8Xy Pz37J4LyeOoli4BsIdv9 bh53iKEgi0Z7kTR6OMsa TWJjmM8jOZtxPwE0 VFJfTdWhzS50eDFnIEsk Ie3qlIncqOrhGH1yGVRp evurPUEgwJ7xIBPaeWHg lTfoBK5mUINgqgxp p012IpTyWCA6GRYpfPZf S6YhvY0zKmTaKGLyPKRa N0QyhATnMMlnR839BUzx WlQ7AZGngcIqI1Ag LBXdnQtiHrG4y7O2Cm4O b2RxorqgRMT8OUmsUQN7 AmMyGcOhUjF0S6BaDpb3 MAWcgTnkXC7lL7Ki JLMrjwgbozzexLW8RPFj LYMjoK42yDUnAVjyVa5w b8X0y558BLDtJCXhbW34 Kh7exUxmUFAbsOVZ tW9omjrzu7riecsyEeZk HBKaDJv5YKv3LBZejNff UdJdJRI8CcX4PRQ3iOPl zZ8zzBvesbmhpM1j Oyc+Z15hmV5lYOD0SXP1 tosoRHJjyxSlAU23MC46 C3KaEsjhfUPomJZ+PGRp ppOejGidSF5aBxHu h7lla8XbJAkzA4ZuLIRk CBasNfq5EBDsECN7jHE7 aJ2pNMUcDHtma7H0iFV0 Q2SrsgRmjd1sb4jy JHPvIIibQ68fuRKjz5F5 LREmrFL9EPHluOgmPtRb wT99Utf+VTWseWznn7Ar Wfaii5zzs1yriDh7 IjMwJSIgdmFsaWduPSJ0 f1MhOb19W52lWOcbGASv PZTuXACaLTOibWxkff9c aU9aUc5+PGNvbCB3 vCV3qR6gCZFxEmS5HCmn C585RnEqgPXuUwwle4hs h4udwBf9EpNcNDXuioQp lZngPEI1w2PjUd42 B68bWRhgHHJjGVGmKSEn DHMfdIcbms1apH8nIc5+ LU1xt1orgs58eQ87lZJ+ OHFdLMW2dGqhHMkf WLOqlF6dPDkxBlG9MWPx WfAtpI66tUOaWXrhJl3n iBkfdAmlVH2jSFCdlpyv j680YaDdx9ipIMKg eXNeYLwbTWQ5W85xw4O1 YTLeZUFlYAY2jPD5bB0v bGlnbjogbGVmdDsgdmVy hRhnSXddPZmvG122 IHRvcDsnPlBhdGllbnQg InIhEFr0M2DeTwp6PHQw rAmfFT3mePIdMQtnUy7j gAhwpLdrHO2zOXBy ohyxe791GyNtr7zoYDZo zYYfQKqrMTU9U69kq9B1 ALJnCPVdRJB5bIG2hR0x bGlnbjogbGVmdDsg coQkrBdlEHrnEBtvE899 IHRvcDsnPkJpcnRoIERh sZU7HP12VV71tTAte0G5 oFB4L5ClPMBrfpdx hzbjjQU1LBRoOXKrzN61 Ju6pdPzoSa5wXJXaUMP8 MAYtnWWxF3XywM0sYmEq MUKdLMSaB3EghCYu NRweJ156XFlzFoX1ZCMc gnFeG9JvPBApsIzdGjN1 u9C6Dj4LI1M2KT96PA50 cRDlq1A7nFE2E6Mg NOEqfhnrazafwOY4ADDh NSAtcT29Qk0qiRykKr3o TYBiIWQ1OMLipRQfA6Pg yY7jAdCzFHQeHGQe U0RxdVEsAIwgO253DHhc RaF3IHNllnFeY0VfPEBa tObqIpD7b7F6Ah3JMHp4 GU01YQ96gRNjj0H6 cUR7J4JtONVxnojvhkqu oXH0QNLfCYUfaU81Nl5m yGojPb3rEHPjMQL0VKRg bFTpJ5PbyG9tPwFd SUZaRKNsQ7WyfNHbVVtd G673GFekVpL1BFZoqbPa D3ZkLGVqqIafDsA4y1S6 Ep6UWWLtXO99CGW0 pAT8ID94CE04F2XwSpeh dGFibGU+PHRhYmxlIHdp ZHRoPScxMDAlJyBzdHls SC9tWh4pFJTeRJEy aMafpDEcTzQtx0ddLVAn QQbxFN8qrFjcO6EeqQN8 DALqo3h7Md23J10gO1Sq dXA+DCJamZO8eAN3 rV1eUoZgIhT0DDqxZ063 NiBriJUxTintn2lvj7ic dBi4OcA5MFQugoRgzLha FEU0i3XhMv25G60i IHdpZHRoPSIxNSUiIHZh pXjlwf4sdL7iIx0+PGNv mTY8pMA5tY4rToHoStC7 QOtxO404JeEnjMJx Lyaoo5ygr6ayuIx4VyYc UDKzdnQpjDaaDXS3c7Rr Fw40U5VhfPanj8QcOvt1 zg18vTMgq9Y4bFP9 U3WaQGAgjwqmwMLllGvc WW1lDJScvsqkOJBykE3y JRCcN3l8HyMlLzA1MNjt M8ZmlnC8GOCidZMc TWcsRWI8G18eg3A9QZWe ZXSmIBK5aOU2lW7ovNfa bjogbGVmdDsgdmVydGlj YIqmTMmgD808LDUc rPrwCNPepV4eGNTfeVQq xBtrRY8dMWZbfbrdSpqI K6pLPgWgIHyHBVVCSC30 US92fWTts8Z5pFF3 E8McFQOsqvpuleqbjXV2 ZTGeNYBdpA06dGBpRPyn Wz5mp4H3a566UPNgKTBz fC88Ju2nvZdkZYNj gUXBxG7pozrel9tozfgy DhCmUMGpMCs9TXj0ZSGs kAynHnObSFO3FaB3XHZ2 xPUkcY1asIxgielr mM3zUyg+MTAvMDMvMTk3 MTwvdGQ+VPWfSGE8qOwk MQzqRGGpaB7vVXUjO6g4 XgAuStV5VLhiK2Ur VCDxsofgQr15uF5gCkFn PxL5MPvyA9InhkT6CFDf dRGlTZeeZNV2Z90kq5F6 JRAoRSEmZIE7nXN4 mM3hiWglieslrHRtqTgk htOpjZvnZHasLXeeZ298 IHRvcDsnPjUwIFllYXJz VO15FM74gMFgi2K3 qEV9P3MkJIYpkwchaobu uIH1YGHqJLYheP27cUPq ATepAs6dz0A4q661TRSi ETOclY41Hj2ptEnm OPUwdEHCdA7hehklh2jp qjlkOtMoLKSiJMl5DEf2 AQNiiPbuBpAgGSM2FrM8 MDG7gOCdnD2kiHah zoghyX4mBhe+RmVtYWxl MZ67XO78vXBki5Z0lQY6 B6XuWCKdxouxgwmtmNJ3 LRSsHKEnlP97xHXs EZadUj9ok0I4g412ZXEt IMOuiB73Wb8zkXzbWAGo uYUCjR5rdwnoj4txwdla SxYpOAHxWFy4QEl5 HQDpkDyqFuNsXJG2JrR8 ATH1mDSxzL7fuVfcybdv yK3hHil+ZwTmrBNodH4n OW21WQ83F6IzXftp dGFibGU+PHRhYmxlIHdp ZHRoPScxMDAlJyBzdHls VX0eJj2eMHAoDUXenPyh xFFkVjPup0cfBGZj YTyvOG8mjKspL5JzdRY5 UAWxm5q2Wd05T17iA1Zt dXA+VJSoeKB6yME1lJ8q JsGdRmF6EWyiH831 YlSrbMUsZyfre1qtt5ea lHh7QiWpHUKfisWvpFlj ATC8t8AqFz44N35vYKqn ZHRoPSIyMCUiIHZh kAchem3usW7gFw1+PGNv zJB2vUQ5yK9bDqLeEzE0 VNuvN814HmDszKRuMvjd P97xQ5ObdGG+PHRy Frs1YEQpjSawZN7dsGHx WRnzAq7bKGE7LvAlZhFw LBdrM3IcDEAludqwqtor zNR4MSFiFFUkhD49 Zk4laEntCe3dXMPhPNG1 VMIvxOVfJ8NuvA0cJcWx NZOhUGRtY1LztTEjXKmu P069ZSulDgQ6GHVy udBeU0JvILKbwCzyLxC3 j0K5Wt3DcLqnzYPvJS4i IrRgGAn3R9NmKcw7KYNr qFsdNZ5zjAQwZUoi Fk7itJppdFcvOC3zWAUr uivuy542NnPpk9rtCIBu hZXrHMmnHOC7Q44qt9Y3 CUFpBWDmLEL9yGJ5 eN8psZttfqrduRLjtGxb hhVodLxfLKlkBQkxY931 VRGwzEioOqJNIxo7I2Lg Une2LAEmdYmaFJ7p fXJjPRuzRe0nuBhfaBly JY3qLMNlurnkk000JdAp n2fgSSBhpTHsGRbnUMF9 O76ev8T9VGWbJIRw LZY9xER2nR6nmKbalnbb bGVmdDsgdmVydGljYWwt TXexX115LTEpxBkjFk6S Nuy2T9IbCzd1JZUj oOofVO9yhAClGXebCv8n uYtytHzxFS1tUTFltssm b916TiWrp9qqHZMcnPGc SGyvZTG5Y94bo3L4 IHTaUQWaUDV8gNJ4uA9z bGlnbjogbGVmdDsgdmVy vBlnSQhnOPqjG142VSJa cDsnPlBheWVyOjwv dGQ+MP78ol58V7BtXzvh Ixh2WYZcJDO7zQO0sR1p WTDfYQusp2E9xJD8U9Qk rjCsyk0gx8ybPDRy ZTog (more content not included)... [facility] 11-29-2021 Consent [id number] 42#1.00CD:127 [facility] Notice of Noncoverageon 11-19 Notice of Noncoverage [id number] 14#1.00CD:127 [facility] PT - Assessmentson PT - Assessments [id number] 2#1.00CD:127 [facility] PT - Consentson 11-29-2021 PT - Consents [id number] 3#1.00CD:127 [facility] Nonvisit Note - PTon 022 Nonvisit Note - PT Chart reviewed with eval prepped for scheduled eval. [facility] Covid-19 PCR (CVDTB)on SARS-CoV-2 (COVID-19) RNA RAYMUNDO+probe Ql (Unsp spec) Not detected Normal NOT DETECTED [facility] Comment on above: Result Comment: This test is not yet approved or cleared by the [place] FDA. When there are no FDA-approved or cleared tests available, and other criteria are met, FDA can make tests available under an emergency access mechanism called an Emergency Use Authorization (EUA). The EUA for this test is supported by the [place] of Health and Human Service's (HHS's) declaration [...] consistent with SARS-CoV-2. Performed By: #### [facility] #### [facility] [address] [place] [address] Dr. Isis Blackburn 05-18-2021 Forms [id number] #1.00CD:127 [facility] Physician Referralon 021 Physician Referral [id number] 0#1.00CD:127 [facility] Patient Educationon 05-17-20 21 Patient Education [...] 06/24/2013 Document Revised: 02/25/2019 Document Reviewed: 02/25/2019 [employer] Patient Education ? 2019 [employer] 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 -Behavioral modifications -Consider anti-cholinergics in future if urge more predominant -Follow up in 6 months or sooner if issues arise Follow-up With When Contact Information Lue MD, Delmy Landis, URL, URO In 6 months 11/15/2021 EDT Additional Instructions: Patient Education Nora Sheikh, personally scribed for Dr. Fajardo on 05/17/2021 11:18:07. . Documentation recorded by the scribe, Celena Matute, accurately reflects the services(s) I performed and decisions made by me. Authenticated by Dr. Fajardo on 05/17/2021 11:28:10. Problem List/Past Medical History Ongoing Mixed incontinence Historical No qualifying data Procedur (more content not included)... [facility] Comment on above: Result Comment: Elec tronically Signed By: Delmy Fajardo MD\.br\Date and Time Signed: 05/17/21 11:28 EDT\.br\Electronically Co-Signed By: Nora Matute\.br\Date and Time Co-Signed: 05/17/21 11:18 EDT Vital Signs Date Time Vital Sign Value Performing Clinician Facility 11-03-2024 13:46-0400 Body height 157.48 cm [facility] 11-03-2024 13:46-0400 Body mass index (BMI) [Ratio] 30.2 kg/m2 [facility] 11-03-2024 13:46-0400 Body temperature 98.1 [degF] [facility] 11-03-2024 13:46-0400 Body weight 74.95 kg [facility] 11-03-2024 13:46-0400 Diastolic blood pressure 92 mm[Hg] [facility] 11-03-2024 13:46-0400 Heart rate 93 /min [facility] 11-03-2024 13:46-0400 SaO2% (BldA) [Mass fraction] 96 % [facility] 11-03-2024 13:46-0400 Systolic blood pressure 120 mm[Hg] [facility] 10-06-2024 08:51-0400 Body height 157.48 cm [facility] 10-06-2024 08:51-0400 Body mass index (BMI) [Ratio] 29.4 kg/m2 [facility] 10-06-2024 08:51-0400 Body temperature 98.5 [degF] [facility] 10-06-2024 08:51-0400 Body weight 73.02 kg [facility] 10-06-2024 08:51-0400 Diastolic blood pressure 88 mm[Hg] [facility] 10-06-2024 08:51-0400 Heart rate 82 /min [facility] 10-06-2024 08:51-0400 SaO2% (BldA) [Mass fraction] 98 % [facility] 10-06-2024 08:51-0400 Systolic blood pressure 134 mm[Hg] [facility] 09-18-2024 13:38-0500 Body height 157.48 cm [facility] 09-18-2024 13:38-0500 Body mass index (BMI) [Ratio] 29.8 kg/m2 [facility] 09-18-2024 13:38-0500 Body temperature 98.3 [degF] [facility] 09-18-2024 13:38-0500 Body weight 73.93 kg [facility] 09-18-2024 13:38-0500 Diastolic blood pressure 74 mm[Hg] [facility] 09-18-2024 13:38-0500 Heart rate 83 /min [facility] 09-18-2024 13:38-0500 Systolic blood pressure 124 mm[Hg] [facility] 09-12-2024 10:51-0500 Body height 157.48 cm [facility] 09-12-2024 10:51-0500 Body mass index (BMI) [Ratio] 29.7 kg/m2 [facility] 09-12-2024 10:51-0500 Body temperature 98.4 [degF] [facility] 09-12-2024 10:51-0500 Body weight 73.7 kg [facility] 09-12-2024 10:51-0500 Diastolic blood pressure 80 mm[Hg] [facility] 09-12-2024 10:51-0500 Heart rate 96 /min [facility] 09-12-2024 10:51-0500 SaO2% (BldA) [Mass fraction] 97 % [facility] 09-12-2024 10:51-0500 Systolic blood pressure 121 mm[Hg] [facility] 08-19-2024 10:30-0500 Body height 161.29 cm [facility] 08-19-2024 10:30-0500 Body mass index (BMI) [Ratio] 28.4 kg/m2 [facility] 08-19-2024 10:30-0500 Body weight 73.93 kg [facility] 08-19-2024 10:30-0500 Diastolic blood pressure 93 mm[Hg] [facility] 08-19-2024 10:30-0500 Heart rate 79 /min [facility] 08-19-2024 10:30-0500 Systolic blood pressure 144 mm[Hg] [facility] 07-08-2024 09:09-0500 Body mass index (BMI) [Ratio] 28.32 kg/m2 Heather Graham PA Work Phone: [facility] 07-08-2024 09:09-0500 Body weight 74.84 kg Heather Nehal PA Work Phone: [facility] 07-08-2024 09:09-0500 Diastolic blood pressure 68 mm[Hg] Heather [place] PA Work Phone: [facility] 07-08-2024 09:09-0500 Systolic blood pressure 110 mm[Hg] Heather [place] PA Work Phone: [facility] 06-10-2024 08:48-0500 Body mass index (BMI) [Ratio] 28.8 kg/m2 Heather Nehal PA Work Phone: [facility] 06-10-2024 08:48-0500 Body weight 76.11 kg Heather Nehal PA Work Phone: [facility] 06-10-2024 08:48-0500 Diastolic blood pressure 80 mm[Hg] Heather Graham PA Work Phone: [facility] 06-10-2024 08:48-0500 Systolic blood pressure 122 mm[Hg] Heather MALIK Work Phone: [facility] 05-14-2024 10:26-0400 Body mass index (BMI) [Ratio] 29.5 kg/m2 [facility] 05-14-2024 10:26-0400 Body weight 76.65 kg [facility] 05-14-2024 10:26-0400 Heart rate 105 /min [facility] 05-14-2024 10:04-0400 Body height 161.29 cm [facility] 05-14-2024 10:04-0400 Diastolic blood pressure 78 mm[Hg] [facility] 05-14-2024 10:04-0400 Systolic blood pressure 112 mm[Hg] [facility] 05-12-2024 09:42-0400 Body mass index (BMI) [Ratio] 29.42 kg/m2 Tay Jonny DO Work Phone: [facility] 05-12-2024 09:42-0400 Body weight 77.75 kg Tay Jonny DO Work Phone: [facility] 05-12-2024 09:42-0400 Diastolic blood pressure 70 mm[Hg] Tay Jonny DO Work Phone: [facility] 05-12-2024 09:42-0400 Systolic blood pressure 118 mm[Hg] Tay Jonny DO Work Phone: [facility] 04-13-2024 10:50-0400 Body mass index (BMI) [Ratio] 30.55 kg/m2 Tay Jonny DO Work Phone: [facility] 04-13-2024 10:50-0400 Body weight 80.74 kg Tay Jonny DO Work Phone: [facility] 04-13-2024 10:50-0400 Diastolic blood pressure 70 mm[Hg] Tay Jonny DO Work Phone: [facility] 04-13-2024 10:50-0400 Systolic blood pressure 116 mm[Hg] Tay [place] DO Work Phone: [facility] 04-17-2023 08:30-0400 Body height 157.48 cm Mary Jane Gongora Other [facility] Other 04-17-2023 08:30-0400 Body mass index (BMI) [Ratio] 31.82 kg/m2 Mary Jane Gongora Other [facility] Other 04-17-2023 08:30-0400 Body weight 78.93 kg Mary Jane Gongora Other [facility] Other 04-17-2023 08:30-0400 Diastolic blood pressure 76 mm[Hg] Mary Jane Gongora Other [facility] Other 04-17-2023 08:30-0400 Systolic blood pressure 112 mm[Hg] Mary Jane Gongora Other [facility] Other 03-21-2023 11:45-0400 Body height 157.48 cm Mary Jane Gongora Other [facility] Other 03-21-2023 11:45-0400 Body mass index (BMI) [Ratio] 32.37 kg/m2 Mary Jane Gongora Other [facility] Other 03-21-2023 11:45-0400 Body weight 80.29 kg Mary Jane Gongora Other [facility] Other 03-21-2023 11:45-0400 Diastolic blood pressure 102 mm[Hg] Mary Jane Gongora Other [facility] Other 03-21-2023 11:45-0400 Systolic blood pressure 141 mm[Hg] Mary Jane Gongora Other [facility] Other Encounters Encounter Date Encounter Type Care Provider Facility Start: 11-03-2024 End: 11-03-2024 ambulatory [facility] Work Phone: Start: 11-03-2024 End: 11-03-2024 Patient encounter procedure [facility] Physician [facility] Work Phone: Start: 10-06-2024 End: 10-06-2024 ambulatory [facility] Work Phone: Start: 10-06-2024 End: 10-06-2024 Patient encounter procedure [facility] Physician [facility] Work Phone: Start: 09-18-2024 End: 09-18-2024 ambulatory [facility] Work Phone: Start: 09-18-2024 End: 09-18-2024 Patient encounter procedure [facility] Physician [facility] Work Phone: Start: 09-12-2024 End: 09-12-2024 ambulatory [facility] Work Phone: Start: 09-12-2024 End: 09-12-2024 Patient encounter procedure [facility] Physician [facility] Work Phone: Start: 08-19-2024 End: 08-19-2024 ambulatory [facility] Work Phone: Start: 08-19-2024 End: 08-19-2024 Patient encounter procedure [facility] Physician [facility] Work Phone: Start: 07-08-2024 End: 07-08-2024 Bamboo [...] Not Available Start: 05-14-2024 End: 05-14-2024 ambulatory [facility] Work Phone: Start: 05-14-2024 End: 05-14-2024 Patient encounter procedure [facility] Physician [facility] Work Phone: Start: 05-12-2024 End: 05-12-2024 Bamboo [...] Not Available Start: 04-20-2024 Non-patient / Non-visit [facility] Physician [facility] Work Phone: Start: [...] Breast cancer screening by mammogram; Osteoporosis, post-menopausal (CMS/HCC); Encounter for weight management Start: 04-13-2024 End: 04-13-2024 ambulatory TAY JONNY Not Available Start: 04-07-2024 Patient encounter status [facility] Start: 10-17-2023 End: 10-17-2023 ambulatory TAY JONNY Not Available Start: 04-17-2023 End: 04-17-2023 ambulatory Mary Jane Gongora Other [facility] Other Start: 04-17-2023 Encounter for genera l adult medical examination without abnormal findings Mary Jane Gongora [facility] Start: 04-17-2023 Periodic preventive med est patient 40-64yrs Mary Jane Gongora [facility] Start: 04-17-2023 Telephone encounter Mary Jane Gongora [facility] Start: 03-21-2023 End: 03-21-2023 ambulatory Mary Jane Gongora Other [facility] Other Start: 03-21-2023 Encounter for genera l adult medical examination without abnormal findings Mary Jane Gongora [facility] Start: 03-21-2023 Office outpatient vi sit 15 minutes Mary Jane Gongora [facility] Start: 07-26-2022 (Televisit) Televisit Mary Jane [facility] Start: 07-26-2022 End: 07-26-2022 ambulatory Mary Jane Gongora Other [facility] Other Start: 06-25-2022 End: 06-26-[address] TAY [place] Facility:[facility] Start: 04-11-2022 Encounter for genera l adult medical examination without abnormal findings DR MARY JANE GONGORA [facility] Start: 04-10-2022 End: 04-11-[address] [...] 04-16-2028 Screening for malignant neoplasm of cervix [facility] Start: 04-08-2028 Screening for malignant neoplasm of cervix [facility] Start: 04-13-2027 Screening for malignant neoplasm of cervix Pap Smear [facility] Start: 04-04-2027 Screening for malignant neoplasm of cervix Pap Smear [facility] Start: 04-19-2025 End: 04-19-2025 Patient encounter procedure 04/19/2025 8:30 AM EDT Office Visit [facility] [address] [place] [id number] Tay [place] DO [address] [place] [place], [place] [id number] [facility] Start: 07-08-2024 End: 07-08-2024 Patient encounter procedure 07/08/2024 8:50 AM EST Office Visit [facility] [address] [place] [phone] Heather Graham, PA [address] [place], [place] [id number] Arrived [facility] Comment on above: Arrived Start: 06-10-2024 End: 06-10-2024 Patient encounter procedure 06/10/2024 8:40 AM EST Office Visit [facility] [address] [place] [id number] Heather Graham, PA [address] [place] [address] Arrived [facility] Comment on above: Arrived Start: 05-29-2024 Screening for malignant neoplasm of colon [facility] Start: 05-12-2024 End: 05-12-2024 Patient encounter procedure [facility] Comment on above: Arrived Start: 04-13-2024 End: 04-13-2025 DXA Skeletal system Views for bone density DEXA bone density Imaging Routine Osteoporosis, post-menopausal ([facility]/HCC) Expected: 04/13/2024 (Approximate), Expires: 04/13/2025 [facility] Comment on above: Expected: 04/13/2024 (Approximate), Expires: 04/13/2025 Start: 04-13-2024 End: 06-13-2025 MG Breast - bilateral Screening Bilateral screening mammogram Imaging Routine Breast cancer screening by mammogram Expected: 04/13/2024 (Approximate), Expires: 06/13/2025 [facility] Work Phone: Comment on above: Expected: 04/13/2024 (Approximate), Expires: 06/13/2025 Start: 04-13-2024 End: 04-13-2024 Patient encounter procedure 04/13/2024 10:00 AM EDT Office Visit [facility] [address] [place] [address] Tay [place] DO [address] [address] Arrived [facility] Comment on above: Arrived Start: 06-25-2023 Screening for malignant neoplasm of breast Mammogram [facility] Start: 1970 Screening for malignant neoplasm of colon [facility] Joshua Ash virus capsid IgG Ab [Units/volume] in Serum [facility] THIN PREP TIS PAP AN D HR HPV DNA THIN PREP TIS PAP AND HR HPV DNA Pathology and Cytology Routine Well woman exam with routine gynecological exam Ordered: 04/13/2024 [facility] Comment on above: Ordered: 04/13/2024 US Thyroid gland [facility] Immunizations Immunization Date Immunization Notes Care Provider Fa cility 06-28-2022 zoster vaccine, live Mary Jane Gongora Other [facility] 04-13-2022 influenza virus vaccine, split virus (incl. purified surface antigen) Mary Jane Gongora Other [facility] Other 04-13-2022 influenza virus vaccine, unspecified formulation [facility] 02-06-2022 COVID-19 Vaccine Pfi zer - Documentation Purposes Only Mary Jane Gongora Other [facility] 02-01-2022 zoster vaccine, live Mary Jane Gongora Other [facility] 06-30-2021 COVID-19 Vaccine Pfi zer - Documentation Purposes Only Mary Jane Gongora Other [facility] 04-03-2021 influenza virus vaccine, split virus (incl. purified surface antigen) Mary Jane Rolan Other [facility] Other 04-03-2021 influenza virus vaccine, unspecified formulation [facility] 05-26-2019 influenza virus vaccine, split virus (incl. purified surface antigen) Mary Jane Rolan Other [facility] Other 05-26-2019 influenza virus vaccine, unspecified formulation [facility] Payers Date Payer Category [facility] [id number] 2022 Unknown BCBS BCBS xxxxxx [id number] 2022-Present [phone] [address] [place] [address] [id number] 1971 Unknown [id number] [id number]. 2.593 1971 Unknown [id number] [id number]. 2.593 1971 Unknown [id number] [id number]. 2.593 1971 Unknown [id number] [id number]. 2.593 1971 Unknown [id number] [id number]. 2.593 1971 Unknown [id number] [id number]. 2.1259 1971 Unknown [id number] [id number]. 2.1259 1971 Unknown [id number] [id number]. 2.1259 1971 Unknown [id number] [id number]. 2.1259 1971 Unknown [id number] [id number]. 2.1259 1959 Unknown [id number] Social History Date Type Detail Facility Unknown if ever smoked [employer] [facility] Other Sex Assigned At [facility] Other Tobacco smoking status [facility] Tobacco smoking consumption unknown [facility] Start: 1970 Sex assigned at Not on file [facility] Start: 04-02-2024 End: 10-05-2024 Tobacco smoking status KYIS Never smoked tobacco (finding) [facility] Start: 1970 Sex Assigned At Female [facility] Start: 08-19-2024 End: 11-03-2024 Sex Female (finding) [facility] NEGATED: Highlighted row [facility] Clinical Notes 07-26-2022 to 08-19-2024 Note Date & Type Note Facility 08-19-2024 Evaluation note Diagnosis Onset Date Resolution Depression acute August 19, 2024 10:24am LAD (lymphadenopathy) of right cervical region acute August 19 10:24am [facility] Work Phone: 1(874) 950-867301-29-2025 Evaluation note* Diagnosis Onset Date Resolution Status Admit Date Depression acute August 19, 2024 10:24am LAD (lymphadenopathy) of right cervical region acute August 192024 10:24am Left otitis media acute Februar y 2024 10:04am [facility] Work Phone: 1(516) 261-393601-29-2025 Evaluation note* Diagnosis Onset Date Resolution Status Admit Date Depression acute August 19, 2024 10:24am LAD (lymphadenopathy) of right cervical region acute August 192024 10:24am Left otitis media acute Februar y 2024 10:04am Depression acute September 18, 2024 12:56pm Left otitis media acute Februar y 2024 12:56pm Acute febrile illness acute Mar 2024 8:49am [facility] Work Phone: 1(920) 941-376801-29-2025 Evaluation note* Diagnosis Onset Date Resolution Status Admit Date Depression acute August 19, 2024 10:24am LAD (lymphadenopathy) of right cervical region acute August 192024 10:24am Left otitis media acute Februar y 2024 10:04am Depression acute September 18, 2024 12:56pm Left otitis media acute Februar y 2024 12:56pm Acute febrile illness acute Mar 2024 8:49am Maxillary sinusitis acute November 03, 2024 1:43pm [facility] Work Phone: 1(391) 805-840712-18-2024 History of Present illness Narrative* HELENA Gaston [...] behalf of: HELENA Gaston documented [facility] [id number] History of Present illness Narrative* Charis Mauricenirmal, SUPERVISOR WINTER - 06/10/2024 8:40 AM EST Reason for [...] behalf of HELENA Gaston documented in this encounterMid [facility] [id number] History of Present illness Narrative* Chantel Padron [...] of Tay [place] DO documented in this encounterMid [facility] Health [id number] History of Present illness Narrative* HELENA Gaston [...] nursing note reviewed. Exam conducted with a well blower present. Vitals: Estimated body mass index is [...] mammogram Bilateral screening mammogram 3. Osteoporosis, post-menopausal ([facility]) M81.0 DEXA bone density Annual Exam: Patient [...] of: Tay [place] DO documented in this encounterMid [facility] [id number] Evaluation note* Encounter Date Diagnosis Assessment Notes [...] left leg (ICD-10 - M79.605) as above [facility] Other 08-31-2023 Evaluation note* Encounter Date Diagnosis [...] continue to monitor through routine blood work [facility] Other 01-05-2023 Evaluation note* Encounter Date Diagnosis [...] Jul, 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) [employer] Other Evaluation noteNo InformationN[facility] [employer] Other Evaluation note* Diagnosis Encounter for weight management [facility] Diagnosis Onset Date Resolution Status Screening for colon cancer a ruste [facility] Work Phone: Evaluation note* Diagnosis Well woman exam with routine gynecological exam Routine gynecological examination Breast cancer screening by mammogram Osteoporosis, post-menopausal ([facility] [facility] Senile osteoporosis Encounter for weight management documented in this encounter [facility]* Diagnosis Onset Date Resolution Status Admit Date LAD (lymphadenopathy) of right cervical region acute August 192024 10:24am [facility] Work Phone: History general Narrative - Reported* Type Description Date Medical History Hypothryoid Surgical History x3 Surgical History D&C x2 Surgical History Lap Yen Surgical History hysterectomy Hospitalization History See above [employer] Other Summary Purpose Family History Relationship Condition Age at Onset Recorded Date/T grayson father Diabetes mellitus Unknown mother Diabetes mellitus Unknown Renal failure Unknown Unknown Advance Directives Advance Directive Response Recorded Date/ Time Advance Directives No May 14, 2024 9:55am Advance Directive Response Recorded Date/ Time Advance Directives No May 14, 2024 8:55am Advance Directive Response Recorded Date/ Time Advance Directives No October 05, 025 8:52am Chief Complaint and Reason for Visit [...] Throat September 18, 2024 12:56pm Congestion/Exhaustion/Feels like [facility] 2024 8:49am Reason for Visit Admit Date Depression August 19, 2024 1 0:24am LAD (lymphadenopathy) of right cervical region August 19, 2024 10:24am Left otitis media September 12, 2024 10:04am Depression September 18, 2024 12:56pm Left otitis media September 18, 2024 12:56pm Acute febrile illness October 06, 2024 8 :49am Chief Complaint Admit Date lump on neck, painful to touch July 232024 10:24am left earache and sore throat September 122024 10:04am Sore Throat September 18, 2024 12:56pm Congestion/Exhaustion/Feels like [facility] 2024 8:49am Sore Throat/Sinus Infection November 03, 2024 1:43pm Reason for Visit Admit Date Depression August 19, 2024 1 0:24am LAD (lymphadenopathy) of right cervical region August 19, 2024 10:24am Left otitis media September 12, 2024 10:04am Depression September 18, 2024 12:56pm Left otitis media September 18, 2024 12:56pm Acute febrile illness October 06, 2024 8 :49am Maxillary sinusitis November 03, 2024 1:4 3pm Additional Source Comments INFORMATION SOURCE (unrecogn ized section and content) DATE CREATED AUTHOR 02/21/2022 [facility] DATE CREATED AUTHOR AUTHOR'S ORGANIZ ATION 06/27/2022 [facility] DATE CREATED AUTHOR AUTHOR'S ORGANIZ ATION 07/11/2024 [facility] dical Specialists EPIC REASON FOR [...] August 19, 2024 End: August 19, 2024 Concrete Spreader Relationship Specialty Start Date End Date Mary Jane Gongora MD [address] [place] [address] PCP - General Family Medicine 10/17/23 Concrete Spreader Relationship Specialty Start Date End Date Mary Jane Gongora MD [address] [place] [address] PCP - General Family Medicine 10/17/23 Team Status: Active Member Role Status Dates Mary Jane Gongora MD Primary Care Provide r, Attending Provider Active Start: April 20, 2024 Team Status: Inactive Member Role Status Dates Mary Jane Gongora MD Primary Care Provide r, Attending Provider Active Start: May 14, 2024 End: May 14, 2024 Concrete Spreader Relationship Specialty Start Date End Date Mary Jane Gongora MD [address] [place] [facility] [place] [id number] PCP - General Family Medicine 10/17/23 Concrete Spreader Relationship Specialty Start Date End Date Mary Jane Gongora MD [address] [place] [facility] [place] [address] PCP - General Family Medicine 10/17/23 Concrete Spreader Relationship Specialty Start Date End Date Mary Jane Gongora MD [address] [place] [facility] [place] [address] PCP - General Family Medicine 10/17/23 Concrete Spreader Relationship Specialty Start Date End Date Mary Jane Gongora MD [address] [place] [facility] [place] [address] PCP - General Family Medicine 10/17/23 Team [...] October 06, 2024 End: October 06, 2024 Team Status: Inactive Member Role Status Dates Mary Jane Gongora MD Primary Care Provider Active Start: November 03, 2024 End: November 03, 2024 Janice Borjas APRN DEMOGRAPHER-C Attending Provider Act isaac Start: November 03, 2024 End: November 03, 2024 Goals (unrecognized section and content) Goals [...] BE BASED ON THE PRIMARY CLINICAL RECORDS. [facility]. provides no warranty or guarantee of the accuracy or completeness of information in this document.
== END 2024-12-29 06:47 | disposition home or self-care (01) ==
LOC: US 06:46
PROVIDERS: PCP Family Medicine; Visit Provider Family Medicine
DX: R59.0 Localized enlarged lymph nodes (principal)
CPT/HCPCS: 76536

== ENCOUNTER 2025-05-03 15:13 | Outpatient (REF) | payer BC, SELFPAY ==
--- OUTSIDE RECORDS SUMMARY | 2025-05-03 08:30 | XMS_ITS | Encounter Summary ---
Author Organization [facility] Address [address] [place] [address] Care Team Providers Care Equal Opportunity Counselor Name Role Phone Mary Jane Garcia MD Primary Care Provider [phone] Daniel Haley DO Unavailable [phone] Reason for Visit * Reason Comments Well Women Visit Encounter Details Date Type Department Care Team (Late st Contact Info) Description 05/03/2025 8:30 AM EDT Office Visit [facility] [place] [facility] [address] [place] [address] Conrad Fuller DO [address] [place] [address] Well woman exam with routine gynecological exam; Encounter for screening mammogram for malignant neoplasm of breast Social History Tobacco Use Types Packs/Day Years Used Date Smoking Tobacco: Never Smokeless Tobacco: Never Alcohol Use Standard Drinks/Week Comments Not Currently 0 (1 standard drink = 0.6 oz pur e alcohol) Comments No Sex and Gender Information Value Date Recorded Sex Assigned at Not on file Legal Sex Female 11:47 PM EDT Gender Identity Not on file Sexual Orientation Not on file documented as of this encounter Last Filed Vital Signs Vital Sign Reading Time Taken Comments Blood Pressure 110/82 05/03/2025 8:33 AM EDT Pulse - - Temperature - - Respiratory Rate - - Oxygen Saturation - - Inhaled Oxygen Concentration - - Weight 77.1 kg (170 lb) 05/03/2025 8:33 AM EDT Height - - Body Mass Index 30.11 01/08/2025 10:06 AM EDT documented in this encounter Progress Notes * Meeta Patel, PLEATING MACHINE OPERATOR - 05/03/2025 8:30 AM EDT Reason for Appointment: Patient ID: Annel Alcantara is a 55 y.o. female who presents for Well Women Visit Patient presents today for Annual Exam. MEDICATIONS Current Outpatient Medications Medication Instructions estradiol (ESTRACE) 0.5 mg, Oral, Daily levothyroxine (Synthroid, Levoxyl) 137 MCG tablet metFORMIN XR (GLUCOPHAGE-XR) 1,000 mg, Oral, Daily with evening meal, Do not crush, chew, or split. venlafaxine XR (EFFEXOR XR) 37.5 mg, Daily ALLERGIES Allergies Allergen Reactions Latex Unknown and Rash PROBLEMS Active Ambulatory Problems Diagnosis Date Noted No Active Ambulatory Problems Resolved Ambulatory Problems Diagnosis Date Noted Acquired hypothyroidism 06/08/2015 Bilateral fibrocystic breast changes 04/24/2016 Incontinence 01/06/2025 Pain in joint involving ankle and foot 01/06/2025 S/P hysterectomy 04/24/2016 No Additional Past Medical History HISTORY PAST MEDICAL HISTORY SOCIAL HISTORY Past Medical History: Diagnosis Date Acquired hypothyroidism 06/08/2015 Bilateral fibrocystic breast changes 04/24/2016 Incontinence 01/06/2025 Pain in joint involving ankle and foot 01/06/2025 S/P hysterectomy 04/24/2016 Social History Tobacco Use Smoking status: Never Smokeless tobacco: Never Substance Use Topics Alcohol use: Not Currently Drug use: Defer FAMILY HISTORY No family history on file. SURGICAL HISTORY Past Surgical History: Procedure Laterality Date SECTION, CLASSIC x 3 CHOLECYSTECTOMY HYSTERECTOMY REVIEW OF SYSTEMS Review of Systems: Review of Systems Constitutional: Negative. HENT: Negative. Eyes: Negative. Respiratory: Negative. Cardiovascular: Negative. Gastrointestinal: Negative. Genitourinary: Negative. Musculoskeletal: Negative. Skin: Negative. Neurological: Negative. All other systems reviewed and are negative. Hematological: Negative. Endocrine: Negative. Allergic/Immunologic: Negative. OBJECTIVE Objective: Physical Exam Constitutional: Appearance: Normal appearance. She is well-developed. Genitourinary: Vulva normal. Breasts: Breasts are soft. Right: Normal. Left: Normal. Cardiovascular: Rate and Rhythm: Normal rate and regular rhythm. Pulmonary: Effort: Pulmonary effort is normal. Breath sounds: Normal breath sounds. Abdominal: General: Bowel sounds are normal. There is no distension. Palpations: Abdomen is soft. Tenderness: There is no abdominal tenderness. There is no guarding or rebound. Musculoskeletal: General: No swelling. Normal range of motion. Right lower leg: No edema. Left lower leg: No edema. Neurological: Mental Status: She is alert and oriented to person, place, and time. Skin: General: Skin is warm and dry. Psychiatric: Mood and Affect: Mood normal. Behavior: Behavior normal. Vitals and nursing note reviewed. Exam conducted with a biofuels technology development manager present. Vitals: Estimated body mass index is 30.11 kg/m?? as calculated from the following: Height as of 01/08/25: 5' 3 . Weight as of this encounter: 170 lb. BP: 110/82 No LMP recorded (lmp unknown). Patient has had a hysterectomy. ASSESSMENT & PLAN ICD-10-CM 1. Well woman exam with routine gynecological exam Z01.419 THIN PREP TIS PAP AND HR HPV DNA 2. Encounter for screening mammogram for malignant neoplasm of breast Z12.31 Bilateral screening mammogram Bilateral screening mammogram Annual: Patient presents today for an annual exam. Patient states she is doing well and has no complaints. Pap was obtained without difficulty and patient given mammogram order to have scheduled/obtained. Orders Placed This Encounter Procedures Bilateral screening mammogram Patient is going to do cologuard verses colonoscopy. Follow Up: Patient is to return in one year for annual unless needed otherwise. Documented by Meeta Patel LPN on behalf of: Conrad Fuller DO documented in this encounter Plan of Treatment Upcoming Encounters Date Type Department Care Team (Late st Contact Info) Description 05/09/2026 8:30 AM EDT Procedure Visit [facility] [address] [place] [address] Conrad Fuller DO [address] [place] [address] Scheduled Orders Name Type Priority Associated Diagnoses Orde r Schedule THIN PREP TIS PAP AND HR HPV DNA Pathology and Cytology Routine Well woman exam with routine gynecological exam Ordered: 05/03/2025 Bilateral screening mammogram Imaging Routine Encounter for screening mammogram for malignant neoplasm of breast Expected: 05/03/2025, Expires: 07/03/2026 documented as of this encounter Visit Diagnoses Diagnosis Well woman exam with routine gynecological exam Routine gynecological examination Encounter for screening mammogram for malignant neoplasm of breast documented in this encounter Care Teams Equal Opportunity Counselor Relationship Specialty Start Date End Date Mary Jane Garcia MD PCP - General Family Medicine 10/17/23 Daniel Haley DO [address] [place] [address] Otolaryngology 01/08/25 documented as of this encounter
--- OUTSIDE RECORDS SUMMARY | 2025-05-03 15:17 | XMS_ITS | Clinical Summary ---
Author Organization [facility] tem Address [id number] [address] [place] [address] Care Team Providers Care Rehabilitation Therapy Aide Name Role Phone Unavailable Primary Care Provider Unavailabl e Social History Tobacco Use Types Packs/Day Years Used Date Smoking Tobacco: Never Assessed Childcare Answer Date Recorded Childcare Unknown 12/30/2018 Employment Answer Date Recorded Employment Unknown 12/30/2018 Purpose - Life Answer Date Recorded Purpose and direction in life Unknown Comments Unknown Sex and Gender Information Value Date Recorded Sex Assigned at Not on file Legal Sex Female 5:15 PM EDT Gender Identity Not on file Sexual Orientation Not on file Plan of Treatment Health Maintenance Due Date Last Done Comments Depression Screening 1983 Tobacco Screening 1983 Adult BMI Screening 1989 DTaP,Tdap and Td Vaccines (1 - Tdap) 1990 Pap Smear 1992 Zoster (Shingles) Vaccine (1 of 2) 2021 Influenza Vaccine 03/22/2025 Medical Devices Not on file Insurance [employer]
--- OUTSIDE RECORDS SUMMARY | 2025-05-03 15:17 | XMS_ITS | Clinical Summary ---
Author Organization [facility] Address [address] [place] [address] Care Team Providers Care Cap Blocker Name Role Phone Mary Jane Garcia MD Primary Care Provider [phone] Daniel Haley DO Unavailable [phone] Allergies Active Allergy Reactions Criticality Noted Date Comments Latex Unknown,Rash Low 04/08/2023 Medications levothyroxine (Synthroid, Levoxyl) 137 MCG tablet 10/04/2023 Active estradiol (Estrace) 0.5 MG tabletIndicatio ns:Menopause TAKE 1 TABLET BY MOUTH EVERY DAY 90 tablet 3 12/07/2024 Active venlafaxine XR (Effexor XR) 37.5 MG 24 hr capsule Take 37.5 mg by mouth Daily Do not crush or chew. Active metFORMIN XR (Glucophage-XR) 500 MG 24 hr tabletIndicatio ns:Encounter for weight management TAKE 2 TABLETS (1,000 MG) BY MOUTH IN THE EVENING. TAKE WITH MEALS DO NOT CRUSH, CHEW, OR SPLIT. 180 tablet 3 03/12/2025 Active Active Problems No known active problems Resolved Problems Problem Noted Date Diagnosed Date Resolved Date Incontinence 01/06/2025 01/06/2025 Pain in joint involving ankle and foot 01/06/2025 01/06/2025 Bilateral fibrocystic breast changes 04/24/2016 01/06/2025 S/P hysterectomy 04/24/2016 01/06/2025 Acquired hypothyroidism 06/08/201512/20 Encounters Date Type Department Care Team Description 05/03/2025 8:30 AM EDT Office Visit [facility] [place] [facility] [address] [place] [address] Conrad Fuller, Well woman exam with routine gynecological exam; Encounter for screening mammogram for malignant neoplasm of breast 05/03/2025 Abstract [facility] [address] [place] [address] Conrad Fuller, 05/03/2025 Bamboo flowsheet [facility] [address] [place] [address] Conrad Fuller, 03/06/2025 Refill [facility] [address] [place] [address] Conrad Fuller, Encounter for weight management from Last 3 Months Immunizations Immunization Administration Dates Next Due Influenza, Injectable, MDCK, preservative free 03/27/2024 Influenza, injectable, MDCK, preservative free, quadrivalent 04/10/2023,04/13/2022 Influenza, injectable, quadrivalent 05/02/2020,1 07/26/2018,05/21/2016 Influenza, injectable, quadr ivalent, preservative free 04/03/2021 Pneumococcal conjugate vacci ne, 21 valent (PCV21), polysaccharide [id number] conjugate, preservative free 09/27/2024 Tdap 09/27/2024 Zoster, Recombinant 06/28/2022,02/01/2022 Social History Tobacco Use Types Packs/Day Years Used Date Smoking Tobacco: Never Smokeless Tobacco: Never Tobacco Cessation:Counseling Given: Not Answered Alcohol Use Standard Drinks/Week Comments Not Currently 0 (1 standard drink = 0.6 oz pur e alcohol) Comments No Sex and Gender Information Value Date Recorded Sex Assigned at Not on file Legal Sex Female 11:47 PM EDT Gender Identity Not on file Sexual Orientation Not on file Last Filed Vital Signs Vital Sign Reading Time Taken Comments Blood Pressure 110/82 05/03/2025 8:33 AM EDT Pulse - - Temperature - - Respiratory Rate - - Oxygen Saturation - - Inhaled Oxygen Concentration - - Weight 77.1 kg (170 lb) 05/03/2025 8:33 AM EDT Height 160 cm (5' 3 ) 01/08/2025 10:06 AM EDT Body Mass Index 30.11 01/08/2025 10:06 AM EDT Plan of Treatment Upcoming Encounters Date Type Department Care Team (Late st Contact Info) Description 05/09/2026 8:30 AM EDT Procedure Visit [facility] [address] [place] [address] Conrad Fuller DO [address] [place] [address] Health Maintenance Due Date Last Done Comments CT Colonography 1971 Colonoscopy 1971 FIT 1971 FOBT 1971 Sigmoidoscopy 1971 Mammogram 08/07/2025 08/07/2024, 12/0 11/2021, 04/24/2016, Additional history exists Pap Smear 04/13/2027 04/13/2024, 04/08/2023, 03/22 Colorectal Cancer Screening 07/24/2027 FIT-DNA 07/24/2027 07/24/2024, 05/29/2021 Cervical Cancer Screening 04/16/2028 HPV/Cotest 04/16/2028 04/16/2023 Influenza Vaccine Completed 03/21/2025, , 04/10/2023, Additional history exists Procedures Procedure Name Priority Date/Time Associated Diagnosis Comments MM TOMOSYNTHESIS SCREENING BI 08/07/2024 11:53 AM EST PAP SMEAR Routine 04/13/2024 12:00 AM EDT THINPREP PAP AND HPV MRNA E6/E7 W/RFL HPV 16,18/45 Routine 04/16/2023 12:08 PM EDT Well woman exam with routine gynecological exam from Last 3 Months or Most Recently Relevant to Health Maintenance Results * MM TOMOSYNTHESIS SCREENING BI (08/07/2024 11:53 AM EST) Anatomical Region Laterality Modality Other 08/07/2024 11:5 3 AM EST Narrative 08/07/2024 11:55 [place] [address] Mammography Report Signed Patient: ANNEL ALCANTARA MR#: [id number] : 1970 Acct:[id number] Age/Sex: 54 / F ADM Date: 08/07/24 Loc: MAMMO Attending Dr: Conrad Fuller D.O. Ordering Physician: Conrad Fuller D.O. Results: Date of Service: 08/07/24 Follow Up: Procedure(s): MM tomosynthesis screening BI Accession Number(s): [id number] cc: Mary Jane Garcia M.D.; Conrad Fuller D.O. Patient Name: ANNEL ALCANTARA MR#: [id number] : 1970 Exam Date: 08/07/2024 Ordering Doctor: DR Conrad Fuller . RADIOLOGY REPORT PROCEDURE: MM TOMOSYNTHESIS SCREENING BI COMPARISON: MM TOMOSYNTHESIS SCREENING BI, 07/23/2023. MG MAMM SCREEN 3D MACARIO CAD, 06/25/2022. MG MAMM SCREEN 3D MACARIO CAD, 06/23/2021. MG MAMM MACARIO SCRN W CAD DIG, 11/05/2013. INDICATIONS: Screening Calculator Name NCI Breast Cancer Risk Assessment Tool 5 Year Breast Cancer Risk 1.70% Lifetime Breast Cancer Risk 12.60% Personal Breast Cancer No Personal Ovarian Cancer No Treatments None Family Cancers None LOCATION: [facility] BREAST COMPOSITION: The breasts are heterogeneously dense,which may obscure small masses. FINDINGS: DIAGNOSTIC CATEGORY 1--NEGATIVE. RIGHT BREAST: No significant suspicious finding. No significant change has occurred. LEFT BREAST: No significant suspicious finding. No significant change has occurred. RECOMMENDATIONS: ROUTINE MAMMOGRAM AND CLINICAL EVALUATION IN 12 MONTHS. PLEASE NOTE: A NORMAL MAMMOGRAM DOES NOT EXCLUDE THE POSSIBILITY OF BREAST CANCER. A CLINICALLY SUSPICIOUS PALPABLE LUMP SHOULD BE BIOPSIED. Dictated by: Gurdeep Avendaño M.D. on 08/07/2024 at 11:46 Approved by: Gurdeep Avendaño M.D. on 08/07/2024 at 11:53 Dictated By: Gurdeep Avendaño M.D. Signed By: 08/07/24 1155 DD/ 1153 TD/TT: Car Runner: Procedure Note Radiology, Radiologist, MD - 08/07/2024 [place] [address] Mammography Report Signed Patient: ANNEL ALCANTARA EMR#: [id number] : 1970Acct:[id number] Age/Sex: 54 / FADM Date: 08/07/24 Loc: MAMMO Attending Dr: Conrad Fuller D.O. Ordering Physician: Conrad Fuller D.O.Results: Date of Service: 08/07/24Follow Up: Procedure(s): MM tomosynthesis screening BI Accession Number(s): [id number] cc: Mary Jane Garcia M.D.; Conrad Fuller D.O. Patient Name: ANNEL ALCANTARA MR#: [id number] : 1970 Exam Date: 08/07/2024 Ordering Doctor: DR Conrad Fuller . RADIOLOGY REPORT PROCEDURE: MM TOMOSYNTHESIS SCREENING BI COMPARISON: MM TOMOSYNTHESIS SCREENING BI, 07/23/2023. MG MAMM VEMYYR9B MACARIO CAD, 06/25/2022. MG MAMM SCREEN 3D MACARIO CAD, 06/23/2021. MG MAMM BILSCRN W CAD DIG, 11/05/2013. INDICATIONS: Screening Calculator Name NCI Breast Cancer Risk Assessment Tool 5 Year Breast Cancer Risk 1.70% Lifetime Breast Cancer Risk 12.60% Personal Breast Cancer No Personal Ovarian Cancer No Treatments None Family Cancers None LOCATION: [facility] BREAST COMPOSITION: The breasts are heterogeneously dense,which may obscure small masses. FINDINGS: DIAGNOSTIC CATEGORY 1--NEGATIVE. RIGHT BREAST: No significant suspicious finding. No significant changehas occurred. LEFT BREAST: No significant suspicious finding. No significant changehas occurred. RECOMMENDATIONS: ROUTINE MAMMOGRAM AND CLINICAL EVALUATION IN 12 MONTHS. PLEASE NOTE: A NORMAL MAMMOGRAM DOES NOT EXCLUDE THE POSSIBILITY OFBREAST CANCER. A CLINICALLY SUSPICIOUS PALPABLE LUMP SHOULD BE BIOPSIED. Dictated by: Gurdeep Avendaño M.D. on 08/07/2024 at 11:46 Approved by: Gurdeep Avendaño M.D. on 08/07/2024 at 11:53 Dictated By: Gurdeep Avendaño M.D. Signed By:08/07/24 1155 DD/ 1153 TD/TT: Car Runner: Conrad Jonny DO [facility] Final Result * Pap Smear (04/13/2024 12:00 AM EDT) Swab Cervical swab / Unknown Jonny Nurse [facility] LAB CYTOLOGY ORDERABLES Final Result EXTERNAL LAB * THINPREP PAP AND HPV MRNA E6/E7 W/RFL HPV 16,18/45 (04/16/2023 12:08 PM EDT) Conrad Jonny DO LAB BLOOD ORDERABLES Final Resul t Performing Organization Address City/[facility]/ZIP Co de Phone Number EXTERNAL LAB from Last 3 Months or Most Recently Relevant to Health Maintenance Insurance Care Teams Cap Blocker Relationship Specialty Start Date End Date Mary Jane Garcia MD PCP - General Family Medicine 10/17/23 Daniel Haley DO [address] [place] [address] Otolaryngology 01/08/25
--- OUTSIDE RECORDS SUMMARY | 2025-05-03 15:17 | XMS_ITS | Clinical Summary ---
Author Organization [facility] Address [address] [place] [address] Care Team Providers Care Navy Airspace Officer Name Role Phone Unavailable Primary Care Provider Unavailabl e Social History Tobacco Use Types Packs/Day Years Used Date Smoking Tobacco: Never Assessed Comments Unknown Sex and Gender Information Value Date Recorded Sex Assigned at Not on file Legal Sex Female 9:34 PM EDT Gender Identity Not on file Sexual Orientation Not on file Last Filed Vital Signs Vital Sign Reading Time Taken Comments Blood Pressure 123/82 08/29/2020 8:58 AM EST Pulse - - Temperature - - Respiratory Rate - - Oxygen Saturation 97% 08/29/2020 8:58 AM EST Inhaled Oxygen Concentration - - Weight 79.4 kg (175 lb) 08/12/2020 10:29 AM EST Height 157.5 cm (5' 2 ) 08/29/2020 8:58 AM EST Body Mass Index 32.01 08/12/2020 10:29 AM EST Plan of Treatment Not on file
--- OUTSIDE RECORDS SUMMARY | 2025-05-03 15:17 | XMS_ITS | Encounter Summary ---
Author Organization [facility] Address [address] [place] [address] Care Team Providers Care Slime Plant Operator Name Role Phone Mary Jane Garcia MD Primary Care Provider [phone] Daniel Haley DO Unavailable [phone] Encounter Details Date Type Department Care Team (Late st Contact Info) Description 04/20/2024 Clinisync Result Encounter [facility] External Department Unsolicited Tay Fuller DO [address] [place] [address] Social History Tobacco Use Types Packs/Day Years Used Date Smoking Tobacco: Never Assessed Comments No Sex and Gender Information Value Date Recorded Sex Assigned at Not on file Legal Sex Female 11:47 PM EDT Gender Identity Not on file Sexual Orientation Not on file documented as of this encounter Plan of Treatment Upcoming Encounters Date Type Department Care Team (Late st Contact Info) Description 05/09/2026 8:30 AM EDT Procedure Visit [facility] [address] [place] [address] Tay Fuller DO [address] [place] [address] documented as of this encounter Procedures Procedure Name Priority Date/Time Associated Diagnosis Comments XR DEXA AXIAL SKELETON 04/20/2024 5:19 PM EDT documented in this encounter Results * XR DEXA AXIAL SKELETON (04/20/2024 5:19 PM EDT) Anatomical Region Laterality Modality Other 04/20/2024 5:19 PM EDT Narrative 04/20/2024 5:22 PM EDT [address] [address] XRay Report Signed Patient: ANNEL ALCANTARA MR#: [id number] : 1970 Acct:[id number] Age/Sex: 53 / F ADM Date: 04/20/24 Loc: RAD Attending Dr: Tay Fuller D.O. Ordering Physician: Tay Fuller D.O. Date of Service: 04/20/24 Procedure(s): XR DEXA axial skeleton Accession Number(s): [id number] cc: Mary Jane Garcia M.D.; Tay Fuller D.O. [address] [address] Patient Name: ANNEL ALCANTARA MRN: [id number] date: 1970 Sex: F Assigned Patient Location: [facility] Current Patient Location: [facility] Accession/Order Number: [id number] Exam Date: 04/20/2024 11:28 Report Date: 04/20/2024 17:19 At the request of: TAY FULLER Procedure: XR DEXA axial skeleton EXAMINATION: XR DEXA axial skeleton HISTORY: Osteoporosis, Post Menopausal COMPARISON: DEXA bone densitometry 04/10/2022 TECHNIQUE: Dual-energy X-ray absorptiometry (DXA) was performed. FINDINGS: SPINE ANALYSIS: Average bone mineral density is 1.332 g/cm2. T-score (standard deviation relative to young adult mean): 1.3 . -1.2% change since prior study. HIP ANALYSIS: Lowest bone mineral density is within the right femoral neck, 1.095 g/cm2. T-score (standard deviation relative to young adult mean): 0.4 . -2.5% change since prior study. XR/XR DEXA axial skeleton IMPRESSION: World Health Organization Classification: Normal - Low Fracture Risk FRAX: Cannot calculate. Pharmacologic treatment recommendations * No uniform recommendation applies to all patients. Management plans must be individualized. * Consider initiating pharmacologic treatment in postmenopausal women and men >= 50 years of age who have the following: Primary fracture prevention: * T-score <= - 2.5 at the femoral neck, total hip, lumbar spine, 33% radius (some uncertainty with existing data) by DXA. * Low bone mass (osteopenia: T-score between - 1.0 and - 2.5) at the femoral neck or total hip by DXA with a 10-year hip fracture risk >= 3% or a 10-year major osteoporosis-related fracture risk >= 20% (i.e., clinical vertebral, hip, forearm, or proximal humerus) based on the US-adapted FRAXregistered model. Secondary fracture prevention: * Fracture of the hip or vertebra regardless of BMD [4, 5]. * Fracture of proximal humerus, pelvis, or distal forearm in persons with low bone mass (osteopenia: T-score between - 1.0 and - 2.5). The decision to treat should be individualized in persons with a fracture of the proximal humerus, pelvis, or distal forearm who do not have osteopenia or low BMD [12, 13]. Mikal MS, Yaniv SL, Lisa KL, Jens EM, Katya KG, AJ, Josafat ES. The clinician's guide to prevention and treatment of osteoporosis. Osteoporos Int. 2021;33(10):5494-2052. doi: 10.1007/g67326-341-72396-n. Epub 2021Nov 16. Erratum in: Osteoporos Int. 2021Feb 15;: PMID: 56032147; PMCID: WFU3127308. Electronically authenticated by: GURDEEP AVENDAÑO Date: 04/20/2024 17:19 Dictated By: Gurdeep Avendaño M.D. Signed By: 04/20/24 172 DD/ 1719 TD/TT: Cytometry Technologist: Procedure Note Radiology, Radiologist, - 04/20/2024 [place] [address] XRay Report Signed Patient: ANNEL ALCANTARA EMR#: [id number] : 1970Acct:[id number] Age/Sex: 53 / FADM Date: 04/20/24 Loc: RAD Attending Dr: Tay Fuller D.O. Ordering Physician: Tay Fuller D.O. Date of Service: 04/20/24 Procedure(s): XR DEXA axial skeleton Accession Number(s): [id number] cc: Mary Jane Garcia M.D.; Tay Fuller D.O. [place] [id number] Patient Name: ANNEL ALCANTARA MRN: [id number] date: 1970 Sex: F Assigned Patient Location: [facility] Current Patient Location: [facility] Accession/Order Number: [id number] Exam Date: 04/20/2024 11:28 Report Date: 04/20/2024 17:19 At the request of: TAY FULLER Procedure: XR DEXA axial skeleton EXAMINATION: XR DEXA axial skeleton HISTORY: Osteoporosis, Post Menopausal COMPARISON: DEXA bone densitometry 04/10/2022 TECHNIQUE: Dual-energy X-ray absorptiometry (DXA) was performed. FINDINGS: SPINE ANALYSIS: Average bone mineral density is 1.332 g/cm2. T-score (standard deviation relative to young adult mean): 1.3 . -1.2% change since prior study. HIP ANALYSIS: Lowest bone mineral density is within the right femoral neck, 1.095 g/cm2. T-score (standard deviation relative to young adult mean): 0.4 . -2.5% change since prior study. XR/XR DEXA axial skeleton IMPRESSION: World Health Organization Classification: Normal - Low Fracture Risk FRAX: Cannot calculate. Pharmacologic treatment recommendations * No uniform recommendation applies to all patients. Management plans mustbe individualized. * Consider initiating pharmacologic treatment in postmenopausal women andmen >= 50 years of age who have the following: Primary fracture prevention: * T-score <= - 2.5 at the femoral neck, total hip, lumbar spine, 33%radius (some uncertainty with existing data) by DXA. * Low bone mass (osteopenia: T-score between - 1.0 and - 2.5) at thefemoral neck or total hip by DXA with a 10-year hip fracture risk >= 3% or b66-lcoh major osteoporosis-related fracture risk >= 20% (i.e., clinical vertebral, hip, forearm, or proximal humerus) based on the US-adapted FRAXregisteredmodel. Secondary fracture prevention: * Fracture of the hip or vertebra regardless of BMD [4, 5]. * Fracture of proximal humerus, pelvis, or distal forearm in persons withlow bone mass (osteopenia: T-score between - 1.0 and - 2.5). The decision totreat should be individualized in persons with a fracture of the proximalhumerus, pelvis, or distal forearm who do not have osteopenia or low BMD [12, 13]. Mikal MS, Yaniv SL, Lisa KL, Jens EM, Katya KG, AJ,Josafat ES. The clinician's guide to prevention and treatment of osteoporosis.Osteoporos Int. 2021;33(10):2910-9729. doi: 10.1007/e09986-408-35343-r. Epub . Erratum in: Osteoporos Int. 2021Feb 15;: PMID: 01630545; PMCID: [id number]. Electronically authenticated by: GURDEEP AVENDAÑO Date: 04/20/2024 17:19 Dictated By: Gurdeep Avendaño M.D. Signed By:04/20/241721 DD/ 18 TD/TT: Cytometry Technologist: [facility] Final Result documented in this encounter Visit Diagnoses Not on filedocumented in this encounter Care Teams Slime Plant Operator Relationship Specialty Start Date End Date Mary Jane Garcia MD PCP - General Family Medicine 10/17/23 Daniel Haley DO [address] [place] [address] Otolaryngology 01/08/25 documented as of this encounter
--- OUTSIDE RECORDS SUMMARY | 2025-05-03 15:17 | XMS_ITS | Encounter Summary ---
Author Organization [facility] Address [address] [place] [address] Care Team Providers Care Radio Equipment Installer Name Role Phone Mary Jane Garcia MD Primary Care Provider [phone] Daniel Haley DO Unavailable [phone] Encounter Details Date Type Department Care Team (Late Contact Info) Description 05/18/2024 Abstract [facility] [address] [place] [address] Conrad Fuller DO [address] [place], [facility] Social History Tobacco Use Types Packs/Day Years Used Date Smoking Tobacco: Never Assessed Comments No Sex and Gender Information Value Date Recorded Sex Assigned at Not on file Legal Sex Female 11:47 PM EDT Gender Identity Not on file Sexual Orientation Not on file documented as of this encounter Plan of Treatment Upcoming Encounters Date Type Department Care Team (Late Contact Info) Description 05/09/2026 8:30 AM EDT Procedure Visit [facility] [address] [place] [address] Conrad Fuller DO [address] [place] [address] documented as of this encounter Visit Diagnoses Not on filedocumented in this encounter Care Teams Radio Equipment Installer Relationship Specialty Start Date End Date Mary Jane Garcia MD PCP - General Family Medicine 10/17/23 Daniel Haley DO [address] [place] [address] Otolaryngology 01/08/25 documented as of this encounter
--- OUTSIDE RECORDS SUMMARY | 2025-05-03 15:17 | XMS_ITS | Encounter Summary ---
Author Organization [facility] Address [address] [place] [address] Care Team Providers Care Target Setter Name Role Phone Mary Jane Garcia MD Primary Care Provider [phone] Daniel Haley DO Unavailable [phone] Encounter Details Date Type Department Care Team (Late st Contact Info) Description 08/07/2024 Clinisync Result Encounter [facility] External Department Unsolicited Conrad Fuller DO [address] [place] [address] Social History Tobacco Use Types Packs/Day Years [...] AM EDT Procedure Visit [facility] [address] [place] [address] Conrad Fuller DO [address] [place] [address] documented as of this encounter Procedures Procedure Name Priority Date/Time Associated Diagnosis Comments MM TOMOSYNTHESIS SCREENING BI 08/07/2024 11:53 AM EST documented in this encounter Results * MM TOMOSYNTHESIS SCREENING BI (08/07/2024 11:53 AM EST) Anatomical Region Laterality Modality Other 08/07/2024 11:5 3 AM EST Narrative 08/07/2024 11:55 AM EST [address] [address] Mammography Report Signed Patient: ANNEL ALCANTARA MR#: [id number] : 1970 Acct:[id number] Age/Sex: 54 / F ADM Date: 08/07/24 Loc: MAMMO Attending Dr: Conrad Fuller D.O. Ordering Physician: Conrad Fuller D.O. Results: Date of Service: 08/07/24 Follow Up: Procedure(s): MM tomosynthesis screening BI Accession Number(s): [id number] cc: Mary Jane Garcia M.D.; Conrad Fuller D.O. Patient Name: ANNEL ALCANTARA MR#: [id number] : 1970 Exam Date: 08/07/2024 Ordering Doctor: [...] Family Cancers None LOCATION: [facility] BREAST COMPOSITION: The breasts are heterogeneously [...] Signed By: 08/07/24 1155 DD/ 1153 TD/TT: Chemical Process Project Engineer: Procedure Note Radiology, Radiologist, MD - 08/07/2024 [facility] [place] [id number] Mammography Report Signed Patient: ANNEL ALCANTARA EMR#: [id number] : 1970Acct:[id number] Age/Sex: 54 / FADM Date: 08/07/24 Loc: MAMMO Attending Dr: Conrad Fuller D.O. Ordering Physician: Conrad Fuller D.O.Results: Date of Service: 08/07/24Follow Up: Procedure(s): MM tomosynthesis screening BI Accession Number(s): [id number] cc: Mary Jane Garcia M.D.; Conrad Fuller D.O. Patient Name: ANNEL ALCANTARA MR#: [id number] : 1970 Exam Date: 08/07/2024 Ordering Doctor: DR Conrad Fuller . RADIOLOGY REPORT PROCEDURE: MM TOMOSYNTHESIS SCREENING BI COMPARISON: MM TOMOSYNTHESIS SCREENING BI, 07/23/2023. MG MAMM [id number] MACARIO CAD, 06/25/2022. MG MAMM SCREEN 3D MACARIO CAD, 06/23/2021. MG MAMM BILSCRN W CAD DIG, 11/05/2013. INDICATIONS: Screening Calculator Name NCI Breast Cancer Risk Assessment Tool 5 Year Breast Cancer Risk 1.70% Lifetime Breast Cancer Risk 12.60% Personal Breast Cancer No Personal Ovarian Cancer No Treatments None Family Cancers None LOCATION: [facility] BREAST COMPOSITION: The breasts are heterogeneously [...] M.D. Signed By:08/07/24 1155 DD/ 1153 TD/TT: Chemical Process Project Engineer: [facility] Jonny DO [facility] Final Result documented in this encounter Visit Diagnoses Not on filedocumented in this encounter Care Teams Target Setter Relationship Specialty Start Date End Date Mary Jane Garcia MD PCP - General Family Medicine 10/17/23 Daniel Haley DO [address] [place] [address] Otolaryngology 01/08/25 documented as of this encounter
--- OUTSIDE RECORDS SUMMARY | 2025-05-03 15:17 | XMS_ITS | Encounter Summary ---
Author Organization [facility] Address [address] [place] [address] Care Team Providers Care Pill Machine Operator Name Role Phone Mary Jane Garcia MD Primary Care Provider [phone] Daneil Haley DO Unavailable [phone] Encounter Details Date Type Department Care Team (Late st Contact Info) Description 05/03/2025 Bamboo flowsheet [facility] [address] [address] Conrad Fuller DO [address] [place], [facility]11 Social History Tobacco Use Types Packs/Day Years [...] AM EDT Procedure Visit [facility] [address] [address] Conrad Fuller DO [address] [place], [place] [address] documented as of this encounter Visit Diagnoses Not on filedocumented in this encounter Care Teams Pill Machine Operator Relationship Specialty Start Date End Date Mary Jane Garcia MD PCP - General Family Medicine 10/17/23 Daniel Haley DO [address] [place] [place] [address] Otolaryngology 01/08/25 documented as of this encounter
--- OUTSIDE RECORDS SUMMARY | 2025-05-03 15:18 | XMS_ITS | Patient Health Record ---
Author Organization [facility] [place] Address [address] [place] [address] Care Team Providers Care Gallery Or Museum Guide Name Role Phone Mary Jane Garcia Primary Care Provider Unavailabl e Allergies No Known Allergies Reason For Referral No Information Medications Medication SIG (Take, Route, Frequency, Duration) Notes Start Date End Date Status Levothyroxine Sodium 125 MCG 1 tablet in the morning on an empty stomach Orally Once a day Active Multivitamin - 1 tablet Orally Once a day Active Social History Tobacco Use: Social History Observation Description Date Details (start date - stop date) Never Smoker NA - NA Tobacco Use/Smoking Question Answer Notes Patient is a nonsmoker Problems Problem Type SNOMED Code ICD Code Onset Dates Problem Status W/U Status Risk Notes Problem Arthralgia of the ankle and/or foot (941184070) Right ankle pain (M25.571) Active confirmed Problem Arthralgia of the ankle and/or foot (914130848) Left ankle pain (M25.572) Active confirmed Plan Of Treatment No Information Insurance Providers Payer Name Payer Address Payer Phone Subscriber Number Group Number Insured Name Patient Relationship to Insured Coverage Start Date Coverage End Date BCBS OUT OF STATE [address] [place] [phone] [id number] Annel Alcantara Self - patient is the insured 2022 Medical (General) History Medical History History ICD Code Gout Surgical History Surgery Date(Month/Year) Gallbladder 10/24 x 3 2001,2003,2009 Hospitalization History Reason Date(Month/Year) see above
--- OUTSIDE RECORDS SUMMARY | 2025-05-03 15:18 | XMS_ITS | Encounter Summary ---
Author Organization [facility] Address [address] [place] [address] Care Team Providers Care Physiatrist Name Role Phone Mary Jane Garcia MD Primary Care Provider [phone] Daniel Haley DO Unavailable [phone] Encounter Details Date Type Department Care Team (Late Contact Info) Description 05/03/2025 Abstract [facility] [address] [place] [address] Conrad Fuller DO [address] [place], [facility]11 Social History Tobacco Use Types Packs/Day [...] AM EDT Procedure Visit [facility] [address] [place] [address] Conrad Fuller DO [address] [place], [place] [address] documented as of this encounter Visit Diagnoses Not on filedocumented in this encounter Care Teams Physiatrist Relationship Specialty Start Date End Date Mary Jane Garcia MD PCP - General Family Medicine 10/17/23 Daniel Haley DO [address] [place] [address] Otolaryngology 01/08/25 documented as of this encounter
--- OUTSIDE RECORDS SUMMARY | 2025-05-03 15:18 | XMS_ITS | Encounter Summary ---
Author Organization [facility] Address [address] [place] [address] Care Team Providers Care Pipe Crew Foreman Name Role Phone Mary Jane Garcia MD Primary Care Provider [phone] Daniel Haley DO Unavailable [phone] Encounter Details Date Type Department Care Team (Late Contact Info) Description 04/13/2024 Abstract [facility] [address] [place] [address] Conrad Fuller DO [address] [place], [facility]11 Social History Tobacco Use Types Packs/Day [...] Procedure Visit [facility] [address] [place] [address] Conrad Fuller DO [address] [place] [address] documented as of this encounter Visit Diagnoses Not on filedocumented in this encounter Care Teams Pipe Crew Foreman Relationship Specialty Start Date End Date Mary Jane Garcia MD PCP - General Family Medicine 10/17/23 Daniel Haley DO [address] [place] [address] Otolaryngology 01/08/25 documented as of this encounter
--- OUTSIDE RECORDS SUMMARY | 2025-05-03 15:20 | XMS_ITS | CCD ---
Author Organization [facility] Care Team Providers Care Dry Wall Applicator Name Role Phone ROLAN, DR MARY JANE Pate Attending Unavailable GONGORA, DR MARY JANE Pate Consulting Unavailable GONGORA, DR MARY JANE Pate Primary Care Unavailable GONGORA, DR MARY JANE Pate Admitting Unavailable JONNY, DR CROSS Admitting Unavailable JONNY, DR CROSS Attending Unavailable [place], DR KAUR Villalpando Consulting Unavailable GONGORA, DR MARY JANE Pate Primary Care Unavailable JONNY, DR RCOSS Consulting Unavailable JONNY, DR CROSS Admitting Unavailable [...] GONGORA, DR MARY JANE Pate Admitting Unavailable Mary Jane Gongora Unavailable Mary Jane Gongora MD Primary Care Provider [phone] Mary Jane Gongora MD Primary Care Provider Daniel Núñez DO Unavailable DANIEL NÚÑEZ Attending Unavailable MARY JANE GONGORA Referring Unavailable TAY FULLER Attending Unavailable TAY FULLER Attending Unavailable HEATHER GRAHAM Attending Unavailable HEATHER GRAHAM Attending Unavailable Allergies Allergy Classification Reported Allergen(s) Allergy Type Date of Onset Reaction(s) Facility (1 source) Adhesive bandage Drug allergy (disorder) 6 [facility] Repository (3 sources) Latex Drug allergy 0 Unknown [employer] Other (14 sources) Latex Allergy to substance 3 Unknown, Rash [facility] Medications Current Medications Medication Drug Class(es) Dates Sig (Normalized) Sig (Original) doxycycline monohydrate 100 mg oral capsule (1 source) Tetracycline-clas s Drug Start: 11-03-2024 take 1 capsule by mouth twice daily Doxycycline Monohydrate 100 mg capsule Active 100 MG PO Twice daily 20 November 03, 2024 12:00am estradiol 0.5 mg oral tablet (20 sources) Estrogen Start: [...] estradiol (Estrace) 0.5 MG tablet Indications: Menopause TAKE 1 TABLET BY MOUTH EVERY DAY 90 tablet 3 12/07/2024 Active fluticasone propionate 0.05 mg/actuat metered [...] 137 mcg tablet Discontinued 0 .ROUTE .COMPLEX 90 April 01, 2024 8:02am September 09, 2024 9:37am TAKE 1 TABLET BY MOUTH EVERY DAY IN THE MORNING ON EMPTY STOMACH Start: 10-04-2023 End: 10-04-2023 levothyroxine (Synthroid, Le voxyl) 137 MCG tablet 10/04/2023 Active take 1 tablet by aimee th once daily in the morning Levothyroxine Sodium 137 MCG 1 tablet in the morning on an empty stomach Orally Once a day Active take 1 tablet by aimee th every twenty-four hours Synthroid 50 MCG 1 tablet Orally Once a day Active 24 hr metFORMIN hydrochloride 500 mg extended release oral tablet (19 sources) Biguanide Start: 05-18-2024 End: 06-17-2024 take [...] venlafaxine 37.5 mg extended release oral capsule (11 sources) Serotonin and Norepinephrine Reuptake Inhibitor Start: [...] Start: 07-26-2022 take 1 capsule by mo ut every eight hours Amoxicillin 500 MG 1 capsule Orally every 8 hrs for 5 day(s) Jul, Active azithromycin 250 mg oral tablet (1 source) Macrolide Antimicrobial Start: 10-06-2024 End: 11-03-2024 Azithromycin 250 mg tablet Discontinued 0 PO .COMPLEX 6 October 06, 2024 12:00am November 03, 2024 1:50pm For 250 mg dose pack: take 500 mg today (day 1), then 250 mg for 4 days (days 2-5) PO methylPREDNISolone 4 mg oral tablet (3 sources) [...] screening for osteoporosis] Onset: 04-04-2022 Episodic Other skin disorders (2 sources) Mass of neck; Translations: [Localized swelling, mass and lump, neck] 01-09-2025 Episodic Other upper respiratory infections (2 sources) Maxillary sinusitis; Translations: [Chronic maxillary sinusitis] 11-03-2024 Chronic Other upper respiratory infections (1 source) Acute pharyngitis, unspecified Episodic Otitis media and related conditions (8 sources) Otitis media of left ear; Translations: [Otitis media, unspecified, left ear] 09-12-2024 Episodic Thyroid disorders (20 sources) Hypothyroidism; Translations: [Hypothyroidism, unspecified] Onset: 06-08-2015 Resolved: 01-06-2025 Chronic Unclassified (3 sources) CONTACT W/AND (SUSP) EXPOS COVID-19; Translations: [CONTACT W/AND (SUSP) EXPOS COVID-19] Onset: 08-25-2021 Past or Other Problems Problem Classification Problem Date Documented Da te Episodic/Chronic Genitourinary symptoms and ill-defined conditions (3 sources) Incontinence; Translations: [Unspecified urinary incontinence] Onset: 01-06-2025 Resolved: 01-06-2025 01-06-2025 Chronic Nonmalignant breast conditions (3 sources) Fibrocystic changes of bilateral breasts; Translations: [Diffuse cystic mastopathy of right breast] Onset: 04-24-2016 Resolved: 01-06-2025 01-06-2025 Chronic Other non-traumatic joint disorders (3 sources) Arthralgia of the ankle and/or foot; Translations: [Pain in unspecified ankle and joints of unspecified foot] Onset: 01-06-2025 Resolved: 01-06-2025 01-06-2025 Episodic Unclassified (1 source) CONTACT W/AND (SUSP) EXPOS COVID-19; Translations: [CONTACT W/AND (SUSP) EXPOS COVID-19] Onset: 08-23-2021 Unclassified (1 source) Postviral fatigue syndrome G93.31 Results Test Name Value Interpretation Reference Range Facility Basophils/100 WBC Manual cnt (Bld)on 10-06-2024 Basophils/100 WBC (Bld) Basophils/100 leukocytes in Blood by Manual count Low 0.2-2.0 [facility] Eosinophils/100 WBC Manual c nt (Bld)on 10-06-2024 Eosinophils/100 WBC (Bld) Eosinophils/100 leukocytes in Blood by Manual count 0.9-7.0 [facility] Laboratory - Hematology and Cell countson 10-06-2024 Lymphocytes/100 WBC (Bld) 21.0 % 20.5-60.0 [facility] Monocytes/100 WBC (Bld) 12.0 % 1.7-12.0 [facility] No Panel Informationon 10-06 Absolute Basophils (Manual) 0.00 10 3/uL 0.00-0.10 [facility] Eosinophils # (Manual) 0.09 10 3/uL 0.00-0.70 [facility] Lymphocytes # (Manual) 1.91 10 3/uL 1.20-3.80 [facility] Miscellaneous Test COMMENT . [facility] Comment on above: Test Ordered: [id number] EBV Ab VCA, IgMEBV Ab VCA, IgM <36.0 U/mL CB Reference Range: 0.0-35.9 Negative <36.0 Equivocal 36.0 - 43.9 Positive >43.9Performed at: - [facility] [address] [id number] Director: Anthony Ivory PhD, Phone: [phone] Monocytes # (Manual) 1.09 10 3/uL High 0.30-0.80 [facility] Monoscreen Negative NEGATIVE [facility] Reactive Lymphocytes 0.18 [facility] Reactive Lymphocytes 2.0 % [facility] Segmented Neutrophils # (Manual) 5.82 10 3/uL 1.4-6.5 [facility] Segmented neutrophils/100 WB C Manual cnt (Bld)on 10-06-2024 Segmented neutrophils/100 WBC (Bld) Manual blood segmented neutrophils/100 leukocytes 43.0-75.0 [facility] Influenza virus B Ag [Presen ce] in Upper respiratory specimen by Rapid immunoassayon 09-18-2024 FLUBV Ag IA.rapid Ql (Nph) Influenza virus B Ag [Presence] in Upper respiratory specimen by Rapid immunoassay [facility] No Panel Informationon 09-18 Influenza Type A (Rapid) Negative [facility] POC SARS CoV-2 Antigen Negative [facility] No Panel InformationOrdered By: Mily Rodriguez on 09-12-2024 Quick St[facility] (POC) [facility] Quick Strep (POC) [facility] Cholesterol in LDL Calc [Mas s/Vol]on 04-20-2024 Cholesterol in LDL [Mass/Vol] 96.0 mg/dL [facility] Comment on above: <100 mg/dl [id number] 0-129 mg/dl NEAR OR ABOVE OCUJEZA284-276 mg/dl BORDERLINE LFBA298-751 mg/dl HIGH>190 mg/dl VERY HIGH Cholesterol in VLDL Calc [Ma ss/Vol]on 04-20-2024 Cholesterol in VLDL [Mass/Vol] 22.8 mg/dL [facility] Estimated glomerular filtrat ion rate (GFR) non- Americanon 04-20-2024 GFR/1.73 sq M.predicted among non-blacks MDRD (S/P/Bld) [Vol rate/Area] mL/min/{1.73_m2} >=60 [facility] IGP,APTIMA HPV,AGE GDLNon AGE GDLN ACOG TESTING Note . [facility] Comment on above: TESTS RESULT FLAG UN ITS REF RANGE LAB Clinician Provided Cytology Information Source.............Cervix;Endocervix No. of containers..01 ThinPrep Vial Age Tamy LIANG Marycruz... [id number] FLAG LEGEND: L-Low Normal,H-High Normal,LL-Alert Low,HH-Alert High <-Panic Low,>-Panic High,A-Abnormal,AA-Critical Abnormal Performed at: 01 =[address] [id number] Lori Roach MD, HPV APTIMA Negative Negative [facility] Comment on above: This nucleic acid am plification test detects fourteen high- risk HPV types (16,18,31,33,35,39,45,51,52,56,58,59,66,68) without differentiation. Performed at: =[address] [id number] Photo Printer: Lori Roach MD, Phone: [phone] Performed at: [address] [id number] Photo Printer: Lori Roach MD, Phone: [phone] IGP, APTIMA HPV, RFX 16/18,45 Note . [facility] Comment on above: TESTS RESULT FLAG UN ITS REF RANGE LAB DIAGNOSIS: 02 NEGATIVE FOR INTRAEPITHELIAL LESION OR MALIGNANCY. Specimen adequacy: 02 Satisfactory for evaluation. Endocervical and/or squamous metaplastic cells (endocervical component) are present. Performed by: 02 Lashawn Rivas, Neonatal Pediatric Nurse (ASCP) . 02 Note: Note 02 The [...] <-Panic Low,>-Panic High,A-Abnormal,AA-Critical Abnormal Performed at: [address] [id number] Lori Roach MD, BRUSH-SPATULA CERVIX ENDOCERVIX [facility] - Chemistry and C hemistry - challengeon 04-20-2024 Calcium [Mass/Vol] 9.1 mg/dL 8.5-10.1 [facility] Chloride [Moles/Vol] 101 mmol/L 98-107 [facility] Cholesterol [Mass/Vol] 189 mg/dL <=200 [facility] Cholesterol in HDL [Mass/Vol] 71 mg/dL High 40-60 [facility] Comment on above: > or =60 mg/dl - LOW CARDIOVASCULAR RISK<40 mg/dl - HIGH CARDIOVASCULAR RISK CO2 [Moles/Vol] 29.2 mmol/L 21.0-32.0 [facility] Creatinine [Mass/Vol] 0.74 mg/dL 0.55-1.02 [facility] Free T4 [Mass/Vol] 1.47 ng/dL High 0.76-1.46 [facility] GFR/1.73 sq M.predicted MDRD (S/P/Bld) [Vol rate/Area] mL/min/{1.73_m2} >=60 [facility] Glucose [Mass/Vol] 85 mg/dL 74-106 [facility] Potassium [Moles/Vol] 4.3 mmol/L 3.5-5.1 [facility] Sodium [Moles/Vol] 136 mmol/L 136-145 [facility] Triglyceride [Mass/Vol] 114 mg/dL <=150 [facility] TSH Qn 3.135 m[IU]/L 0.358-3.740 [facility] Urea nitrogen [Mass/Vol] 6.0 mg/dL Low 7.0-18.0 [facility] Urea nitrogen/Creatinine [Mass ratio] 8.1 mg/mg [facility] Serum or plasma anion gap de terminationon 04-20-2024 Anion gap [Moles/Vol] 10.1 mmol/L [facility] Serum or plasma total choles terol/high density lipoprotein (HDL) cholesterol mass nadir 04-20-2024 Cholesterol.total/Chol esterol in HDL [Mass ratio] 2.7 {ratio} [facility] Comment on above: 3.3 - 4.4 LOW RISK4. 4 - 7.1 AVERAGE RISK7.1 - 11.0 MODERATE RISK>11.0 HIGH RISK Cytology Cervical or vaginal smear or scraping studyon 04-08-2023 [facility] - DIPSTICKon 08- Appearance (U) cloudy [employer] Other Bilirubin Ql (U) Negative [employer] Other Color (U) yellow [employer] Other Glucose Ql (U) Negative [employer] Other Hemoglobin Ql (U) moderate [employer] Other Ketones Ql (U) Negative [employer] Other Leukocyte esterase Test strip Ql (U) moderate [employer] Other Nitrite Ql (U) Negative [employer] Other pH (U) 6.0 [pH] [employer] Other Protein Ql (U) Negative [employer] Other Specific gravity (U) [Rel density] 1.000 [employer] Other Urobilinogen (U) [Mass/Vol] normal [place] [employer] Other Urinalysis - DIPSTICK Nor [employer] Other MG MAMM SCREEN 3D MACARIO CADon 06-25-2022 MG MAMM SCREEN 3D MACARIO CAD Patient: ANNEL ALCANTARA Exam Date: 06/25/2022 : 1970 Gender:F Ordering : DR TAY FULLER . Admission #: [id number] Family : Order #: [id number] CLICK HERE TO VIEW EXAM RADIOLOGY REPORT [...] No Treatments None Family Cancers None LOCATION: [facility] BREAST COMPOSITION: Heterogeneously dense,which may obscure small [...] Pedro MD on 06/25/2022 at 09:48 Normal [facility] PAP ACOG PANEL 2: 30 to 65on 04-11-2022 . . Normal [facility] Comment on above: Result Comment: Perf ormed at: WB Performed By: #### [id number] #### [facility] [address] [address] [address] Isis Shahid Age Gdln ACOG Testing 30-65 Normal [facility] Comment on above: Performed By: #### [id number] #### [facility] [address] [address] [address] Isis Shahid DIAGNOSIS: Comment Normal [facility] Comment on above: Result Comment: NEGA TIVE FOR INTRAEPITHELIAL LESION OR MALIGNANCY. Performed at: WB Performed By: #### [id number] #### [facility] [address] [address] [address] Isis Shahid HPV Aptima Negative Normal Negative [facility] Comment on above: Result Comment: This nucleic acid amplification test detects fourteen high-risk HPV types (16,18,31,33,35,39,45,51,52,56,58,59,66,68) without differentiation. Performed at: =G Performed By: #### [id number] #### [facility] [address] [address] [address] Isis Shahid Methodology: Comment Normal [facility] Comment on above: Result Comment: This liquid based ThinPrep(R) pap test was screened with the use of an image guided system. Performed at: WB Performed By: #### [id number] #### [facility] [address] [address] [address] Isis Shahid Note: Comment Normal [facility] Comment on above: Result Comment: The Pap smear is a screening test designed to aid in the detection of premalignant and malignant conditions of the uterine cervix. It is not a diagnostic procedure and should not be used as the sole means of detecting cervical cancer. Both false-positive and false-negative reports do occur. . Performed at: WB Performed By: #### [id number] #### [facility] [address] [address] [address] Isis Shahid Performed by: Comment Normal [facility] Comment on above: Result Comment: Nikia Pedro, Neonatal Pediatric Nurse (ASCP) Performed at: WB Performed By: #### [id number] #### [facility] [address] [place] [address] Dr. Isis Shahid Specimen adequacy: Comment Normal [facility] Comment on above: Result Comment: Sati sfactory for evaluation. Endocervical and/or squamous metaplastic cells (endocervical component) are present. Performed at: WB Performed By: #### [id number] #### [facility] [address] [place] [address] Dr. Isis Shahid FREE T4on 04-10-2022 Free T4 [Mass/Vol] 1.21 ng/dL Normal 0.76-1.46 [facility] Comment on above: Performed By: #### F T4 #### [facility] [address] [place] [address] Dr. Isis Shahid LIPID PROFILEon 04-10-2022 CHOL-HDL RATIO NORM SEE BELOW Normal [facility] Comment on above: Result Comment: 3.3 - 4.4 LOW RISK 4.4 - 7.1 AVERAGE RISK 7.1 - 11.0 MODERATE RISK >11.0 HIGH RISK Performed By: #### T SH, LIPID, BMP #### [facility] [address] [place] [address] Dr. Isis Shahid Cholesterol [Mass/Vol] 209 mg/dL Critically high <=200 [facility] Comment on above: Performed By: #### T SH, LIPID, BMP #### [facility] [address] [place] [address] Dr. Isis Shahid Cholesterol in HDL [Mass/Vol] 62 mg/dL Critically high 40-60 [facility] Comment on above: Performed By: #### T SH, LIPID, BMP #### [facility] [address] [place] [address] Dr. Isis Shahid Cholesterol in LDL [Mass/Vol] 126.0 mg/dL Normal [facility] Comment on above: Performed By: #### T SH, LIPID, BMP #### [facility] [address] [place] [address] Dr. Isis Shahid Cholesterol.total/Chol esterol in HDL [Mass ratio] 3.4 {ratio} Normal [facility] Comment on above: Performed By: #### T LURDES, LIPID, BMP #### [facility] [address] [place] [address] Dr. Isis Shahid HDL NORMAL > or = 60 mg/dl - LOW CARDIOVASCULAR RISK <40 mg/dl - HIGH CARDIOVASCULAR RISK Normal [facility] Comment on above: Performed By: #### T LURDES, LIPID, BMP #### [facility] [address] [place] [address] Dr. Isis Shahid LDL CALC NORMAL SEE BELOW Normal [facility] Comment on above: Result Comment: <100 mg/dl OPTIMAL 100 - 129 mg/dl NEAR OR ABOVE OPTIMAL 130 - 159 mg/dl BORDERLINE HIGH 160 - 189 mg/dl HIGH >190 mg/dl VERY HIGH Performed By: #### T LURDES, LIPID, BMP #### [facility] [address] [address] [address] Isis Shahid Triglyceride [Mass/Vol] 105 mg/dL Normal <=150 [facility] Comment on above: Performed By: #### T LURDES, LIPID, BMP #### [facility] [address] [place] [address] Dr. Isis Shahid VLDL CALC 21.0 mg/dL Normal [facility] Comment on above: Performed By: #### T LURDES, LIPID, BMP #### [facility] [address] [place] [address] Dr. Isis Shahid PROF CHEM 8 (BAS METB)on Anion gap [Moles/Vol] 12.9 mmol/L Normal [facility] Comment on above: Performed By: #### T LURDES, LIPID, BMP #### [facility] [address] [place] [address] Dr. Isis Shahid Calcium [Mass/Vol] 8.7 mg/dL Normal 8.5-10.1 [facility] Comment on above: Performed By: #### T LURDES, LIPID, BMP #### [facility] [address] [place] [address] Dr. Isis Shahid Chloride [Moles/Vol] 106 mmol/L Normal 98-107 [facility] Comment on above: Performed By: #### T LURDES LIPID, BMP #### [facility] [address] [address] [address] Isis Shahid CO2 [Moles/Vol] 24.5 mmol/L Normal 21.0-32.0 [facility] Comment on above: Performed By: #### T LURDES LIPID, BMP #### [facility] [address] [address] [address] Isis Shahid Creatinine [Mass/Vol] 0.67 mg/dL Normal 0.55-1.02 [facility] Comment on above: Performed By: #### T LURDES LIPID, BMP #### [facility] [address] [place] [address] Dr. Isis Shahid EGFR-AF SERBIAN >60 Normal >=60 [facility] Comment on above: Performed By: #### T LURDES LIPID, BMP #### [facility] [address] [place] [address] Dr. Isis Shahid EGFR-NON AF SERBIAN >60 Normal >=60 [facility] Comment on above: Performed By: #### T LURDES LIPID, BMP #### [facility] [address] [place] [address] Dr. Isis Shahid Glucose [Mass/Vol] 94 mg/dL Normal 74-106 [facility] Comment on above: Performed By: #### T LURDES, LIPID, BMP #### [facility] [address] [place] [address] Dr. Isis Shahid Potassium [Moles/Vol] 4.4 mmol/L Normal 3.5-5.1 [facility] Comment on above: Performed By: #### T LURDES, LIPID, BMP #### [facility] [address] [address] [address] Isis Shahid Sodium [Moles/Vol] 139 mmol/L Normal 136-145 [facility] Comment on above: Performed By: #### T LURDES, LIPID, BMP #### [facility] [address] [address] [address] Isis Shahid Urea nitrogen [Mass/Vol] 4.0 mg/dL Critically low 7.0-18.0 [facility] Comment on above: Performed By: #### T SH, LIPID, BMP #### [facility] [address] [address] [address] Isis Shahid Urea nitrogen/Creatinine [Mass ratio] 6.0 mg/mg Normal [facility] Comment on above: Performed By: #### T SH, LIPID, BMP #### [facility] [address] [address] [address] Isis Shahid TSHon 04-10-2022 TSH 0.335 uIU/mL Critically low 0.358-3.740 [facility] Comment on above: Performed By: #### T SH, LIPID, BMP #### [facility] [address] [place] [address] Dr. Isis Shahid XR DEXA BONE DENSITYon [...] by: APOLONIA HENSON Date: 2022-04-10 10:30 Normal [facility] PT - Assessmentson PT - Assessments [id number] #1.00CD:127 Normal [facility] PT - Assessments [id number] #1.00CD:127 Normal [facility] PT - Otheron 01-10-2022 PT - Other [id number]. [id number] #1.00CD:127 Normal [facility] PT - Assessmentson PT - Assessments [id number] 1#1.00CD:127 [facility] PT - Otheron 12-04-2021 PT - Other [id number] 0#1.00CD:127 [facility] Coding Summary.on 11-30-2021 Coding Summary. CD:[id number] Gh0bWw+PGhlYWQ+PE1FV DQfC64mfUSiuM1TU7cBN N7XWUYNCNCVTQ2DTY7qs AG5BHwlX2FlaaPo UijgcCQeTQ45YNv6UEC1 hDjgJFkfcY6tyKLlO8a4 SiExXR65rO38LUyeSCWi VzD8RwJmmxlmfSDc C0czSuXkjNUvKvk+PHRh YmxlIHdpZHRoPScxMDAl HqMyuTmqZH8zFb4iTLEl LWNvbGxhcHNlOiBj p9bwXBGsGDstFY9tiXoy T2HdpBE5PAZbk5h1Ok92 dHI+VBEzJWY3nHxlMAyr g545LkAfj6jwRMH2 yKWiTSimOVG3J02tr0Z0 DSEqEAFhJUD1xXX2eW9g xWxsfoxrD3YjdKVkExT0 ZBF4kIMlxZ2mxEyx vlptzD4qEiq+S76SZH2Y CHWJAQ7RPkj9I5DhLikr dHI+TD40UYRvGV40gJEh oXTqi0uneAf7XxFh DREeSBI4pZdrYRriw4Kz UPEaZ76wkTJxq9X3PTEu zKahzDYxZaQfnIK7mZ8c ROyubovjw8ldaata Ljpxx7prjn61lK50M28u KZzqIOQuKUU5DYDpDPSh rXivoe7weR5kAp8+IDxj l1myq0imzEx4UsIr BZLaenPukVfoZXD1h7Ac Oi29U5EqzJklh3GrDhl1 ip32wIFke2B6nOF8JGqq CDOirN6dPDriRwU4 XQLyPnUvrY37nZEfPBto Dr5xaLkrfMbbST3kDPSn cbsvPYGveC5aNMOphJIx nCicMM5dNAXbjvot v311IjOoQEQ6EONhvKZt R5EiaP5wSmOrTCJmHEDf V2QiaGHuTBtbY554NCmf BfT7YTZozqSdT4Hn HZLvdSrsIoM5q9O1Fx7G f6AjozrnMQS1HLgePJH9 ZtByWkTwIuF6U2EcBju0 HAIwpVlbCD9jQ3Ih HBEfuzwrktblkVE4LROa XRQoeM35zIUoKFoiAn6u j6C2k501JUXiGLOmeV59 Ju5hsSbuIYExsJTR xG0xxblnq2mbguemFsAm RVNcUZg4ZIv2GQPpjGdp MdUxWEX7MtL5YXN6hAEj xU5uvQassrpccJ1z Oyc+F48zsB2rFZI0YUU3 rirjSZPytfXjRO60CJ61 I6LwQjgnkCRxjRR+PGRp jnEzrPuzVG2wRsMm b1aid2UhHDopT5SgWDQv BAacWep0ZYYiEYU1cQE5 uT7kNATvPNwfg1R9xLK5 C8HyuhMjhk5no6nm TDVqHXbiP33iiTRxp5L2 JNStdNQ4MNWioGskRrYt pG07Iau+WDHcxBwin5Qp Dudpq1mbf8fdwMq0 IjMwJSIgdmFsaWduPSJ0 z1WyHs77C85xWCzrJTLl BDWkEILcXZZbwIuvkz8c gW1uCn0+PGNvbCB3 oUF4fL1vPQNeZoK7MGjp Q580CnRwmEElKpyki4he v7zhwNz4QkIiSMWdfvBt aGywTTR6u9KuXj76 Z87vYEnbDABoVOQfDOYr DGXfrCcpfn2ndT6mTf8+ FP2ad0brbt98pK05jEG+ OLAhTCB1wJzqYRmb YHNyaX8hIOivUgT7BBGi MxJaeH03bFIsBMikSn7u rLzrjQwtSO4mXAMulpmq n061ZnZkd3laFYLo dFRsNJbwCJN2R77xr8O6 KPNkZTEzYZH4pQC2hL7k bGlnbjogbGVmdDsgdmVy zCicXTjpMRwuD144 IHRvcDsnPlBhdGllbnQg PiZcAWh3Y7OhTqd2FWYh qRwfJC1mvUFrOBbnVy3z sWyceVxyRX9eBYSd bpked555IyWuv6ktEJRt rYJoMIcqCAP8D45dl5P0 XPPjJCCnGEX8bPJ0yE5s bGlnbjogbGVmdDsg fiSwgZltCWpdAXbhA502 IHRvcDsnPkJpcnRoIERh dLI2JJ21RG59wJTtr9D0 tYF5T4FaYVUsvnoa wodfiDW9MYFzUKMsoY12 Yt1zlRapZy4nUMFsMTY3 KGQffAOpX9HkcD5uWmIl GGAdPOAzD9RxwNSb RHljD560TVloCeV2UJIs fbJpG2MkSCLqfNpyFjK2 z2V0Lu7VC9Q2VW52MN52 yIOzl0T2aBY3N0Tf IVKwrliqitqguTP0QWCh EJJgyV70Dg7icNozEj1o PKCiGPI4EDJfkELoH6Yz rM9iGlKmXHJnIGAs T1MtqBQxRByiO846EUqf UaS2WWMnmgGyL5EoJHOq hPlsMdT9l7S6Me2FGIt3 KW43MR79xDEef3M8 tTU7N1BgEXHvxrdcrqwl oFQ4YGFlJMJwcN39Ci4d iHliAv8tANBkDSZ3KRFo dCPxZ4DzhN2bPzOe TDIlSPUwB0UfqKPkVTyc P568GQxyYzZ2BLOsioDw X2VxYAYifAbyBzK7p4C8 Xu5GBVSsSH95UVT8 sSK0WX34DE39B2TxDxfa dGFibGU+PHRhYmxlIHdp ZHRoPScxMDAlJyBzdHls WP6jWd4iQFGqBZIw lPlnpVZzHpKvh4bwJFSf RJwwLG4ctXoxM7GmxNW4 JXXfx6c0Wv50X55mD9Og dXA+BVAmqMD1bXJ8 uA8zUwZyQrX3HVveF381 JcXxfDRoTneyg6ifd0pa zLo1FzB2TNEauqDhtCuk VCB3s7VmUq71H86a IHdpZHRoPSIxNSUiIHZh kBpubl5ktQ2zRw2+PGNv iCW8sLM2jI0zRfFiAfY4 ZKlhT268YjLuxGVn Xrlns2poh2mcqEr0QnWb WHLhhqIqfQxpBSS2t4Mt Rn17V6AxvRrve1DzBat3 kc19zXBqe3I9pEG3 T2PaTJLoijhgfNIcoPtk LC7pZQPipsceOABzcI4k ABMzT8a1JmDpReR8OGis Z4UixwK7CQRylXYc EOsnHUN8W32yz6O2KVHe ASYtOCT9wVC8jR3elTit bjogbGVmdDsgdmVydGlj DZcpBQzvY387JTSa dXftDPPulB6aKUUnlVTk sFonKG5vLZVnsgljAwdP B3cWEyRqZHlSXBESMD22 JY63nCWzs9B1xMG9 H6ZxLZIbztikeqmyvSU2 NNCvOYYpjM44xSNxQOaq We5pv6H6b185TSEkYDOh fZ55Hp3hiBhgNLZl aXAFfJ0gwhyly9nmzrgf PdAgMEUxYFj8AFe9IRDc yTtyMlUxPWG3KqR0ENM2 uCDutO3qcRzpspvr nU0aIwb+MTAvMDMvMTk3 MTwvdGQ+QATtXIU7dVse SKctMJSlxV9tIKAiA3f3 TdFqDkF5BGpsW8Bd UOCdloznWr38rB6vGnAd AtR1WBvsG4OxveA6VEMk nYKbECmvMJQ4D55aq4J3 DOMaNVKpCFW6kKB7 yF2vrGefwxsxhQFjhTvv exNbkZyiOTupFFvwL090 IHRvcDsnPjUwIFllYXJz YE39LG72rQCgi8Q4 yRZ1W1XzSDZcjelsozse cNF5VMNhYBBwrF13qCTs QQiiOr5dj4Z7c797AETh DMMzyC89Yp8anGpd RPKxnLNGuS6nbndcp7hf outgDnFyFXMuCCf7HZk4 YQRwmKquNtQjOUN8UvG5 LPU7tKGmyL5pqUwo uktqjF1qDpj+RmVtYWxl DC83CP05mRMxh5K3iOK0 B7ZxCZFztlzldjgftZG0 ZGNtICXwhB17pLEd FUcgHi8sn4F5q775YKOv TZJtmR75Rj5sxMoyRRTc zMXTkB5pjidku9dddbwp DhWeMUKmPBi3ICj5 XDHupGnmKlVtIUM1OqS2 GJV4sUKabB0wsIcuuzeb gR9bYrh+ZsDeaWTewF0v BP94WD99O9NwNxkc dGFibGU+PHRhYmxlIHdp ZHRoPScxMDAlJyBzdHls ZL0tDc6fUCBdVPRtnZjv gTWxLgRvs5zxDTDi KNzqZA9uxKdwT9CxzSM0 HZPmg0u4At00Y17mY7Ag dXA+JKMbtON5dEL0eK0e FoQvDoL4KLyuQ004 NyJdgJPbMnllv4eos9pf sPh7EpYxEHNkoeKiwChv HHX4i2DuRg29B87zZDjc ZHRoPSIyMCUiIHZh wMsxbp1ypG6tBz5+PGNv cBZ9eVY7uD3dHhRpFtA3 AKmsD682WlNraEVqMbbi P19gP2KclKF+PHRy Hei4AGNmqWuxYE2mhVVl ZEnoLd3zFYO6XwAuOkBu JHlkW3XzGRHhxhfyyowu cMV9EBMtBJNodM53 Jz0epPxqWc8pPAOyBTS8 BUTdrGQbB9UtdC8pNlKv DHVuDHHtX4GzbZZxPXrf N076CNymQzS0NXXr ykFnL0QnYWAxtKgwBiJ1 n7Z2Cl9NmGglkEYvNL3j UnSmEMj5E2ZnTqo7FCUf nEodMK2gdKZaQFlm Ek8mbFitgSofYY6hTHEj smlfn583OyLra6dbCLVy zLYtCVmjRUI8M24fq0J9 ZRJxZERaFHB5iMG9 eS9fsEqwxynqhTCziKrc olSnmDwrBCqgUJrgS626 VNJqbZrzQrWAWsb1F2Fa Tia7NWGwyOcxEP7s fQZgLZubTc3yaDdzxPeb CS4oSWNqcrect851XgJn j4omAGWodEMkJJrcGSV5 I49pv3J0UGHcJSMx UIM9qEW7gD0qlAflvbqn bGVmdDsgdmVydGljYWwt LYtqK145BFWwqVqpMq2X Hje3Y5ZdRgo1QAQz aZedOH8gtEVnSVuhQk9c wFyizMsgQM5nWFJevqya n458ZeJmx2ylVCJxaXSm EIalVGL4Z70ac3M0 ZTGrHWEqTCG8cZP6hV6n bGlnbjogbGVmdDsgdmVy fKjiNEynUHktJ741MPHt cDsnPlBheWVyOjwv dGQ+PZ72gk38Q2KoFtto Syb4ULImTCK4eFL2rK5x ZUEuILywb0Z2vJO5Z9Dp vjEeoe8dr6kyLBSy ZTog (more content not included)... Normal [facility] Consenton 11-29-2021 Consent [id number] 42#1.00CD:127 [facility] Notice of Noncoverageon 11-19 Notice of Noncoverage [id number] 14#1.00CD:127 [facility] PT - Assessmentson 2 PT - Assessments [id number] 2#1.00CD:127 [facility] PT - Consentson 11-29-2021 PT - Consents [id number] 3#1.00CD:127 [facility] Nonvisit Note - PTon 022 Nonvisit Note - PT Chart reviewed with eval prepped for scheduled eval. KK [facility] Covid-19 PCR (CVDTB)on SARS-CoV-2 (COVID-19) RNA RAYMUNDO+probe Ql (Unsp spec) Not detected Normal NOT DETECTED [facility] Comment on above: Result Comment: This test is not yet approved or cleared by the [place] FDA. When there are no FDA-approved or cleared tests available, and other criteria are met, FDA can make tests available under an emergency access mechanism called an Emergency Use Authorization (EUA). The EUA for this test is supported by the Water Treatment Technician of Health and Human Service's (HHS's) declaration [...] consistent with SARS-CoV-2. Performed By: #### [facility] #### [facility] [address] [place] [address] Dr. Isis Shahid Formson 05-18-2021 Forms [id number] #1.00CD:127 Normal [facility] Physician Referralon 021 Physician Referral [id number] 0#1.00CD:127 Normal [facility] Patient Educationon 05-17-20 21 Patient Education [...] 06/24/2013 Document Revised: 02/25/2019 Document Reviewed: 02/25/2019 [employer] Patient Education ? 2019 doForms. 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 -Behavioral modifications -Consider anti-cholinergics in future if urge more predominant -Follow up in 6 months or sooner if issues arise Follow-up With When Contact Information Delmy Fajardo MD, URL, URO In 6 months 11/15/2021 EDT Additional Instructions: Patient Education Kegel Exercises I, Nora Matute, personally scribed for Dr. Fajardo on 05/17/2021 11:18:07. . Documentation recorded by the scribe, Celena Matute, accurately reflects the services(s) I performed and decisions made by me. Authenticated by Dr. Fajardo on 05/17/2021 11:28:10. Problem List/Past Medical History Ongoing Mixed incontinence Historical No qualifying data Procedur (more content not included)... Normal [facility] Comment on above: Result Comment: Elec tronically Signed By: Delmy Fajardo MD\.br\Date and Time Signed: 05/17/21 11:28 EDT\.br\Electronically Co-Signed By: Nora Matutebr\Date and Time Co-Signed: 05/17/21 11:18 EDT Vital Signs Date Time Vital Sign Value Performing Clinician Facility 01-08-2025 10:06-0400 Body height 160 cm Daniel Núñez DO Work Phone: [facility] 01-08-2025 10:06-0400 Body mass index (BMI) [Ratio] 29.94 kg/m2 Daniel Núñez DO Work Phone: [facility] 01-08-2025 10:06-0400 Body weight 76.66 kg Daniel Núñez DO Work Phone: [facility] 11-03-2024 13:46-0400 Body height 157.48 cm [facility] 11-03-2024 13:46-0400 Body mass index (BMI) [Ratio] 30.2 kg/m2 [facility] 11-03-2024 13:46-0400 Body temperature 98.1 [degF] [facility] 11-03-2024 13:46-0400 Body weight 74.95 kg [facility] 11-03-2024 13:46-0400 Diastolic blood pressure 92 mm[Hg] [facility] 11-03-2024 13:46-0400 Heart rate 93 /min [facility] 11-03-2024 13:46-0400 SaO2% (BldA) [Mass fraction] 96 % [facility] 11-03-2024 13:46-0400 Systolic blood pressure 120 mm[Hg] [facility] 10-06-2024 08:51-0400 Body height 157.48 cm [facility] 10-06-2024 08:51-0400 Body mass index (BMI) [Ratio] 29.4 kg/m2 [facility] 10-06-2024 08:51-0400 Body temperature 98.5 [degF] [facility] 10-06-2024 08:51-0400 Body weight 73.02 kg [facility] 10-06-2024 08:51-0400 Diastolic blood pressure 88 mm[Hg] [facility] 10-06-2024 08:51-0400 Heart rate 82 /min [facility] 10-06-2024 08:51-0400 SaO2% (BldA) [Mass fraction] 98 % [facility] 10-06-2024 08:51-0400 Systolic blood pressure 134 mm[Hg] [facility] 09-18-2024 13:38-0500 Body height 157.48 cm [facility] 09-18-2024 13:38-0500 Body mass index (BMI) [Ratio] 29.8 kg/m2 [facility] 09-18-2024 13:38-0500 Body temperature 98.3 [degF] [facility] 09-18-2024 13:38-0500 Body weight 73.93 kg [facility] 09-18-2024 13:38-0500 Diastolic blood pressure 74 mm[Hg] [facility] 09-18-2024 13:38-0500 Heart rate 83 /min [facility] 09-18-2024 13:38-0500 Systolic blood pressure 124 mm[Hg] [facility] 09-12-2024 10:51-0500 Body height 157.48 cm [facility] 09-12-2024 10:51-0500 Body mass index (BMI) [Ratio] 29.7 kg/m2 [facility] 09-12-2024 10:51-0500 Body temperature 98.4 [degF] [facility] 09-12-2024 10:51-0500 Body weight 73.7 kg [facility] 09-12-2024 10:51-0500 Diastolic blood pressure 80 mm[Hg] [facility] 09-12-2024 10:51-0500 Heart rate 96 /min [facility] 09-12-2024 10:51-0500 SaO2% (BldA) [Mass fraction] 97 % [facility] 09-12-2024 10:51-0500 Systolic blood pressure 121 mm[Hg] [facility] 08-19-2024 10:30-0500 Body height 161.29 cm [facility] 08-19-2024 10:30-0500 Body mass index (BMI) [Ratio] 28.4 kg/m2 [facility] 01-29-2025 10:30-0500 Body weight 73.93 kg [facility] 08-19-2024 10:30-0500 Diastolic blood pressure 93 mm[Hg] [facility] 08-19-2024 10:30-0500 Heart rate 79 /min [facility] 08-19-2024 10:30-0500 Systolic blood pressure 144 mm[Hg] [facility] 07-08-2024 09:09-0500 Body mass index (BMI) [Ratio] 28.32 kg/m2 Heather Albuquerque PA Work Phone: [facility] 07-08-2024 09:09-0500 Body weight 74.84 kg Heather Nehal PA Work Phone: [facility] 07-08-2024 09:09-0500 Diastolic blood pressure 68 mm[Hg] Heather Albuquerque PA Work Phone: [facility] 07-08-2024 09:09-0500 Systolic blood pressure 110 mm[Hg] Heather Nehal PA Work Phone: [facility] 06-10-2024 08:48-0500 Body mass index (BMI) [Ratio] 28.8 kg/m2 Heather Nehal PA Work Phone: [facility] 06-10-2024 08:48-0500 Body weight 76.11 kg Heather Nehal PA Work Phone: [facility] 06-10-2024 08:48-0500 Diastolic blood pressure 80 mm[Hg] Heather Nehal PA Work Phone: [facility] 06-10-2024 08:48-0500 Systolic blood pressure 122 mm[Hg] Heather Albuquerque PA Work Phone: [facility] 05-14-2024 10:26-0400 Body mass index (BMI) [Ratio] 29.5 kg/m2 [facility] 05-14-2024 10:26-0400 Body weight 76.65 kg [facility] 05-14-2024 10:26-0400 Heart rate 105 /min [facility] 05-14-2024 10:04-0400 Body height 161.29 cm [facility] 05-14-2024 10:04-0400 Diastolic blood pressure 78 mm[Hg] [facility] 05-14-2024 10:04-0400 Systolic blood pressure 112 mm[Hg] [facility] 05-12-2024 09:42-0400 Body mass index (BMI) [Ratio] 29.42 kg/m2 Tay Jonny DO Work Phone: [facility] 05-12-2024 09:42-0400 Body weight 77.75 kg Tay Jonny DO Work Phone: [facility] 05-12-2024 09:42-0400 Diastolic blood pressure 70 mm[Hg] Tay Jonny DO Work Phone: [facility] 05-12-2024 09:42-0400 Systolic blood pressure 118 mm[Hg] Tay Jonny DO Work Phone: [facility] 04-13-2024 10:50-0400 Body mass index (BMI) [Ratio] 30.55 kg/m2 Tay Jonny DO Work Phone: [facility] 04-13-2024 10:50-0400 Body weight 80.74 kg Tay Jonny DO Work Phone: [facility] 04-13-2024 10:50-0400 Diastolic blood pressure 70 mm[Hg] Tay Jonny DO Work Phone: [facility] 04-13-2024 10:50-0400 Systolic blood pressure 116 mm[Hg] Tay Jonny DO Work Phone: [facility] 04-17-2023 08:30-0400 Body height 157.48 cm Mary Jane Gongora Other [employer] Other 04-17-2023 08:30-0400 Body mass index (BMI) [Ratio] 31.82 kg/m2 Mary Jane Gongora Other [employer] Other 04-17-2023 08:30-0400 Body weight 78.93 kg Mary Jane Gongora Other [employer] Other 04-17-2023 08:30-0400 Diastolic blood pressure 76 mm[Hg] Mary Jane Gongora Other [employer] Other 04-17-2023 08:30-0400 Systolic blood pressure 112 mm[Hg] Mary Jane Gongora Other [employer] Other 03-21-2023 11:45-0400 Body height 157.48 cm Mary Jane Gongora Other [employer] Other 03-21-2023 11:45-0400 Body mass index (BMI) [Ratio] 32.37 kg/m2 Mary Jane Gongora Other [employer] Other 03-21-2023 11:45-0400 Body weight 80.29 kg Mary Jane Gongora Other [employer] Other 03-21-2023 11:45-0400 Diastolic blood pressure 102 mm[Hg] Mary Jane Gongora Other [employer] Other 03-21-2023 11:45-0400 Systolic blood pressure 141 mm[Hg] Mary Jane Gongora Other [employer] Other Encounters Encounter Date Encounter Type Care Provider Facility Start: 01-08-2025 End: 01-08-2025 Bamboo flowsheet Daniel Núñez DO Work Phone: [facility] Start: 01-08-2025 End: 01-08-2025 Bamboo flowsheet Daniel Núñez DO Work Phone: [facility] Start: 01-08-2025 End: 01-08-2025 Office outpatient new 30 minutes Daniel Núñez DO Work Phone: [facility] Comment on above: Hypothyroidism, unsp ecified type (Primary Dx); Neck mass Start: 01-08-2025 End: 01-08-2025 ambulatory DANIEL NÚÑEZ Not Available Start: 11-03-2024 End: 11-03-2024 ambulatory [facility] Work Phone: Start: 11-03-2024 End: 11-03-2024 Patient encounter procedure [facility] Work Phone: Start: 10-06-2024 End: 10-06-2024 ambulatory [facility] Work Phone: Start: 10-06-2024 End: 10-06-2024 Patient encounter procedure [facility] Work Phone: Start: 09-18-2024 End: 09-18-2024 ambulatory [facility] Work Phone: Start: 09-18-2024 End: 09-18-2024 Patient encounter procedure [facility] Work Phone: Start: 09-12-2024 End: 09-12-2024 ambulatory [facility] Work Phone: Start: 09-12-2024 End: 09-12-2024 Patient encounter procedure [facility] Work Phone: Start: 08-19-2024 End: 08-19-2024 ambulatory [facility] Work Phone: Start: 08-19-2024 End: 08-19-2024 Patient encounter procedure [facility] Work Phone: [...] Not Available Start: 05-14-2024 End: 05-14-2024 ambulatory [facility] Work Phone: Start: 05-14-2024 End: 05-14-2024 Patient encounter procedure [facility] Work Phone: Start: 05-12-2024 [...] Not Available Start: 04-20-2024 Non-patient / Non-visit [facility] Work Phone: Start: 04-13-2024 End: [...] Breast cancer screening by mammogram; Osteoporosis, post-menopausal ([facility]); Encounter for weight management Start: 04-13-2024 End: 04-13-2024 ambulatory TAY JONNY Not Available Start: 04-07-2024 Patient encounter status [facility] Start: 04-17-2023 End: 04-17-2023 ambulatory Mary Jane Gongora Other [employer] Other Start: 04-17-2023 Encounter for genera l adult medical examination without abnormal findings Mary Jane Gongora [facility] Start: 04-17-2023 Periodic preventive med est patient 40-64yrs Mary Jane Gongora [facility] Start: 04-17-2023 Telephone encounter Mary Jane Gongora [facility] Start: 03-21-2023 End: 03-21-2023 ambulatory Mary Jane Gongora Other [employer] Other Start: 03-21-2023 Encounter for genera l adult medical examination without abnormal findings Mary Jane Gongora [facility] Start: 03-21-2023 Office outpatient vi sit 15 minutes Mary Jane Gongora [facility] Start: 07-26-2022 (Televisit) Televisit Mary Jane Gongora [facility] Start: 07-26-2022 End: 07-26-2022 ambulatory Mary Jane Gongora Other [employer] Other Start: 06-25-2022 End: 06-26-[address] TAY [place] Facility:[facility] Start: 04-11-2022 Encounter for genera l adult medical examination without abnormal findings DR MARY JANE GONGORA [facility] Start: 04-10-2022 End: 04-11-[address] TAY [place] Facility:[facility] Start: 04-10-2022 End: 04-11-2022 Encounter for general adult medical examination without abnormal findings DR MARY JANE GONGORA Facility:[facility] Start: 04-04-2022 End: 04-04-[address] TAY [place] Facility:[facility] Start: 08-23-2021 End: 08-23-[address] MARY JANE GONGORA Facility:[facility] Procedures Date Procedure Procedure Detail Performing Clinician Start: 09-12-2024 Quick Strep (POC) Start: 08-07-2024 Mammography aDniel rai DO Work Phone: Start: 04-13-2024 IGP,APTIMA HPV,AGE GDLN Tay Jonny [...] stain Tay Jonny DO Work Phone: Start: 04-24-2016 End: 01-06-2025 H/O: hysterectomy S/P hysterectomy Daniel Núñez DO Work Phone: Plan of Treatment Date Care Activity Detail Author Start: 04-16-2028 Screening for malignant neoplasm of cervix [facility] Start: 04-08-2028 Screening for malignant neoplasm of cervix [facility] Start: 07-24-2027 Screening for malignant neoplasm of colon [facility] Start: 04-13-2027 Screening for malignant neoplasm of cervix Pap Smear [facility] Start: 04-04-2027 Screening for malignant neoplasm of cervix Pap Smear [facility] Start: 08-07-2025 Screening for malignant neoplasm of breast Mammogram [facility] Start: 05-03-2025 End: 05-03-2025 Patient encounter procedure 05/03/2025 8:30 AM EDT Office Visit [facility] [address] [place] [phone] Tay [place], DO [address] [place] [address] [facility] Start: 04-19-2025 End: 04-19-2025 Patient encounter procedure 04/19/2025 8:30 AM EDT Office Visit [facility] [address] [place] [phone] Tay [place], DO [address] [place] [address] [facility] Start: 01-08-2025 End: 01-08-2025 Patient encounter procedure 01/08/2025 10:00 AM EDT Office Visit [facility] [address] [place] [address] Daniel Núñez, [address] [place] [address] Arrived [facility] Comment on above: Arrived Start: 07-08-2024 End: 07-08-2024 Patient encounter procedure 07/08/2024 8:50 AM EST Office Visit [facility] [address] [place] [phone] Heather Graham, PA [address] [place], [place] [id number] Arrived [facility] Comment on above: Arrived Start: 06-10-2024 End: 06-10-2024 Patient encounter procedure 06/10/2024 8:40 AM EST Office Visit [facility] [address] [place] [address] Heather Graham, PA [address] [place], [facility] Arrived [facility] Comment on above: Arrived Start: 05-29-2024 Screening for malignant neoplasm of colon [facility] Start: 05-12-2024 End: 05-12-2024 Patient encounter procedure [facility] Comment on above: Arrived Start: 04-13-2024 End: 04-13-2025 DXA Skeletal system Views for bone density DEXA bone density Imaging Routine Osteoporosis, post-menopausal ([facility]) Expected: 04/13/2024 (Approximate), Expires: 04/13/2025 [facility] Comment on above: Expected: 04/13/2024 (Approximate), Expires: 04/13/2025 Start: 04-13-2024 End: 06-13-2025 MG Breast - bilateral Screening Bilateral screening mammogram Imaging Routine Breast cancer screening by mammogram Expected: 04/13/2024 (Approximate), Expires: 06/13/2025 [facility] Work Phone: Comment on above: Expected: 04/13/2024 (Approximate), Expires: 06/13/2025 Start: 04-13-2024 End: 04-13-2024 Patient encounter procedure 04/13/2024 10:00 AM EDT Office Visit [facility] [address] [place] [address] Tay [place] DO [address] [place], [place] [phone] Arrived [facility] Comment on above: Arrived Start: 06-25-2023 Screening for malignant neoplasm of breast Mammogram [facility] Start: 1970 Screening for malignant neoplasm of colon [facility] Joshua Ash virus capsid IgG Ab [Units/volume] in Serum [facility] THIN PREP TIS PAP AN D HR HPV DNA THIN PREP TIS PAP AND HR HPV DNA Pathology and Cytology Routine Well woman exam with routine gynecological exam Ordered: 04/13/2024 [facility] Comment on above: Ordered: 04/13/2024 Thyroid gland [facility] Immunizations Immunization Date Immunization Notes Care Provider Fa cility 09-27-2024 Pneumococcal conjuga te vaccine, 21 valent (PCV21), polysaccharide [id number] conjugate, preservative free Daniel Núñez DO Work Phone: [facility] 09-27-2024 tetanus toxoid, redu gemma diphtheria toxoid, and acellular pertussis vaccine, adsorbed Daniel Biedenimer DO Work Phone: [facility] 03-27-2024 influenza, injectabl e, madin obdulia canine kidney, preservative free Daniel Biedenbach DO Work Phone: [facility] 04-10-2023 Influenza, injectabl e, Madin Mentor Canine Kidney, preservative free, quadrivalent Daniel Biedenbach DO Work Phone: [facility] 06-28-2022 zoster vaccine recombinant Daniel Tera DO Work Phone: [facility] 06-28-2022 zoster vaccine, live Mary Jane Gongora Other [facility] 04-13-2022 influenza virus vaccine, split virus (incl. purified surface antigen) Mary Jane Gongora Other [employer] Other 04-13-2022 influenza virus vaccine, unspecified formulation [facility] 04-13-2022 Influenza, injectabl e, Madin Mentor Canine Kidney, preservative free, quadrivalent Daniel Biedenbach DO Work Phone: [facility] 02-06-2022 COVID-19 Vaccine Pfi zer - Documentation Purposes Only Mary Jane Rolan Other [facility] 02-01-2022 zoster vaccine recombinant Daniel Núñez DO Work Phone: [facility] 02-01-2022 zoster vaccine, live Mary Jane Rolan Other [facility] 06-30-2021 COVID-19 Vaccine Pfi zer - Documentation Purposes Only Mary Jane Rolan Other [facility] 04-03-2021 influenza virus vaccine, split virus (incl. purified surface antigen) Mary Jane Rolan Other [facility] [employer] Other 04-03-2021 influenza virus vaccine, unspecified formulation [facility] 04-03-2021 influenza, injectabl e, quadrivalent, preservative free Daniel Haleyedenimer DO Work Phone: [facility] 05-02-2020 influenza, injectabl e, quadrivalent, contains preservative Daniel Biedenbach DO Work Phone: [facility] 05-26-2019 influenza virus vaccine, split virus (incl. purified surface antigen) Mary Jane Rolan Other [facility] [employer] Other 05-26-2019 influenza virus vaccine, unspecified formulation [facility] 05-26-2019 influenza, injectabl e, quadrivalent, contains preservative Daniel Biedenbach DO Work Phone: [facility] 05-21-2016 influenza, injectabl e, quadrivalent, contains preservative Daniel Biedenbach DO Work Phone: [facility] Payers Date Payer Category Payer [facility] [id number] 2022 Unknown BCBS BCBS [id number] 2022-Present [phone] [address] [place] [address] [id number] 1971 Unknown [id number] [id number]. 2.593 1971 Unknown [id number] [id number]. 2.593 1971 Unknown [id number] [id number]. 2.593 1971 Unknown [id number] [id number]. 2.593 1971 Unknown [id number] [id number]. 2.593 1971 Unknown [id number] [id number]. 2.1259 1971 Unknown [id number] [id number]. 2.1259 1971 Unknown [id number] 2.16.840.1.115011.3.579. 2.1259 1971 Unknown [id number] [id number]. 2.1259 1971 Unknown [id number] [id number]. 2.1259 1959 Unknown [id number] Social History Date Type Detail Facility Unknown if ever smoked Junko Tada [facility] [employer] Other Start: 01-08-2025 Sex Assigned At Junko Tada [facility] [employer] Other Tobacco smoking status KYIS Tobacco smoking consumption unknown [facility] Start: 1970 Sex assigned at Not on file [facility] Start: 04-02-2024 End: 01-08-2025 Tobacco smoking status NHIS Never smoked tobacco (finding) [facility] Start: 1970 Sex Assigned At Female [facility] Start: 08-19-2024 End: 11-03-2024 Sex Female (finding) [facility] Start: 01-08-2025 Tobacco use and exposure Smokeless tobacco non-user [facility] Start: 01-08-2025 Alcoholic beverage intake Ex-drinker (finding) [facility] Start: 01-08-2025 History of Social function [facility] NEGATED: Highlighted row [facility] Clinical Notes 07-26-2022 to 01-08-2025 Daniel Núñez, DO - 01/08/2025 10:00 AM EDT Note Date & Type Note Facility 01-08-2025 History of Presen t illness Narrative Subjective Patient ID: Annel Alcantara is a 54 y.o. female who presents for Swollen Glands (New patient : right enlarged lymph node) HPI 54-year-old white female presents today for evaluation of posterior neck mass. Patient had severe difficulties of upper respiratory tract infection and neck swelling. Subsequently underwent ultrasound of her neck for evaluation of possible lymph node enlargement or thyroid enlargement. Found to have a small nodule of the posterior neck. Patient was unaware it was present. Not having any symptoms at this time. Doing much better. Review of Systems Patient denies any pain or fever. Denies any shortness of breath. Does not feel any lump or fullness of the posterior neck. Not having any difficulties with neck mobility. She does take Synthroid for hypothyroidism. She is a nonsmoker nondrinker. The rest of her review of systems is negative Allergies as of 01/08/2025 - Reviewed 01/08/2025 Allergen Reaction Noted Latex Unknown and Rash 04/08/2023 Past Medical History: Diagnosis Date Acquired hypothyroidism 06/08/2015 Bilateral fibrocystic breast changes 04/24/2016 Incontinence 01/06/2025 Pain in joint involving ankle and foot 01/06/2025 S/P hysterectomy 04/24/2016 Current Outpatient Medications: estradiol (Estrace) 0.5 MG tablet, TAKE 1 TABLET BY MOUTH EVERY DAY, Disp: 90 tablet, Rfl: 3 levothyroxine (Synthroid, Levoxyl) 137 MCG tablet, , Disp: , Rfl: venlafaxine XR (Effexor XR) 37.5 MG 24 hr capsule, Take 37.5 mg by mouth Daily Do not crush or chew., Disp: , Rfl: metFORMIN XR (Glucophage-XR) 500 MG 24 hr tablet, Take 2 tablets (1,000 mg) by mouth in the evening. Take with meals Do not crush, chew, or split., Disp: 60 tablet, Rfl: 11 Past Surgical History: Procedure Laterality Date SECTION, CLASSIC x 3 CHOLECYSTECTOMY HYSTERECTOMY Social History Socioeconomic History Marital status: Spouse name: Not on file Number of children: Not on file Years of education: Not on file Highest education level: Not on file Occupational History Not on file Tobacco Use Smoking status: Never Smokeless tobacco: Never Substance and Sexual Activity Alcohol use: Not Currently Drug use: Defer Sexual activity: Yes control/protection: None Other Topics Concern Not on file Social History Narrative Not on file Social Drivers of Health Financial Resource Strain: Not on file Food Insecurity: Not on file Transportation Needs: Not on file Physical Activity: Not on file Stress: Not on file Social Connections: Not on file Intimate Partner Violence: Not on file Housing Stability: Not on file Objective ENT Physical Exam General Examination: General overview: Normal, age-appropriate, no evidence of distress, overweight Head: Normocephalic, atraumatic Eyes: Pupils are equally round and reactive to light and accommodation, extraocular muscles are intact Ears: External ear architecture within normal limits, ear canals are patent, tympanic membranes are intact. Nose: External nose unremarkable, nares patent, septum intact, no evidence of congestion. Oral cavity: Mucosa moist, no evidence of ulcer, mass, or lesion Throat: Clear Neck/thyroid: Neck supple, full range of motion, no cervical lymphadenopathy, no evidence of thyromegaly, palpation of her neck yields no evidence of posterior neck mass. Review of her ultrasound reveals the nodule of the posterior neck measuring 11 mm in greatest dimension. This was an incidental finding. Lymph nodes: No cervical lymphadenopathy Skin: Warm and dry, no evidence of suspicious lesions, no rash Heart: No jugular venous distention, point of maximal impulse normal Lungs: Good air movement, no audible wheezing, no shortness of breath Chest: Normal shape and expansion Abdomen: Normal, soft, nontender, nondistended Musculoskeletal: Cervical spine normal, full range of motion Extremities: No clubbing, cyanosis, or edema Peripheral pulses: 2+ radial, 2+ carotid Neurologic: Alert and oriented, cranial nerves 2-12 are grossly intact Psych: Alert and oriented, normal affect, no evidence of distress Assessment/Plan Diagnoses and all orders for this visit: Hypothyroidism, unspecified type Comments: patient will continue her current dosage of Synthroid Neck mass Comments: the nodule of the posterior neck measures 11 mm in greatest dimension. Do not recommend any intervention. The measurements of the posterior neck mass are consistent with a normal size lymph node. The patient will notify this office if she notices any lump in this region. We will be happy to see her again if she has any change of her condition. documented in this encounter [facility] 08-19-2024 Evaluation note Diagnosis Onset Date Resolution Depression acute August 19, 2024 10:24am LAD (lymphadenopathy) of right cervical region acute August 19 10:24am [facility] Work Phone: 1(676) 388-159301-29-2025 Evaluation note* Diagnosis Onset Date Resolution Status Admit Date Depression acute August 19, 2024 10:24am LAD (lymphadenopathy) of right cervical region acute August 192024 10:24am Left otitis media acute Februar y 2024 10:04am [facility] Work Phone: 1(102) 572-951601-29-2025 Evaluation note* Diagnosis Onset Date Resolution Status Admit Date Depression acute August 19, 2024 10:24am LAD (lymphadenopathy) of right cervical region acute August 192024 10:24am Left otitis media acute Februar y 2024 10:04am Depression acute September 18, 2024 12:56pm Left otitis media acute Februar y 2024 12:56pm Acute febrile illness acute Mar 2024 8:49am [facility] Work Phone: 1(301) 332-295801-29-2025 Evaluation note* Diagnosis Onset Date Resolution Status Admit Date Depression acute August 19, 2024 10:24am LAD (lymphadenopathy) of right cervical region acute August 192024 10:24am Left otitis media acute Februar y 2024 10:04am Depression acute September 18, 2024 12:56pm Left otitis media acute Februar y 2024 12:56pm Acute febrile illness acute Mar 2024 8:49am Maxillary sinusitis acute November 03, 2024 1:43pm [facility] Work Phone: 1(246) 760-593512-18-2024 History of Present illness Narrative* HELENA Gaston [...] behalf of: HELENA Gaston documented in this encounterMer[id number] History of Present illness Narrative* Charis Lezama LPN - 06/10/2024 8:40 AM EST Reason for [...] behalf of HELENA Gaston documented in this encounterMer[id number] History of Present illness Narrative* Chantel Padron [...] of Tay Fuller DO documented in this encounterMer[facility] Hospital [id number] History of Present illness Narrative* HELENA Gaston [...] nursing note reviewed. Exam conducted with a scrap piler present. 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 Work Phone: Evaluation note* Diagnosis Well woman exam with routine gynecological exam Routine gynecological examination Breast cancer screening by mammogram Osteoporosis, post-menopausal (CMS/HCC) Senile osteoporosis Encounter for weight management [facility] Diagnosis Onset Date Resolution Status Admit Date LAD (lymphadenopathy) of right cervical region acute August 192024 10:24am [facility] [employer] [place] Work Phone: Evaluation note* Diagnosis Hypothyroidism, unspecified type- Primary Neck mass Swelling, mass, or lump in head and neck documented [facility] this [facility] Narrative - Reported* Type Description Date Medical History Hypothryoid Surgical History x3 Surgical History D&C x2 Surgical History Lap Yen Surgical History hysterectomy Hospitalization History See above [employer] Other Summary Purpose Family History No Family [...] Throat September 18, 2024 12:56pm Congestion/Exhaustion/Feels like [facility] 2024 8:49am Reason for Visit Admit [...] Throat September 18, 2024 12:56pm Congestion/Exhaustion/Feels like [facility] 2024 8:49am Sore Throat/Sinus Infection November [...] content) DATE CREATED AUTHOR 02/21/2022 Seferino Barboza [facility] DATE CREATED AUTHOR AUTHOR'S ORGANIZ ATION 06/27/2022 [facility] DATE CREATED AUTHOR AUTHOR'S ORGANIZ ATION 01/11/2025 [facility] EPIC REASON FOR VISIT (unrecogniz ed section and content) Reason Comments encounter for weight management Adipex # 2 Reason Comments Weight Management Reason Comments encounter for weight management Reason Comments Gynecologic Exam Reason Comments Swollen Glands New patient : right enlarged lymph node Care Teams (unrecognized sec tion and content) Team Status: Active Member Role Status Dates Mary Jane Gongora MD Primary Care Provider Active Team Status: Inactive Member Role Status Dates Mary Jane Gongora MD Primary Care Provide r, Attending Provider Active Start: August 19, 2024 End: August 19, 2024 Dry Wall Applicator Relationship Specialty Start Date End Date Mary Jane Gongora MD [address] [place] [address] PCP - General Family Medicine 10/17/23 Dry Wall Applicator Relationship Specialty Start Date End Date Mary Jane Gongora MD [address] [place] [address] PCP - General Family Medicine 10/17/23 Team Status: Active Member Role Status Dates Mary Jane Gongora MD Primary Care Provide r, Attending Provider Active Start: April 20, 2024 Team Status: Inactive Member Role Status Dates Mary Jane Gongora MD Primary Care Provide r, Attending Provider Active Start: May 14, 2024 End: May 14, 2024 Dry Wall Applicator Relationship Specialty Start Date End Date Mary Jane Gongora MD [address] [place] [id number] PCP - General Family Medicine 10/17/23 Dry Wall Applicator Relationship Specialty Start Date End Date Mary Jane Gongora MD [address] [place] [facility] [place] [phone] PCP - General Family Medicine 10/17/23 Dry Wall Applicator Relationship Specialty Start Date End Date Mary Jane Gongora MD [address] [place] [facility] [place] [address] PCP - General Family Medicine 10/17/23 Dry Wall Applicator Relationship Specialty Start Date End Date Mary Jane Gongora MD [address] [place] [facility] [place] [address] PCP - General Family Medicine 10/17/23 [...] November 03, 2024 End: November 03, 2024 aJnice Borjas APRN CORPORATE TREASURER-C Attending Provider Act isaac Start: November 03, 2024 End: November 03, 2024 Dry Wall Applicator Relationship Specialty Start Date End Date Mary Jane Gongora MD PCP - General Family Medicine 10/17/23 Daniel Núñez DO [address] [place] [address] Otolaryngology 01/08/25 Dry Wall Applicator Relationship Specialty Start Date End Date Mary Jane Gongora MD PCP - General Family Medicine 10/17/23 Daniel Núñez DO [address] [place] [address] Otolaryngology 01/08/25 Goals (unrecognized section and content) Goals may [...] BE BASED ON THE PRIMARY CLINICAL RECORDS. [employer] provides no warranty or guarantee of the accuracy or completeness of information in this document.
[2025-05-06 17:09] LABS: Age Gdln ACOG Testing Note (.); IGP, Aptima HPV, rfx 16/18,45 Note (.)
== END 2025-05-03 15:14 | disposition home or self-care (01) ==
LOC: LAB 15:13
PROVIDERS: PCP Family Medicine; Visit Provider Obstetrics & Gynecology
DX: Z01.419 Encounter for gynecological examination (general) (routine) without abnormal findings (principal)
CPT/HCPCS: 87624; 88175

== ENCOUNTER 2025-05-17 09:22 | Outpatient (OUT) | payer BC, SELFPAY ==
--- OUTSIDE RECORDS SUMMARY | 2025-05-03 08:30 | XMS_ITS | Encounter Summary ---
Author Organization [facility] Address [address] [facility] [place] [address] Care Team Providers Care Attorney Recruiter Name Role Phone Mary Jane Garcia MD Primary Care Provider [phone] Daniel Haley DO Unavailable [phone] Reason for Visit * ReasonCommentsWell Women Visit Encounter Details DateTypeDepartmentCare Team (Latest Contact Info)Bghcsaoapbm99/13/2025 8:30 AM EDTOffice Visit [facility] [place] [facility] [address] [place] [address] Conrad Fuller DO [address] [place] [id number] Well woman exam with routine gynecological exam; Encounter for screening mammogram for malignant neoplasm of breast Social History Tobacco UseTypesPacks/DayYears UsedDateSmoking Tobacco: NeverSmokeless Tobacco: NeverAlcohol UseStandard Drinks/WeekCommentsNot Currently0 (1 standard drink = 0.6 oz pure alcohol)CommentsNoSex and Gender InformationValueDate RecordedSex Assigned at BirthNot on fileLegal XroFzxcxr32/15/2023 11:47 PM EDT Gender IdentityNot on fileSexual OrientationNot on filedocumented as of this encounter Last Filed Vital Signs Vital SignReadingTime TakenCommentsBlood Taccpfhr107/8205/03/2025 8:33 AM EDT Pulse--Temperature--Respiratory Rate--Oxygen Saturation--Inhaled Oxygen Concentration--Yxovhg55.1 kg (170 lb)05/03/2025 8:33 AM EDTHeight--Body Mass Index30.11001/08/2025 10:06 AM EDTdocumented in this encounter Progress Notes * Meeta Patel LPN - 05/03/2025 8:30 AM EDT Reason for [...] nursing note reviewed. Exam conducted with a air conditioning mechanic industrial present. Vitals: Estimated body mass index is [...] documented in this encounter Plan of Treatment DateTypeDepartmentCare Team (Latest Contact Info)Rvivuuynjro96/19/2026 8:30 AM EDTProcedure Visit [facility] [address] [place] [address] Conrad Fuller DO [address] [place] [address] NameTypePriorityAssociated DiagnosesOrder ScheduleTHIN PREP TIS PAP AND HR HPV DNAPathology and CytologyRoutine Well woman exam with routine gynecological exam Ordered: 05/03/2025ilateral screening mammogramImagingRoutine Encounter for screening mammogram for malignant neoplasm of breast Expected: 05/03/2025, Expires: 07/03/2026documented as of this encounter Visit Diagnoses Diagnosis Well woman exam with routine gynecological exam Routine gynecological examination Encounter for screening mammogram for malignant neoplasm of breast documented in this encounter Care Teams Team MemberRelationshipSpecialtyStart DateEnd Date Mary Jane Garcia MD PCP - GeneralFamily Medicine10/17/23 Daniel Haley DO [address] [place] [address] Otolaryngology01/08/25documented as of this encounter
--- OUTSIDE RECORDS SUMMARY | 2025-05-17 05:02 | XMS_ITS | Continuity of Care Document ---
Author Organization [facility] Address [address] [place] [address] Phone Care Team Providers Care Pump Servicer Helper Name Role Phone Mary Jane Garcia MD Primary Care Provider Conrad Fuller DO Attending Provider Mary Jane Garcia MD Attending Provider [phone] Care Teams Patient Care Team Team Status: Active Member Role/Relationship Status Dates Mary Jane Garcia MD Primary Care Provider Active Patient Care Team Team Status: Active Member Role/Relationship Status Dates Mary Jane Garcia MD Primary Care Provider Active Start: May 03, 2025 Conrad Fuller DOAttsantiago ProviderActiveStart: May 03, 2025 Patient Care Team Team Status: Inactive Member Role/Relationship Status Dates Mary Jane Garcia MD Primary Care Provider Active Start: May 17, 2025 End: May 17, 2025Mary Jane Garcia MDAttsantiago ProviderActiveStart: May 17, 2025 End: May 17, 2025 Chief Complaint and Reason for Visit Chief Complaint Admit Date Wellness May 17, 2025 8 :23am Reason for Visit Admit Date Hypothyroid May 17, 2025 8 :23am Wellness examination May 17, 2025 8:23am Allergies, Adverse Reactions, Alerts Allergen Type Severity Reaction Last Updated Verified Status Comments latex Allergy Unknown Hives May 17, 2025 8:32am Yes Active Onset Date: 07/22/2019 Social History Smoking Status Status Start Date End Date Date of Observa tion Never smoked tobacco (finding) May 17, 2025 8:34am Observation Status Observation Response Date of Response Legal Sex Female (finding) Sex Assigned At BirthFemaleOctober 1969 Family History Relationship Condition Age at Onset Recorded Date/T grayson father Diabetes mellitus Unknown motherDiabetes mellitusUnknownRenal failureUnknownDeceasedUnknown Problems Active Problems Problem Diagnosis/Recorded Date Onset Date Stat LAD (lymphadenopathy) of rig ht cervical region August 19, 2024 11:52am Unknown Active Screening for colon cancer May 14, 2024 10:41am Unknown Active Depression August 21, 2024 11:37am Unknown A ctive Wellness examination April 07, 2024 1:05pm Unkno wn Active Hypothyroid April 07, 2024 1:05pm Unknown Active Hypothyroidism, unspecified May 11, 2024 1:06pm Unknown Active Maxillary sinusitis November 03, 2024 2:09pm Unknown Active Tachycardia May 17, 2024 7:14am Unknown Ac tive Left otitis media September 12, 2024 12:36pm Unknown Active Acute febrile illness October 06, 2024 9:23am Unknown Active Medications Medication Status Dose Units Route Directions Qty Days Refills S tart Date Stop Date End Date Reason(s) Instructions Adherence Levothyroxine 137 mcg tablet Discontinued 0 .ROUTE.TQITUBF774Rgodi 2023 8:33amSeptember 2023 8:02amTAKE 1 TABLET BY MOUTH EVERY DAY IN THE MORNING ON EMPTY STOMACHLevothyroxine 137 mcg tablet Discontinued0.ROUTE.IEFWEDI557Btxprifzu 2023 8:02amFebruary 2024 9:37amTAKE 1 TABLET BY MOUTH EVERY DAY IN THE MORNING ON EMPTY STOMACH Levothyroxine 137 mcg tabletDiscontinued0.ROUTE.WMHFUFB002Fjvxntsk 2024 9:37amAugust 2024 8:14amTAKE 1 TABLET BY MOUTH EVERY DAY IN THE MORNING ON EMPTY STOMACHVenlafaxine (Effexor Xr) 37.5 mg capsule,extended release 24hr Gmlufdbpsszf16.1FSSSRzaeh797Ugimgbep 2024 1:07pmMay 2024 10:43am Venlafaxine (Effexor Xr) 37.5 mg capsule,extended release 35mrNeasruxsrgrj80.5MG WKXzyzq131Xyd 2024 10:43amAugust 2024 8:14amVenlafaxine (Effexor Xr) 37.5 mg capsule,extended release 66meZgwpjf89.2LFJNSgwxp797Qdagkb 2024 8:14amComplies with drug therapyLevothyroxine 137 mcg tabletActive0.ROUTE .NIRIVCS993Cryupc 2024 8:14amTAKE 1 TABLET BY MOUTH EVERY DAY IN THE MORNING ON EMPTY STOMACHComplies with drug therapyPhentermine-Topiramate 7.5-46 mg capsule, ER multiphase 24 weHkfnkhtznfwy4YIXRZHhkynNpycgqn 2023 12:00am May 14, 2024 10:27amMetformin 1,000 mg wmhfdhMzfgsg9424BZMXWqolwVsirwkz 2023 12:00amComplies with drug therapyEstradiol 1 mg fsbyduYgkjncsgzfdw8MZ PODailyOctuofl [facility] 2023 12:00amOctober 2023 11:47amoff 1 week; repeat cycleEstradiol 1 mg tabletActive0.5MGPODailyOctuofl health [facility] 2023 11:46amoff 1 week; repeat cycleComplies with drug therapyPhentermine (Adipex-P) 37.5 mg vdcujsTzbnurqioqsh36.5MGPODailyOctuofl health [facility] 2023 12:00amFebruary 2024 11:53ammust administer 30 minutes before or 1-2 hours after breakfastVenlafaxine (Effexor Xr) 37.5 mg capsule,extended release 06tvQhvjpyhedslz00.8BZAIVrlbt867 August 19, 2024 1:00ambruary 2024 1:07pmAmoxicillin 875 mg tablet Zosmecgpeyzh317QVNGVgmsj 12 wkxmn86501Elkgpnkz 2024 1:00amMarch 2024 4:24pmMethylprednisolone (Medrol (Gallo)) 4 mg tablets,dose kztiDmopjyqinrrv9PNezy package eppscctdxz633Yoxhdpbn 28th, 2025 1:00amMarch 2024 4:23pmPO PER PKG DIR for 6 daysDoxycycline Monohydrate 100 mg zysifrgAxjyrnidbqpg590NSRFIgbge akpma52909Niucq 2024 12:00amOctober 2024 8:33amMaxillary sinusitis Chronic maxillary sinusitisLevothyroxine 137 mcg oosqrlTlkuqasiseag320SYOUETbuox October 04, 2023 12:00amMarch 2023 8:33amAzithromycin 250 mg tablet Gzhcnmgdhbkc3XE.MOKFALY26Rpeis 2024 12:00amApril 2024 1:50pmFor 250 mg dose pack: take 500 mg today (day 1), then 250 mg for 4 days (days 2-5) PO Immunizations Immunization Event Date Not Given Reason Dose Number Fiberglass Fabricator Lot Number Reason(s) Given Vaccine Information Statement (VIS) Detail Administration Location COVID-19 mRNA, Comirnaty ([place]) June 30, 2021 COVID-19 mRNA, Comirnaty ([place])February 06, 2022influenza, unspecified formulationNovember 2018influenza, unspecified formulationSeptember 2020influenza, unspecified formulationSeptember hingles (Zoster)February 01hingles (Zoster)June 28, 2022 Relevant Diagnostic Tests and/or Laboratory Data Laboratory Results Test Collection Date/Time Result Date/Time Result Interpretation Reference Range Result Comment Performing Site Reference Lab Test Patient Age May 03, 2025 8:24am May 03, 2025 8:24am Note .TESTS RESULT FLAG UNITS REF RANGE LAB Clinician Provided Cytology Information Source.............Cervix;Endocervix No. of containers..01 ThinPrep VialAge Tamy LIANG Marycruz... 30-65 01 FLAG LEGEND: L-Low Normal,H-High Normal,LL-Alert Low,HH-Alert High <-Panic Low,>-Panic High,A- Abnormal,AA-Critical Abnormal Performed a t:01 =[facility] [place] [address] Lori Roach MD, XEH High Risk Other CommentOctober 2024 8:24amOctober 2024 8:24amNote.TESTS RESULT FLAG UNITS REF RANGE LAB DIAGNOSIS: 02 NEGATIVE FOR INTRAEPITHELIAL LESION OR MALIGNANCY. CELLULAR CHANGES ASSOCIATED WITH INFLAMMATION ARE PRESENT.Specimen adequacy: 02 Satisfactory for evaluation. Endocervical and/or squamous metaplastic cells (endocervical component) are present.Performed by: Tung Hernandez,Class C Driver ([facility]). 02Note: Note 02 The Pap smear is a screening test designed to aid in the detection of premalignant and malignant conditions of the uterine cervix. It is not a diagnostic procedure and should not be used as the sole means of detecting cervical cancer. Both false-positive and false-negative reports do occur.Test Methodology: Note 02 This liquid based ThinPrep(R) pap test was interpreted using the Seelio(R) Novadiol(TM) Cervical Algorithm whole slide imaging system.HPV Genotype Reflex Note 02 Criteria not met, HPV Genotype not performed. FLAG LEGEND: L-Low Normal,H-High Normal,LL-Alert Low,HH-Alert High <-Panic Low,>- Panic High,A-Abnormal,AA-Critical Abnormal Performed at:[address] [address] Lori Roach MD, TUT Genotype SourceMymichigan [facility] 2024 8:24am May 03, 2025 8:24amNegativeNegativeThis nucleic acid amplification test detects fourteen high-risk HPV types (16,18,31,33,35,39,45,51,5 2,56,58,59,66,68)without differentiation.Performed at: =[address] [id number] Director: Lori Roach MD, Phone: [phone] at: [address] [id number] Director: Lori Roach MD, Phone: [phone] Vital Signs Vital Reading Result Reference Range Collection Date/Time Height 62 [in_i] May 17, 2025 8:98teIxzcye33.43 kgMymichigan Medical Center [facility] 2024 8:28amHeart Rate72 /cza20-335Qqscszu 2024 8:28amBP Atuiyade193 mm[Hg]100-140[facility] 2024 8:28amBP Owhwmhvtv81 mm[Hg]60-100[facility] 2024 8:28amBMI (Body Mass Index)30.8 kg/c5Vagneqr 2024 8:28am Advance Directives Advance Directive Response Recorded Date/ Time Advance Directives No October 05 025 8:52am Insurance Providers Guarantor Annel Alcantara Address [address] [place] [phone] Info.Home Phone: Payer Group Member ID Coverage Type Subscriber Relationship to Subscriber Effective Date Expiration Date Kaitlyn OLIVAS [id number] E Higgins Id: [id number] [address] [place] [address] Home Phone: Email: [email or web address] Encounters Encounter Location(s) Arrival/Admit Date Discharge/Departure Date Discharge/Departure Disposition Provider(s) Non-patient / Non-visit -[facility] O ctober 2024 8:24am Conrad Lo Physician/Provider Office Visit-[facility] May 17, 2025 8:23amOctober 2024 9:01amDischarged to home care or self care (routine discharge)Mary Jane Garcia MD Recent Diagnosis Onset Date Admit Date Hypothyroid Unknown May 17 8:23am Wellness examination Unknown April 8:23am Assessments Diagnosis Onset Date Resolution Status Admit Date Hypothyroid acuteOctober 2024 8:23amWellness examinationacuteMay 17, 2025 8:23am Plan of Treatment Future Tests Future scheduled test information is unavailable Pending Tests Pending diagnostic test information is unavailable Future Visits Future appointment information is unavailable Future Procedures Procedure Name Ordered Date Scheduled Date Basic Metabolic Panel May 17, 2025 8:51am Lipid PanelOctober 2024 8:51amFree T4 (Free Thyroxine)May 17, 2025 8:51amThyroid Stim Hormone w/RflxOctober 2024 8:51am Future Medications Future medication information is unavailable Patient Instructions Patient instructions are unavailable
--- OUTSIDE RECORDS SUMMARY | 2025-05-17 09:26 | XMS_ITS | Encounter Summary ---
Author Organization [facility] Address [address] [place] [address] Care Team Providers Care Smocking Machine Operator Name Role Phone Mary Jane Garcia MD Primary Care Provider Daniel Haley DO Unavailable [phone] Encounter Details DateTypeDepartmentCare Team (Latest Contact Info)Fczewoetjhj90/13/2025bstract [facility] [address] [place] [address] [place] [address] Conrad Fuller, DO [facility] [address] [place], [facility] Social History Tobacco UseTypesPacks/DayYears UsedDateSmoking Tobacco: NeverSmokeless Tobacco: NeverAlcohol UseStandard Drinks/WeekCommentsNot Currently0 (1 standard drink = 0.6 oz pure alcohol)CommentsNoSex and Gender InformationValueDate RecordedSex Assigned at BirthNot on fileLegal VqgYatfkx69/15/2023 11:47 PM EDT Gender IdentityNot on fileSexual OrientationNot on filedocumented as of this encounter Plan of Treatment DateTypeDepartmentCare Team (Latest Contact Info)Fkaqlqybwak48/19/2026 8:30 AM EDTProcedure Visit [facility] [address] [place] [address] Conrad Fuller, DO [address] [place] [address] documented as of this encounter Visit Diagnoses Not on filedocumented in this encounter Care Teams Team MemberRelationshipSpecialtyStart DateEnd Date Mary Jane Garcia MD PCP - GeneralFamily Medicine10/17/23 Daniel Haley DO [address] [place] [address] Otolaryngology01/08/25documented as of this encounter
--- OUTSIDE RECORDS SUMMARY | 2025-05-17 09:26 | XMS_ITS | Clinical Summary ---
Author Organization [employer] [facility] tem Address [id number] [place] [address] Care Team Providers Care Senior Security Architect Name Role Phone Unavailable Primary Care Provider Unavailabl e Social History Tobacco UseTypesPacks/DayYears UsedDateSmoking Tobacco: Never AssessedChildcare AnswerDate CruyeddfBhnoeachfRxdimdr06/11/2019EmploymentAnswerDate Recorded HihzdhhslaNfhdbzj18/11/2019Purpose - LifeAnswerDate RecordedPurpose and direction in oetxYlhfgxk06/10/2021CommentsUnknownSex and Gender InformationValueDate RecordedSex Assigned at BirthNot on fileLegal SexFemale 02/22/2015 5:15 PM EDTGender IdentityNot on fileSexual OrientationNot on file Plan of Treatment Health MaintenanceDue DateLast DoneCommentsDepression Nvogtqjlk56/03/1983Tobacco Hczxckyro54/03/1983Adult BMI Vqqatwtye59/03/1989DTaP,Tdap and Td Vaccines (1 - Tdap)1990Pap Smear1992Zoster (Shingles) Vaccine (1 of 2)2021 Influenza Jjxohlh4903/22/2025 Medical Devices Not on file Insurance
--- OUTSIDE RECORDS SUMMARY | 2025-05-17 09:26 | XMS_ITS | Clinical Summary ---
Author Organization [facility] Address [address] [place] [address] Care Team Providers Care Internet Marketing Consultant Name Role Phone Unavailable Primary Care Provider Unavailabl e Social History Tobacco UseTypesPacks/DayYears UsedDateSmoking Tobacco: Never Assessed CommentsUnknownSex and Gender InformationValueDate RecordedSex Assigned at Not on fileLegal ItuTpeglf62/29/2022 9:34 PM EDTGender IdentityNot on fileSexual OrientationNot on file Last Filed Vital Signs Vital SignReadingTime TakenCommentsBlood Ysgtypbe713/8202 8:58 AM EST Pulse--Temperature--Respiratory Rate--Oxygen Tfhtlqnupg97%08/29/2020 8:58 AM EST Inhaled Oxygen Concentration--Vzless98.4 kg (175 lb)08/12/2020 10:29 AM EST Cyiiud642.5 cm (5' 2 )08/29/2020 8:58 AM ESTBody Mass Index32.01008/12/2020 10:29 AM EST Plan of Treatment Not on file
--- OUTSIDE RECORDS SUMMARY | 2025-05-17 09:26 | XMS_ITS | Encounter Summary ---
Author Organization [facility] Address [address] [place] [address] Care Team Providers Care Network Support Analyst Name Role Phone Mary Jane Garcia MD Primary Care Provider [phone] Daniel Haley DO Unavailable [phone] Encounter Details DateTypeDepartmentCare Team (Latest Contact Info)Zvitzkahngw68/13/2025amboo flowsheet [facility] [address] [place] [address] Conrad Fuller, [facility] [address] [place], [facility] Social History Tobacco UseTypesPacks/DayYears UsedDateSmoking Tobacco: NeverSmokeless Tobacco: NeverAlcohol UseStandard Drinks/WeekCommentsNot Currently0 (1 standard drink = 0.6 oz pure alcohol)CommentsNoSex and Gender InformationValueDate RecordedSex Assigned at BirthNot on fileLegal DfpRdlpvf77/15/2023 11:47 PM EDT Gender IdentityNot on fileSexual OrientationNot on filedocumented as of this encounter Plan of Treatment DateTypeDepartmentCare Team (Latest Contact Info)Cxzaeppigoc40/19/2026 8:30 AM EDTProcedure Visit [facility] [address] [place] [address] Conrad Fuller, DO [address] [place] [address] documented as of this encounter Visit Diagnoses Not on filedocumented in this encounter Care Teams Team MemberRelationshipSpecialtyStart DateEnd Date Mary Jane Garcia MD PCP - GeneralFamily Medicine10/17/23 Daniel Haley DO [address] [place] [address] Otolaryngology01/08/25documented as of this encounter
--- OUTSIDE RECORDS SUMMARY | 2025-05-17 09:26 | XMS_ITS | Clinical Summary ---
Author Organization [facility] Address [address] [place] [address] Care Team Providers Care Necktie Maker Name Role Phone Mary Jane Garcia MD Primary Care Provider [phone] Daniel Haley DO Unavailable [phone] Allergies Active AllergyReactionsCriticalityNoted DateCommentsLatexUnknowMarlon agarwal 04/08/2023 Medications MedicationSigDispense QuantityRefillsLast FilledStart DateEnd DateStatus levothyroxine (Synthroid, Levoxyl) 137 MCG tablet 4Active estradiol (Estrace) 0.5 MG tablet Indications:MenopauseTAKE 1 TABLET BY MOUTH EVERY DAY 90 tablet 5Active venlafaxine XR (Effexor XR) 37.5 MG 24 hr capsule Take 37.5 mg by mouth Daily Do not crush or chew.Active metFORMIN XR (Glucophage-XR) 500 MG 24 hr tablet Indications:Encounter for weight managementTAKE 2 TABLETS (1,000 MG) BY MOUTH IN THE EVENING. TAKE WITH MEALS DO NOT CRUSH, CHEW, OR SPLIT. 180 tablet 5Active Active Problems No known active problems Resolved Problems ProblemNoted DateDiagnosed DateResolved LwdqNgumjoqwisgz01Pain in joint involving ankle and footilateral fibrocystic breast mfuuaik50S/P fhtdtszykgbo93quired oserleehkidtdi33 Encounters DateTypeDepartmentCare StmwQtkeypyernz50/13/2025 8:30 AM EDTOffice Visit [facility] [place] [facility] [address] [place] [address] Conrad Fuller, Well woman exam with routine gynecological exam; Encounter for screening mammogram for malignant neoplasm of pjviyg2505/03/2025 Abstract [facility] [address] [place] [address] Conrad Fuller, 05/03/2025amboo flowsheet [facility] [address] [place] [address] Conrad Fuller, 03/06/2025Refill [facility] [address] [place] [address] Conrad Fuller, Encounter for weight managementfrom Last 3 Months Immunizations ImmunizationAdministration DatesNext DueInfluenza, Injectable, MDCK, preservative free03/27/2024Influenza, injectable, MDCK, preservative free, lunbzifgvsfr08/20/2023,04/13/2022Influenza, injectable, ulksqegiczro20/12/2020, 05/26/2019,05/21/2016Influenza, injectable, quadrivalent, preservative free 04/03/2021neumococcal conjugate vaccine, 21 valent (PCV21), polysaccharide [id number] conjugate, preservative free09/27/2024Tdap09/27/2024Zoster, Recombinant 06/28/2022,02/01/2022 Social History Tobacco UseTypesPacks/DayYears UsedDateSmoking Tobacco: NeverSmokeless Tobacco: Never Tobacco Cessation:Counseling Given: Not Answered Alcohol UseStandard Drinks/WeekCommentsNot Currently0 (1 standard drink = 0.6 oz pure alcohol)CommentsNoSex and Gender InformationValueDate RecordedSex Assigned at BirthNot on fileLegal EutJybcpt56/15/2023 11:47 PM EDTGender IdentityNot on fileSexual OrientationNot on file Last Filed Vital Signs Vital SignReadingTime TakenCommentsBlood Qrbyosqf501/8205/03/2025 8:33 AM EDT Pulse--Temperature--Respiratory Rate--Oxygen Saturation--Inhaled Oxygen Concentration--Bxbnln98.1 kg (170 lb)05/03/2025 8:33 AM HZQTswepa428 cm (5' 3 ) 01/08/2025 10:06 AM EDTBody Mass Index30.11001/08/2025 10:06 AM EDT Plan of Treatment DateTypeDepartmentCare Team (Latest Contact Info)Almjcmjpsrl96/19/2026 8:30 AM EDTProcedure Visit [facility] [address] [place] [address] Conrad Fuller, [address] [place] [address] Health MaintenanceDue DateLast DoneCommentsCT Qbipngkxmeau1971Colonoscopy 1971FIT1971FOBT1971 5599Exkhdnzjfdzdq63/03/2736Ovzlkwzsv11/17/2026 08/07/2024, 06/25/2022, 04/24/2016, Additional history existsPap Smear04/13/2027 04/13/2024, 04/08/2023, 04/04/2022olorectal Cancer Hotannobl98/03/2028FIT-DNA , 05/29/2021ervical Cancer Krxahresj21/26/2028HPV/Cotest Influenza DzeypbjIabbtraom00/31/2025, 03/27/2024, 04/10/2023, Additional history exists Procedures Procedure NamePriorityDate/TimeAssociated DiagnosisCommentsMM TOMOSYNTHESIS SCREENING BI08/07/2024 11:53 AM EST PAP CYJWLOeqljtx01/23/2024 12:00 AM EDTTHINPREP PAP AND HPV MRNA E6/E7 W/RFL HPV 16,18/42Ivgbqqw52/26/2023 12:08 PM EDT Well woman exam with routine gynecological exam from Last 3 Months or Most Recently Relevant to Health Maintenance Results * MM TOMOSYNTHESIS SCREENING BI (08/07/2024 11:53 AM EST)Anatomical Region LateralityModalityOtherSpecimen (Source)Anatomical Location / Laterality Collection Method / VolumeCollection TimeReceived Time08/07/2024 11:53 AM EST Narrative 08/07/2024 11:55 AM EST [facility] ?[address] ? [place], [facility] ? Mammography Report ? Signed ? Patient: ABELANNEL E ?MR#: [id number] ?? : 1970 ?Acct:[id number] ?? Age/Sex: 54 / F ?ADM Date: 08/07/24 ?? Loc: MAMMO ? Attending Dr: Conrad Fuller D.O. ? Ordering Physician: Conrad Fuller D.O. ?Results: ? Date of Service: 08/07/24 ?Follow Up: ? Procedure(s): MM tomosynthesis screening BI ?? Accession Number(s): [id number] ? cc: Mary Jane Garcia M.D.; Conrad Fuller D.O. ? Patient Name: ? ANNEL ALCANTARA ? MR#: [id number] ? : 1970 ? Exam Date: 08/07/2024 ?? Ordering Doctor: DR Conrad Fuller . ? RADIOLOGY REPORT ? PROCEDURE: ? MM TOMOSYNTHESIS SCREENING BI ? COMPARISON: ? MM TOMOSYNTHESIS SCREENING BI, 07/23/2023. ??MG MAMM SCREEN 3D ?? MAACRIO CAD, 06/25/2022. ??MG MAMM SCREEN 3D MACARIO CAD, 06/23/2021. ??MG MAMM [facility]IO SCRN ?? W CAD DIG, 11/05/2013. ? INDICATIONS: ? Screening ? Calculator Name ? NCI Breast Cancer Risk Assessment Tool ?? 5 Year Breast Cancer Risk ? 1.70% ?? Lifetime Breast Cancer Risk ? 12.60% ?? Personal Breast Cancer ?No ?? Personal Ovarian Cancer ? No ?? Treatments ? None ?? Family Cancers ? None ? LOCATION: ? [facility] ? BREAST COMPOSITION: ? The breasts are heterogeneously dense,which may ?? obscure small masses. ? FINDINGS: ? DIAGNOSTIC CATEGORY 1--NEGATIVE. ? RIGHT BREAST: ??No significant suspicious finding. ??No significant change has ?? occurred. ? LEFT BREAST: ??No significant suspicious finding. ??No significant change has ?? occurred. ? RECOMMENDATIONS: ? ROUTINE MAMMOGRAM AND CLINICAL EVALUATION IN 12 MONTHS. ? PLEASE NOTE: ??A NORMAL MAMMOGRAM DOES NOT EXCLUDE THE POSSIBILITY OF BREAST ?? CANCER. ??A CLINICALLY SUSPICIOUS PALPABLE LUMP SHOULD BE BIOPSIED. ? Dictated by: Gurdeep Avendaño M.D. on 08/07/2024 at 11:46 ? Approved by: Gurdeep Avendaño M.D. on 08/07/2024 at 11:53 ? Dictated By: ?Gurdeep Avendaño M.D. ? Signed By: ?08/07/24 1155 ? DD/ ? TD/TT: ? Table Games Dealer: Procedure Note Radiology, Radiologist, MD - 08/07/2024 [place] [address] Mammography Report Signed Patient: ANNEL ALCANTARA EMR#: [id number] : 1970Acct:[id number] Age/Sex: 54 / FADM Date: 08/07/24 Loc: MAMMO Attending Dr: Conrad Fuller D.O. Ordering Physician: Jonny,Conrad D.O.Results: Date of Service: 08/07/24Follow Up: Procedure(s): MM tomosynthesis screening BI Accession Number(s): [id number] cc: Mary Jane Garcia M.D.; Conrad Fuller D.O. Patient Name: ANNEL ALCANTARA MR#: [id number] : 1970 Exam Date: 08/07/2024 Ordering Doctor: DR Conrad Fuller . RADIOLOGY REPORT PROCEDURE: MM TOMOSYNTHESIS SCREENING BI COMPARISON: MM TOMOSYNTHESIS SCREENING BI, 07/23/2023. MG MAMM VQLJWI0B MACARIO CAD, 06/25/2022. MG MAMM SCREEN 3D MAC[place]IO CAD, 06/23/2021. MG MAMM BILSCRN W CAD DIG, 11/05/2013. INDICATIONS: Screening Calculator Name NCI Breast Cancer Risk Assessment Tool 5 Year Breast Cancer Risk 1.70% Lifetime Breast Cancer Risk 12.60% Personal Breast Cancer No Personal Ovarian Cancer No Treatments None Family Cancers None LOCATION: [facility] BREAST COMPOSITION: The breasts are heterogeneously [...] M.D. Signed By:08/07/24 1155 DD/ 1153 TD/TT: Table Games Dealer: Authorizing ProviderResult TypeResult StatusCorey Jonny DOCLINISYNC IMAGINGFinal Result * Pap Smear (04/13/2024 12:00 AM EDT)Specimen (Source)Anatomical Location / LateralityCollection Method / VolumeCollection TimeReceived TimeSwabCervical swab / Unknown Narrative Authorizing ProviderResult TypeResult StatusFazio Nurse Noms [facility]cp ObLAB CYTOLOGY ORDERABLESFinal ResultPerforming OrganizationAddressCity/State/ZIP CodePhone Number EXTERNAL LAB * THINPREP PAP AND HPV MRNA E6/E7 W/RFL HPV 16,18/45 (04/16/2023 12:08 PM EDT) Narrative Authorizing ProviderResult TypeResult StatusCorey Jonny DOLAB BLOOD ORDERABLES Final ResultPerforming OrganizationAddressCity/State/ZIP CodePhone Number EXTERNAL LAB from Last 3 Months or Most Recently Relevant to Health Maintenance Insurance Care Teams Team MemberRelationshipSpecialtyStart DateEnd Date Mary Jane Garcia MD PCP - GeneralFamily Medicine10/17/23 Daniel Haley DO [address] [place] [address] Otolaryngology01/08/25
--- OUTSIDE RECORDS SUMMARY | 2025-05-17 09:45 | XMS_ITS | CCD ---
Author Organization [facility] CliniSynh Care Team Providers Care Campus Executive Director Name Role Phone ROLAN, DR PRIYA Pate Attending Unavailable ROLAN, DR PRIYA Pate Consulting Unavailable GONGORA, DR PRIYA Pate Primary Care Unavailable GONGORA, DR PRIYA Pate Admitting Unavailable JONNY, DR CROSS Admitting Unavailable JONNY, DR CROSS Attending Unavailable S[place]AC[place], DR KAUR Villalpando Consulting Unavailable GONGORA, DR PRIYA Pate Primary Care Unavailable JONNY, DR CROSS Consulting Unavailable JONNY, DR CROSS Admitting Unavailable JONNY, DR CROSS Attending Unavailable JONNY, DR CROSS Consulting Unavailable GONGORA, DR PRIYA Pate Primary Care Unavailable JONNY, DR CROSS Admitting Unavailable GONGORA, DR PRIYA Pate Primary Care Unavailable JONNY, DR CROSS Attending Unavailable JONNY, DR CROSS Consulting Unavailable ZIEBER, DR APOLONIA Gonzalez Consulting Unavailable GONGORA, DR PRIYA Pate Attending Unavailable GONGORA, DR PRIYA Pate Consulting Unavailable GONGORA, DR PRIYA Pate Primary Care Unavailable GONGORA, DR PRIYA Pate Admitting Unavailable Priya Gongora Unavailable Priya Gongora MD Primary Care Provider Priya Gongora MD Primary Care Provider Daniel Núñez DO Unavailable DANIEL NÚÑEZ Attending Unavailable PRIYA GONGORA Referring Unavailable CONRAD FULLER Attending Unavailable CONRAD FULLER Attending Unavailable HEATHER GRAHAM Attending Unavailable HEATHER GRAHAM Attending Unavailable Priya Gongora MD Primary Care Provider Conrad Fuller DO Attending Provider Priya Gongora MD Attending Provider Allergies Allergy ClassificationReported Allergen(s)Allergy TypeDate of OnsetReaction(s) Facility (1 source)Adhesive bandageDrug allergy (disorder)74-29-8702Htk [facility] Repository (3 sources)LatexDrug tqbfhuy94-11-8774IuyibkpFptluGummii Other (17 sources)LatexAllergy to jvnixyufa64-42-1107Uknfwed, RashNOMS [facility] Medications Current Medications MedicationDrug Class(es)DatesSig (Normalized)Sig (Original)estradiol 1 mg oral tablet (20 sources)EstrogenStart: 81-45-6261yjwk 0.5 mg by mouth once dailyEstradiol 1 mg tablet Active 0.5 MG PO Daily May 14, 2024 11:46am off 1 week; repeat cycle Complies with drug therapyStart: 05-14-2024 End: 07-78-5419muxi 1 tablet by mouth once dailyEstradiol 1 mg tablet Discontinued 1 MG PO Daily May 14, 2024 12:00am May 14, 2024 11:47am off 1 week; repeat cycleStart: 03-12-2024 End: 56-37-0872jpqe 1 tablet by mouth once dailyestradiol (Estrace) 0.5 MG tablet Indications: Menopause TAKE 1 TABLET BY MOUTH EVERY DAY 90 tablet3 12/07/2024 Activefluticasone propionate 0.05 mg/actuat metered dose nasal spray (1 source)CorticosteroidStart: 50-69-9291ajgb 1 spray(s) nasal route once daily Fluticasone Propionate 50 MCG/ACT 1 spray in each nostril Nasally Once a day for 21 days May, Activelevothyroxine sodium 0.137 mg oral tablet (20 sources)l-ThyroxineStart: 10-04-2023 End: 18-65-0034tsbj 1 tablet by mouth once daily in the morningLevothyroxine 137 mcg tablet Active 0 .ROUTE .COMPLEX 90 1 March 08, 2025 8:14am TAKE 1 TABLET BY MOUTH EVERY DAY IN THE MORNING ON EMPTY STOMACH Complies with drug therapy Start: 10-04-2023 End: 03-06-7258vprf 1 tablet by mouth once dailyLevothyroxine 137 mcg tablet Discontinued 137 MCG PO Daily October 04, 2023 12:00am October 04, 2023 8:33am take 1 tablet by mouth once daily in the morningLevothyroxine Sodium 137 MCG 1 tablet in the morning on an empty stomach Orally Once a day Activetake 1 tablet by mouth every twenty-four hoursSynthroid 50 MCG 1 tablet Orally Once a day Gdclgm82 hr metFORMIN hydrochloride 500 mg extended release oral tablet (20 sources)BiguanideStart: 82-84-9735fnna 2 tablets by mouth every twenty-four hours at mealtimemetFORMIN XR (Glucophage-XR) 500 MG 24 hr tablet Indications: Encounter for weight management TAKE 2 TABLETS (1,000 MG) BY MOUTH IN THE EVENING. TAKE WITH MEALS DO NOT CRUSH, CHEW, OR SPLIT. 180 tablet 3 03/12/2025 ActiveStart: 05-18-2024 End: 89-59-3849mnwa 2 tablets by mouth every twenty-four hours at mealtime metFORMIN XR (Glucophage-XR) 500 MG 24 hr tablet Indications: Encounter for weight management Take 2 tablets (1,000 mg) by mouth in the evening. Take with meals Do not crush, chew, or split. 60 tablet 11 05/18/2024 ActiveStart: 49-03-9524dcug 1 tablet by mouth once dailyMetformin 1,000 mg tablet Active 1000 MG PO Daily May 14, 2024 12:00am Complies with drug therapyStart: 44-12-6679brjn 1 tablet by mouth every twenty-four hours at mealtimemetFORMIN XR (Glucophage-XR) 500 MG 24 hr tablet Indications: Menopause Take 1 tablet (500 mg) by mouth in the evening. Take with meals Do not crush, chew, or split. 30 tablet 11 11/12/2023 ActivepredniSONE 20 mg oral tablet (1 source)Start: 67-78-6621iukf 2 tablets by mouth every twenty-four hours predniSONE 20 MG 2 tablets Orally Once a day for 5 days Jul, Vmaepn20 hr venlafaxine 37.5 mg extended release oral capsule (18 sources)Serotonin and Norepinephrine Reuptake InhibitorStart: 08-19-2024 End: 19-85-3730lwvf 1 capsule by mouth once dailyVenlafaxine (Effexor Xr) 37.5 mg capsule,extended release 24hr Active 37.5 MG PO Daily 90 0 March 08, 2025 8:14am Complies with drug therapy Completed/Discontinued Medications MedicationDrug Class(es)DatesSig (Normalized)Sig (Original)amoxicillin 875 mg oral tablet (5 sources)Penicillin-class AntibacterialStart: 09-12-2024 End: 04-33-2693pnxv 1 tablet by mouth every twelve hoursAmoxicillin 875 mg tablet Discontinued 875 MG PO Every 12 hours 20 10 0 September 12, 2024 1:00am October 06, 2024 4:24pmStart: 09-99-2653rdlq 1 capsule by mouth every eight hoursAmoxicillin 500 MG 1 capsule Orally every 8 hrs for 5 day(s) Jul, Activeazithromycin 250 mg oral tablet (2 sources)Macrolide AntimicrobialStart: 10-06-2024 End: 93-31-3025Dmltewdxdoju 250 mg tablet Discontinued 0 PO .COMPLEX 6 0 October 06, 2024 12:00am November 0351:50pm For 250 mg dose pack: take 500 mg today (day 1), then 250 mg for 4 days (days 2-5) POdoxycycline monohydrate 100 mg oral capsule (2 sources)Tetracycline-class DrugStart: 11-03-2024 End: 58-29-3102htzw 1 capsule by mouth twice dailyDoxycycline Monohydrate 100 mg capsule Discontinued 100 MG PO Twice daily 20 10 November 03, 2024 12:00am May 17, 2025 8:33am Maxillary sinusitis Chronic maxillary sinusitis methylPREDNISolone 4 mg oral tablet (4 sources)CorticosteroidStart: 09-18-2024 End: 49-03-4320jlcs 1 tablet by mouth onceMethylprednisolone (Medrol (Gallo)) 4 mg tablets,dose pack Discontinued 0 PO per package directions 21 September 18, 2024 1:00am October 06, 2024 4:23pm PO PER PKG DIR for 6 daysphentermine hydrochloride 37.5 mg oral tablet (20 sources)Sympathomimetic Amine AnorecticStart: 04-13-2024 End: 05-89-1021omxy 1 tablet by mouth once daily 30 minutes after breakfast Phentermine (Adipex-P) 37.5 mg tablet Discontinued 37.5 MG PO Daily May 14, 2024 12:00am September 12, 2024 11:53am must administer 30 minutes before or 1-2 hours after krhroooea54 hr phentermine 7.5 mg / topiramate 46 mg extended release oral capsule (7 sources)Sympathomimetic Amine AnorecticStart: 05-14-2024 End: 69-94-9188ldpb 1 capsule by mouth once dailyPhentermine-Topiramate 7.5-46 mg capsule, ER multiphase 24 hr Discontinued 1 CAP PO Daily May 14, 2024 12:00am May 14, 2024 10:27am Problems Active Problems Problem ClassificationProblemDateDocumented DateEpisodic/Chronic Administrative/social admission (6 sources)Patient encounter status; Translations: [Persons encountering health services in other specified circumstances]71-83-4777MbocnbfoDtpskka dysrhythmias (6 sources)Tachycardia; Translations: [Tachycardia, unspecified]05-17-2024 EpisodicFever of unknown origin (5 sources)Fever; Translations: [Fever, unspecified]58-42-4701Gofshomi Genitourinary symptoms and ill-defined conditions (1 source)DysuriaEpisodicImmunizations and screening for infectious disease (1 source)Encounter for screening for human papillomavirus (HPV); Translations: [ENC SCREENING HUMAN PAPILLOMAVIRUS]Onset: 81-78-2105DzeaotjrWcvbmcmjjkero (11 sources)Cervical lymphadenopathy; Translations: [Localized enlarged lymph nodes]01-76-0693YnoyosghHhdc disorders (11 sources)Depressive disorder; Translations: [Depression]05-90-4139Fsxgzmj Osteoporosis (2 sources)Postmenopausal osteoporosis; Translations: [Age-related osteoporosis without current pathological fracture]26-49-1590XyyzgxuAofun connective tissue disease (1 source)Pain in right legEpisodicOther connective tissue disease (1 source)Pain in left legEpisodicOther screening for suspected conditions (not mental disorders or infectious disease) (20 sources)Encounter for screening mammogram for malignant neoplasm of breast; Translations: [Encounter for screening for osteoporosis]Onset: 04-04-2022 EpisodicOther skin disorders (2 sources)Mass of neck; Translations: [Localized swelling, mass and lump, neck] 79-49-4570WxfrhnzoMltrw upper respiratory infections (3 sources)Maxillary sinusitis; Translations: [Chronic maxillary sinusitis] 91-00-3859QkticodQwuoq upper respiratory infections (1 source)Acute pharyngitis, unspecifiedEpisodicOtitis media and related conditions (9 sources)Otitis media of left ear; Translations: [Otitis media, unspecified, left ear]66-34-8504OdsnmavoLypuuzn disorders (20 sources)Hypothyroidism; Translations: [Hypothyroidism, unspecified]Onset: 06-08-2015 Resolved: 13-22-5788LtsrnmwLahhkhlibhue (3 sources)CONTACT W/AND (SUSP) EXPOS COVID-19; Translations: [CONTACT W/AND (SUSP) EXPOS COVID-19]Onset: 08-25-2021 Past or Other Problems Problem ClassificationProblemDateDocumented DateEpisodic/ChronicGenitourinary symptoms and ill-defined conditions (6 sources)Incontinence; Translations: [Unspecified urinary incontinence]Onset: 01-06-2025 Resolved: 115680-86-7461LcxafekEeolwzlaqxmh breast conditions (6 sources)Fibrocystic changes of bilateral breasts; Translations: [Diffuse cystic mastopathy of right breast]Onset: 04-24-2016 Resolved: 846122-70-5394YruzsjdPmvaz non-traumatic joint disorders (6 sources)Arthralgia of the ankle and/or foot; Translations: [Pain in unspecified ankle and joints of unspecified foot]Onset: 01-06-2025 Resolved: 538306-93-9291PrvtxlnbIbnbdtfwkhli (1 source)CONTACT W/AND (SUSP) EXPOS COVID-19; Translations: [CONTACT W/AND (SUSP) EXPOS COVID-19]Onset: 40-53-3746Vvazzbbtzwxs (1 source)Postviral fatigue syndrome G93.31 Results Test NameValueInterpretationReference RangeFacilityHuman papilloma virus 16+18+31+33+35+39+45+51+52+56+58+59+66+68 DNA [Presence] in CerOrdered By: Conrad Fuller on 71-00-1270QXA 16+18+31+33+35+39+45+51+52+56+58+59+66+68 DNA Probe+sig amp Ql (Cvx)NegativeNegativeWvumedicine Barnesville HospitalComment on above: This nucleic acid amplification test detects fourteen high-risk HPV types (16,18,31,33,35,39,45,51,52,56,58,59,66,68)without differentiation.Performed at: =G - [facility] [address] [place], [place] [id number] Director: Lori Roach MD, Phone: [phone] at: WB - [facility] [address] [facility] [place], [place] [id number] Director: Lori Roach MD, Phone: [phone] Panel InformationOrdered By: Conrad Fuller on 37-44-4520CZW High Risk Other CommentNote.[facility] Barnesville HospitalComment on above:TESTS RESULT FLAG UNITS REF RANGE LAB DIAGNOSIS: 02 NEGATIVE FOR INTRAEPITHELIAL LESION OR MALIGNANCY. CELLULAR CHANGES ASSOCIATED WITH INFLAMMATION ARE PRESENT.Specimen adequacy: 02 Satisfactory for evaluation. Endocervical and/or squamousmetaplastic cells (endocervical component) are present.Performed by: Tung Hernandez, Construction Laborer (ASCP). 02Note: Note 02 The Pap smear is a screening test designed to aid in the detection of premalignant and malignant conditions of the uterine cervix. It is not a diagnostic procedure andshould not be used as the sole means of detecting cervical cancer. Both false-positive and false-negative reports do occur.Test Methodology: Note 02 This liquid based ThinPrep(R) pap test was interpreted using the SiriusDecisions(R) Genius(TM) Cervical Algorithm whole slide imaging system.HPV Genotype Reflex Note 02 Criteria not met, HPV Genotype not performed. FLAG LEGEND: L-Low Normal,H-High Normal,LL-Alert Low,HH-Alert High <-Panic Low,>- Panic High,A-Abnormal,AA-Critical Abnormal Performed at:02 WB [facility] [address] [facility] [place] [address] Lori Roach MD, Jxnwaeraz Lab Test Patient AgeDeborah.[facility] Barnesville HospitalComment on above:TESTS RESULT FLAG UNITS REF RANGE LAB Clinician Provided Cytology Information Source.............Cervix;Endocervix No. of containers..01 ThinPrep VialAge Jolynno ACOG Marycruz... 30-65 01 FLAG LEGEND: L-Low Normal,H-High Normal,LL-Alert Low,HH-Alert High <-Panic Low,>-Panic High,A- Abnormal,AA-Critical Abnormal Performed a t:01 =G [facility] [address] [facility] [place] [address] Lori Roach MD, Nzewevgmh/100 WBC Manual cnt (Bld)on 10-06-2024 Basophils/100 WBC (Bld)Basophils/100 leukocytes in Blood by Manual countLow 0.2-2.0[facility]ville HospitalEosinophils/100 WBC Manual cnt (Bld)on 00-71-4247Oghgvzslscy/100 WBC (Bld)Eosinophils/100 leukocytes in Blood by Manual count0.9-7.0[facility] HospitalLaboratory - Hematology and Cell countson 78-04-4887Hnprntcjopg/100 WBC (Bld)21.0 %20.5-60.0[facility] HospitalMonocytes/100 WBC (Bld)12.0 %1.7-12.0[facility] HospitalNo Panel Informationon 38-68-1343Gdoljvou Basophils (Manual)0.00 10 3/uL 0.00-0.10[facility]ville HospitalEosinophils # (Manual)0.09 10 3/uL 0.00-0.70[facility] HospitalLymphocytes # (Manual)1.91 10 3/uL 1.20-3.80[facility] HospitalMiscellaneous TestCOMMENT.[facility] HospitalComment on above:Test Ordered: [id number] EBV Ab VCA, IgMEBV Ab VCA, IgM <36.0 U/mL CB Reference Range: 0.0-35.9 Negative <36.0 Equivocal 36.0 - 43.9 Positive >43.9Performed at: - [facility] [address] [id number] Director: Anthony Ivory PhD, Phone: [phone] Monocytes # (Manual)1.09 10 3/uLHigh0.30-0.80[facility] MonoscreenNegativeNEGATIVEWvumedicine Barnesville HospitalReactive Lymphocytes 0.18FTriHealth Good Samaritan HospitalReactive Lymphocytes2.0 %The Bellevue Hospitalegmented Neutrophils # (Manual)5.82 10 3/uL1.4-6.5FOhioHealth Grant Medical Centeregmented neutrophils/100 WBC Manual cnt (Bld)on 42-56-5431Lpwehtjci neutrophils/100 WBC (Bld)Manual blood segmented neutrophils/100 fkqxwvwluv21.0-75.0[facility] HospitalInfluenza virus B Ag [Presence] in Upper respiratory specimen by Rapid immunoassayon 93-30-5030KSMNJ Ag IA.rapid Ql (Nph)Influenza virus B Ag [Presence] in Upper respiratory specimen by Rapid immunoassayWvumedicine Barnesville HospitalNo Panel Informationon 63-26-4901Asgnyrzpm Type A (Rapid)NegativeWvumedicine Barnesville HospitalPOC SARS CoV-2 AntigenNegativeWvumedicine Barnesville HospitalNo Panel InformationOrdered By: Mily Rodriguez on 31-41-7119Pcfvv Strep (POC) [facility] HospitalQuick Strep (POC)[facility] HospitalCholesterol in LDL Calc [Mass/Vol]on 30-27-1555Xwtghrlcasr in LDL [Mass/Vol]96.0 mg/dLWvumedicine Barnesville HospitalComment on above:<100 mg/dl JSWIJVQ758-003 mg/dl NEAR OR ABOVE SFQLBTO135-417 mg/dl BORDERLINE TMRQ064-985 mg/dl HIGH>190 mg/dl VERY HIGHCholesterol in VLDL Calc [Mass/Vol]on 04-20-2024 Cholesterol in VLDL [Mass/Vol]22.8 mg/dLWvumedicine Barnesville Hospital Estimated glomerular filtration rate (GFR) non- Americanon 04-20-2024 GFR/1.73 sq M.predicted among non-blacks MDRD (S/P/Bld) [Vol rate/Area] mL/min/{1.73_m2}>=60Wvumedicine Barnesville HospitalIGP,APTIMA HPV,AGE GDLNon 54-79-0677ZTE GDLN ACOG TESTINGNote.NOMS HealthcareComment on above:TESTS RESULT FLAG UNITS REF RANGE LAB Clinician Provided Cytology Information Source.............Cervix;Endocervix No. of containers..01 ThinPrep Vial Age Algo ACOG Marycruz... FLAG LEGEND: L-Low Normal,H-High Normal,LL-Alert Low,HH-Alert High <-Panic Low,>-Panic High,A-Abnormal,AA-Critical Abnormal Performed at: 01 =[address] [address] Lori Roach MD, HPV APTIMANegativeNegativeNOMS HealthcareComment on above:This nucleic acid amplification test detects fourteen high- risk HPV types (16,18,31,33,35,39,45,51,52,56,58,59,66,68) without differentiation. Performed at: =[address] [id number] Chief Design Branch: Lori Roach MD, Phone: [phone] Performed at: [address] [id number] Chief Design Branch: Lori Roach MD, Phone: [phone] IGP, APTIMA HPV, RFX 16/18,45Note.NOMS HealthcareComment on above:TESTS RESULT FLAG UNITS REF RANGE LAB DIAGNOSIS: 02 NEGATIVE FOR INTRAEPITHELIAL LESION OR MALIGNANCY. Specimen adequacy: 02 Satisfactory for evaluation. Endocervical and/or squamous metaplastic cells (endocervical component) are present. Performed by: 02 Lashawn Rivas Manager Meeting (ASCP) . 02 Note: Note 02 The [...] High,A-Abnormal,AA-Critical Abnormal Performed at: 02 WB [facility] [address] [address] Lori Roach MD, BRUSH-SPATULA CERVIX ENDOCERVIX CLINISYNCNOMS HealthcareLaboratory - Chemistry and Chemistry - challengeon 12-64-5126Iyasabj [Mass/Vol]9.1 mg/dL8.5-10.1FTriHealth Good Samaritan Hospital Chloride [Moles/Vol]101 mmol/O72-055JaiioibdeWvumedicine Barnesville HospitalCholesterol [Mass/Vol]189 mg/dL<=200W[facility] HospitalCholesterol in HDL [Mass/Vol]71 mg/tEXhcp82-52RmlmcurfrWvumedicine Barnesville HospitalComment on above:> or =60 mg/dl - LOW CARDIOVASCULAR RISK<40 mg/dl - HIGH CARDIOVASCULAR RISKCO2 [Moles/Vol]29.2 mmol/L21.0-32.0W[facility] HospitalCreatinine [Mass/Vol]0.74 mg/dL0.55-1.02W[facility] Barnesville HospitalFree T4 [Mass/Vol] 1.47 ng/dLHigh0.76-1.46W[facility] HospitalGFR/1.73 sq M.predicted MDRD (S/P/Bld) [Vol rate/Area]mL/min/{1.73_m2}>=60W[facility] HospitalGlucose [Mass/Vol]85 mg/vF93-882JyslsqjvoWvumedicine Barnesville HospitalPotassium [Moles/Vol]4.3 mmol/L3.5-5.1FOhioHealth Grant Medical Centerodium [Moles/Vol] 136 mmol/R323-881AbhadgbhbWvumedicine Barnesville HospitalTriglyceride [Mass/Vol]114 mg/dL<=150W[facility]umed[facility] Barnesville HospitalTSH Qn3.135 m[IU]/L0.358-3.740 [facility] HospitalUrea nitrogen [Mass/Vol]6.0 mg/dLLow7.0-18.0 [facility] HospitalUrea nitrogen/Creatinine [Mass ratio]8.1 mg/mg The [facility] Hospitalerum or plasma anion gap determinationon 64-65-7410Ytnaj gap [Moles/Vol]10.1 mmol/LFOhioHealth Grant Medical Centererum or plasma total cholesterol/high density lipoprotein (HDL) cholesterol mass rat on 14-88-3414Ufuvfszzvwk.total/Cholesterol in HDL [Mass ratio]2.7 {ratio} [facility] HospitalComment on above:3.3 - 4.4 LOW RISK4.4 - 7.1 AVERAGE RISK7.1 - 11.0 MODERATE RISK>11.0 HIGH RISKCytology Cervical or vaginal smear or scraping studyon 91-19-8211LYBV HealthcareUrinalysis - DIPSTICKon 02-89-0910Xtwnfptkbm (U)[employer] Other Bilirubin Ql (U)[employer] Other Color (U)[employer] Other Glucose Ql (U)[employer] Other Hemoglobin Ql (U)[employer] Other Ketones Ql (U)[employer] Other Leukocyte esterase Test strip Ql (U)[employer] Other Nitrite Ql (U)[employer] Other pH (U)6.0 [pH][employer] Of Me Other Protein Ql (U)NegativeNodoctors hospital of [facility] Other Specific gravity (U) [Rel density]1.000Nort [facility] Other Urobilinogen (U) [Mass/Vol]normalNoThe [employer] Other Urinalysis - DIPSTICKNoDedicated Devices Other MG MAMM SCREEN 3D MACARIO CADon 77-56-5447RG MAMM SCREEN 3D MACARIO CADPatient: SRINI ALCANTARA Exam Date: 06/25/2022 : 1970 Gender:F Ordering : DR CONRAD FULLER . Admission #: [id number] Family : Order #: [id number] CLICK HERE TO VIEW EXAM RADIOLOGY REPORT [...] None Family Cancers None LOCATION: [facility] BREAST COMPOSITION: Heterogeneously dense,which may obscure [...] by: Kaur Pedro MD on 06/25/2022 at 09:48NoUK Healthcare ACOG PANEL 2: 30 to 65on 04-11-2022..NormalThe [facility] HospitalComment on above:Result Comment: Performed at: WBPerformed By: #### [id number] #### [facility] [address] [place] [address] Dr. Isis Barcenas [facility] ACOG Vivukus32-04EmsocgMymSelect Medical Specialty Hospital - Cincinnati NorthComment on above:Performed By: #### [id number] #### [facility] [address] [place] [address] Dr. Isis ShahidDIAGNOSIS:CommentOhioHealth Grant Medical Center on above: Result Comment: NEGATIVE FOR INTRAEPITHELIAL LESION OR MALIGNANCY. Performed at: WBPerformed By: #### [id number] #### [facility] [address] [place] [address] Dr. Isis ShahidHPV AptimaNegativeNormalNegativeThe [facility] on above:Result Comment: This nucleic acid amplification test detects fourteen high-risk HPV types (16,18,31,33,35,39,45,51,52,56,58,59,66,68) without differentiation. Performed at: =GPerformed By: #### [id number] #### [place] [address] Dr. Isis ShahidMethodology:CommentOhioHealth Grant Medical Center on above: Result Comment: This liquid based ThinPrep(R) pap test was screened with the use of an image guided system. Performed at: WBPerformed By: #### [id number] #### [place] [address] Dr. Isis ShahidNote:CommentOhioHealth Grant Medical Center on above:Result Comment: The Pap smear is a screening test designed to aid in the detection of premalignant and malignant conditions of the uterine cervix. It is not a diagnostic procedure and should not be used as the sole means of detecting cervical cancer. Both false-positive and false-negative reports do occur. . Performed at: WBPerformed By: #### [id number] #### [facility] [address] [place] [address] Dr. Isis ShahidPerformed by:CommentOhioHealth Grant Medical Center on above: Result Comment: Sandy Pedro, Manager Meeting (ASCP) Performed at: WBPerformed By: #### [id number] #### [facility] [address] [place] [address] Dr. Isis Rust adequacy:CommentOhioHealth Grant Medical Center on above:Result Comment: Satisfactory for evaluation. Endocervical and/or squamous metaplastic cells (endocervical component) are present. Performed at: WBPerformed By: #### [id number] #### [facility] [address] [place] [address] [address] Isis Andino T4on 60-37-6475Ocvw T4 [Mass/Vol]1.21 ng/dLNormal0.76-1.46 [facility] on above:Performed By: #### FT4 #### [facility] [address] [place] [address] Dr. Isis SalterID PROFILEon 75-30-9568UEFD-HDL RATIO NORMSEE BELOWOhioHealth Grant Medical Center on above:Result Comment: 3.3 - 4.4 LOW RISK 4.4 - 7.1 AVERAGE RISK 7.1 - 11.0 MODERATE RISK >11.0 HIGH RISKPerformed By: #### TSH, LIPID, BMP #### [facility] [address] [place] [address] Dr. Isis Laraesterol [Mass/Vol]209 mg/dLCritically high<=200[facility] on above:Performed By: #### TSH, LIPID, BMP #### [facility] [address] [place] [address] Dr. Isis Laraesterol in HDL [Mass/Vol]62 mg/dLCritically shhq89-70Rbn [facility] on above:Performed By: #### TSH, LIPID, BMP #### [facility] [address] [place] [address] Dr. Isis Laraesterol in LDL [Mass/Vol]126.0 mg/dLOhioHealth Grant Medical Center on above:Performed By: #### TSH, LIPID, BMP #### [facility] [address] [place] [address] Dr. Isis Perdue.total/Cholesterol in HDL [Mass ratio]3.4 {ratio} NormalThe White Hospital on above:Performed By: #### TSH, LIPID, BMP #### [facility] [address] [address] [address] Isis Lopes NORMAL> or = 60 mg/dl - LOW CARDIOVASCULAR RISK <40 mg/dl - HIGH CARDIOVASCULAR RISKOhioHealth Shelby HospitalComhenry ford jack[facility] on above:Performed By: #### TSH, LIPID, BMP #### [facility] [address] [address] [address] Isis ShahidLDL CALC NORMALSEE BELOWNoSelect Medical Specialty Hospital - Cincinnati NorthComment on above:Result Comment: <100 mg/dl OPTIMAL 100 - 129 mg/dl NEAR OR ABOVE OPTIMAL 130 - 159 mg/dl BORDERLINE HIGH 160 - 189 mg/dl HIGH >190 mg/dl VERY HIGH Performed By: #### TSH, LIPID, BMP #### [facility] [address] [address] [address] Isis ShahidTriglyceride [Mass/Vol]105 mg/dLNormal<=150[facility] Comment on above:Performed By: #### TSH, LIPID, BMP #### [facility] [address] [address] [address] Isis ShahidVLDL CALC21.0 mg/dLNoSelect Medical Specialty Hospital - Cincinnati NorthComment on above: Performed By: #### TSH, LIPID, BMP #### [facility] [address] [place] [address] Dr. Isis ShahidPROF CHEM 8 (BAS METB)on 33-54-1007Pncvo gap [Moles/Vol]12.9 mmol/LNormalThe [facility]health SystemComment on above:Performed By: #### TSH, LIPID, BMP #### [facility] [address] [address] [address] Isis ShahidCalcium [Mass/Vol]8.7 mg/dLNormal8.5-10.1[facility] Comment on above:Performed By: #### TSH, LIPID, BMP #### [facility] [address] [place] [address] Dr. Isis ShahidChloride [Moles/Vol]106 mmol/QPqvith22-910OuwThe [facility] Comment on above:Performed By: #### TSH, LIPID, BMP #### [facility] [address] [address] [address] Isis ShahidCO2 [Moles/Vol]24.5 mmol/XLpsfzi66.0-32.0The [facility] Comment on above:Performed By: #### TSH, LIPID, BMP #### [facility] [address] [address] [address] Isis ShahidCreatinine [Mass/Vol]0.67 mg/dLNormal0.55-1.02The [facility] SystemComment on above:Performed By: #### TSH, LIPID, BMP #### [facility] [address] [address] [address] Isis TaylorGFR-AF BULGARIAN>60Normal>=60The [facility] HospitalComment on above:Performed By: #### TSH, LIPID, BMP #### [facility] [address] [address] [address] Isis Charles-NON AF BULGARIAN>60Normal>=60The [facility] SystemComment on above:Performed By: #### TSH, LIPID, BMP #### [facility] [address] [address] [address] Isis ShahidGlucose [Mass/Vol]94 mg/oWYrvacx29-954KoxThe [facility] Comment on above:Performed By: #### TSH, LIPID, BMP #### [facility] [address] [address] [address] Isis ShahidPotassium [Moles/Vol]4.4 mmol/LNormal3.5-5.1The [facility] Comment on above:Performed By: #### TSH, LIPID, BMP #### [facility] [address] [address] [address] Isis ShahidSodium [Moles/Vol]139 mmol/PImjtfi867-573EjfThe [facility] Comment on above:Performed By: #### TSH, LIPID, BMP #### [facility] [address] [address] [address] Isis ShahidUrea nitrogen [Mass/Vol]4.0 mg/dLCritically low7.0-18.0The [facility] HospitalComment on above:Performed By: #### TSH, LIPID, BMP #### [facility] [address] [place] [address] Dr. Isis ShahidUrea nitrogen/Creatinine [Mass ratio]6.0 mg/mgNoSelect Medical Specialty Hospital - Cincinnati NorthComment on above:Performed By: #### TSH, LIPID, BMP #### [facility] [address] [place] [address] Dr. Isis ShahidTSHostefano 08-20-8667CHR1.335 uIU/mLCritically low0.358-3.740The [facility] HospitalComment on above:Performed By: #### TSH, LIPID, BMP #### [facility] [address] [place] [address] Dr. Isis ShahidXR DEXA BONE DENSITYon 48-37-9119SV DEXA BONE DENSITYEXAMINATION: XR DEXA BONE DENSITY, 04/10/2022 9:48 AM [...] Electronically authenticated by: APOLONIA HENSON Date: 2022-04-10 10:30[facility] HospitalPT - Assessmentson 49-89-4402TP - Assessments [id number]#1.00CD:127Arti [facility]PT - [id number]#1.00CD:127Nogracielajerod Gentile [facility]PT - Otheron 70-83-3117OR - Other [id number]#1.00CD:127Arti [facility]PT - Assessmentson 55-79-6945BG - Assessments [id number]#1.00CD:Mukund [facility]PT - Otheron 38-00-3579IP - Other [id number]#1.00CD:TeenaLutheran HospitalCoding Summary.on 94-20-8610Ecsiso Summary. CD:455065CZ:6958162PFd6dYj+PGhlYWQ+LO1URPIuH23wyZEsrI6KK9zRIQ0DSPJQGSXWOT1JVS0br XK0ZNxzN4EqrvKd [file] ZTog (more content not included)...[facility] CenterConsenton [id number]#1.00CD:[address] [place], [place] [address]Notice of Noncoverageon 51-61-1862Rvhlqe of [id number]#1.00CD:[address] [place], [place] [address]PT - Assessmentson 41-18-3397ZF - Assessments [id number]#1.00CD:[address] [place], [place] [address]PT - Consentson 46-55-1682WH - Consents [id number]#1.00CD:[address] [place], [place] [address]Nonvisit Note - PTon 07-89-0831Akmutkes Note - PTChart reviewed with eval prepped for scheduled eval. KKNoDunlap Memorial HospitalCovid-19 PCR (CVDTBH)on 16-41-7535OHYU-CoV-2 (COVID-19) RNA RAYMUNDO+probe Ql (Unsp spec)Not detectedNormalNOT DETECTEDThe [facility] HospitalComment on above:Result Comment: This test is not yet approved or cleared by the [place] FDA. When there are no FDA-approved or cleared tests available, and other criteria are met, FDA can make tests available under an emergency access mechanism called an Emergency Use Authorization (EUA). The EUA for this test is supported by the [place] of Health and Human Service's (HHS's) declaration [...] of clinical signs and symptoms consistent with SARS-CoV-2.Performed By: #### CVDTBH #### [facility] [address] [place] [address] Dr. Isis Hernandez 12-54-7157Tybsa [id number]#1.00CD:127[facility] CenterPhysician Referralon 82-46-7258Ychiymwce Referral [id number]#1.00CD:127[facility] CenterPatient Educationon 55-68-1033Qdfstpp EducationObstetrics and Gynecology Kegel Exercises Kegel exercises can [...] muscles, which are the same muscles you squeezewhen you try to stop the flow of [...] 06/24/2013 Document Revised: 02/25/2019 Document Reviewed: 02/25/2019 Stratus5 Patient Education ? 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 Fuller. Pt states that over the past couple years she is having alot more stress incontinence with sneezing, coughing and exercising. Sheis also having incontinence w/o awareness intermittently and occasional urge incontinence. Over thepast 6 months it has progressively gotten worse and she is having to wear pads and intermittently ch perri 1x throughout the day. Pt gave a [...] 3, hysterectomy for menorrhagia 2014 who presents withworsening stress>urge incontinence. Will return in 6 months. [...] sling. She would like to proceed with non- surgical options first. -Discussed pelvic floor therapy. Pt. would like to proceed with this @ [facility]- referral placed. -Behavioral modifications -Consider anti-cholinergics in [...] No qualifying data Procedur (more content not included)...[facility] CenterComment on above:Result Comment: Electronically Signed By: Delmy Fajardo MD\.br\Date and Time Signed: 05/17/21 11:28EDT\.br\Electronically Co-Signed By: Nora Matute\Date and Time Co-Signed: 05/17/21 11:18 EDT Vital Signs Date TimeVital SignValuePerforming IgxrbsuyaUcohwrkb85-28-6976 08:28-0400Body slvjux464.48 cmPriya Gongora MD Work Phone: [facility]10-27-2025 08:28-0400 Body mass index (BMI) [Ratio]30.8 kg/n3VfsaojPriya Gongora MD Work Phone: [facility]10-27-2025 08:28-0400 Body .43 kgPriya Gongora MD Work Phone: [phone]10-27-2025 08:28-0400 Diastolic blood ibnamsgj73 mm[Hg]Priya Gongora MD Work Phone: [phone]10-27-2025 08:28-0400 Heart rate72 /minPriya Gongora MD Work Phone: [phone]10-27-2025 08:28-0400 Systolic blood bjekkhjq219 mm[Hg]Priya Gongora MD Work Phone: [facility]10-13-2025 08:33-0400 Body mass index (BMI) [Ratio]30.11 kg/h6Ymang Jonny DO Work Phone: [facility] CenterEvizxlltrt17-64-6921 08:33-0400Body .11 kgCorey Jonny DO Work Phone: [facility] CenterWrnfejingz96-89-3848 08:33-0400Diastolic blood gornsubj17 mm[Hg]Conrad Jonny DO Work Phone: [facility] CenterHjtxssamyo66-10-9472 08:33-0400Systolic blood ctewzfyp780 mm[Hg]Conrad Jonny DO Work Phone: [facility] CenterTivdeqjqyl48-09-0474 10:06-0400Body iuodsu703 cm Daniel Núñez DO Work Phone: [facility] CenterOqkzvxfsgu31-35-8434 10:06-0400Body mass index (BMI) [Ratio]29.94 kg/m2Paul Biedenbach DO Work Phone: [facility] CenterQodyiiwefy83-46-8486 10:06-0400Body maxmyf51.66 kgPaul Sekoiaimer DO Work Phone: [facility] CenterSjhwzkvfci99-57-3878 13:46-0400Body .48 cmW[facility]04-15-2025 13:46-0400Body mass index (BMI) [Ratio]30.2 kg/a3QdnzrdaytWvumedicine Barnesville Hospital04-15-2025 13:46-0400Body pvwckyefoiz79.1 [degF][facility]04-15-2025 13:46-0400Body .95 kgWvumedicine [facility] Hospital04-15-2025 13:46-0400Diastolic blood gsanmoww20 mm[Hg][facility]04-15-2025 13:46-0400 Heart rate93 /[facility]04-15-2025 13:46-3252TjE6% (BldA) [Mass fraction]96 %[facility]04-15-2025 13:46-0400 Systolic blood lumlwyyf647 mm[Hg][facility]03-18-2025 08:51-0400Body vmitzn265.48 cmWvumedicine [facility]03-18-2025 08:51-0400Body mass index (BMI) [Ratio]29.4 kg/p6HbzfbajuoWvumedicine Barnesville Hospital03-18-2025 08:51-0400Body fopcpqeyxut75.5 [degF][facility]03-18-2025 08:51-0400Body avzbju26.02 kgW[facility]umed[facility] 10-06-2024 08:51-0400Diastolic blood dzjyazpv22 mm[Hg][facility]03-18-2025 08:51-0400Heart rate82 /[facility] 10-06-2024 08:51-3487InW5% (BldA) [Mass fraction]98 %[facility]03-18-2025 08:51-0400Systolic blood dfbyguqc453 mm[Hg][facility]02-28-2025 13:38-0500Body purbzt737.48 cmWvumedicine [facility] Hospital02-28-2025 13:38-0500Body mass index (BMI) [Ratio]29.8 kg/m2 [facility]02-28-2025 13:38-0500Body kvqznipbygz90.3 [degF][facility]02-28-2025 13:38-0500Body reffid90.93 kg [facility]02-28-2025 13:38-0500Diastolic blood rigtaejl97 mm[Hg][facility]02-28-2025 13:38-0500Heart rate83 /min [facility]02-28-2025 13:38-0500Systolic blood hivkidqd841 mm[Hg][facility]02-22-2025 10:51-0500Body fiianb654.48 cmW[facility]umedicine [facility]02-22-2025 10:51-0500Body mass index (BMI) [Ratio]29.7 kg/c0NmmdfcrjxWvumedicine [facility] Hospital02-22-2025 10:51-0500Body mgcafeyrbrt29.4 [degF][facility]02-22-2025 10:51-0500Body dqdghe93.7 kgWvumedicine [facility]02-22-2025 10:51-0500Diastolic blood xevmehef98 mm[Hg][facility]02-22-2025 10:51-0500 Heart rate96 /minWvumedicine [facility]ville Hospital02-22-2025 10:51-0021GpY8% (BldA) [Mass fraction]97 %[facility]02-22-2025 10:51-0500 Systolic blood kqbqwyfa540 mm[Hg][facility]01-29-2025 10:30-0500Body hkrror997.29 cmWvumedicine [facility] Hospital01-29-2025 10:30-0500Body mass index (BMI) [Ratio]28.4 kg/q4JjdfqzcumWvumedicine Barnesville Hospital01-29-2025 10:30-0500Body tirbcf97.93 kgW[facility]umedicine [facility] 08-19-2024 10:30-0500Diastolic blood savoukwx35 mm[Hg][facility]01-29-2025 10:30-0500Heart rate79 /[facility] 08-19-2024 10:30-0500Systolic blood ojwqemsy241 mm[Hg][facility]12-18-2024 09:09-0500Body mass index (BMI) [Ratio]28.32 kg/m2Heather Graham PA Work Phone: [phone] [place], [place] [address]Segddjjgur42-29-3688 09:09-0500Body pzebhv87.84 kgHeather Graham PA Work Phone: [phone] CenterOimjairoxj27-62-2799 09:09-0500Diastolic blood ryiyceiq92 mm[Hg]Heather Graham PA Work Phone: [phone] CenterFywyfpkxvj89-44-8211 09:09-0500Systolic blood iaonakpy910 mm[Hg]Heather Graham PA Work Phone: [phone] [place], [place] [address]Legtbpkvre62-37-5544 08:48-0500Body mass index (BMI) [Ratio]28.8 kg/m2Amy Nehal PA Work Phone: [phone] [place], [place] [address]Dxvnditwmf50-40-7755 08:48-0500Body jiqfoh85.11 kgHeather Graham PA Work Phone: [facility] CenterQrkvfwkgyo73-45-1429 08:48-0500Diastolic blood xjpuyzld00 mm[Hg]Heather Graham PA Work Phone: [phone] [place], [place] [address]Ytqiisapov67-60-5549 08:48-0500Systolic blood viohrzzi308 mm[Hg]Heather Graham PA Work Phone: [phone] [place], [place] [address]Dcffrmoiot30-38-3548 10:26-0400Body mass index (BMI) [Ratio]29.5 kg/p3SwettbmcnWvumedicine Barnesville Hospital10-24-2024 10:26-0400 Body omoxhv80.65 kgWvumedicine Barnesville Hospital10-24-2024 10:0400Heart tebs517 /[facility]10-24-2024 10:040400Body height 161.29 cmWvumedicine [facility] Hospital10-24-2024 10:04-0400Diastolic blood bufvieit27 mm[Hg][facility]10-24-2024 10:04-0400Systolic blood oqkfneep870 mm[Hg][facility]10-22-2024 09:42-0400 Body mass index (BMI) [Ratio]29.42 kg/t2Nddma Jonny DO Work Phone: [facility] CenterAjfkbffesy21-44-6412 09:42-0400Body hduwbe87.75 kgCorey Jonny DO Work Phone: [facility] CenterMdsxzvwiie65-43-8518 09:42-0400Diastolic blood uapoeyof52 mm[Hg]Conrad Jonny DO Work Phone: [facility] CenterQunndgdokk80-87-2651 09:42-0400Systolic blood mttiymqk145 mm[Hg]Conrad Jonny DO Work Phone: [phone] [place], [place] [address]Inimqvkpcq75-01-3232 10:50-0400Body mass index (BMI) [Ratio]30.55 kg/u9Cttup Jonny DO Work Phone: [facility] CenterSzzszeabqx74-61-4804 10:50-0400Body .74 kgCorey Jonny DO Work Phone: [facility] CenterDuncjycsji27-08-5155 10:50-0400Diastolic blood fdwquexy69 mm[Hg]Conrad Jonny DO Work Phone: [facility] CenterDstyotqzzd01-16-1075 10:50-0400Systolic blood desntlui363 mm[Hg]Conrad Jonny DO Work Phone: [facility] CenterEwwavkjaos47-71-1526 08:30-0400Body yrlirg467.48 cmPriya Gongora Other [employer] Other 09-27-2023 08:30-0400Body mass index (BMI) [Ratio] 31.82 kg/g3PjhulxPriya Gongora Other [employer] Other 09-27-2023 08:30-0400Body dfsvtu87.93 kgHeatheryusuf Gongora Other [employer] Other 09-27-2023 08:30-0400Diastolic blood yyvszqlt53 mm[Hg] Priya Gongora Other [employer] Other 09-27-2023 08:30-0400Systolic blood fulpivxb408 mm[Hg] Priya Gongora Other [employer] Other 08-31-2023 11:45-0400Body wqmcok582.48 cmPriya Gongora Other [employer] Other 08-31-2023 11:45-0400Body mass index (BMI) [Ratio] 32.37 kg/m6LxtlhvPriya Gongora Other [employer] Other 08-31-2023 11:45-0400Body jrcpup17.29 kgPriya Gongora Other [employer] Other 08-31-2023 11:45-0400Diastolic blood mm[Hg]Priya Gongora Other [employer] Other 08-31-2023 11:45-0400Systolic blood qlhvyxdv093 mm[Hg] Priya Gongora Other [employer] Other Encounters Encounter DateEncounter TypeCare ProviderFacilityStart: 05-17-2025 End: 27-85-3040aapvlruoivPfxgta E Braun MD Work Phone: [facility]: 05-17-2025 End: 93-78-6391Qmimrcw encounter procedurePriya Gongora MD-[facility] Work Phone: Start: 05-17-2025 End: 98-88-7174Cnshkqc encounter statusrPiya Gongora [facility]tart: 05-03-2025 End: 16-14-6720Tbynib flowsheetCorey Jonny DO Work Phone: [facility] OBGYNStart: 05-03-2025 End: 28-50-4327Lfawme flowsheetCorey Jonny DO Work Phone: [facility] [place] OBGYNStart: 05-03-2025 End: 60-21-3510Tekbrtf encounter procedureCorey Jonny DO Work Phone: [facility] HealthcareStart: 05-03-2025 End: 13-06-4302Machynxm preventive med est patient 40-64yrsCorey Jonny DO Work Phone: [facility] Jana OBGYNComment on above:Well woman exam with routine gynecological exam; Encounter for screening mammogram for malignant neoplasm of breastStart: 53-84-6797Wir-patient / Non-visitCorey Jonny-[facility] Work Phone: Start: 05-03-2025 End: 82-97-5060zbawjbsfkfQRQBI FAZIONot AvailableStart: 01-08-2025 End: 04-89-9555Ayelch flowsheetPaul S Biedenbach DO Work Phone: [facility] ENT SANDUSKYStart: 01-08-2025 End: 86-96-3196Rmsonj flowsheetPaul S Biedenbach DO Work Phone: [facility] SANDUSKYStart: 01-08-2025 End: 39-20-4353Dtsdlt outpatient new 30 minutesPaul S Biedenbach DO Work Phone: [facility] SANDUSKYComment on above:Hypothyroidism, unspecified type (Primary Dx); Neck massStart: 01-08-2025 End: 87-32-9009clhbkkfuraATSK S BIEDENBACHNot AvailableStart: 11-03-2024 End: 76-41-6589dswfaktrioDscohticwWhite Hospital Work Phone: Start: 11-03-2024 End: 14-28-4982Xemwobx encounter procedureFirsammies Physician Group-[facility] Work Phone: Start: 10-06-2024 End: 34-65-9367nowisffrlkWktzcrwgsSt. [facility] of [facility] Hospital Work Phone: Start: 10-06-2024 End: 12-42-3416Ffsncyf encounter procedureFirsammies Physician Group-[facility] Work Phone: Start: 09-18-2024 End: 41-16-2668pzbavbluwzYhvnzyymvSt. John of [facility] Hospital Work Phone: Start: 09-18-2024 End: 49-28-7983Jlrsixo encounter procedureFirsammies Physician Group-[facility] Work Phone: Start: 09-12-2024 End: 15-79-1203ftbpoqjujlYjggkhizmSt. [facility] of [facility] Hospital Work Phone: Start: 09-12-2024 End: 40-21-4864Airyahw encounter procedureKelly Physician Group-[facility] Work Phone: Start: 08-19-2024 End: 07-94-5384wbexcdsqytVfsnyxmwrSt. John of God Hospital Work Phone: Start: 08-19-2024 End: 22-21-9319Zmnwnye encounter procedureDulces Physician Group-[facility] Work Phone: Start: 07-08-2024 End: 64-87-8333Niwwan flowsSweta MALIK Work Phone: [facility] BCP OBStart: 07-08-2024 End: 39-75-5411Kpuxft Beverley MALIK Work Phone: [facility] OBStart: 07-08-2024 End: 80-29-0637Atbacu outpatient visit 10 minutesHeather MALIK Work Phone: [facility] OBComment on above:Encounter for weight managementStart: 07-08-2024 End: 77-43-2993ddiptcennpCBI RAMEYNot AvailableStart: 06-10-2024 End: 01-29-8240Rtceei flowsheetHeather Graham PA Work Phone: [facility] OBStart: 06-10-2024 End: 38-89-9416Cpqlml flowsheetHeather Graham PA Work Phone: [facility] OBStart: 06-10-2024 End: 67-47-1644Htaufj outpatient visit 5 minutesAmy Nehal MALIK Work Phone: [facility] OBComment on above:Encounter for weight managementStart: 06-10-2024 End: 89-38-9762nrwlpszqflTCL RAMEYNot AvailableStart: 05-14-2024 End: 05-29-1441aglteuieroUwqiyemqvSt. John of God Hospital Work Phone: Start: 05-14-2024 End: 08-32-0122Impellz encounter procedureBlue Ridge Regional [facility] Work Phone: Start: 05-12-2024 End: 05-28-6821Zdlffb flowsheetCorey Jonny DO Work Phone: [facility] OBStart: 05-12-2024 End: 38-51-1387Oeqixu flowsheetCorey Jonny DO Work Phone: [facility] OBStart: 05-12-2024 End: 64-89-6647Uwqvuy outpatient visit 5 minutesCorey Jonny DO Work Phone: [facility] OBComment on above:Encounter for weight managementStart: 05-12-2024 End: 58-30-9916kybpkkepdeEEYHC FAZIONot AvailableStart: 05-75-8585Yno-patient / Non-visitFirelands Physician GroupJewish Healthcare Center Work Phone: Start: 04-13-2024 End: 10-59-5237Nizdpy flowsheetCorey Jonny DO Work Phone: [facility] BCP OBStart: 04-13-2024 End: 70-27-8713Xhfrrl flowsheetCorey Jonny DO Work Phone: [facility]CP OBStart: 04-13-2024 End: 80-30-4581Zmzuxlclu Result EncounterCorey Jonny DO Work Phone: [facility] External Department UnsolicitedStart: 04-13-2024 End: 86-18-2471Xieuqna encounter procedureCorey Jonny DO Work Phone: n[facility] HealthcareStart: 04-13-2024 End: 74-89-5138Ayvqdtrl preventive med est patient 40-64yrsCorey Jonny DO Work Phone: [facility] BCP OBComment on above:Well woman exam with routine gynecological exam; Breast cancer screening by mammogram; Osteoporosis, post-menopausal (CMS/HCC); Encounter for weight managementStart: 00-50-5731Chofehn encounter status [facility]: 04-17-2023 End: 01-84-8915tqymmieicaIkblam Braun Other [facility] Other Start: 98-51-4664Lxgsrymio for general adult medical examination without abnormal findingsHampton Behavioral Health Centeryusuf [facility] ClinicStart: 20-54-5082Jnteoqpd preventive med est patient 40-64yrsMarcia [facility] ClinicStart: 24-24-1114Dloubhgoc encounterMarcison [facility] ClinicStart: 03-21-2023 End: 40-52-7372fepbqobedgKtdojc Braun Other [facility] Other Start: 13-51-9559Isaqkgyxx for general adult medical examination without abnormal findingsPriya [facility] Hospitaltart: 26-85-8326Mmezim outpatient visit 15 minutesMaryusuf [facility] Start: 07-26-2022(Televisit) TelevisitMaryusuf [facility] ClinicStart: 07-26-2022 End: 43-57-2111tzxmmrltkiPmwrdw Rolan Other [place] [facility] Other Start: 06-25-2022 End: 14-72-1033xrbmmprogaEH CONRAD FAZIOFacility:O0Ohbes: 21-57-1603Haizaedvx for general adult medical examination without abnormal findingsDR PRIYA [facility] HospitalStart: 04-10-2022 End: 51-47-5211vpafmyjqyoRH CONRAD FAZIOFacility:L9Fmmob: 04-10-2022 End: 47-18-4441Rymohlxyk for general adult medical examination without abnormal findingsDR PRIYA GONGORAFacility:P6Mnoqz: 04-04-2022 End: 18-22-8447ieuooothugRO CONRAD FAZIOFacility:Q4Kcbzj: 08-23-2021 End: 53-03-1002nnotpkpgbvYI PRIYA GONGORAFacility:H1 Procedures DateProcedureProcedure DetailPerforming ClinicianStart: 74-04-1903Hlmql Strep (POC)Start: 84-76-6774ZnyxoqhlnlrUqwo Hipolitobach DO Work Phone: start: 38-85-9875GXU,APTIMA HPV,AGE GDLNCorey Jonny DO Work Phone: Start: 05-67-7477Bqlwydproyn observation [Identifier] in Cervix by Cyto stainCorey Jonny DO Work Phone: Start: 30-18-5978Xsabhbjmodd observation [Identifier] in Cervix by Cyto stainCorey Jonny DO Work Phone: Start: 51-14-6666Fqxe cerv/vag auto thin layer prep mnl screenCorey Jonny DO Work Phone: Start: 89-03-5504DmulkrosstfHgpwt Jonny DO Work Phone: Start: 87-27-5603Azharvntwbq observation [Identifier] in Cervix by Cyto stainCorey Jonny DO Work Phone: Start: 04-24-2016 End: 01-06-2025H/O: hysterectomyS/P hysterectomyPaul Teralisa DO Work Phone: Plan of Treatment DateCare ActivityDetailAuthorStart: 19-48-5416Dbxhwkrja for malignant neoplasm of cervixNOMS HealthcareStart: 63-98-2696Awsxyquee for malignant neoplasm of cervixNOMS HealthcareStart: 86-18-0359Cnmfcnlmg for malignant neoplasm of colon [facility] HealthcareStart: 34-45-9886Jdramzoht for malignant neoplasm of cervixPap SmearNOMS HealthcareStart: 71-82-1530Tkowtiusi for malignant neoplasm of cervix Pap SmearNOMS HealthcareStart: 05-09-2026 End: 61-81-0176Oluivhk encounter ellarqpmg40/19/2026 8:30 AM EDT Procedure Visit [facility] [address] [place] [address] Conrad Fuller, DO [address] [place] [address] [facility] [place] OBGYNStart: 08-07-2025 Screening for malignant neoplasm of breastMammogramNOMS HealthcareStart: 05-03-2025 End: 51-08-5395XG Breast - bilateral ScreeningBilateral screening mammogram Imaging Routine Encounter for screening mammogram for malignant neoplasm of breast Expected: 05/03/2025, Expires: 07/03/2026NOMS HealthcareComment on above: Expected: 05/03/2025, Expires: 07/03/2026Start: 05-03-2025 End: 75-44-2668Goudpwl encounter procedureNOMS BCP OBComment on above:Arrived Start: 04-19-2025 End: 38-27-7584Yillgoj encounter wuipdsyui75/29/2025 8:30 AM EDT Office Visit [facility] [address] [place] [address] Conrad Fuller, DO [address], [place] [id number] [facility] BCP OBStart: 01-08-2025 End: 13-05-9601Bjkiwrr encounter pnbhyemlj40/20/2025 10:00 AM EDT Office Visit [facility] [address] [place] [address] Daniel Núñez DO [address] [place] [address] ArrivedNOMS ENT JENNYComment on above:ArrivedStart: 07-08-2024 End: 39-40-3834Jsdzfcn encounter /18/2024 8:50 AM EST Office Visit [facility] [address] [place] [phone] Heather Graham, PA [address] [place], [place] [id number] ArrivedNOMS BCP OBComment on above:ArrivedStart: 06-10-2024 End: 96-49-6841Mxjywsk encounter ominvlllh39/20/2024 8:40 AM EST Office Visit [facility] [address] [place] [phone] Heather Graham, PA [address] [place], [place] [id number] ArrivedNOMS BCP OBComment on above:ArrivedStart: 05-29-2024 Screening for malignant neoplasm of colonNOMS HealthcareStart: 05-12-2024 End: 35-56-9199Ooukexc encounter procedureNOMS BCP OBComment on above:Arrived Start: 04-13-2024 End: 65-06-2965TIJ Skeletal system Views for bone densityDEXA bone density Imaging Routine Osteoporosis, post-menopausal ([facility]/HCC) Expected: 04/13/2024 (Approximate), Expires: 04/13/2025NOMS HealthcareComment on above:Expected: 04/13/2024 (Approximate), Expires: 04/13/2025Start: 04-13-2024 End: 25-05-4172DN Breast - bilateral ScreeningBilateral screening mammogram Imaging Routine Breast cancer screening by mammogram Expected: 04/13/2024 (Approximate), Expires: 06/13/2025[facility] Work Phone: comment on above:Expected: 04/13/2024 (Approximate), Expires: 06/13/2025Start: 04-13-2024 End: 76-59-9498Pbszntk encounter fyhtnhgbf92/23/2024 10:00 AM EDT Office Visit [facility] [address] [place] [phone] Conrad Fuller, DO [address] [place] [address] ArrivedSPECIALTY [facility] OBComment on above:ArrivedStart: 07-64-1697Dwuovnfpv for malignant neoplasm of breastMammogramCass Medical Center Start: 41-24-2580Ddtsawvut for malignant neoplasm of colonCass Medical CenterEpstein Ash virus capsid IgG Ab [Units/volume] in SerumWvumedicine Barnesville HospitalTHIN PREP TIS PAP AND HR HPV DNATHIN PREP TIS PAP AND HR HPV DNA Pathology and Cytology Routine Well woman exam with routine gynecological exam Ordered: 04/13/2024[facility] CenterComment on above:Ordered: 04/13/2024THIN PREP TIS PAP AND HR HPV DNATHIN PREP TIS PAP AND HR HPV DNA Pathology and Cytology Routine Well woman exam with routine gynecological exam Ordered: 05/03/2025[facility] Work Phone: comment on above:Ordered: 05/03/2025US Thyroid gland [facility] Immunizations Immunization DateImmunizationNotesCare TrpeivkjMjjsobax20-39-9145Ravmksdjlrux conjugate vaccine, 21 valent (PCV21), polysaccharide RWK099 conjugate, preservative freeDaniel Núñez DO Work Phone: [facility] CenterQqfjjujzfy05-57-6885ykxkzmg toxoid, reduced diphtheria toxoid, and acellular pertussis vaccine, adsorbedPaul Biedenbach DO Work Phone: [facility] CenterOtvbwasusx64-68-6679lqeruwbnz, injectable, madin mariam canine kidney, preservative freePaul Biedenbach DO Work Phone: [facility] CenterGnpbapxzax13-30-6880Jtxnhdagr, injectable, Madin Mariam Canine Kidney, preservative free, quadrivalentPaul Biedenbach DO Work Phone: [facility] CenterQuensxgasv77-93-0406jmedqw vaccine recombinant Daniel Biedenbach DO Work Phone: [facility] CenterCbayytlgdv99-66-1680jgwdrl vaccine, liveMarcia Gongora Other [facility]09-23-2022influenza virus vaccine, split virus (incl. purified surface antigen)Priya Gongora Other [facility] Other [id number] virus vaccine, unspecified formulationWvumedicine Barnesville Hospital09-23-2022Influenza, injectable, Madin [place] [employer] Canine Kidney, preservative free, quadrivalentPaul Biedenbach DO Work Phone: [facility] CenterJpghplqfou48-93-8869QFSCI-92 Vaccine Pfizer - Documentation Purposes Ronald Gongora Other [facility]07-14-2022zoster vaccine recombinantPaul Biedenbach DO Work Phone: [facility] CenterXnuminpbjb55-53-9909dxaqvq vaccine, liveMarshandraa Rolan Other [facility]12-10-2021COVID-19 Vaccine Pfizer - Documentation Purposes Ronald Gongora Other [facility]09-13-2021influenza virus vaccine, split virus (incl. purified surface antigen)Priya Gongora Other [facility] Other [id number] virus vaccine, unspecified formulationWvumedicine Barnesville Hospital09-13-2021influenza, injectable, quadrivalent, preservative freePaul Biedenbach DO Work Phone: [facility] CenterYibjcchvkm57-39-8883pdstjywos, injectable, quadrivalent, contains preservativePaul Biedenbach DO Work Phone: [facility] CenterGlzuybfbaq37-37-3863kekakvkpj virus vaccine, split virus (incl. purified surface antigen)Priya Gongora Other [facility] Other 11205735-05-8601wammvzefb virus vaccine, unspecified formulationWvumedicine Barnesville Hospital11-05-2019influenza, injectable, quadrivalent, contains preservativePaul Biedenbach DO Work Phone: [facility] CenterJjmfuxxgrx84-19-8764lbvsuyylq, injectable, quadrivalent, contains preservativePaul Biedenbach DO Work Phone: [facility] Payers DatePayer CategoryPayerPolicy [id number] [id number] BCBS [id number] 2022-Present [phone] [address] [place] [id number] 2.16.840.1.843993.3.57[id number] 2.16.840.1.027693.3.57[id number] 2.16.840.1.770477.3.57[id number] 2.840.1.489253.3.57[id number] 2..840.1.945521.3.57[id number] 2.840.1.468128.3.57[id number] 2.0.1.013183.3.57[id number] 2.0.1.395364.3.57[id number] 2..1.062676.3.57[id number] 2..1.249221.3.579.2.[id number] Social History DateTypeDetailFacilityUnknown if ever smokedNodoctors hospital of [facility] Other Start: 55-61-0577Wyv Assigned At BirthNodoctors hospital of [facility] Other Tobacco smoking status NHISTobacco smoking consumption unknownNONV HealthcareStart: 79-24-5214Epz assigned at birthNot on fileNONV HealthcareStart: 04-02-2024 End: 26-81-8587Muszlbw smoking status NHISNever smoked tobacco (finding) [facility]: 92-75-8224Dps Assigned At BirthFemale [facility]: 08-19-2024 End: 98-68-9714OtwVdqpmx (finding)[facility]: 99-34-7163Ozoyxej use and exposureSmokeless tobacco non-userNOMS Healthcare Start: 01-08-2025 End: 32-03-1705Ivfzbgqia beverage intakeEx-drinker (finding)[facility] Start: 99-80-3913Efkyewi of Social functionNOMS HealthcareStart: 87-94-9402Bab FemaleNOMS HealthcareNEGATED: Highlighted rowMercy Health [facility] Clinical Notes 07-26-2022 to 05-03-2025 Note Date & EopbFmnmOkdxsifx39-94-0061 History of Present illness Narrative* Meeta Patel, SERGIO - 05/03/2025 8:30 AM EDT Reason for Appointment: Patient ID: Srini Alcantara is a 55 y.o. female who [...] nursing note reviewed. Exam conducted with a melter supervisor oxygen furnace present. Vitals: Estimated body mass index is 30.11 kg/m as calculated from the following: Height as of 25: 5' 3 . Weight as of this [...] of: Conrad Fuller DO documented in this encounterCass Medical CenterGkdbqjulwq31-36-7681 History of Present illness Narrative* Daniel Friend DO Tera - 01/08/2025 10:00 AM EDT Subjective Patient ID: Srini Alcantara is a 54 y.o. female who [...] with neck mobility. She does take Synthroid forhypothyroidism. She is a nonsmoker nondrinker. The rest [...] limits, ear canals are patent, tympanic membranes areintact. Nose: External nose unremarkable, nares patent, septum [...] We will be happy to see her againif she has any change of her condition. documented in this encounterCass Medical CenterWwxktznfqk66-03-5942 Evaluation note* Diagnosis Onset Date Resolution Status Admit Date Depression acuteJanuary 2024 10:24amLAD (lymphadenopathy) of right cervical region acuteJanuary 2024 10:24am [facility] Work Phone: 1(341) 603-975401-29-2025 Evaluation note* Diagnosis Onset Date Resolution Status Admit Date Depression acuteJanuary 2024 10:24amLAD (lymphadenopathy) of right cervical region acuteJanuary 2024 10:24amLeft otitis mediaacuteFebruary 2024 10:04am [facility] Work Phone: 1(510) 998-486101-29-2025 Evaluation note* Diagnosis Onset Date Resolution Status Admit Date Depression acuteJanuary 2024 10:24amLAD (lymphadenopathy) of right cervical region acuteJanuary 2024 10:24amLeft otitis mediaacuteFebruary 2024 10:04am DepressionacuteFebruary 2024 12:56pmLeft otitis mediaacuteFebruary 2024 12:56pmAcute febrile illnessacuteMarch 2024 8:49am [facility] Work Phone: 1(211) 980-911601-29-2025 Evaluation note* Diagnosis Onset Date Resolution Status Admit Date Depression acuteJanuary 2024 10:24amLAD (lymphadenopathy) of right cervical region acuteJanuary 2024 10:24amLeft otitis mediaacuteFebruary 2024 10:04am DepressionacuteFebruary 2024 12:56pmLeft otitis mediaacuteFebruary 2024 12:56pmAcute febrile illnessacuteMarch 2024 8:49amMaxillary sinusitis acuteApril 2024 1:43[facility] Work Phone: 1(457) 485-892812-18-2024 History of Present illness Narrative* HELENA Gaston - 07/08/2024 8:50 AM EST Reason for Appointment: Patient ID: Srini Alcantara is a 54 y.o. female who [...] calculated from the following: Height as of 23: 5' 4 . Weight as of this [...] behalf of: HELENA Gaston documented in this encounterCass Medical CenterAscmclucjg02-05-0608 History of Present illness Narrative* Charis Lezama LPN - 06/10/2024 8:40 AM EST Reason for Appointment: Patient ID: Srini Alcantara is a 54 y.o. female who [...] behalf of HELENA Gaston documented in this encounterCass Medical CenterElsbzcsmse30-35-6598 History of Present illness Narrative* Chantel Padron LPN - 05/12/2024 9:40 AM EDT Reason for Appointment: Patient ID: Srini Alcantara is a 54 y.o. female who [...] by: Chantel Padron LPN on behalf of Conrad Fuller DO documented in this encounterCass Medical CenterOyffxmkoja03-47-1583 History of Present illness Narrative* HELENA Gaston - 04/13/2024 10:00 AM EDT Reason for Appointment: Patient ID: Srini Alcantara is a 53 y.o. female who [...] nursing note reviewed. Exam conducted with a melter supervisor oxygen furnace present. Vitals: Estimated body mass index is [...] mammogram Bilateral screening mammogram 3. Osteoporosis, post-menopausal ([facility]) M81.0 DEXA bone density Annual Exam: Patient [...] Documented by HELENA Gaston on behalf of: Conrad Fuller DO documented in this encounterCass Medical CenterFwyrinmlte54-08-7505 Evaluation note* Encounter Date Diagnosis Assessment Notes Treatment Notes Treatment Clinical Notes Mar, Well adult exam (ICD-10 - Z00.00 ) We have discussed the necessity of following [...] vaccinations that apply. All questions answered and p atient is sent home pleased, without concerns. Discussed intermittent fasting. Mar,Hypothyroidism, unspecified (ICD-10 - E03.9)continue med. reviewed recent labs. chronic problem. Mar,ain in right leg (ICD-10 - M79.604)Discussed B comples and iron supplements w daily MVI Mar,ain in left leg (ICD-10 - M79.605)as above [facility] Other 08-31-2023 Evaluation note* Encounter Date Diagnosis Assessment Notes Treatment Notes Treatment Clinical Notes Feb, Dysuria (ICD-10 - R30.0) Reviewed UA, will treat patient for UTI today. Instructed patient to take antibiotic as prescribed,take with food, complete entire course of therapy even if feeling better. Allergies and recent antibiotic use was reviewed with patient. Pt to take pyridium as prescribed for urinary discomfort, advised patient that it will turn urine orange, explained to patient the importance of not taking longerthen 2 days. Advised patient urine culture was sent today and we will call with her results if antibiotic needs changed. Patient instructed to push fluids. Patient symptoms should improve in the ddrx38-79 hours, if symptoms persist follow up with PCP or UC. Immediate eval by ER if back or flank pain, blood in urine, fever, chills, N/V, or any other concerning symptoms. Patient verbalizes understanding and is agreeable to treatment plan. Feb,Encounter for general adult medical examination without abnormal findings (ICD-10 - Z00.00)Not a wellness exam; labs ordered under this code Feb,Hypothyroidism, unspecified (ICD-10 - E03.9)Patient to continue with above medication and we will continue to monitor through routine blood work [facility] Other 01-05-2023 Evaluation note* Encounter Date Diagnosis Assessment Notes Treatment Notes Treatment Clinical Notes Jul, Pharyngitis, unspecified etiolog y (ICD-10 - J02.9) treat with antibiotic at this time based on clinical presentation that is highly suspicious of strep throat. Begin antibiotic today. Change toothbrush in 3 days, if symptoms are improving, to avoid re-infection. Continue tylenol or ibuprofen as needed for fevers and generalized discomfort. May alsotry salt water gargles for throat pain. Push fluids and rest. Practice good hand and cough hygiene.Avoid close contact with others. Do not share drinks or utensils. Patient should follow up with PCPif symptoms persist despite treatment, or sooner if symptoms worsen. Seek immediate eval via ER if warning symptoms of intractable pain or fevers, dysphagia, throat swelling, respir distress. Patient verbalized understanding and agreement with treatment plan. Jul,ostviral fatigue syndrome (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) [facility] Other Evaluation noteNo InformationNort [facility] Other Evaluation note* Diagnosis Encounter for weight management documented in this encounter [facility] HealthcareEvaluation note* Diagnosis Onset Date Resolution Status Screening for colon cancer [facility] Work Phone: Evaluation note* Diagnosis Well woman exam with routine gynecological exam Routine gynecological examination Breast cancer screening by mammogram Osteoporosis, post-menopausal (CMS/HCC) Senile osteoporosis Encounter for weight management documented in this encounter [facility] HealthcareEvaluation note* Diagnosis Onset Date Resolution Status Admit Date LAD (lymphadenopathy) of right cervical region acuteJanuary 2024 10:24am [facility] Work Phone: Evaluation note* Diagnosis Hypothyroidism, unspecified type- Primary Neck mass Swelling, mass, or lump in head and neck documented in this encounter [facility] HealthcareEvaluation note* Diagnosis Well woman exam with routine gynecological exam Routine gynecological examination Encounter for screening mammogram for malignant neoplasm of breast documented in this encounter [facility] HealthcareEvaluation note* Diagnosis Onset Date Resolution Status Admit Date Hypothyroid acuteOctober 2024 8:23amWellness examinationacuteOctober 2024 8:23am [facility] Work Phone: History general Narrative - Reported* Type Description Date Medical History Hypothryoid Surgical HistoryC-Section p1Kgoqqwci HistoryD&C p5Uyzadvll HistoryLap Yne Surgical HistoryhysterectomyHospitalization HistorySee above [facility] Other Reason for referral (narrative)No reason for referral information availableKettering Health [facility]al Medical Center Work Phone: Summary Purpose Family History Relationship Condition Age at Onset Recorded Date/T grayson father Diabetes mellitus Unknown motherDiabetes mellitusUnknownRenal failureUnknownDeceasedUnknown Advance Directives Advance Directive Response Recorded Date/ Time Advance Directives No May 14, 2024 9:55am Advance Directive Response Recorded Date/ Time Advance Directives No May 14, 2024 8:55am Advance Directive Response Recorded Date/ Time Advance Directives No October 05, 8:52am Chief Complaint and Reason for Visit [...] Throat September 18, 2024 12:56pm Congestion/Exhaustion/Feels like [place] [facility] 2024 8:49am Reason for Visit Admit [...] Throat September 18, 2024 12:56pm Congestion/Exhaustion/Feels like [place] [facility] 2024 8:49am Sore Throat/Sinus Infection November [...] Maxillary sinusitis November 03, 2024 1:4 3pm Chief Complaint Admit Date Wellness May 17, 2025 8 :23am Reason for Visit Admit Date Hypothyroid May 17, 2025 8 :23am Wellness examination May 17, 2025 8:23am Additional Source Comments INFORMATION SOURCE (unrecogn ized section and content) DATE CREATED AUTHOR 02/21/2022 [facility] DATE CREATED AUTHOR AUTHOR'S ORGANIZ ATION 06/27/2022 [facility] DATE CREATED AUTHOR AUTHOR'S ORGANIZ ATION 05/03/2025 [facility] EPIC REASON FOR VISIT (unrecogniz ed section and content) ReasonCommentsencounter for weight managementAdipex #2ReasonCommentsWeight ManagementReasonCommentsencounter for weight managementReasonCommentsGynecologic ExamReasonCommentsSwollen GlandsNew patient : right enlarged lymph nodeReason [facility] HospitalWell Women Visit Care Teams (unrecognized sec tion and content) Team Status: Active Member Role Status Dates Priya Gongora MD Primary Care Provider Active Team Status: Inactive Member Role Status Dates Priya Gongora MD Primary Care Provide r, Attending Provider Active Start: August 19, 2024 End: August 19, 2024Team MemberRelationshipSpecialtyStart DateEnd Date Priya Gongora MD [address] [place] [phone] PCP - [facility] Medicine10/17/23Team MemberRelationshipSpecialtyStart DateEnd Date Priya Gongora MD [address] [place] [phone] PCP - [facility] Medicine10/17/23 Team Status: Active Member Role Status Dates Priya Gongora MD Primary Care Provide r, Attending Provider Active Start: April 20, 2024 Team Status: Inactive Member Role Status Dates Priya Gongora MD Primary Care Provide r, Attending Provider Active Start: May 14, 2024 End: May 14, 2024Team MemberRelationshipSpecialtyStart DateEnd Date Priya Gongora MD [address] [facility] [place] [address] [facility]10/17/23Team MemberRelationshipSpecialtyStart DateEnd Date Priya Gongora MD [address] [facility] [place] [address] [facility] - [facility] Medicine10/17/23Team MemberRelationshipSpecialtyStart DateEnd Date Priya Gongora MD [address] [facility] [place] [phone] PCP - [facility] Medicine10/17/23Team MemberRelationshipSpecialtyStart DateEnd Date Priya Gongora MD [address] [facility] [place] [address] PCP - [facility] Medicine10/17/23 Team Status: Inactive Member Role Status Dates Priya Gongora MD Primary Care Provider Active Start: September 12, 2024 End: September 12, 2024Misti Horn ProviderActiveStart: September 12, 2024 End: September 12, 2024 Team Status: Inactive Member Role Status Dates Priya Gongora MD Primary Care Provide r, Attending Provider Active Start: September 18, 2024 End: September 18, 2024 Team Status: Inactive Member Role Status Dates Priya Gongora MD Primary Care Provide r, Attending Provider Active Start: October 06, 2024 End: October 06, 2024 Team Status: Inactive Member Role Status Dates Priya Gongora MD Primary Care Provider Active Start: November 03, 2024 End: November 03, 2024Janice Borjas APRN [employer]-[facility] Hospitaltending ProviderActive Start: November 03, 2024 End: November 03, 2024Team MemberRelationshipSpecialtyStart DateEnd Date Priya Gongora MD [facility]10/17/23 Daniel Núñez DO [address] [place] [address] Otolaryngology01/08/25Team MemberRelationshipSpecialtyStart DateEnd Date Priya Gongora MD [facility] - [facility] Medicine10/17/23 Daniel Núñez, [address] [place] [address] Otolaryngology01/08/25Team MemberRelationshipSpecialtyStart DateEnd Date Priya Gongora MD [facility] - [facility]10/17/23 Daniel Núñez, [address] [place] [address] Otolaryngology01/08/25Team MemberRelationshipSpecialtyStart DateEnd Date Priya Gongora MD [facility] - [facility]10/17/23 Daniel Núñez DO [address] [place] [address] Otolaryngology6/20/25 Team Status: Active Member Role/Relationship Status Dates Priya Gongora MD Primary Care Provider Active Team Status: Active Member Role/Relationship Status Dates Priya Gongora MD Primary Care Provider Active Start: May 03, 2025 Conrad Fuller Juanita ProviderActiveStart: May 03, 2025 Team Status: Inactive Member Role/Relationship Status Dates Priya Gongora MD Primary Care Provider Active Start: May 17, 2025 End: May 17, 2025Gaurav Hall ProviderActiveStart: May 17, 2025 End: May 17, 2025 Goals (unrecognized section and content) Goals may [...] BE BASED ON THE PRIMARY CLINICAL RECORDS. [facility]. provides no warranty or guarantee of the accuracy or completeness of information in this document.
[2025-05-17 10:58] LABS: Anion Gap 13.5; Blood Urea Nitrogen 8.0 mg/dL (7.0-18.0); Calcium 9.2 mg/dL (8.5-10.1); Carbon Dioxide 28.0 mmol/L (21.0-32.0); Chloride 105 mmol/L (98-107); Cholesterol 206 mg/dL (<=200); Estimated GFR (African America >60 (>=60 mL/min/1.73m^2); Estimated GFR (Non-African Ame >60 (>=60 mL/min/1.73m^2); Glucose 87 mg/dL (74-106); HDL Cholesterol 64 mg/dL (40-60); Potassium 4.5 mmol/L (3.5-5.1); Sodium 142 mmol/L (136-145); Thyroid Stimulating Hormone 0.361 uIU/mL (0.358-3.740); Triglycerides 113 mg/dL (<=150); VLDL CHOLESTEROL 22.6 mg/dL
== END 2025-05-17 09:23 | disposition home or self-care (01) ==
LOC: LAB 09:23
PROVIDERS: PCP Family Medicine; Visit Provider Family Medicine
DX: Z00.00 Encounter for general adult medical examination without abnormal findings (principal); E03.9 Hypothyroidism, unspecified
CPT/HCPCS: 36415; 80048; 80061; 84439; 84443